=== PATIENT | female | born 1955 | race Caucasian/White ===

== ENCOUNTER 2016-12-16 22:13 | Inpatient (IN) | payer MEDICARE ==
--- NOTE | 2016-12-16 23:58 | ER Document Report ---
ED Neuro Symptoms/Deficit - General Chief Complaint: Altered Mental Status Stated Complaint: ALTERED MENTAL STATUS Time Seen by Provider: 12/16/16 23:40 Notes: Patient is a 61-year-old female who comes emergency department for chief complaint of altered mental status, daughter is with patient, she states that patient started having difficulty answering questions and started making bizarre statements at about 11 AM, she was seen at 1:30 PM by her primary care provider who recommended admission to the hospital for further evaluation but she declined at that time. Daughter states she has worsened and now she cannot make any statements or answer any questions appropriately. She is still following directions appropriately. She is not on a blood thinner, she has not had any injury that the daughter is aware about, past medical history of hypertension, seizure, COPD, no cardiovascular disease reported. She is also on pain medication including oxycodone and Cymbalta for chronic low back pain. Daughter states she does not think she took anything strange. TRAVEL OUTSIDE OF THE [place] IN LAST 30 DAYS: No - Related Data Allergies/Adverse Reactions: Sulfa (Sulfonamide Antibiotics) Allergy (Mild, Verified 10/01/14 09:41) Hives Past Medical History - General Information source: Patient - Social History Smoking Status: Never Smoker Frequency of alcohol use: None Drug Abuse: None Lives with: Family Family History: Reviewed & Not Pertinent, Hypertension - Past Medical History Cardiac Medical History: Reports: Hx Hypertension Pulmonary Medical History: Reports: Hx COPD Renal/ Medical History: Denies: Hx Peritoneal Dialysis GI Medical History: Reports: Hx Gastroesophageal Reflux Disease, Hx Endoscopy Musculoskeltal Medical History: Reports Hx Arthritis Psychiatric Medical History: Reports: Hx Depression Past Surgical History: Reports: Hx Abdominal Surgery, Hx Section, Hx Cholecystectomy, Hx Gynecologic Surgery - bladder tact - Immunizations Immunizations up to date: Yes Hx Diphtheria, Pertussis, Tetanus Vaccination: - unknown Hx Pneumococcal Vaccination: 11/21/10 Review of Systems - Review of Systems Constitutional: No symptoms reported EENT: No symptoms reported Cardiovascular: No symptoms reported Respiratory: No symptoms reported Gastrointestinal: No symptoms reported Genitourinary: No symptoms reported Female Genitourinary: No symptoms reported Musculoskeletal: No symptoms reported Skin: No symptoms reported Hematologic/Lymphatic: No symptoms reported Neurological/Psychological: See HPI Physical Exam - Vital signs Vitals: Temp Pulse Resp BP Pulse Ox 98.3 F 79 18 138/72 H 97 10/20/17 22:32 12/16/16 22:32 12/16/16 22:32 12/16/16 22:32 12/16/16 22:32 Interpretation: Normal - General General appearance: Appears well, Alert - HEENT Head: Normocephalic, Atraumatic Eyes: Normal Pupils: PERRL - Respiratory Respiratory status: No respiratory distress Chest status: Nontender Breath sounds: Normal Chest palpation: Normal - Cardiovascular Rhythm: Regular Heart sounds: Normal auscultation Murmur: No - Abdominal Inspection: Normal Distension: No distension Bowel sounds: Normal Tenderness: Nontender Organomegaly: No organomegaly - Back Back: Normal, Nontender - Extremities General upper extremity: Normal inspection, Nontender, Normal color, Normal ROM , Normal temperature General lower extremity: Normal inspection, Nontender, Normal color, Normal ROM , Normal temperature, Normal weight bearing. No: Brenda's sign - Neurological Ivet Coma Scale Eye Opening: Spontaneous [place] Coma Scale Verbal: Incomprehensible [place]vet Coma Scale Motor: Obeys Commands Ivet Coma Scale Total: 12 Speech: Expressive aphasia Cranial nerves: No: Facial palsy, Forehead sparing, Gaze palsy, Sensory deficit Cerebellar coordination: Normal Motor strength normal: LUE, RUE, LLE, RLE Additional motor exam normals: Equal door liner Sensory: Normal - Psychological Associated symptoms: Normal affect, Normal mood - Skin Skin Temperature: Warm Skin Moisture: Dry Skin Color: Normal Course - Re-evaluation Re-evalutation: Patient does cooperate with my instructions, however she cannot answer any question without stating something bizarre. Questionable Broca's aphasia. CAT scan of the head is negative for acute hemorrhagic stroke, shows no acute abnormalities, chest x-ray unremarkable, CBC unremarkable. Chemistry shows some hyponatremia which is similar to prior, creatinine kinase is actually somewhat elevated at 900s, patient was given IV fluids. Troponin unremarkable. EKG with no acute abnormalities. Urinalysis unremarkable. No fever, vital signs unremarkable, no evidence of meningitis with no nuchal rigidity on examination. Urine drug screen still pending, per daughter patient did not take anything out of the ordinary. Patient remains unchanged on reexamination. Patient was discussed with Dr. Daniel. Discussed with Dr. Blanco, on-call for patient's provider, patient will be admitted to the hospital, requests MRI be ordered now to be performed in the morning. - Vital Signs Vital signs: Temp Pulse Resp BP Pulse Ox 97.6 F 77 16 126/73 H 96 12/17/16 04:48 12/17/16 04:48 12/17/16 03:45 12/17/16 04:48 12/17/16 04:48 - Laboratory Result Diagrams: 12/16/16 23:59 12/16/16 23:59 Laboratory results interpreted by me: 12/16/16 12/16/16 12/16/16 23:59 23:59 23:59 MCH 34.4 H MCHC 36.8 H Sodium 126.3 L Potassium 3.4 L Chloride 84 L Carbon Dioxide 34 H Glucose 117 H Direct Bilirubin 0.5 H AST 47 H Creatine Kinase 926 H CK-MB (CK-2) 10.00 H Urine Blood Salicylates < 1.0 L Acetaminophen < 10 L 12/17/16 01:50 MCH MCHC Sodium Potassium Chloride Carbon Dioxide Glucose Direct Bilirubin AST Creatine Kinase CK-MB (CK-2) Urine Blood SMALL H Salicylates Acetaminophen Discharge - Discharge Clinical Impression: Aphasia Altered mental status Qualifiers: Altered mental status type: unspecified Qualified Code(s): R41.82 - Altered mental status, unspecified Condition: Stable Disposition: ADMITTED INPATIENT Admitting Provider: Jeromy Blanco for Dr. Pinzon Unit Admitted: Telemetry
[2016-12-17 00:11] LABS: ABSOLUTE BASOPHILS # (AUTO) 0.1 10^3/uL (0.0-0.2); ABSOLUTE EOSINOPHILS # (AUTO) 0.2 10^3/uL (0.0-0.6); ABSOLUTE LYMPHOCYTES (AUTO) 2.3 10^3/uL (0.5-4.7); ABSOLUTE MONOCYTES (AUTO) 0.8 10^3/uL (0.1-1.4); BASOPHILS % (AUTO) 0.7 % (0-2); EOSINOPHILS % (AUTO) 2.8 % (0-6); HEMATOCRIT 36.5 % (36.0-47.0); HEMOGLOBIN 13.5 g/dL (12.0-15.5); LYMPHOCYTES % (AUTO) 31.1 % (13-45); MEAN CORPUSCULAR HEMOGLOBIN 34.4 pg (27.0-33.4); MEAN CORPUSCULAR HGB CONC 36.8 g/dL (32.0-36.0); MEAN CORPUSCULAR VOLUME 93 fl (80-97); MONOCYTES % (AUTO) 10.5 % (3-13); RED BLOOD COUNT 3.91 10^6/uL (3.72-5.28); RED CELL DISTRIBUTION WIDTH 12.9 % (11.5-14.0); SEGMENTED NEUTROPHILS % (AUTO) 54.9 % (42-78); WHITE BLOOD COUNT 7.4 10^3/uL (4.0-10.5)
[2016-12-17 00:15] LABS: PROTHROMBIN TIME 12.9 SEC (11.4-15.4)
[2016-12-17 00:16] LABS: PARTIAL THROMBOPLASTIN TIME 28.7 SEC (23.5-35.8)
[2016-12-17 00:26] LABS: ALANINE AMINOTRANSFERASE 50 U/L (9-52); ALBUMIN 4.5 g/dL (3.5-5.0); ALKALINE PHOSPHATASE 63 U/L (38-126); ANION GAP 8 (5-19); ASPARTATE AMINO TRANSFERASE 47 U/L (14-36); BILIRUBIN,DIRECT 0.5 mg/dL (0.0-0.4); BILIRUBIN,TOTAL 0.7 mg/dL (0.2-1.3); BLOOD UREA NITROGEN 12 mg/dL (7-20); CALCIUM 9.5 mg/dL (8.4-10.2); CARBON DIOXIDE 34 mmol/L (22-30); CHLORIDE 84 mmol/L (98-107); CREATINE KINASE 926 U/L (30-135); CREATININE RESULT 0.66 mg/dL (0.52-1.25); GLUCOSE 117 mg/dL (75-110); POTASSIUM 3.4 mmol/L (3.6-5.0); SODIUM 126.3 mmol/L (137-145); TOTAL PROTEIN 6.9 g/dL (6.3-8.2)
[2016-12-17 00:29] LABS: ALCOHOL < 10 mg/dL (NONE DETECTED)
[2016-12-17] MEDS ORDERED: NORMAL SALINE 1000 ML 1,000 ML IV ONE (00:31)
[2016-12-17 00:38] LABS: TROPONIN I < 0.012 ng/mL
--- NOTE | 2016-12-17 01:35 | RADIOLOGY REPORT (SQ) ---
EXAM DESCRIPTION: CT HEAD WITHOUT COMPLETED DATE/TIME: 12/17/2016 1:08 am REASON FOR STUDY: altered mental status , difficulty ambulating. COMPARISON: MRI head 10/01/2014, CT head 08/30/2013. TECHNIQUE: Axial images acquired through the brain without intravenous contrast. Images reviewed wi th bone, brain and subdural windows. Images stored on PACS. All CT scanners at this facility use dose modulation, iterative reconstruction, and/or weight based d osing when appropriate to reduce radiation dose to as low as reasonably achievable (ALARA). [facility]: Dose Right [facility]: CareDose [facility]: Dose Right [facility]: Teradose 4D [facility]: [employer] Technologies RADIATION DOSE: Up-to-date CT equipment and radiation dose reduction techniques were employed. CTDIv ol: 64.6 mGy. DLP: 1163 mGy-cm. mGy. LIMITATIONS: None. FINDINGS: VENTRICLES: Normal size and contour. CEREBRUM: No mass effect. No hemorrhage. No midline shift. Normal mcguire/white matter differentiatio n. No evidence for acute territorial infarction. CEREBELLUM: No mass effect. No hemorrhage. No alteration of density. No evidence for acute infarct ion. EXTRAAXIAL SPACES: No fluid collections. ORBITS AND GLOBE: Symmetrical contour of the globes. CALVARIUM: No depressed skull fracture. PARANASAL SINUSES: No air-fluid level. SOFT TISSUES: No hematoma. IMPRESSION: No acute intracranial hemorrhage or acute territorial infarct. EVIDENCE OF ACUTE STROKE: NO. COMMENT: Quality ID # [id number]: Final reports with documentation of one or more dose reduction techniques (e.g., Automated exposure control, adjustment of the mA and/or kV according to patient size, use of iterative reconstruction technique) TECHNICAL DOCUMENTATION: JOB ID: [id number] [employer]- All Rights Reserved
--- NOTE | 2016-12-17 01:55 | RADIOLOGY REPORT (SQ) ---
EXAM DESCRIPTION: CHEST SINGLE VIEW COMPLETED DATE/TIME: 12/17/2016 1:19 am REASON FOR STUDY: altered mental status COMPARISON: Chest x-ray 10/01/2014. EXAM PARAMETERS: NUMBER OF VIEWS: One view. TECHNIQUE: Single frontal radiographic view of the chest acquired. RADIATION DOSE: NA LIMITATIONS: None. FINDINGS: LUNGS AND PLEURA: No consolidation, pneumothorax or pleural effusion. MEDIASTINUM AND HILAR STRUCTURES: No masses. Contour normal. HEART AND VASCULAR STRUCTURES: Heart normal in size. Normal vasculature. BONES: No acute findings. HARDWARE: None in the chest. IMPRESSION: No acute radiographic finding in the chest. TECHNICAL DOCUMENTATION: JOB ID: [id number]
[2016-12-17 02:12] LABS: APPEARANCE,URINE CLEAR; BILIRUBIN,URINE NEGATIVE (NEGATIVE); GLUCOSE, URINE NEGATIVE (NEGATIVE); KETONES,URINE NEGATIVE (NEGATIVE); LEUKOCYTE ESTERASE,URINE NEGATIVE (NEGATIVE); NITRITE,URINE NEGATIVE (NEGATIVE); PROTEIN,URINE NEGATIVE (NEGATIVE); URINE SPECIFIC GRAVITY 1.003; UROBILINOGEN,URINE NEGATIVE mg/dL (<2.0)
[2016-12-17 02:13] LABS: RBC,URINE RARE /HPF; WBC,URINE RARE /HPF
[2016-12-17 02:37] LABS: URINE BARBITURATES SCREEN NEGATIVE; URINE METHADONE SCREEN NEGATIVE; URINE OPIATES LOW NEGATIVE; URINE PHENCYCLIDINE SCREEN NEGATIVE
[2016-12-17] MEDS ORDERED: ACETAMINOPHEN 325 MG TABLET PO PRN (03:43)
[2016-12-17] MEDS ORDERED: IPRATROPIUM/ALBUTEROL 0.5-2.5 MG/3 ML AMPUL NEB PRN (03:43)
[2016-12-17 04:52] LABS: TROPONIN I < 0.012 ng/mL
[2016-12-17] MEDS: LANSOPRAZOLE 15 MG TAB.RAP.DR PO SCH ×2 (06:32→17:11)
[2016-12-17] MEDS: HEPARIN SOD (PORCINE) 5,000 UNIT/ML 1 ML SYRINGE SUBCUT SCH ×2 (06:32→14:11)
[2016-12-17] MEDS: NORMAL SALINE 1000 ML 1,000 ML IV PRN ×2 (06:32→17:12)
[2016-12-17] MEDS ORDERED: LORAZEPAM INJ 2 MG/1 ML VIAL ONE (09:20)
[2016-12-17] MEDS ORDERED: DOCUSATE SODIUM 100 MG/10 ML UDC PO SCH (10:00)
[2016-12-17] MEDS ORDERED: LORAZEPAM INJ 2 MG/1 ML VIAL IV ONE (10:00)
--- NOTE | 2016-12-17 10:26 | RADIOLOGY REPORT (SQ) ---
EXAM DESCRIPTION: MRI HEAD COMBO COMPLETED DATE/TIME: 12/17/2016 10:06 am REASON FOR STUDY: AMS, ? Broca's Aphasia COMPARISON: Brain CT scan dated 12/17/2016 TECHNIQUE: Multiplanar imaging includes noncontrasted T1, T2, FLAIR, and Diffusion with ADC map seq uences. Contrast enhanced T1 images. Images stored on PACS. CONTRAST TYPE AND DOSE: 19 mL MultiHance RENAL FUNCTION: GFR > 60. LIMITATIONS: Study is limited due to the patient's condition. Motion artifact is identified on a co uple of the sequences. FINDINGS: ANATOMY: No anomalies. Normal vascular flow voids. Pituitary fossa normal. CSF SPACES: Normal size and contour. No hemorrhage. CEREBRUM: A few high-signal intensity lesions scattered throughout the white matter on FLAIR imaging with distribution suggesting chronic microvascular ischemic change. Sulci and gyri normal in size and contour. No evidence of hemorrhage, mass or extraaxial fluid collection. No enhancing lesions. POSTERIOR FOSSA: No signal alteration. No hemorrhage. No edema, masses or mass effect. Internal audit ory canals, cerebello-pontine angles, mastoids normal. DIFFUSION: Negative for acute or subacute infarction. ORBITS: No masses. Globes normal. PARANASAL SINUSES: No fluid levels. Mucosa normal. OTHER: No other significant finding. IMPRESSION: NO ENHANCING LESIONS. MINIMAL MICROVASCULAR ISCHEMIC CHANGE. OTHERWISE NORMAL STUDY. EVIDENCE OF ACUTE STROKE: NO. TECHNICAL DOCUMENTATION: JOB ID: [id number]- All Rights Reserved
--- NOTE | 2016-12-17 10:32 | EKG REPORT ---
SEVERITY:- ABNORMAL ECG - SINUS RHYTHM FIRST DEGREE AV BLOCK : Confirmed by: Daria Dotson MD 17-Dec-2016 10:32:04
[2016-12-17] MEDS ORDERED: GABAPENTIN 300 MG CAPSULE PO PRN ×2 (10:41→12:04)
[2016-12-17] MEDS: DOCUSATE SODIUM 100 MG CAPSULE PO SCH ×2 (11:28→17:13)
[2016-12-17 11:40] LABS: ANION GAP 10 (5-19); BLOOD UREA NITROGEN 10 mg/dL (7-20); CALCIUM 9.3 mg/dL (8.4-10.2); CARBON DIOXIDE 27 mmol/L (22-30); CHLORIDE 93 mmol/L (98-107); CREATININE RESULT 0.54 mg/dL (0.52-1.25); GLUCOSE 144 mg/dL (75-110); POTASSIUM 3.8 mmol/L (3.6-5.0); SODIUM 129.5 mmol/L (137-145)
--- NOTE | 2016-12-17 11:42 | PDOC H&P ---
History of Present Illness Admission Date/PCP: 12/17/16 03:43 KAITLYNN POSEY MD Patient complains of: Altered mental status History of Present Illness: JAX PARIS is a 61 year old female This is a 61-year-old female patient of Dr. Posey with a significant history of the hypertension and history of the chronic pain syndromes and a chronic back pain currently see a [id number] pain management went to the Dr. Posey's office couple of days back with not making sense when patients talk with her ex- and Dr. Posey was offered to admit in the hospital but patients refused to do that call her daughter and yesterday the patient's kind of more confused and brought to the emergency department According to the daughter since last 1 or 2 weeks patient is getting confused and the patient sometimes not making any sense when the talk and sometimes patients pretty much completely in her normal state and patient's never been like this before Patient is currently living with her friend since last 1 week in the daughter is not sure whether patients take the medication or not pt significant polypharmacy and taking the several pain medications and the psych medications Patient's recently a change the Percocet to the morphine but patient is unable to tolerate to change back to the oxycodone patient usually see it can still cause pain management for that According to the doctor the meloxicam is only new drugs was put recently When I saw the patient on the floor patient is alert awake but patients not making any sense when the talking patients talk like child but other than that patient's denied any complaint Patient's initial CT head and MRI of the head is all negative Patient's sodium is only low and the patient have a same problem with the hyponatremia in the past not sure was the cause but definitely patients taking the hydrochlorothiazide for the blood pressures may contribute Also taking the Cymbalta and the psych medication also may be contribute Currently patient started on IV fluid Patients have a no fever and white count is completely normal and no sign of any meningitis Very extensive discussions with the daughter on the bedside get all detailed histories in the discussed with the all the test reports and also concerned the Dr. Weir and the psychiatrist I do not think the patient needed at this point lumbar puncture until we get the clear this with polypharmacy and the correct the sodium and if is still persistent behavior issues need a lumbar punctures Have a significant degenerative disease on the back and also the C-spine Past Medical History Cardiac Medical History: Reports: Hypertension Pulmonary Medical History: Reports: Chronic Obstructive Pulmonary Disease (COPD) GI Medical History: Reports: Gastroesophageal Reflux Disease Musculoskeltal Medical History: Reports: Arthritis, Gout Musculoskeletal History Note: Chronic back pain and chronic pain syndrome Psychiatric Medical History: Reports: Depression Past Surgical History Past Surgical History: Reports: Section, Cholecystectomy, Other - C- spine surgery Social History Lives with: Family Smoking Status: Never Smoker Frequency of Alcohol Use: None Hx Recreational Drug Use: No Drugs: None Hx Prescription Drug Abuse: No - Advance Directive Resuscitation Status: Full Code Family History Family History: Reviewed & Not Pertinent, Hypertension Parental Family History Reviewed: Yes Children Family History Reviewed: Yes Sibling(s) Family History Reviewed.: Yes Medication/Allergy Home Medications: Alprazolam [Xanax] 1 mg PO Q8 12/17/16 Duloxetine HCl [Cymbalta] 60 mg PO Q12 12/17/16 Fluticasone Propionate [Flonase Nasal [place] 50 Mcg/[place] 16 gm] 1 spray NAREB DAILY 12/17/16 Gabapentin [Neurontin] 600 mg PO 5XDP PRN 12/17/16 Ibuprofen [Motrin 800 mg Tablet] 800 mg PO TIDP PRN 12/17/16 Levocetirizine Dihydrochloride [Xyzal] 5 mg PO QPM 12/17/16 Lisinopril/Hydrochlorothiazide [Lisinopril-Hctz 20-25 mg Tab] 1 tab PO DAILY Meloxicam [Mobic] 7.5 mg PO DAILY 12/17/16 Omeprazole 40 mg PO ACBRKFST 12/17/16 Oxycodone HCl 15 mg PO QIDP PRN 12/17/16 Phentermine HCl 30 mg PO DAILY 12/17/16 Tizanidine HCl [Zanaflex 4 Mg Tablet] 4 mg PO Q8HP PRN 12/17/16 Allergies/Adverse Reactions: Sulfa (Sulfonamide Antibiotics) Allergy (Mild, Verified 10/01/14 09:41) Hives Review of Systems Constitutional: ABSENT: chills, fever(s), headache(s), weight gain, weight loss Eyes: ABSENT: visual disturbances Ears: ABSENT: hearing changes Cardiovascular: ABSENT: chest pain, dyspnea on exertion, edema, orthropnea, palpitations Respiratory: ABSENT: cough, hemoptysis Gastrointestinal: ABSENT: abdominal pain, constipation, diarrhea, hematemesis, hematochezia, nausea, vomiting Genitourinary: ABSENT: dysuria, hematuria Musculoskeletal: ABSENT: joint swelling Integumentary: ABSENT: rash, wounds Neurological: PRESENT: confusion. ABSENT: abnormal gait, abnormal speech, dizziness, focal weakness, syncope Psychiatric: ABSENT: anxiety, depression, homidical ideation, suicidal ideation Endocrine: ABSENT: cold intolerance, heat intolerance, menstrual abnormalities, polydipsia, polyuria Hematologic/Lymphatic: ABSENT: easy bleeding, easy bruising, lymphadenopathy Physical Exam Vital Signs: Temp Pulse Resp BP Pulse Ox 97.8 F 80 18 142/67 H 100 12/17/16 07:18 12/17/16 07:18 12/17/16 07:18 12/17/16 07:18 12/17/16 07:18 Intake & Output 12/16/16 12/17/16 12/18/16 06:59 06:59 06:59 Intake Total 50 Balance 50 General appearance: PRESENT: no acute distress, well-developed, well-nourished Head exam: PRESENT: atraumatic, normocephalic Eye exam: PRESENT: conjunctiva pink, EOMI, PERRLA. ABSENT: scleral icterus Ear exam: PRESENT: normal external ear exam Mouth exam: PRESENT: moist, tongue midline Neck exam: PRESENT: full ROM. ABSENT: carotid bruit, JVD, lymphadenopathy, thyromegaly Respiratory exam: PRESENT: clear to auscultation bacilio Cardiovascular exam: PRESENT: RRR. ABSENT: diastolic murmur, rubs, systolic murmur Pulses: PRESENT: normal dorsalis pedis pul, +2 pedal pulses bilateral Vascular exam: PRESENT: normal capillary refill GI/Abdominal exam: PRESENT: normal bowel sounds, soft. ABSENT: distended, guarding, mass, organolmegaly, rebound, tenderness Rectal exam: PRESENT: deferred Extremities exam: ABSENT: full ROM, left AKA, right AKA, left BKA, right BKA, calf tenderness, joint swelling, pedal edema, tenderness, other Musculoskeletal exam: PRESENT: ambulatory Neurological exam: PRESENT: alert, altered, awake, reflexes normal, CN II-XII grossly intact, normal gait. ABSENT: motor sensory deficit Psychiatric exam: PRESENT: appropriate affect, normal mood. ABSENT: homicidal ideation, suicidal ideation Skin exam: PRESENT: dry, intact, warm. ABSENT: cyanosis, rash Results Laboratory Results: 12/17/16 12/17/16 04:15 04:15 Serum Osmolality 261 L Ammonia < 8.7 L 12/17/16 12/17/16 04:15 04:15 Creatine Kinase 912 H CK-MB (CK-2) 11.30 H Troponin I < 0.012 Impressions: Chest X-Ray 12/16/16 00:00 IMPRESSION: No acute radiographic finding in the chest. Head CT 12/17/16 00:00 IMPRESSION: No acute intracranial hemorrhage or acute territorial infarct. EVIDENCE OF ACUTE STROKE: NO. Head MRI 12/17/16 02:35 IMPRESSION: NO ENHANCING LESIONS. MINIMAL MICROVASCULAR ISCHEMIC CHANGE. OTHERWISE NORMAL STUDY. EVIDENCE OF ACUTE STROKE: NO. Assessment & Plan - Diagnosis (1) Altered mental status Qualifiers: Altered mental status type: unspecified Qualified Code(s): R41.82 - Altered mental status, unspecified Is this a current diagnosis for this admission?: Yes Plan: Possible most likely a electrolytes imbalance from the hyponatremia with possible polypharmacy Order the urine sodium and osmolality MRI of the head is negative We will consult pain management for further adjustment of the medications and consult the psych The patient is not improved next 24 hours with the correction of the sodium patients probably need a lumbar puncture for further evaluations Is currently on no fever and no sign of any meningitis and the patient's does not have any other neurological symptoms Discussed with the daughter (2) Hyponatremia Is this a current diagnosis for this admission?: Yes Plan: Possible from the hydrochlorothiazide and other medications will currently hold the medications (3) Seizure Is this a current diagnosis for this admission?: Yes Plan: According to the daughter patient is not taking the Keppra for a long time because patients thinks that too much medications and daughter is not aware about any seizures activity We will get the EEG ordered on Monday and may be watch for any seizures activity (4) Tobacco abuse Is this a current diagnosis for this admission?: Yes (5) COPD (chronic obstructive pulmonary disease) Qualifiers: COPD type: chronic bronchitis Is this a current diagnosis for this admission?: Yes Plan: Denies the need of nebulizer treatment (6) Depression Qualifiers: Depression Type: unspecified Qualified Code(s): F32.9 - Major depressive disorder, single episode, unspecified Is this a current diagnosis for this admission?: Yes Plan: Continues on Cymbalta 60 mg p.o. daily and consult the psych for further evaluations and to hold the Xanax (7) GERD (gastroesophageal reflux disease) Qualifiers: Esophagitis presence: without esophagitis Qualified Code(s): K21.9 - Gastro -esophageal reflux disease without esophagitis Is this a current diagnosis for this admission?: Yes Plan: Continues to PPI (8) Chronic pain syndrome Is this a current diagnosis for this admission?: Yes Plan: We consult the pain management - Time Time Spent: 50 to 70 Minutes Medications reviewed and adjusted accordingly: Yes Anticipated discharge: Home Within: Other - Inpatient Certification Medical Necessity: Need Close Monitoring Due to Risk of Patient Decompensation, Need For IV Fluids Post Hospital Care: D/C [facility] Documentation - Plan Summary Plan Summary: Very extensive discussions with the daughter about the patient's current condition and all the test results and the plan. See other MD orders
[2016-12-17 11:52] LABS: CREATINE KINASE MB 8.18 ng/mL (<4.55)
[2016-12-17 11:56] LABS: TROPONIN I < 0.012 ng/mL
--- NOTE | 2016-12-17 16:47 | PSYCHOLOGICAL NOTE ---
Psych Note - Psych Note Psych Note: Patient is a 61-year-old female who comes emergency department for chief complaint of altered mental status, daughter is with patient, she states that patient started having difficulty answering questions and started making bizarre statements at about 11 AM, she was seen at 1:30 PM by her primary care provider who recommended admission to the hospital for further evaluation but she declined at that time. Daughter states she has worsened and now she cannot make any statements or answer any questions appropriately. She is still following directions appropriately. She is not on a blood thinner, she has not had any injury that the daughter is aware about, past medical history of hypertension, seizure, COPD, no cardiovascular disease reported. She is also on pain medication including oxycodone and Cymbalta for chronic low back pain. Daughter states she does not think she took anything strange. Patient is currently in acute psychosis. Patient is observed laying in the bed flailing her arms about talking when no one is in her room and laughing. Patient will be evaluated at a later date.
[2016-12-17 17:51] LABS: CREATINE KINASE MB 6.75 ng/mL (<4.55)
[2016-12-17 17:52] LABS: TROPONIN I < 0.012 ng/mL
--- NOTE | 2016-12-17 18:32 | CONSULTATION REPORT E ---
Consultation Report NAME: JAX PARIS : 1955 AGE: 61Y DATE: 12/17/2016 328 A TO: ABDI LUNA M.D. FROM: Requesting Physician PRIMARY CARE PHYSICIAN: Dr. Praveen Pinzon CHIEF COMPLAINT: Altered mental status. HISTORY: This is a 61-year-old female with a history of chronic pain on multiple medications, who was noted by the daughter to have slow and progressive confusion for the past 1 to 2 weeks. She eventually presented to the emergency room because of persistent and worsening confusion. Upon admission, laboratory studies were performed as well as radiographic studies. CT and MRI of the brain were normal. Hyponatremia was noted with a very moderately elevated CK in the 700's. She is noted to be on a number of pain medications including oxycodone 15 mg 4 to 5 times per day and gabapentin 600 mg 5 times per day. It is unclear if there have been any immediate changes. Urine drug screening in the data administrator of 12/17 was negative for opioids, methadone, illicit drugs, as well as benzodiazepines, suggesting no recent ingestion of those agents. It should be noted that there were no overt stigmata of withdrawal such as agitation, diaphoresis, nausea, or vomiting associated with her altered mental status. Other medication for which concern was raised regarding her altered mental status included some antidepressants. PAST MEDICAL HISTORY: 1. Cardiac negative with the exception of hypertension. 2. Pulmonary history is remarkable for COPD. 3. GI: She is obese with gastric reflux. 4. Musculoskeletal is positive for arthritis and gout. She is also positive for chronic neck and back pain and is status post a cervical fusion. 5. Psychiatric history is remarkable for depression which is being managed medically. PAST SURGICAL HISTORY: 1. section. 2. Cholecystectomy. 3. Cervical spine fusion. SOCIAL HISTORY: She apparently lives alone until the last week where she was staying with a friend. She has not been known to be a user of alcohol or cigarettes or recreational drugs, and she is cared for on an outpatient basis by [facility] and apparently has a history of compliance. FAMILY HISTORY: Remarkable for hypertension. ALLERGIES: She does have allergies to SULFA drugs. MEDICATIONS: Other pain medications and medications used at home include: 1. Alprazolam 1 mg q.8 hours. 2. Duloxetine 60 mg q.12. 3. *------* nasal spray. 4. Gabapentin 600 mg 5 times per day. 5. Ibuprofen 800 mg p.r.n. t.i.d. 6. Levocetirizine (Xyzal) 5 mg q.a.m. 7. Lisinopril 20/25 one tablet daily. 8. Meloxicam 7.5 mg daily. 9. Omeprazole 40 mg daily. 10. Oxycodone 15 mg q.i.d. p.r.n. 11. Phentermine 30 mg daily. 12. Tizanidine 4 mg q.8 hours. REVIEW OF SYSTEMS: CONSTITUTIONAL: Negative fevers, chills, neck ache, or headache. EYES: No complaints of visual disturbances. EARS: Unremarkable. CARDIAC: Negative for palpitations or chest pain. RESPIRATORY: Some shortness of breath with exertion but no cough or acute changes. GASTROINTESTINAL: Obesity, no constipation. GENITOURINARY: Negative. MUSCULOSKELETAL: Negative with the exception of that described in the H and P. SKIN: Negative bruising or rash. NEUROLOGIC: No prior history of stroke or seizures. PSYCHIATRIC: Depression; no suicidal ideations were reported on intake. ENDOCRINE: Negative. HEMATOLOGICAL: Negative. PHYSICAL EXAMINATION: GENERAL: She is awake and alert, however, disoriented. Her speech is clear and fluent. VITAL SIGNS: Stable. HEAD: Does not reveal any trauma. EYES: Unremarkable. EOM's are full. Pupils are round and reactive. EARS: Normal hearing to finger rub. MOUTH: Moist mucosa. Tongue protrudes in the midline. Uvula is midline. NECK: Supple without meningeal signs or lymphadenopathy. RESPIRATORY: Has good excursion to deep inspiration. CARDIAC: Regular rhythm. Peripheral pulses were not palpated in the feet. ABDOMEN: Notably obese and nontender. EXTREMITIES: Symmetrical, well developed, no pain with straight leg raise on the right or the left. NEUROLOGIC: Reveals reflexes absent in the knees and the ankles. Toes are downgoing on the Babinski. SKIN: No rashes or bruising. LABORATORY DATA: As previously mentioned in the chart. Current sodium is 129. IMPRESSION: 1. Altered mental status. I believe this most likely is related to the mild hyponatremia in conjunction with the medications which the patient is on. Most likely this would represent the effects of the gabapentin and the alprazolam. She is negative in urine drug screening for opioids and benzodiazepines, so the time of last ingestion is unclear but supports that these are not part of the altered mental status scenario. 2. Other conditions include COPD, depression, gastroesophageal reflux disease which are currently being medically managed. RECOMMENDED TREATMENT: At this time is to continue to hold medications at their present levels, specifically the gabapentin and the antidepressants, and monitor for changes in mental status. Utilization of benzodiazepines, Ativan on an as needed basis for agitation can be continued, and may consider restarting opioids depending upon mental status and appropriate complaints from the patient to warrant such further intervention. No other recommendations are made. DICTATING PHYSICIAN: ABDI LUNA M.D. [id number] PHY#: [id number] ID: [id number] JOB#: [id number] ACCT: [id number] cc:ABDI LUNA M.D. >
[2016-12-18] MEDS: HEPARIN SOD (PORCINE) 5,000 UNIT/ML 1 ML SYRINGE SUBCUT SCH ×4 (00:30→21:19)
[2016-12-18] MEDS: LANSOPRAZOLE 15 MG TAB.RAP.DR PO SCH ×2 (06:29→17:39)
[2016-12-18 07:05] LABS: ABSOLUTE LYMPHOCYTES (AUTO) 1.5 10^3/uL (0.5-4.7); ABSOLUTE MONOCYTES (AUTO) 0.5 10^3/uL (0.1-1.4); ABSOLUTE NEUT (AUTO) 7.2 10^3/uL (1.7-8.2); BASOPHILS % (AUTO) 0.4 % (0-2); EOSINOPHILS % (AUTO) 0.2 % (0-6); HEMATOCRIT 40.9 % (36.0-47.0); HEMOGLOBIN 14.6 g/dL (12.0-15.5); HGB HCT DIFFERENCE 2.9; LYMPHOCYTES % (AUTO) 15.9 % (13-45); MEAN CORPUSCULAR HEMOGLOBIN 33.6 pg (27.0-33.4); MEAN CORPUSCULAR HGB CONC 35.8 g/dL (32.0-36.0); MEAN CORPUSCULAR VOLUME 94 fl (80-97); MONOCYTES % (AUTO) 5.3 % (3-13); RED BLOOD COUNT 4.36 10^6/uL (3.72-5.28); RED CELL DISTRIBUTION WIDTH 12.7 % (11.5-14.0); SEGMENTED NEUTROPHILS % (AUTO) 78.2 % (42-78); WHITE BLOOD COUNT 9.1 10^3/uL (4.0-10.5)
[2016-12-18 07:28] LABS: ANION GAP 14 (5-19); BLOOD UREA NITROGEN 8 mg/dL (7-20); CALCIUM 9.3 mg/dL (8.4-10.2); CARBON DIOXIDE 24 mmol/L (22-30); CHLORIDE 95 mmol/L (98-107); CREATININE RESULT 0.52 mg/dL (0.52-1.25); GLUCOSE 110 mg/dL (75-110); POTASSIUM 3.7 mmol/L (3.6-5.0); SODIUM 132.6 mmol/L (137-145)
[2016-12-18] MEDS ORDERED: LANSOPRAZOLE 30 MG TAB.RAP.DR PO SCH (08:00)
[2016-12-18] MEDS: FLUTICASONE NASAL SPRAY 50 MCG/SPRY 120 SPRAY/16 GM NAREB SCH (09:17)
[2016-12-18] MEDS: DOCUSATE SODIUM 100 MG CAPSULE PO SCH ×2 (09:18→17:40)
[2016-12-18] MEDS ORDERED: DULOXETINE HCL 30 MG CAPSULE.DR PO SCH (10:00)
--- NOTE | 2016-12-18 13:51 | PDOC PROGRESS REPORT ---
Subjective Progress Note for:: 12/18/16 Subjective:: Patient is currently doing same still very disoriented but no fever and no other symptoms. Patient seen by the pain management and suggested continues to monitor. Patient seen by the psych waiting to get better. Patient's sodium level is 132. Physical Exam Vital Signs: Temp Pulse Resp BP Pulse Ox 98.4 F 90 20 158/79 H 99 12/18/16 11:19 12/18/16 11:19 12/18/16 11:19 12/18/16 11:19 12/18/16 11:19 Intake & Output 12/17/16 12/18/16 12/19/16 06:59 06:59 06:59 Intake Total 50 3305 222 Output Total 300 Balance 50 3005 222 Weight 89.2 kg General appearance: PRESENT: no acute distress, well-developed, well-nourished Head exam: PRESENT: atraumatic, normocephalic Eye exam: PRESENT: conjunctiva pink, EOMI, PERRLA. ABSENT: scleral icterus Ear exam: PRESENT: normal external ear exam Mouth exam: PRESENT: moist, tongue midline Neck exam: PRESENT: full ROM. ABSENT: carotid bruit, JVD, lymphadenopathy, thyromegaly Respiratory exam: PRESENT: clear to auscultation bacilio Cardiovascular exam: PRESENT: RRR. ABSENT: diastolic murmur, rubs, systolic murmur Pulses: PRESENT: normal dorsalis pedis pul, +2 pedal pulses bilateral Vascular exam: PRESENT: normal capillary refill GI/Abdominal exam: PRESENT: normal bowel sounds, soft. ABSENT: distended, guarding, mass, organolmegaly, rebound, tenderness Rectal exam: PRESENT: deferred Extremities exam: ABSENT: pedal edema Neurological exam: PRESENT: alert, altered, awake. ABSENT: motor sensory deficit Psychiatric exam: PRESENT: appropriate affect, normal mood. ABSENT: homicidal ideation, suicidal ideation Skin exam: PRESENT: dry, intact, warm. ABSENT: cyanosis, rash Results Laboratory Results: 12/18/16 06:16 12/18/16 06:16 12/18/16 12/18/16 06:16 06:16 WBC 9.1 RBC 4.36 Hgb 14.6 Hct 40.9 MCV 94 MCH 33.6 H MCHC 35.8 RDW 12.7 Plt Count 280 Seg Neutrophils % 78.2 H Lymphocytes % 15.9 Monocytes % 5.3 Eosinophils % 0.2 Basophils % 0.4 Absolute Neutrophils 7.2 Absolute Lymphocytes 1.5 Absolute Monocytes 0.5 Absolute Eosinophils 0.0 Absolute Basophils 0.0 Sodium 132.6 L Potassium 3.7 Chloride 95 L Carbon Dioxide 24 Anion Gap 14 BUN 8 Creatinine 0.52 Est GFR ( Amer) > 60 Est GFR (Non-Af Amer) > 60 Glucose 110 Calcium 9.3 12/17/16 12/17/16 12/17/16 04:15 04:15 11:10 Creatine Kinase 912 H 720 H CK-MB (CK-2) 11.30 H Troponin I < 0.012 12/17/16 12/17/16 12/17/16 11:10 17:05 17:05 Creatine Kinase 553 H CK-MB (CK-2) 8.18 H 6.75 H Troponin I < 0.012 < 0.012 Impressions: Chest X-Ray 12/16/16 00:00 IMPRESSION: No acute radiographic finding in the chest. Head CT 12/17/16 00:00 IMPRESSION: No acute intracranial hemorrhage or acute territorial infarct. EVIDENCE OF ACUTE STROKE: NO. Head MRI 12/17/16 02:35 IMPRESSION: NO ENHANCING LESIONS. MINIMAL MICROVASCULAR ISCHEMIC CHANGE. OTHERWISE NORMAL STUDY. EVIDENCE OF ACUTE STROKE: NO. Assessment & Plan - Diagnosis (1) Altered mental status Qualifiers: Altered mental status type: unspecified Qualified Code(s): R41.82 - Altered mental status, unspecified Is this a current diagnosis for this admission?: Yes Plan: Not very clear etiology with acute psychotic behaviors will repeat the CT of the head and will do the EEG in the morning. No sign of any seizures activity. No fever no other meningeal sign. Discussed with the daughter's sodium level is at already get better will repeat in the morning again and if is still patient's behavior is not getting better need to further evaluate for the lumbar puncture and some psych evaluations (2) Hyponatremia Is this a current diagnosis for this admission?: Yes Plan: Possible from the hydrochlorothiazide and other medications will currently hold the medications (3) Seizure Is this a current diagnosis for this admission?: Yes Plan: According to the daughter patient is not taking the Keppra for a long time because patients thinks that too much medications and daughter is not aware about any seizures activity We will get the EEG ordered on Monday and may be watch for any seizures activity (4) Tobacco abuse Is this a current diagnosis for this admission?: Yes (5) COPD (chronic obstructive pulmonary disease) Qualifiers: COPD type: chronic bronchitis Is this a current diagnosis for this admission?: Yes Plan: Denies the need of nebulizer treatment (6) Depression Qualifiers: Depression Type: unspecified Qualified Code(s): F32.9 - Major depressive disorder, single episode, unspecified Is this a current diagnosis for this admission?: Yes Plan: The psych suggest to start the Depakote and BuSpar and cut down the Cymbalta will wait the sodium to be corrected and then restart the some of the medication suggested by the psych (7) GERD (gastroesophageal reflux disease) Qualifiers: Esophagitis presence: without esophagitis Qualified Code(s): K21.9 - Gastro -esophageal reflux disease without esophagitis Is this a current diagnosis for this admission?: Yes Plan: Continues to PPI (8) Chronic pain syndrome Is this a current diagnosis for this admission?: Yes Plan: This with this pain management discussions suggested continues to monitor - Time Time Spent with patient: 15-24 minutes Medications reviewed and adjusted accordingly: Yes Anticipated discharge: Other Within: Other - Inpatient Certification Medical Necessity: Need Close Monitoring Due to Risk of Patient Decompensation, Need For IV Fluids Post Hospital Care: D/C Substance Abuse Prevention Coordinator Documentation - Plan Summary Plan Summary: Discussed with the daughter extensively regarding the patient's current conditions with this behavior problems. Will repeat the CT scan of the head continues to monitor the electrolytes
--- NOTE | 2016-12-18 14:01 | RADIOLOGY REPORT (SQ) ---
EXAM DESCRIPTION: CT HEAD WITHOUT COMPLETED DATE/TIME: 12/18/2016 1:48 pm REASON FOR STUDY: altered mental status COMPARISON: MRI brain 12/17/2016, 10/01/2014 CT brain 12/17/2016, 08/30/2013, 11/18/2010 TECHNIQUE: Axial images acquired through the brain without intravenous contrast. Images reviewed wi th bone, brain and subdural windows. Images stored on PACS. All CT scanners at this facility use dose modulation, iterative reconstruction, and/or weight based d osing when appropriate to reduce radiation dose to as low as reasonably achievable (ALARA). [facility]: Dose Right [facility]: CareDose [facility]: Dose Right [facility]: Teradose 4D [facility]: Uppidy RADIATION DOSE: Up-to-date CT equipment and radiation dose reduction techniques were employed. CTDIv ol: 62.0 mGy. DLP: 1421 mGy-cm. mGy. LIMITATIONS: Motion artifact FINDINGS: VENTRICLES: Normal size and contour. CEREBRUM: No masses. No hemorrhage. No midline shift. No evidence for acute infarction. Spotty low attenuation in the bifrontal and biparietal white matter, similar compared to previous studies, acco unting for motion on today's exam CEREBELLUM: No masses. No hemorrhage. No alteration of density. No evidence for acute infarction. EXTRAAXIAL SPACES: No fluid collections. No masses. ORBITS AND GLOBE: No intra- or extraconal masses. Normal contour of globe without masses. CALVARIUM: No fracture. PARANASAL SINUSES: No fluid or mucosal thickening. SOFT TISSUES: No mass or hematoma. OTHER: No other significant finding. IMPRESSION: Motion artifact. No acute findings EVIDENCE OF ACUTE STROKE: NO. COMMENT: Quality ID # [id number]: Final reports with documentation of one or more dose reduction techniques (e.g., Automated exposure control, adjustment of the mA and/or kV according to patient size, use of iterative reconstruction technique) TECHNICAL DOCUMENTATION: JOB ID: [id number] [employer]- All Rights Reserved
--- NOTE | 2016-12-18 16:34 | PSYCHOLOGICAL NOTE ---
Psych Note - Psych Note Psych Note: Patient is a 61-year-old female who has been admitted to [facility] hospitalist services due to altered mental status and low sodium. Patient was referred for psychiatric consultation due to what was thought to be active psychosis. Patient reportedly has no known psychiatric history. Her patient's EMR patient does have prior documented episodes of altered mental status and delirium related to low sodium most recently 3 years ago. Daughter is bedside and serves as historian as patient is sleeping and unable to report. Daughter states patient additionally had another episode about 10 years ago at which time she was found to have cocaine in her system. Daughter states to her knowledge there is no drug abuse at this time and that was a one-time episode. Daughter states to her knowledge this episode began sometime last week however she discovered her mother to be somewhat altered around Monday the during a phone conversation. Daughter states the mother was staying with a friend acting as a very caregiver. Daughter states she talked with her mother on the phone that afternoon and her mother seemed somewhat disorganized and struggled to find the words she was searching for her to describe something, example unable to name a certain TV show, could not provide accurate description , etc. Daughter states she then spoke with the patient at which time the patient seemed panicked and stated she needed a "head scanned" because she was having problems with her memory and thought she had dementia. Daughter reports she had her father picked the patient up this past Monday and bring her with him to an appointment at Dr. Pinzon's office at which time the MD reportedly offered to direct admit and observe due to mental status. Daughter states the patient reportedly declined and returned home only to present with worsening mental status the following day. Daughter states she spoke with her aunt (patient's sister) who prompted her to bring her to the ER. Daughter states the patient engages in pain management and is prescribed a myriad of prescription pills which she manages on her own. Daughter reports she has had concern for random episodes of memory lapses and has discussed with her mother going to a doctor. Daughter states a couple of weeks ago her pain management prescriber changed her medications to morphine due to a bursitis flare up, which patient's daughter states "made mama wacky" and she was quickly switched back to her original regimen. Daughter states to her knowledge the patient takes her medications as prescribed but there have been episodes where she was concerned her neighbor was stealing her Percocets. Daughter reports today the patient has been hyper sabianism, making nonsensical comments regarding a daughter visiting when she is the only daughter, talking about having 4 children 2 of which are black, etc. note patient is prescribed numerous medications which should test positive on toxicology reports, such as Xanax, Percocet etc. however toxicology overall was negative for all substances. This suggests patient is noncompliant with her medication regimen, which could be contributing to the etiology of her overall mental status. Patient at this time is sleeping soundly. By all accounts, nursing reports and daughter reports patient is not oriented to circumstance, location, or time/ date. Nursing reports patient appeared to be hallucinating and talking when others were not in the room. Unspecified neurocognitive disorder Patient will be reevaluated tomorrow. Prescribing psychiatric provider for [facility] psychological [facility] has made the following medication recommendations: Decrease Cymbalta to 30 mg once daily Start Neurontin 600 mg twice daily Start clonidine 0.1 mg nightly Start Depakote 250 mg twice daily Start BuSpar 5 mg twice daily Discontinue phentermine Discontinue Xanax Discontinue Zanaflex Note, Dr. Blanco was paged and provided medication recommendations as well as made aware they were in the note. stated he would review and enter. Thank you kindly for this consultation.
[2016-12-18] MEDS: NORMAL SALINE 1000 ML 1,000 ML IV PRN (21:16)
[2016-12-18] MEDS: LISINOPRIL 10 MG TABLET PO SCH (21:18)
[2016-12-19] MEDS: LANSOPRAZOLE 15 MG TAB.RAP.DR PO SCH ×2 (05:00→16:05)
[2016-12-19] MEDS: HEPARIN SOD (PORCINE) 5,000 UNIT/ML 1 ML SYRINGE SUBCUT SCH ×3 (05:01→21:21)
[2016-12-19 06:55] LABS: ANION GAP 11 (5-19); BLOOD UREA NITROGEN 10 mg/dL (7-20); CALCIUM 9.1 mg/dL (8.4-10.2); CARBON DIOXIDE 25 mmol/L (22-30); CHLORIDE 96 mmol/L (98-107); CREATININE RESULT 0.55 mg/dL (0.52-1.25); GLUCOSE 111 mg/dL (75-110); POTASSIUM 3.4 mmol/L (3.6-5.0); SODIUM 131.8 mmol/L (137-145)
[2016-12-19] MEDS: DOCUSATE SODIUM 100 MG CAPSULE PO SCH ×2 (09:17→17:17)
[2016-12-19] MEDS: NORMAL SALINE 1000 ML 1,000 ML IV PRN ×2 (09:21→19:52)
[2016-12-19] MEDS: FLUTICASONE NASAL SPRAY 50 MCG/SPRY 120 SPRAY/16 GM NAREB SCH (09:23)
[2016-12-19] MEDS: DULOXETINE HCL 30 MG CAPSULE.DR PO SCH (09:23)
[2016-12-19] MEDS: LISINOPRIL 10 MG TABLET PO SCH ×2 (09:23→21:21)
[2016-12-19] MEDS: ONDANSETRON HCL INJ/PF 4 MG/2 ML SDV IV PRN (11:21)
[2016-12-19] MEDS ORDERED: PHENYTOIN SODIUM INJ/PF 250 MG/5 ML SDV IV ONE (11:30)
[2016-12-19] MEDS: LEVETIRACETAM 500 MG TABLET PO SCH ×2 (13:19→21:21)
[2016-12-19] MEDS ORDERED: LEVETIRACETAM 500 MG TABLET PO SCH (14:00)
--- NOTE | 2016-12-19 18:07 | PDOC PROGRESS REPORT ---
Subjective Progress Note for:: 12/19/16 Subjective:: She was seen by the bedside, she is very confused she was admitted over the weekend, she was extensively evaluated by Dr. Blanco over the weekend. She was saying things that make no sense, she had episode of seizure today, she has a history of seizure disorder. She was given a loading dose of Dilantin , she may need to do a lumbar puncture in the morning Physical Exam Vital Signs: Temp Pulse Resp BP Pulse Ox 98.4 F 92 20 130/74 H 100 12/19/16 16:03 12/19/16 16:03 12/19/16 16:03 12/19/16 16:03 12/19/16 16:03 Intake & Output 12/18/16 12/19/16 12/20/16 06:59 06:59 06:59 Intake Total 3305 3802 118 Output Total 300 700 Balance 3005 3102 118 Weight 89.2 kg 92.9 kg General appearance: PRESENT: no acute distress, well-developed, well-nourished Head exam: PRESENT: atraumatic, normocephalic Eye exam: PRESENT: conjunctiva pink, EOMI, PERRLA Ear exam: PRESENT: normal external ear exam Mouth exam: PRESENT: moist, tongue midline Neck exam: PRESENT: full ROM Respiratory exam: PRESENT: clear to auscultation bacilio Cardiovascular exam: PRESENT: RRR, +S1, +S2 Pulses: PRESENT: normal dorsalis pedis pul, +2 pedal pulses bilateral Vascular exam: PRESENT: normal capillary refill GI/Abdominal exam: PRESENT: normal bowel sounds, soft Rectal exam: PRESENT: deferred Neurological exam: PRESENT: alert, awake, oriented to person, oriented to place , oriented to time, oriented to situation, CN II-XII grossly intact Psychiatric exam: PRESENT: appropriate affect, normal mood Skin exam: PRESENT: dry, intact, warm Results Laboratory Results: 12/18/16 06:16 12/19/16 05:35 12/19/16 05:35 Sodium 131.8 L Potassium 3.4 L Chloride 96 L Carbon Dioxide 25 Anion Gap 11 BUN 10 Creatinine 0.55 Est GFR ( Amer) > 60 Est GFR (Non-Af Amer) > 60 Glucose 111 H Calcium 9.1 12/17/16 12/17/16 12/17/16 04:15 04:15 11:10 Creatine Kinase 912 H 720 H CK-MB (CK-2) 11.30 H Troponin I < 0.012 12/17/16 12/17/16 12/17/16 11:10 17:05 17:05 Creatine Kinase 553 H CK-MB (CK-2) 8.18 H 6.75 H Troponin I < 0.012 < 0.012 Impressions: Chest X-Ray 12/16/16 00:00 IMPRESSION: No acute radiographic finding in the chest. Head MRI 12/17/16 02:35 IMPRESSION: NO ENHANCING LESIONS. MINIMAL MICROVASCULAR ISCHEMIC CHANGE. OTHERWISE NORMAL STUDY. EVIDENCE OF ACUTE STROKE: NO. Head CT 12/18/16 00:00 IMPRESSION: Motion artifact. No acute findings EVIDENCE OF ACUTE STROKE: NO. Assessment & Plan - Diagnosis (1) Encephalopathy Is this a current diagnosis for this admission?: Yes Plan: The etiology of the encephalopathy is not clear, lumbar puncture will be ordered
--- NOTE | 2016-12-19 19:10 | EKG REPORT ---
SEVERITY:- BORDERLINE ECG - SINUS RHYTHM BORDERLINE PROLONGED QT INTERVAL : Confirmed by: Manju Mccollum 19-Dec-2016 19:09:37
[2016-12-19 19:29] LABS: PARTIAL THROMBOPLASTIN TIME 24.9 SEC (23.5-35.8); PROTHROMBIN TIME 12.5 SEC (11.4-15.4)
[2016-12-20] MEDS: NORMAL SALINE 1000 ML 1,000 ML IV PRN (05:13)
[2016-12-20] MEDS: LANSOPRAZOLE 15 MG TAB.RAP.DR PO SCH ×2 (05:15→16:35)
[2016-12-20] MEDS: HEPARIN SOD (PORCINE) 5,000 UNIT/ML 1 ML SYRINGE SUBCUT SCH ×3 (05:15→22:37)
[2016-12-20] MEDS: LEVETIRACETAM 500 MG TABLET PO SCH ×3 (05:15→22:37)
[2016-12-20 07:27] LABS: ANION GAP 8 (5-19); BLOOD UREA NITROGEN 9 mg/dL (7-20); CALCIUM 8.5 mg/dL (8.4-10.2); CARBON DIOXIDE 27 mmol/L (22-30); CHLORIDE 100 mmol/L (98-107); CREATININE RESULT 0.59 mg/dL (0.52-1.25); GLUCOSE 97 mg/dL (75-110); SODIUM 135.4 mmol/L (137-145)
[2016-12-20] MEDS: POTASSIUM CHLORIDE 10 MEQ TABLET.SA PO SCH ×2 (08:19→12:21)
--- NOTE | 2016-12-20 09:43 | RADIOLOGY REPORT (SQ) ---
EXAM DESCRIPTION: LUMBAR PUNCTURE; FLUORO/NEEDLE PLACEMENT/SPINE COMPLETED DATE/TIME: 12/20/2016 9:18 am REASON FOR STUDY: encephalopathy ; ENCEPHALOPATHY COMPARISON: CT brain 12/18/2016 MRI brain 12/17/2016 MRI lumbar spine 04/25/2013 FLUOROSCOPY TIME: 17 seconds 1 digital radiographic image saved to PACS. TECHNIQUE: Fluoroscopic guided lumbar puncture. LIMITATIONS: None. PROCEDURE: After written consent and assessment were obtained, the patient was brought into the fluo roscopy room and placed prone on the table. The patient's lower back was prepped in a sterile fashio n and an entry site was selected under live fluoroscopic guidance. The entry site was anesthetized wi th 7 mL of 1% lidocaine. A 22 gauge spinal needle was advanced through the skin and into the thecal s ac at the right paracentral L4-5 level. After approximately 6 ml was drained, the needle was removed and a sterile bandage was placed of the site. Specimens were sent to the lab for testing. A fluoros copic spot image was saved to PACS confirming level access. FINDINGS: Clear CSF Opening pressure 16 cm of water IMPRESSION: Lumbar puncture under fluoroscopy. No immediate complication. COMMENT: Patient medication list reviewed: Yes- Quality ID# [id number]:Eligible professional attests to doc umenting in the medical record they obtained, updated, or reviewed the patient's current medications. . Quality ID 145: Final reports for procedures using fluoroscopy that document radiation exposure osbaldo [email or web address], or exposure time and number of fluorographic images (if radiation exposure indices are not avail able) TECHNICAL DOCUMENTATION: JOB ID: [id number] [employer]- All Rights Reserved
[2016-12-20 09:45] LABS: APPEARANCE ALL TUBES CLEAR; RBC SIDE 1 0; RBC SIDE 2 0
[2016-12-20 09:46] LABS: RBC DILUENT USED NONE USED; RBC DILUTION FACTOR 1; TOTAL RBC SQUARES COUNTED 225
[2016-12-20 09:47] LABS: WHITE BLOOD CELL,CSF 0 /uL (0-5)
[2016-12-20 10:12] LABS: CSF CULTURED REQUIRED CSF CULTURE ORDERED (CSFY); H. INFLUENZAE TYPE B AG NEGATIVE (NEGATIVE); S. PNEUMONIAE AG NEGATIVE (NEGATIVE); STREP. GROUP B AG NEGATIVE (NEGATIVE)
[2016-12-20] MEDS: DOCUSATE SODIUM 100 MG CAPSULE PO SCH ×2 (11:48→16:35)
[2016-12-20] MEDS: FLUTICASONE NASAL SPRAY 50 MCG/SPRY 120 SPRAY/16 GM NAREB SCH (11:50)
[2016-12-20] MEDS: LISINOPRIL 10 MG TABLET PO SCH ×2 (11:50→22:37)
[2016-12-20] MEDS: DULOXETINE HCL 30 MG CAPSULE.DR PO SCH (11:50)
--- NOTE | 2016-12-20 17:02 | EEG PRO FEE REPORT ---
EEG INTERPRETATION PATIENT NAME: JAX PARIS ROOM#: [id number] ORDER#: [id number] DATE OF STUDY: 12/19/2016 : 1955 REFERRING MD: JACKIE HANSON M.D. DIAGNOSIS: Seizure REPORT The background activity varies from up to alpha down to 5 Hz theta. There is excessive motion artifact during the tracing the whole way through as the patient was more or less constantly moving on video. No definite epileptiform or other paroxysmal discharges are seen. A lot of low voltage beta is seen that extends posteriorly implying metabolic affect or toxicity. Clinical correlation recommended otherwise. IMPRESSION The record appears slightly slow indicative of toxic metabolic cause; clinical correlation recommended. INTERPRETING PHYSICIAN: TALIA GONZALEZ M.D. /: MTEFFT TT: 1620 ID: [id number] /: [id number] TD: 1529 JOB: [id number] cc:Stefanie SEO M.D. SWETANG PATEL, M.D. > MTDD
--- NOTE | 2016-12-20 21:20 | PDOC PROGRESS REPORT ---
Subjective Progress Note for:: 12/20/16 Subjective:: Patient was seen by the bedside, lumbar puncture was done today, there was no evidence of infection the white cell count was 0 the CSF, there is slight increase in CSF protein Physical Exam Vital Signs: Temp Pulse Resp BP Pulse Ox 98.5 F 84 19 138/86 H 97 12/20/16 15:47 12/20/16 15:47 12/20/16 15:47 12/20/16 15:47 12/20/16 15:47 Intake & Output 12/19/16 12/20/16 12/21/16 06:59 06:59 06:59 Intake Total 3802 2539 1674 Output Total 700 Balance 3102 2539 1674 Weight 92.9 kg 93.6 kg General appearance: PRESENT: no acute distress Eye exam: PRESENT: PERRLA Respiratory exam: PRESENT: clear to auscultation bacilio Cardiovascular exam: PRESENT: +S1, +S2 GI/Abdominal exam: PRESENT: soft Neurological exam: PRESENT: alert, altered Results Laboratory Results: 12/18/16 06:16 12/20/16 06:23 12/20/16 12/20/16 12/20/16 06:23 06:23 09:03 Sodium 135.4 L Potassium 3.0 L* Chloride 100 Carbon Dioxide 27 Anion Gap 8 BUN 9 Creatinine 0.59 Est GFR ( Amer) > 60 Est GFR (Non-Af Amer) > 60 Glucose 97 Calcium 8.5 Vitamin B12 421.0 Fluid Tube Number 3 CSF Volume 6.0 CSF Appearance CLEAR CSF Color COLORLESS CSF WBC 0 CSF RBC 0 CSF Comment CSF Glucose CSF Total Protein 12/20/16 12/20/16 12/20/16 09:03 09:03 09:03 Sodium Potassium Chloride Carbon Dioxide Anion Gap BUN Creatinine Est GFR ( Amer) Est GFR (Non-Af Amer) Glucose Calcium Vitamin B12 Fluid Tube Number CSF Volume CSF Appearance CSF Color CSF WBC CSF RBC CSF Comment CSF CULTURE ORDERED CSF Glucose 56 CSF Total Protein 69 H 12/17/16 12/17/16 12/17/16 04:15 04:15 11:10 Creatine Kinase 912 H 720 H CK-MB (CK-2) 11.30 H Troponin I < 0.012 12/17/16 12/17/16 12/17/16 11:10 17:05 17:05 Creatine Kinase 553 H CK-MB (CK-2) 8.18 H 6.75 H Troponin I < 0.012 < 0.012 Impressions: Chest X-Ray 12/16/16 00:00 IMPRESSION: No acute radiographic finding in the chest. Head MRI 12/17/16 02:35 IMPRESSION: NO ENHANCING LESIONS. MINIMAL MICROVASCULAR ISCHEMIC CHANGE. OTHERWISE NORMAL STUDY. EVIDENCE OF ACUTE STROKE: NO. Head CT 12/18/16 00:00 IMPRESSION: Motion artifact. No acute findings EVIDENCE OF ACUTE STROKE: NO. Guidance Fluoroscopy 12/20/16 00:00 IMPRESSION: Lumbar puncture under fluoroscopy. No immediate complication. Lumbar Puncture 12/20/16 00:00 IMPRESSION: Lumbar puncture under fluoroscopy. No immediate complication. Assessment & Plan - Diagnosis (1) Encephalopathy Is this a current diagnosis for this admission?: Yes Plan: The etiology of the encephalopathy is not clear, there is question of withdrawal syndrome, the urine drug screen was negative for opioid, though patient is on opioid therapy. 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
[2016-12-20] MEDS: ONDANSETRON HCL INJ/PF 4 MG/2 ML SDV IV PRN (22:56)
[2016-12-21] MEDS: LANSOPRAZOLE 15 MG TAB.RAP.DR PO SCH (05:37)
[2016-12-21] MEDS: LEVETIRACETAM 500 MG TABLET PO SCH (05:38)
[2016-12-21] MEDS: HEPARIN SOD (PORCINE) 5,000 UNIT/ML 1 ML SYRINGE SUBCUT SCH ×3 (05:39→22:28)
[2016-12-21] MEDS ORDERED: DILTIAZEM HCL INJ 25 MG/5 ML VIAL ONE (09:06)
[2016-12-21 09:18] LABS: ARTERIAL BLOOD BASE EXCESS -9.9 mmol/L
[2016-12-21] MEDS ORDERED: DIGOXIN INJ 0.5 MG/2 ML AMPULE ONE (09:34)
[2016-12-21] MEDS ORDERED: AMIODARONE HCL INJ 150 MG/3 ML VIAL IV ONE ×4 (09:34→09:56)
[2016-12-21] MEDS ORDERED: PROPOFOL 100 ML IV ONE (09:45)
[2016-12-21] MEDS ORDERED: PHARMACY COMMUNICATION ORDER MC NR (10:00)
[2016-12-21] MEDS ORDERED: METOPROLOL TARTRATE PF/INJ 5 MG/5 ML SDV IV ONE (10:02)
[2016-12-21] MEDS ORDERED: AMIODARONE HCL 150 MG in DEXTROSE 5%-WATER 100 ML IV ONE (10:04)
[2016-12-21] MEDS ORDERED: METOPROLOL TARTRATE PF/INJ 5 MG/5 ML SDV IV PRN (10:27)
[2016-12-21] MEDS ORDERED: FAMOTIDINE INJ/PF 20 MG/2 ML SDV IV ONE (10:30)
[2016-12-21] MEDS ORDERED: ACETAMINOPHEN 325 MG TABLET NG PRN (10:30)
[2016-12-21] MEDS ORDERED: OXYCODONE HCL IR 5 MG TABLET PO PRN (10:31)
--- NOTE | 2016-12-21 10:33 | RADIOLOGY REPORT (SQ) ---
EXAM DESCRIPTION: CHEST SINGLE VIEW COMPLETED DATE/TIME: 12/21/2016 10:23 am REASON FOR STUDY: ET TUBE PLACEMENT COMPARISON: CT chest 09/04/2013 Chest films 09/05/2013, 10/01/2014, 12/17/2016 EXAM PARAMETERS: NUMBER OF VIEWS: One view. TECHNIQUE: Single frontal radiographic view of the chest acquired. RADIATION DOSE: NA LIMITATIONS: None. FINDINGS: Endotracheal tube tip 4 cm above the catracho. Nasogastric tube tip and side port in the stomach. LUNGS AND PLEURA: Pulmonary vascular prominence with mild alveolar and interstitial edema. No pneumo thorax. No pleural effusions. MEDIASTINUM AND HILAR STRUCTURES: No masses. Contour normal. HEART AND VASCULAR STRUCTURES: Cardiac silhouette size normal BONES: No acute findings. HARDWARE: None in the chest. OTHER: No other significant finding. IMPRESSION: Endotracheal tube and nasogastric tube in good positioning. Alveolar and interstitial edema with pulmonary vascular congestion TECHNICAL DOCUMENTATION: JOB ID: [id number]
[2016-12-21 10:40] LABS: HEMATOCRIT 39.7 % (36.0-47.0); HEMOGLOBIN 13.7 g/dL (12.0-15.5); HGB HCT DIFFERENCE 1.4; MEAN CORPUSCULAR HEMOGLOBIN 32.7 pg (27.0-33.4); MEAN CORPUSCULAR HGB CONC 34.5 g/dL (32.0-36.0); MEAN CORPUSCULAR VOLUME 95 fl (80-97); RED BLOOD COUNT 4.19 10^6/uL (3.72-5.28); RED CELL DISTRIBUTION WIDTH 13.3 % (11.5-14.0)
[2016-12-21 10:52] LABS: ALANINE AMINOTRANSFERASE 76 U/L (9-52); ALBUMIN 4.2 g/dL (3.5-5.0); ALKALINE PHOSPHATASE 76 U/L (38-126); ANION GAP 14 (5-19); ASPARTATE AMINO TRANSFERASE 44 U/L (14-36); BILIRUBIN,DIRECT 0.5 mg/dL (0.0-0.4); BILIRUBIN,TOTAL 0.6 mg/dL (0.2-1.3); BLOOD UREA NITROGEN 10 mg/dL (7-20); CALCIUM 8.8 mg/dL (8.4-10.2); CARBON DIOXIDE 21 mmol/L (22-30); CHLORIDE 98 mmol/L (98-107); CREATINE KINASE 307 U/L (30-135); CREATININE RESULT 0.66 mg/dL (0.52-1.25); GLUCOSE 244 mg/dL (75-110); POTASSIUM 3.4 mmol/L (3.6-5.0); SODIUM 133.4 mmol/L (137-145); TOTAL PROTEIN 6.5 g/dL (6.3-8.2)
[2016-12-21] MEDS ORDERED: GABAPENTIN 300 MG CAPSULE NG PRN (11:00)
[2016-12-21 11:04] LABS: BAND NEUTROPHILS % (MANUAL) 1 % (3-5); BASOPHILS % (MANUAL) 0 % (0-2); CREATINE KINASE MB 5.42 ng/mL (<4.55); EOSINOPHILS % (MANUAL) 0 % (0-6); LYMPHOCYTES % (MANUAL) 9 % (13-45); TOTAL CELLS COUNTED 100
[2016-12-21 11:06] LABS: RBC MORPHOLOGY COMMENT NORMO-CYTIC/CHROMIC
[2016-12-21 11:12] LABS: TROPONIN I 0.148 ng/mL
[2016-12-21 11:13] LABS: MAGNESIUM 1.2 mg/dL (1.6-2.3)
[2016-12-21] MEDS: FLUTICASONE NASAL SPRAY 50 MCG/SPRY 120 SPRAY/16 GM NAREB SCH (11:15)
[2016-12-21] MEDS: DULOXETINE HCL 30 MG CAPSULE.DR PO SCH (11:15)
[2016-12-21] MEDS: DOCUSATE SODIUM 100 MG CAPSULE PO SCH ×2 (11:15→17:21)
[2016-12-21 11:35] LABS: HSV SOURCE CSF
[2016-12-21] MEDS ORDERED: MIDAZOLAM HCL 100 ML IV ONE (11:38)
[2016-12-21] MEDS: MIDAZOLAM HCL 100 ML IV PRN ×2 (11:57→19:22)
[2016-12-21] MEDS: POTASSI CL 20 MEQ/50 ML RIDER 20 MEQ/50 ML RTUPB IV SCH ×3 (11:57→16:06)
[2016-12-21 12:17] LABS: ARTERIAL BLOOD BASE EXCESS -3.6 mmol/L; ARTERIAL BLOOD O2 SATURATION 97.4 % (94-98)
--- NOTE | 2016-12-21 12:35 | XCELERA REPORT ---
[address] [address] Transthoracic Echocardiogram Report Name: JAX PARIS Age: 61 yrs Gender: Female : 1955 Patient Status: Inpatient Patient Location: ICU^605^A Study Date: 12/21/2016 10:27 AM Height: 64 in Weight: 206 lb BSA: 2.0 m2 Procedure: A complete two-dimensional transthoracic echocardiogram was performed (2D, M-mode, spectral and color flow Doppler). The study was technically difficult with many images being suboptimal in quality. Reason For Study: AFIB WITH RVR Ordering Physician: MANJU GUO Performed By: Roland Kong Interpretation Summary Left ventricular systolic function is severely reduced. Doppler measurements suggest pseudonormalized left ventricular relaxation, which is associated with grade II/IV or mild to moderate diastolic dysfunction There is borderline concentric left ventricular hypertrophy. The left ventricle is grossly normal size. There is severe global hypokinesis of the left ventricle. The right ventricular systolic function is normal. The right ventricle is mildly dilated. The left atrium is mildly dilated. The right atrium is normal in size There is a mild to moderate amount of mitral regurgitation There is no mitral valve stenosis. No aortic regurgitation is present. There is no aortic valve stenosis There is a mild amount of tricuspid regurgitation There is moderate pulmonary hypertension by echo Right ventricular systolic pressure is estimated to be elevated at 40- 50mmHg. The aortic root is not well visualized but is probably normal size. The inferior vena cava appeared normal and decreased < 50% with respiration (RAP 10-15 mmHg) There is no pericardial effusion. MMode/2D Measurements & Calculations RVDd: 2.0 cm LVIDd: 4.6 cm FS: 10.0 % Ao root diam: IVSd: 0.91 cm LVIDs: 4.2 cm EDV(Teich): 2.5 cm LVPWd: 1.0 cm 98.2 ml Ao root area: ESV(Teich): 76.7 ml 4.8 cm2 EF(Teich): 21.9 % LA dimension: 3.9 cm LVLd ap4: 7.8 cm SV(MOD-sp4): EDV(MOD-sp4): 40.0 ml 123.0 ml LVLs ap4: 7.2 cm ESV(MOD-sp4): 83.0 ml EF(MOD-sp4): 32.5 % Doppler Measurements & Calculations MV E max diego: MV P1/2t max diego: Ao V2 max: LV V1 max P.5 cm/sec 94.0 cm/sec 132.6 cm/sec 2.0 mmHg MV P1/2t: 46.6 msec Ao max PG: LV V1 max: MVA(P1/2t): 4.7 cm2 7.0 mmHg 70.1 cm/sec MV dec slope: 590.3 cm/sec2 PA V2 max: TR max diego: RAP systole: 78.0 cm/sec 312.5 cm/sec 10.0 mmHg PA max PG: TR max P.2 mmHg 2.4 mmHg RVSP(TR): 49.2 mmHg Left Ventricle The left ventricle is grossly normal size. There is borderline concentric left ventricular hypertrophy. Left ventricular systolic function is severely reduced. Doppler measurements suggest pseudonormalized left ventricular relaxation, which is associated with grade II/IV or mild to moderate diastolic dysfunction. There is severe global hypokinesis of the left ventricle. Right Ventricle The right ventricle is mildly dilated. There is normal right ventricular wall thickness. The right ventricular systolic function is normal. Atria The right atrium is normal in size. The left atrium is mildly dilated. Interarterial septum not well visualized and not well dopplered. Cannot comment on ASD/PFO presence. Mitral Valve The mitral valve is grossly normal. There is no mitral valve stenosis. There is a mild to moderate amount of mitral regurgitation. Aortic Valve The aortic valve is grossly normal. There is no aortic valve stenosis. No aortic regurgitation is present. Tricuspid Valve The tricuspid valve is not well visualized, but is grossly normal. There is no tricuspid stenosis. There is a mild amount of tricuspid regurgitation. There is moderate pulmonary hypertension by echo. Right ventricular systolic pressure is estimated to be elevated at 40-50mmHg. Pulmonic Valve The pulmonic valve is not well visualized. Great Vessels The aortic root is not well visualized but is probably normal size. The inferior vena cava appeared normal and decreased < 50% with respiration (RAP 10-15 mmHg). Effusions There is no pericardial effusion. : MANJU GUO > Manju Guo
[2016-12-21] MEDS ORDERED: VASOPRESSIN INJ 20 UNIT/1 ML VIAL ONE (13:07)
[2016-12-21] MEDS: PROPOFOL 100 ML IV PRN ×2 (13:22→21:57)
[2016-12-21] MEDS ORDERED: DEXTROSE 5%-WATER 250 ML with VASOPRESSIN 100 UNIT IV PRN ×2 (13:23)
[2016-12-21] MEDS ORDERED: MAGNESIUM SULFATE 4 GM/100 ML RTUPB IV ONE (14:00)
--- NOTE | 2016-12-21 14:07 | PDOC CONSULTATION ---
Consultation Consult Date: 12/21/16 Attending physician:: KAITLYNN POSEY Consult reason:: Acute respiratory failure: Atrial fibrillation with RVR History of Present Illness Admission Date/PCP: 12/17/16 03:43 KAITLYNN POSEY MD History of Present Illness: JAX PARIS is a 61 year old female This is a 61-year-old female patient of Dr. Posey admitted to ICU after acute respiratory failure a [employer]ER was called patient found to be dyspneic and was in atrial fibrillation with rapid ventricular response in the 140 area CPAP was applied and the patient was brought to the ICU she was continuous continually restless and fighting CPAP and saturations were beginning to dip into the mid 80s was at that time that it was elected to intubate the patient patient was intubated per anesthesia propofol was started a bolus of digoxin 0.5 IV was given as well as a amiodarone bolus and amiodarone drip this slightly decreased her rapid ventricular response as she was then given 5 mg of Lopressor IV which brought her ventricular response under control. She had initially been admitted to the hospital for alterations in mental status Past Medical History Cardiac Medical History: Reports: Hypertension Pulmonary Medical History: Reports: Chronic Obstructive Pulmonary Disease (COPD) GI Medical History: Reports: Gastroesophageal Reflux Disease Musculoskeltal Medical History: Reports: Arthritis, Gout Psychiatric Medical History: Reports: Depression Past Surgical History Past Surgical History: Reports: Section, Cholecystectomy, Other - C- spine surgery Social History Information Source: [facility] Records Lives with: Family Smoking Status: Unknown if Ever Smoked Frequency of Alcohol Use: None Hx Recreational Drug Use: No Drugs: None Hx Prescription Drug Abuse: No - Advance Directive Resuscitation Status: Full Code Family History Family History: Hypertension Parental Family History Reviewed: No Children Family History Reviewed: No Sibling(s) Family History Reviewed.: No Medication/Allergy Home Medications: Alprazolam [Xanax] 1 mg PO Q8 12/17/16 Duloxetine HCl [Cymbalta] 60 mg PO Q12 12/17/16 Fluticasone Propionate [Flonase Nasal [place] 50 Mcg/[place] 16 gm] 1 spray NAREB DAILY 12/17/16 Gabapentin [Neurontin] 600 mg PO 5XDP PRN 12/17/16 Ibuprofen [Motrin 800 mg Tablet] 800 mg PO TIDP PRN 12/17/16 Levocetirizine Dihydrochloride [Xyzal] 5 mg PO QPM 12/17/16 Lisinopril/Hydrochlorothiazide [Lisinopril-Hctz 20-25 mg Tab] 1 tab PO DAILY Meloxicam [Mobic] 7.5 mg PO DAILY 12/17/16 Omeprazole 40 mg PO ACBRKFST 12/17/16 Oxycodone HCl 15 mg PO QIDP PRN 12/17/16 Phentermine HCl 30 mg PO DAILY 12/17/16 Tizanidine HCl [Zanaflex 4 Mg Tablet] 4 mg PO Q8HP PRN 12/17/16 Allergies/Adverse Reactions: Sulfa (Sulfonamide Antibiotics) Allergy (Mild, Verified 10/01/14 09:41) Hives Review of Systems ROS unobtainable: Due to endotracheal tube, Due to mental status Physical Exam Vital Signs: Temp Pulse Resp BP Pulse Ox 98.1 F 105 H 18 138/81 H 99 12/21/16 07:16 12/21/16 07:16 12/21/16 07:16 12/21/16 07:16 12/21/16 07:16 Intake & Output 12/20/16 12/21/16 12/22/16 06:59 06:59 06:59 Intake Total 2539 2634 Output Total 1000 Balance 2539 1634 Weight 93.6 kg 93.6 kg General appearance: PRESENT: no acute distress, disheveled, obese, well- developed Head exam: PRESENT: atraumatic, normocephalic Eye exam: PRESENT: conjunctiva pale, EOMI Mouth exam: PRESENT: dry mucosa, neck supple, tongue midline, other - ET tube placed Neck exam: ABSENT: carotid bruit, JVD, lymphadenopathy, thyromegaly Respiratory exam: PRESENT: decreased breath sounds, prolonged expiratory phas, rales, rhonchi, symmetrical, tachypnea. ABSENT: retraction, stridor, unlabored Cardiovascular exam: PRESENT: irregular rhythm Pulses: PRESENT: normal radial pulses GI/Abdominal exam: PRESENT: normal bowel sounds, soft. ABSENT: distended, guarding, mass, organolmegaly, rebound, tenderness Musculoskeletal exam: PRESENT: normal inspection Neurological exam: PRESENT: alert, awake Results Laboratory Results: 12/18/16 06:16 12/20/16 06:23 12/20/16 12/20/16 12/21/16 06:23 09:03 09:07 Carbonic Acid 2.23 H HCO3/H2CO3 Ratio 9:1 ABG pH 7.08 L* ABG pCO2 74.0 H* ABG pO2 86.2 ABG HCO3 21.5 ABG O2 Saturation 92.0 L ABG Base Excess -9.9 FiO2 10 LITERS Vitamin B12 421.0 CSF Comment CSF CULTURE ORDERED 12/19/16 08:00 Stool - Stool - Final 12/19/16 08:00 Stool - Stool Stool Culture - Final 12/17/16 12/17/16 12/17/16 04:15 04:15 11:10 Creatine Kinase 912 H 720 H CK-MB (CK-2) 11.30 H Troponin I < 0.012 12/17/16 12/17/16 12/17/16 11:10 17:05 17:05 Creatine Kinase 553 H CK-MB (CK-2) 8.18 H 6.75 H Troponin I < 0.012 < 0.012 Impressions: Chest X-Ray 12/16/16 00:00 IMPRESSION: No acute radiographic finding in the chest. Head MRI 12/17/16 02:35 IMPRESSION: NO ENHANCING LESIONS. MINIMAL MICROVASCULAR ISCHEMIC CHANGE. OTHERWISE NORMAL STUDY. EVIDENCE OF ACUTE STROKE: NO. Head CT 12/18/16 00:00 IMPRESSION: Motion artifact. No acute findings EVIDENCE OF ACUTE STROKE: NO. Guidance Fluoroscopy 12/20/16 00:00 IMPRESSION: Lumbar puncture under fluoroscopy. No immediate complication. Lumbar Puncture 12/20/16 00:00 IMPRESSION: Lumbar puncture under fluoroscopy. No immediate complication. Assessment & Plan - Diagnosis (1) Altered mental status Qualifiers: Altered mental status type: unspecified Qualified Code(s): R41.82 - Altered mental status, unspecified Is this a current diagnosis for this admission?: Yes Plan: Initial cause for admission LP and other workups were nondiagnostic his of this may be related in whole or in part to her chronic pain medication (2) Chronic pain syndrome Is this a current diagnosis for this admission?: Yes (3) Seizure disorder, secondary Is this a current diagnosis for this admission?: Yes Plan: Maximo (4) COPD (chronic obstructive pulmonary disease) Qualifiers: COPD type: chronic bronchitis Is this a current diagnosis for this admission?: Yes Plan: Laba, long acting muscarinic agent, will withhold inhaled corticosteroid (5) Atrial fibrillation with RVR Is this a current diagnosis for this admission?: Yes Plan: Intubated postintubation ABG acceptable bolus of digoxin, bolus plus drip of amiodarone, IV Lopressor currently normal sinus rhythm (6) Acute respiratory failure Qualifiers: Respiratory failure complication: hypoxia Qualified Code(s): J96.01 - Acute respiratory failure with hypoxia (7) Acute respiratory failure Is this a current diagnosis for this admission?: Yes - Time Critical Time spent with patient: 35 or more minutes
--- NOTE | 2016-12-21 14:39 | PSYCHOLOGICAL NOTE ---
Psych Note - Psych Note Psych Note: Patient is a 61-year-old female who has been [facility] due to altered mental status and low sodium. Patient was referred for psychiatric consultation due to what was thought to be active psychosis. Patient reportedly has no known psychiatric history. Her patient's EMR patient does have prior documented episodes of altered mental status and delirium related to low sodium most recently 3 years ago. Patient is currently intubated; evaluation will occur at a later time.
[2016-12-21] MEDS ORDERED: SUCCINYLCHOLINE CHLORIDE INJ 200 MG/10 ML VIAL ONE (15:12)
[2016-12-21] MEDS ORDERED: FUROSEMIDE INJ/PF 40 MG/4 ML SDV IV ONE (15:15)
[2016-12-21 15:56] LABS: CREATINE KINASE MB 4.33 ng/mL (<4.55); TROPONIN I 0.247 ng/mL
[2016-12-21] MEDS ORDERED: LEVETIRACETAM 500 MG/NACL-ISO 500 MG/100 ML RTUPB IV ONE (16:00)
[2016-12-21] MEDS ORDERED: LEVETIRACETAM INJ/PF 500 MG/5 ML SDV IV ONE (16:00)
--- NOTE | 2016-12-21 16:02 | PDOC PROGRESS REPORT ---
Subjective Progress Note for:: 12/21/16 Subjective:: Patient developed acute respiratory distress with acute febrile acidosis associated with acute pulmonary edema requiring mechanical ventilation she transferred to ICU intubated Physical Exam Vital Signs: Temp Pulse Resp BP Pulse Ox 98.1 F 105 H 18 138/81 H 96 12/21/16 07:16 12/21/16 07:16 12/21/16 07:16 12/21/16 07:16 12/21/16 11:04 Intake & Output 12/20/16 12/21/16 12/22/16 06:59 06:59 06:59 Intake Total 2539 2634 Output Total 1000 325 Balance 2539 1634 -325 Weight 93.6 kg 93.6 kg General appearance: PRESENT: severe distress Eye exam: PRESENT: PERRLA Respiratory exam: PRESENT: rales Cardiovascular exam: PRESENT: +S1, +S2 GI/Abdominal exam: PRESENT: soft Neurological exam: PRESENT: altered Results Laboratory Results: 12/21/16 10:23 12/21/16 10:23 12/20/16 12/21/16 12/21/16 06:23 09:07 10:23 WBC 20.0 H RBC 4.19 Hgb 13.7 Hct 39.7 MCV 95 MCH 32.7 MCHC 34.5 RDW 13.3 Plt Count 318 Seg Neutrophils % Not Reportable Lymphocytes % Not Reportable Monocytes % Not Reportable Eosinophils % Not Reportable Basophils % Not Reportable Absolute Neutrophils Not Reportable Absolute Lymphocytes Not Reportable Absolute Monocytes Not Reportable Absolute Eosinophils Not Reportable Absolute Basophils Not Reportable Carbonic Acid 2.23 H HCO3/H2CO3 Ratio 9:1 ABG pH 7.08 L* ABG pCO2 74.0 H* ABG pO2 86.2 ABG HCO3 21.5 ABG O2 Saturation 92.0 L ABG Base Excess -9.9 FiO2 10 LITERS Sodium Potassium Chloride Carbon Dioxide Anion Gap BUN Creatinine Est GFR ( Amer) Est GFR (Non-Af Amer) Glucose Calcium Magnesium Total Bilirubin AST ALT Alkaline Phosphatase Total Protein Albumin Vitamin B12 421.0 12/21/16 12/21/16 10:23 11:50 WBC RBC Hgb Hct MCV MCH MCHC RDW Plt Count Seg Neutrophils % Lymphocytes % Monocytes % Eosinophils % Basophils % Absolute Neutrophils Absolute Lymphocytes Absolute Monocytes Absolute Eosinophils Absolute Basophils Carbonic Acid 1.27 HCO3/H2CO3 Ratio 17:1 ABG pH 7.34 L ABG pCO2 42.2 ABG pO2 103.3 H ABG HCO3 22.1 ABG O2 Saturation 97.4 ABG Base Excess -3.6 FiO2 60% Sodium 133.4 L Potassium 3.4 L Chloride 98 Carbon Dioxide 21 L Anion Gap 14 BUN 10 Creatinine 0.66 Est GFR ( Amer) > 60 Est GFR (Non-Af Amer) > 60 Glucose 244 H Calcium 8.8 Magnesium 1.2 L* Total Bilirubin 0.6 AST 44 H ALT 76 H Alkaline Phosphatase 76 Total Protein 6.5 Albumin 4.2 Vitamin B12 12/19/16 08:00 Stool - Stool - Final 12/19/16 08:00 Stool - Stool Stool Culture - Final 12/17/16 12/17/16 12/17/16 04:15 04:15 11:10 Creatine Kinase 912 H 720 H CK-MB (CK-2) 11.30 H Troponin I < 0.012 12/17/16 12/17/16 12/17/16 11:10 17:05 17:05 Creatine Kinase 553 H CK-MB (CK-2) 8.18 H 6.75 H Troponin I < 0.012 < 0.012 12/21/16 12/21/16 10:23 10:23 Creatine Kinase 307 H CK-MB (CK-2) 5.42 H Troponin I 0.148 Impressions: Head MRI 12/17/16 02:35 IMPRESSION: NO ENHANCING LESIONS. MINIMAL MICROVASCULAR ISCHEMIC CHANGE. OTHERWISE NORMAL STUDY. EVIDENCE OF ACUTE STROKE: NO. Head CT 12/18/16 00:00 IMPRESSION: Motion artifact. No acute findings EVIDENCE OF ACUTE STROKE: NO. Guidance Fluoroscopy 12/20/16 00:00 IMPRESSION: Lumbar puncture under fluoroscopy. No immediate complication. Lumbar Puncture 12/20/16 00:00 IMPRESSION: Lumbar puncture under fluoroscopy. No immediate complication. Chest X-Ray 12/21/16 00:00 IMPRESSION: Endotracheal tube and nasogastric tube in good positioning. 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 Is this a current diagnosis for this admission?: Yes (4) Withdrawal from opioids Is this a current diagnosis for this admission?: Yes (5) Acute respiratory acidosis Is this a current diagnosis for this admission?: Yes (6) Acute pulmonary edema Is this a current diagnosis for this admission?: Yes (8) Paroxysmal atrial fibrillation Is this a current diagnosis for this admission?: Yes (9) Hypotension Qualifiers: Hypotension type: unspecified hypotension type Qualified Code(s): I95.9 - Hypotension, unspecified Is this a current diagnosis for this admission?: Yes Plan: IV pressors initiated (10) NSTEMI (non-ST elevated myocardial infarction) Is this a current diagnosis for this admission?: Yes Plan: She probably have underlining coronary artery disease with the troponin is elevated suggesting non-ST elevated myocardial infarction. Consultation obtained from cardiology
--- NOTE | 2016-12-21 16:56 | Operative Report ---
Operative Report DATE OF SURGERY: 12/21/16 Operative Report: Mrs Martinez was sterilely prepped and draped in usual manner. Positioning was in Trendelenburg supine. [place] was right subclavian vein. Prior to insertion of access needle site was locally anesthetized with 1% lidocaine plain which 5 mils were used. Access to the vein was accomplished with the introducer needle with advancement of guidewire 40 cm. Retraction was done until no PVCs were noted. Site was dilated up after incision with scalpel. Insertion of triple lumen catheter was done to 20 cm and fixed in place using the accompanying stitch. Biopatch was placed site was cleaned and the dressing was applied to the area superficially. All 3 catheters were aspirated showing good blood return as well as flushed easily. Pending postprocedural x-ray for confirmation placement site. She tolerated the procedure well. PREOPERATIVE DIAGNOSIS: Encephalopathy, acidosis POSTOPERATIVE DIAGNOSIS: Encephalopathy, acidosis OPERATION: Right subclavian vein triple-lumen catheter SURGEON: VIRGILIO ALFARO ANESTHESIA: Local COMPLICATIONS: None ESTIMATED BLOOD LOSS: 5 mL's
--- NOTE | 2016-12-21 17:02 | PDOC CONSULTATION ---
Consultation Consult Date: 12/21/16 Attending physician:: KAITLYNN POSEY Consult reason:: CVC placement History of Present Illness Admission Date/PCP: 12/17/16 03:43 KAITLYNN POSEY MD Patient complains of: Intubated, pulmonary deterioration History of Present Illness: JAX PARIS is a 61 year old female was admitted to the hospital December 17, 2016 for altered mentation. During hospitalization she was found to have respiratory compromise likely secondary to opioid withdrawal. Rapid response was called for the patient and with deterioration she was intubated. For continued resuscitation and support she required central venous access. Consent was obtained from her daughter expend comp occasions risks and benefits for the procedure including but limited to bleeding infection need for operation and pneumothorax which she accepted. Currently unable to obtain ROS given patient's intubated state. Past Medical History Cardiac Medical History: Reports: Hypertension Pulmonary Medical History: Reports: Chronic Obstructive Pulmonary Disease (COPD) GI Medical History: Reports: Gastroesophageal Reflux Disease Musculoskeltal Medical History: Reports: Arthritis, Gout Psychiatric Medical History: Reports: Depression Past Surgical History Past Surgical History: Reports: Section, Cholecystectomy, Other - C- spine surgery, right subclavian triple-lumen catheter Social History Information Source: Relative Lives with: Family Smoking Status: Unknown if Ever Smoked Frequency of Alcohol Use: None Hx Recreational Drug Use: No Drugs: None Hx Prescription Drug Abuse: No - Advance Directive Resuscitation Status: Full Code Family History Family History: Hypertension Parental Family History Reviewed: No - Patient intubated and sedated, family history obtained from family at [facility] Children Family History Reviewed: No Sibling(s) Family History Reviewed.: No Medication/Allergy Home Medications: Alprazolam [Xanax] 1 mg PO Q8 12/17/16 Duloxetine HCl [Cymbalta] 60 mg PO Q12 12/17/16 Fluticasone Propionate [Flonase Nasal [place] 50 Mcg/[place] 16 gm] 1 spray NAREB DAILY 12/17/16 Gabapentin [Neurontin] 600 mg PO 5XDP PRN 12/17/16 Ibuprofen [Motrin 800 mg Tablet] 800 mg PO TIDP PRN 12/17/16 Levocetirizine Dihydrochloride [Xyzal] 5 mg PO QPM 12/17/16 Lisinopril/Hydrochlorothiazide [Lisinopril-Hctz 20-25 mg Tab] 1 tab PO DAILY Meloxicam [Mobic] 7.5 mg PO DAILY 12/17/16 Omeprazole 40 mg PO ACBRKFST 12/17/16 Oxycodone HCl 15 mg PO QIDP PRN 12/17/16 Phentermine HCl 30 mg PO DAILY 12/17/16 Tizanidine HCl [Zanaflex 4 Mg Tablet] 4 mg PO Q8HP PRN 12/17/16 Allergies/Adverse Reactions: Sulfa (Sulfonamide Antibiotics) Allergy (Mild, Verified 10/01/14 09:41) Hives Review of Systems ROS unobtainable: Due to endotracheal tube Physical Exam Vital Signs: Temp Pulse Resp BP Pulse Ox 98.1 F 105 H 18 138/81 H 96 12/21/16 07:16 12/21/16 07:16 12/21/16 07:16 12/21/16 07:16 12/21/16 11:04 Intake & Output 12/20/16 12/21/16 12/22/16 06:59 06:59 06:59 Intake Total 2539 2634 Output Total 1000 325 Balance 2539 1634 -325 Weight 93.6 kg 93.6 kg General appearance: PRESENT: no acute distress, well-developed, well-nourished Head exam: PRESENT: atraumatic Eye exam: PRESENT: conjunctiva pink Mouth exam: PRESENT: moist Neck exam: ABSENT: lymphadenopathy, thyromegaly, tracheal deviation Respiratory exam: PRESENT: rhonchi - Bilateral basal. ABSENT: crackles, rales Cardiovascular exam: PRESENT: RRR. ABSENT: rubs Vascular exam: PRESENT: normal capillary refill GI/Abdominal exam: PRESENT: soft. ABSENT: distended, firm, rebound, rigid Extremities exam: ABSENT: calf tenderness, clubbing Neurological exam: PRESENT: other - Sedated and intubated Results Laboratory Results: 12/21/16 10:23 12/21/16 10:23 12/20/16 12/21/16 12/21/16 06:23 09:07 10:23 WBC 20.0 H RBC 4.19 Hgb 13.7 Hct 39.7 MCV 95 MCH 32.7 MCHC 34.5 RDW 13.3 Plt Count 318 Seg Neutrophils % Not Reportable Lymphocytes % Not Reportable Monocytes % Not Reportable Eosinophils % Not Reportable Basophils % Not Reportable Absolute Neutrophils Not Reportable Absolute Lymphocytes Not Reportable Absolute Monocytes Not Reportable Absolute Eosinophils Not Reportable Absolute Basophils Not Reportable Carbonic Acid 2.23 H HCO3/H2CO3 Ratio 9:1 ABG pH 7.08 L* ABG pCO2 74.0 H* ABG pO2 86.2 ABG HCO3 21.5 ABG O2 Saturation 92.0 L ABG Base Excess -9.9 FiO2 10 LITERS Sodium Potassium Chloride Carbon Dioxide Anion Gap BUN Creatinine Est GFR ( Amer) Est GFR (Non-Af Amer) Glucose Calcium Magnesium Total Bilirubin AST ALT Alkaline Phosphatase Total Protein Albumin Vitamin B12 421.0 12/21/16 12/21/16 10:23 11:50 WBC RBC Hgb Hct MCV MCH MCHC RDW Plt Count Seg Neutrophils % Lymphocytes % Monocytes % Eosinophils % Basophils % Absolute Neutrophils Absolute Lymphocytes Absolute Monocytes Absolute Eosinophils Absolute Basophils Carbonic Acid 1.27 HCO3/H2CO3 Ratio 17:1 ABG pH 7.34 L ABG pCO2 42.2 ABG pO2 103.3 H ABG HCO3 22.1 ABG O2 Saturation 97.4 ABG Base Excess -3.6 FiO2 60% Sodium 133.4 L Potassium 3.4 L Chloride 98 Carbon Dioxide 21 L Anion Gap 14 BUN 10 Creatinine 0.66 Est GFR ( Amer) > 60 Est GFR (Non-Af Amer) > 60 Glucose 244 H Calcium 8.8 Magnesium 1.2 L* Total Bilirubin 0.6 AST 44 H ALT 76 H Alkaline Phosphatase 76 Total Protein 6.5 Albumin 4.2 Vitamin B12 12/19/16 08:00 Stool - Stool - Final 12/19/16 08:00 Stool - Stool Stool Culture - Final 12/17/16 12/17/16 12/17/16 04:15 04:15 11:10 Creatine Kinase 912 H 720 H CK-MB (CK-2) 11.30 H Troponin I < 0.012 NT-Pro-B Natriuret Pep 12/17/16 12/17/16 12/17/16 11:10 17:05 17:05 Creatine Kinase 553 H CK-MB (CK-2) 8.18 H 6.75 H Troponin I < 0.012 < 0.012 NT-Pro-B Natriuret Pep 12/21/16 12/21/16 12/21/16 10:23 10:23 15:13 Creatine Kinase 307 H CK-MB (CK-2) 5.42 H 4.33 Troponin I 0.148 0.247 NT-Pro-B Natriuret Pep 8020 H 12/21/16 15:13 Creatine Kinase 212 H CK-MB (CK-2) Troponin I NT-Pro-B Natriuret Pep Impressions: Head MRI 12/17/16 02:35 IMPRESSION: NO ENHANCING LESIONS. MINIMAL MICROVASCULAR ISCHEMIC CHANGE. OTHERWISE NORMAL STUDY. EVIDENCE OF ACUTE STROKE: NO. Head CT 12/18/16 00:00 IMPRESSION: Motion artifact. No acute findings EVIDENCE OF ACUTE STROKE: NO. Guidance Fluoroscopy 12/20/16 00:00 IMPRESSION: Lumbar puncture under fluoroscopy. No immediate complication. Lumbar Puncture 12/20/16 00:00 IMPRESSION: Lumbar puncture under fluoroscopy. No immediate complication. Chest X-Ray 12/21/16 00:00 IMPRESSION: Endotracheal tube and nasogastric tube in good positioning. Alveolar and interstitial edema with pulmonary vascular congestion Assessment & Plan - Diagnosis (1) Acute respiratory failure Qualifiers: Respiratory failure complication: hypoxia Qualified Code(s): J96.01 - Acute respiratory failure with hypoxia Is this a current diagnosis for this admission?: Yes Plan: Right subclavian triple-lumen catheter placed. Pending portable chest x-ray for placement confirmation. Patient tolerated well. Results reviewed with family. Will follow.
[2016-12-21] MEDS ORDERED: NORMAL SALINE INJ/PF 0.9% 10 ML SDV IV PRN (17:14)
[2016-12-21] MEDS: LANSOPRAZOLE 15 MG TAB.RAP.DR NG SCH (17:23)
--- NOTE | 2016-12-21 17:42 | RADIOLOGY REPORT (SQ) ---
EXAM DESCRIPTION: CHEST SINGLE VIEW COMPLETED DATE/TIME: 12/21/2016 5:21 pm REASON FOR STUDY: CENTRAL LINE PLACEMENT COMPARISON: CT angio chest 09/04/2013 Chest film 10/01/2014, 12/17/2016, 12/21/2016 EXAM PARAMETERS: NUMBER OF VIEWS: One view. TECHNIQUE: Single frontal radiographic view of the chest acquired. RADIATION DOSE: NA LIMITATIONS: None. FINDINGS: Endotracheal tube tip 5 cm above the catracho. Nasogastric tube tip and side port in the st omach. Interval placement of a right-sided triple-lumen central line with the tip in the superior vena cava. No pneumothorax. LUNGS AND PLEURA: Pulmonary vascular congestion and alveolar/ interstitial edema seen on chest film 1 1013 hours has significantly improved. No pleural effusions. No dense consolidation worri some for pneumonia MEDIASTINUM AND HILAR STRUCTURES: No masses. Contour normal. HEART AND VASCULAR STRUCTURES: No cardiomegaly BONES: No acute findings. HARDWARE: None in the chest. OTHER: No other significant finding. IMPRESSION: Right subclavian central line tip superior vena cava. No pneumothorax. Decrease in pulmonary edema compared to films from this morning. TECHNICAL DOCUMENTATION: JOB ID: [id number]
--- NOTE | 2016-12-21 19:11 | EKG REPORT ---
SEVERITY:- ABNORMAL ECG - SINUS RHYTHM ABNORMAL T, CONSIDER ISCHEMIA, LATERAL LEADS BORDERLINE PROLONGED QT INTERVAL : Confirmed by: Manju Mccollum 21-Dec-2016 19:10:44
--- NOTE | 2016-12-21 19:11 | EKG REPORT ---
SEVERITY:- ABNORMAL ECG - SINUS RHYTHM NONSPECIFIC T ABNORMALITIES, LATERAL LEADS BORDERLINE PROLONGED QT INTERVAL : Confirmed by: Manju Mccollum 21-Dec-2016 19:10:53
--- NOTE | 2016-12-21 19:12 | EKG REPORT ---
SEVERITY:- ABNORMAL ECG - ATRIAL FLUTTER, VS SINUS TACHYCARDIA REPOL ABNRM SUGGESTS ISCHEMIA, DIFFUSE LEADS : Confirmed by: Manju Mccollum 21-Dec-2016 19:12:01
--- NOTE | 2016-12-21 19:53 | PSYCHOLOGICAL NOTE ---
Psych Note - Psych Note Psych Note: Conducted chart review of patient who is a 61 year old female admitted to [facility] Hospitalist's services due to AMS. Patient was evaluated yesterday with her daughter who was bedside serving as historian. Patient noted to have had a seizure this morning with episodes of n/v. Patient is noted to be resting at this time. Will attempt to evaluate patient at a later time.
[2016-12-21 21:37] LABS: HSV I DNA Negative (Negative)
[2016-12-21] MEDS ORDERED: ATORVASTATIN CALCIUM 40 MG TABLET PO SCH (22:00)
[2016-12-21] MEDS ORDERED: LEVETIRACETAM INJ/PF 500 MG/5 ML SDV IV SCH (22:00)
[2016-12-21] MEDS: FAMOTIDINE INJ/PF 20 MG/2 ML SDV IV SCH (22:27)
[2016-12-21] MEDS: LISINOPRIL 10 MG TABLET NG SCH (22:28)
--- NOTE | 2016-12-21 22:53 | PDOC CONSULTATION ---
Consultation Consult Date: 12/21/16 Attending physician:: KAITLYNN POSEY Consult reason:: Atrial fibrillation with rapid ventricular response History of Present Illness Admission Date/PCP: 12/17/16 03:43 KAITLYNN POSEY MD Patient complains of: Patient currently intubated and sedated History of Present Illness: JAX PARIS is a 61 year old female was admitted to the hospital December 17, 2016 for altered mentation. During hospitalization she was found to have respiratory compromise likely secondary to opioid withdrawal. Rapid response was called for the patient and with deterioration she was intubated. For continued resuscitation and support she required central venous access. Consent was obtained from her daughter expend comp occasions risks and benefits for the procedure including but limited to bleeding infection need for operation and pneumothorax which she accepted. Currently unable to obtain ROS given patient's intubated state. Patient was referred to me because patient was noted to have atrial fibrillation with rapid ventricular response and also noted to be transiently hypotensive. Patient was already started on amiodarone bolus and drip protocol. Patient initially was noted to be in atrial fibrillation with very rapid ventricular response which caused sudden and rapid deterioration in general status and also resulted in acute respiratory failure. Recent was emergently intubated. When I saw the patient, patient was on amiodarone drip. Blood pressure was noted to be on the low side. Twelve-lead EKGs were obtained and reviewed. It showed no acute ST-T wave changes. Initial troponin I was noted to be elevated. Orders were given for patient to be started on vasopressin drip. Repeat blood pressures were obtained which were noted to be on the low side but satisfactory. Patient was seen again in the evening when patient was noted to be maintaining stable vitals. I did have the opportunity to talk with patient' s daughter who is the surrogate decision maker. Patient was noted to have severely depressed LVEF. Echo quality was however technically difficult. It seems patient has had intermittent edema, shortness of breath but no known cardiac problems. Patient did not have any previous cardiac evaluation. Rest of the history as per HPI, course in the hospital as per chart records. Past Medical History Cardiac Medical History: Reports: Hypertension Pulmonary Medical History: Reports: Chronic Obstructive Pulmonary Disease (COPD) GI Medical History: Reports: Gastroesophageal Reflux Disease Musculoskeltal Medical History: Reports: Arthritis, Gout Psychiatric Medical History: Reports: Depression Past Surgical History Past Surgical History: Reports: Section, Cholecystectomy, Other - C- spine surgery, right subclavian triple-lumen catheter Social History Information Source: Relative, [facility] Records Lives with: Family Smoking Status: Unknown if Ever Smoked Frequency of Alcohol Use: None Hx Recreational Drug Use: No Drugs: None Hx Prescription Drug Abuse: No - Advance Directive Resuscitation Status: Full Code Surrogate healthcare decision maker:: Patient's daughter is the surrogate decision-maker Family History Family History: Hypertension Parental Family History Reviewed: Yes Children Family History Reviewed: Yes Sibling(s) Family History Reviewed.: Yes - Negative for premature coronary artery disease or sudden cardiac in the family amongst first degree relatives. Medication/Allergy Home Medications: Alprazolam [Xanax] 1 mg PO Q8 12/17/16 Duloxetine HCl [Cymbalta] 60 mg PO Q12 12/17/16 Fluticasone Propionate [Flonase Nasal [place] 50 Mcg/[place] 16 gm] 1 spray NAREB DAILY 12/17/16 Gabapentin [Neurontin] 600 mg PO 5XDP PRN 12/17/16 Ibuprofen [Motrin 800 mg Tablet] 800 mg PO TIDP PRN 12/17/16 Levocetirizine Dihydrochloride [Xyzal] 5 mg PO QPM 12/17/16 Lisinopril/Hydrochlorothiazide [Lisinopril-Hctz 20-25 mg Tab] 1 tab PO DAILY Meloxicam [Mobic] 7.5 mg PO DAILY 12/17/16 Omeprazole 40 mg PO ACBRKFST 12/17/16 Oxycodone HCl 15 mg PO QIDP PRN 12/17/16 Phentermine HCl 30 mg PO DAILY 12/17/16 Tizanidine HCl [Zanaflex 4 Mg Tablet] 4 mg PO Q8HP PRN 12/17/16 Allergies/Adverse Reactions: Sulfa (Sulfonamide Antibiotics) Allergy (Mild, Verified 10/01/14 09:41) Hives Review of Systems ROS unobtainable: Due to endotracheal tube Physical Exam Vital Signs: Temp Pulse Resp BP Pulse Ox 96.8 F L 61 18 114/73 99 12/21/16 21:45 12/21/16 21:05 12/21/16 21:05 12/21/16 16:45 12/21/16 21:05 Intake & Output 12/20/16 12/21/16 12/22/16 06:59 06:59 06:59 Intake Total 2539 2634 4109 Output Total 1000 2905 Balance 2539 1634 1204 Weight 93.6 kg 93.6 kg Exam: GENERAL: well-nourished and in no acute distress. Patient is intubated and sedated. Orientation cannot be checked HEAD: Atraumatic, normocephalic. EYES: Pupils equal round and reactive to light, extraocular movements could not be checked, sclera anicteric, conjunctiva are normal. ENT: TMs normal, nares patent, oropharynx clear without exudates. Moist mucous membranes. No oral ulcerations or bleeding gums noted NECK: supple without lymphadenopathy or JVD. Trachea is central. No cervical or axillary lymphadenopathy noted. Carotids are 2+ LUNGS: Breath sounds mostly clear to auscultation patient is noted to have bibasal crackles at the extreme bases CHEST: Palpation of the chest wall shows no significant chest wall tenderness or abnormalities. HEART: [place] [employer]ACH[employer], No PSH, 2/6 [place] aortic area, 1/6 plasencia systolic murmur mitral area , no rubs or gallops. ABDOMEN: Soft, no significant tenderness appreciated, normoactive bowel sounds. No guarding, no rebound. No rigidity noted . No masses appreciated. EXTREMITIES: Pedal pulses are 1-2+, no calf tenderness noted, 1+ pedal edema noted. No clubbing or cyanosis. NEUROLOGICAL: The patient cannot participate in the neurological exam but no facial asymmetry noted. Extremities slightly hypotonic PSYCH: This cannot be evaluated. Patient cannot participate. SKIN: No significant ecchymosis, rash, or signs of pruritus noted. MUSCULOSKELETAL EXAM: No significant joint swelling noted. Patient cannot participate in musculoskeletal exam Results Laboratory Results: 12/21/16 10:23 12/21/16 10:23 12/21/16 12/21/16 12/21/16 09:07 10:23 10:23 WBC 20.0 H RBC 4.19 Hgb 13.7 Hct 39.7 MCV 95 MCH 32.7 MCHC 34.5 RDW 13.3 Plt Count 318 Seg Neutrophils % Not Reportable Lymphocytes % Not Reportable Monocytes % Not Reportable Eosinophils % Not Reportable Basophils % Not Reportable Absolute Neutrophils Not Reportable Absolute Lymphocytes Not Reportable Absolute Monocytes Not Reportable Absolute Eosinophils Not Reportable Absolute Basophils Not Reportable Carbonic Acid 2.23 H HCO3/H2CO3 Ratio 9:1 ABG pH 7.08 L* ABG pCO2 74.0 H* ABG pO2 86.2 ABG HCO3 21.5 ABG O2 Saturation 92.0 L ABG Base Excess -9.9 FiO2 10 LITERS Sodium 133.4 L Potassium 3.4 L Chloride 98 Carbon Dioxide 21 L Anion Gap 14 BUN 10 Creatinine 0.66 Est GFR ( Amer) > 60 Est GFR (Non-Af Amer) > 60 Glucose 244 H Calcium 8.8 Magnesium 1.2 L* Total Bilirubin 0.6 AST 44 H ALT 76 H Alkaline Phosphatase 76 Total Protein 6.5 Albumin 4.2 12/21/16 11:50 WBC RBC Hgb Hct MCV MCH MCHC RDW Plt Count Seg Neutrophils % Lymphocytes % Monocytes % Eosinophils % Basophils % Absolute Neutrophils Absolute Lymphocytes Absolute Monocytes Absolute Eosinophils Absolute Basophils Carbonic Acid 1.27 HCO3/H2CO3 Ratio 17:1 ABG pH 7.34 L ABG pCO2 42.2 ABG pO2 103.3 H ABG HCO3 22.1 ABG O2 Saturation 97.4 ABG Base Excess -3.6 FiO2 60% Sodium Potassium Chloride Carbon Dioxide Anion Gap BUN Creatinine Est GFR ( Amer) Est GFR (Non-Af Amer) Glucose Calcium Magnesium Total Bilirubin AST ALT Alkaline Phosphatase Total Protein Albumin 12/19/16 08:00 Stool - Stool - Final 12/19/16 08:00 Stool - Stool Stool Culture - Final 12/17/16 12/17/16 12/17/16 04:15 04:15 11:10 Creatine Kinase 912 H 720 H CK-MB (CK-2) 11.30 H Troponin I < 0.012 NT-Pro-B Natriuret Pep 12/17/16 12/17/16 12/17/16 11:10 17:05 17:05 Creatine Kinase 553 H CK-MB (CK-2) 8.18 H 6.75 H Troponin I < 0.012 < 0.012 NT-Pro-B Natriuret Pep 12/21/16 12/21/16 12/21/16 10:23 10:23 15:13 Creatine Kinase 307 H CK-MB (CK-2) 5.42 H 4.33 Troponin I 0.148 0.247 NT-Pro-B Natriuret Pep 8020 H 12/21/16 15:13 Creatine Kinase 212 H CK-MB (CK-2) Troponin I NT-Pro-B Natriuret Pep EKG Comments: Multiple 12-lead EKGs were reviewed. ST segment changes were noted, felt to be acute. Impressions: Head MRI 12/17/16 02:35 IMPRESSION: NO ENHANCING LESIONS. MINIMAL MICROVASCULAR ISCHEMIC CHANGE. OTHERWISE NORMAL STUDY. EVIDENCE OF ACUTE STROKE: NO. Head CT 12/18/16 00:00 IMPRESSION: Motion artifact. No acute findings EVIDENCE OF ACUTE STROKE: NO. Guidance Fluoroscopy 12/20/16 00:00 IMPRESSION: Lumbar puncture under fluoroscopy. No immediate complication. Lumbar Puncture 12/20/16 00:00 IMPRESSION: Lumbar puncture under fluoroscopy. No immediate complication. Chest X-Ray 12/21/16 00:00 IMPRESSION: Right subclavian central line tip superior vena cava. No pneumothorax. Decrease in pulmonary edema compared to films from this morning. Assessment & Plan - Diagnosis (1) NSTEMI (non-ST elevated myocardial infarction) Is this a current diagnosis for this admission?: Yes (2) Acute systolic heart failure Is this a current diagnosis for this admission?: Yes (3) Acute respiratory failure Qualifiers: Respiratory failure complication: hypoxia Qualified Code(s): J96.01 - Acute respiratory failure with hypoxia Is this a current diagnosis for this admission?: Yes (4) Atrial fibrillation with RVR Is this a current diagnosis for this admission?: Yes (5) COPD (chronic obstructive pulmonary disease) Qualifiers: COPD type: chronic bronchitis Is this a current diagnosis for this admission?: Yes - Notes Notes: Non-STEMI: Most likely related to supply demand mismatch and severe hypoxemia. EKG did not show any acute ST-T wave changes but patient does have depressed LVEF. At this time will treat patient with aspirin, statins, maintain vitals. Once patient is noted to be stable, will consider anticoagulation. Acute systolic heart failure: Patient noted to have severe systolic dysfunction on echocardiogram. Her heart is however not enlarged either on chest x-ray or on echocardiogram. This raises possibility of acute cardiomyopathy/acute ischemia. Continue to monitor patient very closely. Acute respiratory failure: Patient currently intubated. Patient maintaining good oxygenation. Chest x-ray shows no significant pulmonary congestion. Atrial fibrillation with rapid ventricular response: Patient currently on amiodarone. Will maintain amiodarone drip and subsequently placed patient on p.o. amiodarone. COPD: Patient being monitored by hansard reporter. Patient will benefit from repeat echocardiogram within the next several days of weeks. Patient may need to be considered for a heart catheterization at a later date. - Time Time Spent: 50 to 70 Minutes - CODE STATUS was discussed, patient remains full code. Surrogate decision-maker patient's daughter. Multiple medical problems were addressed. More than 50% of the time spent coordinating care, discussing management plans with involved caregivers. Management plans discussed with involved personnels. Medical decision making was of moderate to high complexity , patient's has multiple comorbidities. Medications reviewed and adjusted accordingly: Yes
[2016-12-21] MEDS: NORMAL SALINE 1000 ML 1,000 ML IV PRN (22:55)
[2016-12-21 23:13] LABS: CREATINE KINASE MB 3.83 ng/mL (<4.55)
[2016-12-21 23:15] LABS: TROPONIN I 0.122 ng/mL
[2016-12-22] MEDS ORDERED: ASPIRIN 81 MG TABLET, CHEWABLE NG ONE (00:15)
[2016-12-22] MEDS: PROPOFOL 100 ML IV PRN ×2 (04:11→11:35)
[2016-12-22] MEDS: MIDAZOLAM HCL 100 ML IV PRN (04:14)
[2016-12-22 05:11] LABS: ABSOLUTE LYMPHOCYTES (AUTO) 1.8 10^3/uL (0.5-4.7); ABSOLUTE MONOCYTES (AUTO) 0.7 10^3/uL (0.1-1.4); ABSOLUTE NEUT (AUTO) 6.8 10^3/uL (1.7-8.2); BASOPHILS % (AUTO) 0.4 % (0-2); EOSINOPHILS % (AUTO) 0.3 % (0-6); HEMATOCRIT 33.5 % (36.0-47.0); HEMOGLOBIN 11.9 g/dL (12.0-15.5); HGB HCT DIFFERENCE 2.2; LYMPHOCYTES % (AUTO) 19.1 % (13-45); MEAN CORPUSCULAR HEMOGLOBIN 33.1 pg (27.0-33.4); MEAN CORPUSCULAR HGB CONC 35.3 g/dL (32.0-36.0); MEAN CORPUSCULAR VOLUME 94 fl (80-97); MONOCYTES % (AUTO) 7.3 % (3-13); RED BLOOD COUNT 3.59 10^6/uL (3.72-5.28); RED CELL DISTRIBUTION WIDTH 13.1 % (11.5-14.0); SEGMENTED NEUTROPHILS % (AUTO) 72.9 % (42-78); WHITE BLOOD COUNT 9.4 10^3/uL (4.0-10.5)
[2016-12-22 05:30] LABS: ALANINE AMINOTRANSFERASE 66 U/L (9-52); ALBUMIN 3.3 g/dL (3.5-5.0); ALKALINE PHOSPHATASE 63 U/L (38-126); ANION GAP 10 (5-19); ASPARTATE AMINO TRANSFERASE 30 U/L (14-36); BILIRUBIN,DIRECT 0.4 mg/dL (0.0-0.4); BILIRUBIN,TOTAL 0.6 mg/dL (0.2-1.3); BLOOD UREA NITROGEN 14 mg/dL (7-20); CALCIUM 8.4 mg/dL (8.4-10.2); CARBON DIOXIDE 24 mmol/L (22-30); CHLORIDE 100 mmol/L (98-107); CREATININE RESULT 0.58 mg/dL (0.52-1.25); GLUCOSE 106 mg/dL (75-110); MAGNESIUM 1.8 mg/dL (1.6-2.3); PHOSPHORUS 2.7 mg/dL (2.5-4.5); POTASSIUM 3.4 mmol/L (3.6-5.0); SODIUM 134.2 mmol/L (137-145); TOTAL PROTEIN 5.4 g/dL (6.3-8.2); TRIGLYCERIDES 163 mg/dL (<150)
[2016-12-22] MEDS: ENOXAPARIN SODIUM INJ 100 MG/1 ML DISP.SYRIN SUBCUT SCH ×2 (05:44→17:35)
[2016-12-22] MEDS: LANSOPRAZOLE 15 MG TAB.RAP.DR NG SCH ×2 (05:44→17:35)
[2016-12-22] MEDS: LEVETIRACETAM 500 MG/NACL-ISO 500 MG/100 ML RTUPB IV SCH ×2 (05:44→17:36)
[2016-12-22 06:34] LABS: ARTERIAL BLOOD BASE EXCESS 1.4 mmol/L; ARTERIAL BLOOD O2 SATURATION 97.5 % (94-98)
[2016-12-22] MEDS: POTASSIUM CHLORIDE 20 MEQ/50 ML RTU IV SCH ×2 (06:36→09:22)
--- NOTE | 2016-12-22 07:23 | PDOC PROGRESS REPORT ---
Subjective Progress Note for:: 12/22/16 Subjective:: No events overnight Central line functional Minimal vent settings Physical Exam Vital Signs: Temp Pulse Resp BP Pulse Ox 97.7 F 70 7 L 127/72 H 99 12/22/16 06:15 12/22/16 02:00 12/22/16 06:15 12/22/16 06:15 12/22/16 06:15 Intake & Output 12/21/16 12/22/16 12/23/16 06:59 06:59 06:59 Intake Total 2634 6046 Output Total 1000 3565 Balance 1634 2481 Weight 93.6 kg 92.1 kg General appearance: PRESENT: no acute distress, other - sedated/intubated Head exam: PRESENT: atraumatic Mouth exam: PRESENT: moist Neck exam: ABSENT: lymphadenopathy, thyromegaly, tracheal deviation Respiratory exam: PRESENT: symmetrical, unlabored. ABSENT: rales, rhonchi, stridor, tachypnea Cardiovascular exam: PRESENT: RRR Vascular exam: PRESENT: normal capillary refill Extremities exam: PRESENT: other - minimal bilateral edema, lower extremities Results Laboratory Results: 12/22/16 04:50 12/22/16 04:50 12/21/16 12/21/16 12/21/16 09:07 10:23 10:23 WBC 20.0 H RBC 4.19 Hgb 13.7 Hct 39.7 MCV 95 MCH 32.7 MCHC 34.5 RDW 13.3 Plt Count 318 Seg Neutrophils % Not Reportable Lymphocytes % Not Reportable Monocytes % Not Reportable Eosinophils % Not Reportable Basophils % Not Reportable Absolute Neutrophils Not Reportable Absolute Lymphocytes Not Reportable Absolute Monocytes Not Reportable Absolute Eosinophils Not Reportable Absolute Basophils Not Reportable Carbonic Acid 2.23 H HCO3/H2CO3 Ratio 9:1 ABG pH 7.08 L* ABG pCO2 74.0 H* ABG pO2 86.2 ABG HCO3 21.5 ABG O2 Saturation 92.0 L ABG Base Excess -9.9 FiO2 10 LITERS Sodium 133.4 L Potassium 3.4 L Chloride 98 Carbon Dioxide 21 L Anion Gap 14 BUN 10 Creatinine 0.66 Est GFR ( Amer) > 60 Est GFR (Non-Af Amer) > 60 Glucose 244 H Calcium 8.8 Phosphorus Magnesium 1.2 L* Total Bilirubin 0.6 AST 44 H ALT 76 H Alkaline Phosphatase 76 Total Protein 6.5 Albumin 4.2 Triglycerides 12/21/16 12/22/16 12/22/16 11:50 04:50 04:50 WBC 9.4 RBC 3.59 L Hgb 11.9 L Hct 33.5 L MCV 94 MCH 33.1 MCHC 35.3 RDW 13.1 Plt Count 233 Seg Neutrophils % 72.9 Lymphocytes % 19.1 Monocytes % 7.3 Eosinophils % 0.3 Basophils % 0.4 Absolute Neutrophils 6.8 Absolute Lymphocytes 1.8 Absolute Monocytes 0.7 Absolute Eosinophils 0.0 Absolute Basophils 0.0 Carbonic Acid 1.27 HCO3/H2CO3 Ratio 17:1 ABG pH 7.34 L ABG pCO2 42.2 ABG pO2 103.3 H ABG HCO3 22.1 ABG O2 Saturation 97.4 ABG Base Excess -3.6 FiO2 60% Sodium 134.2 L Potassium 3.4 L Chloride 100 Carbon Dioxide 24 Anion Gap 10 BUN 14 Creatinine 0.58 Est GFR ( Amer) > 60 Est GFR (Non-Af Amer) > 60 Glucose 106 Calcium 8.4 Phosphorus 2.7 Magnesium 1.8 Total Bilirubin 0.6 AST 30 ALT 66 H Alkaline Phosphatase 63 Total Protein 5.4 L Albumin 3.3 L Triglycerides 163 H 12/22/16 06:20 WBC RBC Hgb Hct MCV MCH MCHC RDW Plt Count Seg Neutrophils % Lymphocytes % Monocytes % Eosinophils % Basophils % Absolute Neutrophils Absolute Lymphocytes Absolute Monocytes Absolute Eosinophils Absolute Basophils Carbonic Acid 0.97 L HCO3/H2CO3 Ratio 24:1 ABG pH 7.49 H ABG pCO2 32.1 L ABG pO2 90.0 ABG HCO3 24.1 ABG O2 Saturation 97.5 ABG Base Excess 1.4 FiO2 35% Sodium Potassium Chloride Carbon Dioxide Anion Gap BUN Creatinine Est GFR ( Amer) Est GFR (Non-Af Amer) Glucose Calcium Phosphorus Magnesium Total Bilirubin AST ALT Alkaline Phosphatase Total Protein Albumin Triglycerides 12/17/16 04:15 Blood Blood Culture - Final NO GROWTH IN 5 DAYS 12/17/16 04:05 Blood Blood Culture - Final NO GROWTH IN 5 DAYS 12/19/16 08:00 Stool - Stool - Final 12/19/16 08:00 Stool - Stool Stool Culture - Final 12/17/16 12/17/16 12/17/16 04:15 04:15 11:10 Creatine Kinase 912 H 720 H CK-MB (CK-2) 11.30 H Troponin I < 0.012 NT-Pro-B Natriuret Pep 12/17/16 12/17/16 12/17/16 11:10 17:05 17:05 Creatine Kinase 553 H CK-MB (CK-2) 8.18 H 6.75 H Troponin I < 0.012 < 0.012 NT-Pro-B Natriuret Pep 12/21/16 12/21/16 12/21/16 10:23 10:23 15:13 Creatine Kinase 307 H CK-MB (CK-2) 5.42 H 4.33 Troponin I 0.148 0.247 NT-Pro-B Natriuret Pep 8020 H 12/21/16 12/21/16 12/21/16 15:13 22:05 22:05 Creatine Kinase 212 H 155 H CK-MB (CK-2) 3.83 Troponin I 0.122 NT-Pro-B Natriuret Pep Impressions: Head MRI 12/17/16 02:35 IMPRESSION: NO ENHANCING LESIONS. MINIMAL MICROVASCULAR ISCHEMIC CHANGE. OTHERWISE NORMAL STUDY. EVIDENCE OF ACUTE STROKE: NO. Head CT 12/18/16 00:00 IMPRESSION: Motion artifact. No acute findings EVIDENCE OF ACUTE STROKE: NO. Guidance Fluoroscopy 12/20/16 00:00 IMPRESSION: Lumbar puncture under fluoroscopy. No immediate complication. Lumbar Puncture 12/20/16 00:00 IMPRESSION: Lumbar puncture under fluoroscopy. No immediate complication. Assessment & Plan - Diagnosis (1) Acute respiratory failure Qualifiers: Respiratory failure complication: hypoxia Qualified Code(s): J96.01 - Acute respiratory failure with hypoxia Is this a current diagnosis for this admission?: Yes Plan: ICU management by primary team Continue line management per hospital protocol Call with any questions
--- NOTE | 2016-12-22 07:53 | RADIOLOGY REPORT (SQ) ---
EXAM DESCRIPTION: CHEST SINGLE VIEW COMPLETED DATE/TIME: 12/22/2016 6:40 am REASON FOR STUDY: resp failure COMPARISON: 12/21/2016. EXAM PARAMETERS: NUMBER OF VIEWS: One view. TECHNIQUE: Single frontal radiographic view of the chest acquired. RADIATION DOSE: NA LIMITATIONS: None. FINDINGS: LUNGS AND PLEURA: No opacities, masses or pneumothorax. No pleural effusion. MEDIASTINUM AND HILAR STRUCTURES: No masses. Contour normal. HEART AND VASCULAR STRUCTURES: Heart normal in size. Normal vasculature. BONES: No acute findings. HARDWARE: Adequate appearing endotracheal tube, adequate appearing right subclavian central line, and likely adequate NG tube obscured distally. Lower cervical hardware fusion. OTHER: No other significant finding. IMPRESSION: No significant interval change. Lines and tubes. TECHNICAL DOCUMENTATION: JOB ID: [id number]
--- NOTE | 2016-12-22 09:06 | EKG REPORT ---
SEVERITY:- ABNORMAL ECG - SINUS RHYTHM FIRST DEGREE AV BLOCK ABNORMAL T, CONSIDER ISCHEMIA, LATERAL LEADS : Confirmed by: Manju Mccollum 22-Dec-2016 09:05:58
[2016-12-22] MEDS: DULOXETINE HCL 30 MG CAPSULE.DR PO SCH (09:20)
[2016-12-22] MEDS: NORMAL SALINE 1000 ML 1,000 ML IV PRN ×2 (09:20→20:03)
[2016-12-22] MEDS: FAMOTIDINE INJ/PF 20 MG/2 ML SDV IV SCH ×2 (09:21→22:23)
[2016-12-22] MEDS: FLUTICASONE NASAL SPRAY 50 MCG/SPRY 120 SPRAY/16 GM NAREB SCH (09:29)
[2016-12-22] MEDS: DOCUSATE SODIUM 100 MG CAPSULE PO SCH ×2 (09:29→17:35)
[2016-12-22] MEDS: LISINOPRIL 10 MG TABLET NG SCH (09:29)
[2016-12-22] MEDS ORDERED: ASPIRIN 81 MG TABLET, CHEWABLE NG SCH (10:00)
[2016-12-22] MEDS ORDERED: SPIRONOLACTONE 25 MG TABLET PO SCH (10:00)
--- NOTE | 2016-12-22 11:10 | PDOC PROGRESS REPORT ---
Subjective Progress Note for:: 12/22/16 Subjective:: Patient has made significant progress. Patient's no longer needing vasopressors. Patient has maintained sinus rhythm. Patient remains intubated, sedated, patient however looks comfortable and in acute distress. Medications reviewed. Physical Exam Vital Signs: Temp Pulse Resp BP Pulse Ox 97.3 F 81 15 141/76 H 100 12/22/16 10:00 12/22/16 10:00 12/22/16 10:00 12/22/16 10:00 12/22/16 10:00 Intake & Output 12/21/16 12/22/16 12/23/16 06:59 06:59 06:59 Intake Total 2634 6046 Output Total 1000 3565 760 Balance 1634 2481 -760 Weight 93.6 kg 92.1 kg Exam: GENERAL: well-nourished and in no acute distress. Patient is intubated and sedated. Orientation cannot be checked HEAD: Atraumatic, normocephalic. EYES: Pupils equal round and reactive to light, extraocular movements could not be checked, sclera anicteric, conjunctiva are normal. ENT: TMs normal, nares patent, oropharynx clear without exudates. Moist mucous membranes. No oral ulcerations or bleeding gums noted NECK: supple without lymphadenopathy or JVD. Trachea is central. No cervical or axillary lymphadenopathy noted. Carotids are 2+ LUNGS: Breath sounds mostly clear to auscultation patient is noted to have bibasal crackles at the extreme bases CHEST: Palpation of the chest wall shows no significant chest wall tenderness or abnormalities. HEART: Dawson CREELER, No PSH, 2/6 STEPHANIA aortic area, 1/6 plasencia systolic murmur mitral area , no rubs or gallops. ABDOMEN: Soft, no significant tenderness appreciated, normoactive bowel sounds. No guarding, no rebound. No rigidity noted . No masses appreciated. EXTREMITIES: Pedal pulses are 1-2+, no calf tenderness noted, 1+ pedal edema noted. No clubbing or cyanosis. NEUROLOGICAL: The patient cannot participate in the neurological exam but no facial asymmetry noted. Extremities slightly hypotonic PSYCH: This cannot be evaluated. Patient cannot participate. SKIN: No significant ecchymosis, rash, or signs of pruritus noted. MUSCULOSKELETAL EXAM: No significant joint swelling noted. Patient cannot participate in musculoskeletal exam Results Laboratory Results: 12/22/16 04:50 12/22/16 04:50 12/21/16 12/21/16 12/21/16 10:23 10:23 11:50 WBC 20.0 H RBC 4.19 Hgb 13.7 Hct 39.7 MCV 95 MCH 32.7 MCHC 34.5 RDW 13.3 Plt Count 318 Seg Neutrophils % Lymphocytes % Monocytes % Eosinophils % Basophils % Absolute Neutrophils Absolute Lymphocytes Absolute Monocytes Absolute Eosinophils Absolute Basophils Carbonic Acid 1.27 HCO3/H2CO3 Ratio 17:1 ABG pH 7.34 L ABG pCO2 42.2 ABG pO2 103.3 H ABG HCO3 22.1 ABG O2 Saturation 97.4 ABG Base Excess -3.6 FiO2 60% Sodium 133.4 L Potassium 3.4 L Chloride 98 Carbon Dioxide 21 L Anion Gap 14 BUN 10 Creatinine 0.66 Est GFR ( Amer) > 60 Est GFR (Non-Af Amer) > 60 Glucose 244 H Calcium 8.8 Phosphorus Magnesium 1.2 L* Total Bilirubin 0.6 AST 44 H ALT 76 H Alkaline Phosphatase 76 Total Protein 6.5 Albumin 4.2 Triglycerides 12/22/16 12/22/16 12/22/16 04:50 04:50 06:20 WBC 9.4 RBC 3.59 L Hgb 11.9 L Hct 33.5 L MCV 94 MCH 33.1 MCHC 35.3 RDW 13.1 Plt Count 233 Seg Neutrophils % 72.9 Lymphocytes % 19.1 Monocytes % 7.3 Eosinophils % 0.3 Basophils % 0.4 Absolute Neutrophils 6.8 Absolute Lymphocytes 1.8 Absolute Monocytes 0.7 Absolute Eosinophils 0.0 Absolute Basophils 0.0 Carbonic Acid 0.97 L HCO3/H2CO3 Ratio 24:1 ABG pH 7.49 H ABG pCO2 32.1 L ABG pO2 90.0 ABG HCO3 24.1 ABG O2 Saturation 97.5 ABG Base Excess 1.4 FiO2 35% Sodium 134.2 L Potassium 3.4 L Chloride 100 Carbon Dioxide 24 Anion Gap 10 BUN 14 Creatinine 0.58 Est GFR ( Amer) > 60 Est GFR (Non-Af Amer) > 60 Glucose 106 Calcium 8.4 Phosphorus 2.7 Magnesium 1.8 Total Bilirubin 0.6 AST 30 ALT 66 H Alkaline Phosphatase 63 Total Protein 5.4 L Albumin 3.3 L Triglycerides 163 H 12/20/16 09:03 Cerebral Spinal Fluid - Csf Gram Stain - Final 12/17/16 04:15 Blood Blood Culture - Final NO GROWTH IN 5 DAYS 12/17/16 04:05 Blood Blood Culture - Final NO GROWTH IN 5 DAYS 12/19/16 08:00 Stool - Stool - Final 12/19/16 08:00 Stool - Stool Stool Culture - Final 12/17/16 12/17/16 12/17/16 04:15 04:15 11:10 Creatine Kinase 912 H 720 H CK-MB (CK-2) 11.30 H Troponin I < 0.012 NT-Pro-B Natriuret Pep 12/17/16 12/17/16 12/17/16 11:10 17:05 17:05 Creatine Kinase 553 H CK-MB (CK-2) 8.18 H 6.75 H Troponin I < 0.012 < 0.012 NT-Pro-B Natriuret Pep 12/21/16 12/21/16 12/21/16 10:23 10:23 15:13 Creatine Kinase 307 H CK-MB (CK-2) 5.42 H 4.33 Troponin I 0.148 0.247 NT-Pro-B Natriuret Pep 8020 H 12/21/16 12/21/16 12/21/16 15:13 22:05 22:05 Creatine Kinase 212 H 155 H CK-MB (CK-2) 3.83 Troponin I 0.122 NT-Pro-B Natriuret Pep EKG Comments: Twelve-lead EKG shows sinus rhythm and minor nonspecific T-wave changes Impressions: Head MRI 12/17/16 02:35 IMPRESSION: NO ENHANCING LESIONS. MINIMAL MICROVASCULAR ISCHEMIC CHANGE. OTHERWISE NORMAL STUDY. EVIDENCE OF ACUTE STROKE: NO. Head CT 12/18/16 00:00 IMPRESSION: Motion artifact. No acute findings EVIDENCE OF ACUTE STROKE: NO. Guidance Fluoroscopy 12/20/16 00:00 IMPRESSION: Lumbar puncture under fluoroscopy. No immediate complication. Lumbar Puncture 12/20/16 00:00 IMPRESSION: Lumbar puncture under fluoroscopy. No immediate complication. Chest X-Ray 12/22/16 06:00 IMPRESSION: No significant interval change. Lines and tubes. Assessment & Plan - Diagnosis (1) NSTEMI (non-ST elevated myocardial infarction) Is this a current diagnosis for this admission?: Yes (2) Acute systolic heart failure Is this a current diagnosis for this admission?: Yes (3) Acute respiratory failure Qualifiers: Respiratory failure complication: hypoxia Qualified Code(s): J96.01 - Acute respiratory failure with hypoxia Is this a current diagnosis for this admission?: Yes (4) Atrial fibrillation with RVR Is this a current diagnosis for this admission?: Yes (5) COPD (chronic obstructive pulmonary disease) Qualifiers: COPD type: chronic bronchitis Is this a current diagnosis for this admission?: Yes - Notes Notes: Non-STEMI: Most likely related to supply demand mismatch and severe hypoxemia. EKG did not show any acute ST-T wave changes but patient does have depressed LVEF. At this time will treat patient with aspirin, statins, maintain vitals. Continue Lovenox. Consider starting patient on low-dose beta blockers such as carvedilol or Bystolic preferred. Acute systolic heart failure: Patient noted to have severe systolic dysfunction on echocardiogram. Her heart is however not enlarged either on chest x-ray or on echocardiogram. This raises possibility of acute cardiomyopathy/acute ischemia. Continue to monitor patient very closely. Acute respiratory failure: Patient currently intubated. Patient maintaining good oxygenation. Chest x-ray shows no significant pulmonary congestion. Atrial fibrillation with rapid ventricular response: Patient maintaining sinus rhythm. Patient currently on amiodarone. Patient started on amiodarone 200 p.o. 3 times a day. COPD: Patient being monitored by fiction writer. Patient will benefit from repeat echocardiogram within the next several days of weeks. Patient may need to be considered for a heart catheterization at a later date. Subsequently patient should be considered for a stress test prior to discharge. - Time Time with patient: Greater than 35 minutes - CODE STATUS was discussed, patient remains full code. Surrogate decision-maker patient's daughter. Multiple medical problems were addressed. More than 50% of the time spent coordinating care, discussing management plans with involved caregivers. Management plans discussed with involved personnels. Medical decision making was of moderate to high complexity, patient's has multiple comorbidities. Medications reviewed and adjusted accordingly: Yes
[2016-12-22] MEDS ORDERED: ONDANSETRON HCL INJ/PF 4 MG/2 ML SDV IV PRN (13:00)
[2016-12-22] MEDS ORDERED: ACETAMINOPHEN SOLN 325 MG/10.15 ML UDCUP NG PRN (13:00)
[2016-12-22 13:06] LABS: ARTERIAL BLOOD BASE EXCESS 2.7 mmol/L; ARTERIAL BLOOD O2 SATURATION 97.2 % (94-98)
[2016-12-22] MEDS: AMIODARONE HCL 200 MG TABLET NG SCH ×2 (13:22→22:20)
--- NOTE | 2016-12-22 13:53 | PSYCHOLOGICAL NOTE ---
Psych Note - Psych Note Psych Note: Patient is a 61-year-old female who has been admitted to [facility] due to altered mental status and low sodium. Patient was referred for psychiatric consultation due to what was thought to be active psychosis. Patient reportedly has no known psychiatric history. Her patient's EMR patient does have prior documented episodes of altered mental status and delirium related to low sodium most recently 3 years ago. Patient is currently intubated; evaluation will occur at a later time.
[2016-12-22 16:40] LABS: ALPHA-2-GLOBULIN 5.4 % (3.0-12.6); CSF PE BETA GLOBULIN 13.6 % (7.3-17.9)
--- NOTE | 2016-12-22 18:20 | PDOC PROGRESS REPORT ---
Subjective Progress Note for:: 12/22/16 - Acute respiratory failure: Atrial fibrillation with RVR Subjective:: intubated Physical Exam Vital Signs: Temp Pulse Resp BP Pulse Ox 97.3 F 81 15 141/76 H 100 12/22/16 10:00 12/22/16 10:00 12/22/16 10:00 12/22/16 10:00 12/22/16 10:00 Intake & Output 12/21/16 12/22/16 12/23/16 06:59 06:59 06:59 Intake Total 2634 6046 Output Total 1000 3565 760 Balance 1634 2481 -760 Weight 93.6 kg 92.1 kg General appearance: PRESENT: no acute distress, disheveled, obese, well- developed Head exam: PRESENT: atraumatic, normocephalic Eye exam: PRESENT: conjunctiva pale Mouth exam: PRESENT: dry mucosa, neck supple, tongue midline, other - ET tube Neck exam: ABSENT: carotid bruit, JVD, lymphadenopathy, thyromegaly Respiratory exam: PRESENT: decreased breath sounds, prolonged expiratory phas, rhonchi, symmetrical, unlabored, wheezes. ABSENT: rales, retraction, stridor, tachypnea Cardiovascular exam: PRESENT: RRR, +S1, +S2 Pulses: PRESENT: normal radial pulses GI/Abdominal exam: PRESENT: normal bowel sounds, soft. ABSENT: distended, guarding, mass, organolmegaly, rebound, tenderness Rectal exam: PRESENT: deferred Gentrourinary exam: PRESENT: indwelling catheter Musculoskeletal exam: PRESENT: normal inspection Neurological exam: PRESENT: awake Skin exam: PRESENT: dry, warm Results Laboratory Results: 12/22/16 04:50 12/22/16 04:50 12/21/16 12/21/16 12/21/16 10:23 10:23 11:50 WBC 20.0 H RBC 4.19 Hgb 13.7 Hct 39.7 MCV 95 MCH 32.7 MCHC 34.5 RDW 13.3 Plt Count 318 Seg Neutrophils % Not Reportable Lymphocytes % Not Reportable Monocytes % Not Reportable Eosinophils % Not Reportable Basophils % Not Reportable Absolute Neutrophils Not Reportable Absolute Lymphocytes Not Reportable Absolute Monocytes Not Reportable Absolute Eosinophils Not Reportable Absolute Basophils Not Reportable Carbonic Acid 1.27 HCO3/H2CO3 Ratio 17:1 ABG pH 7.34 L ABG pCO2 42.2 ABG pO2 103.3 H ABG HCO3 22.1 ABG O2 Saturation 97.4 ABG Base Excess -3.6 FiO2 60% Sodium 133.4 L Potassium 3.4 L Chloride 98 Carbon Dioxide 21 L Anion Gap 14 BUN 10 Creatinine 0.66 Est GFR ( Amer) > 60 Est GFR (Non-Af Amer) > 60 Glucose 244 H Calcium 8.8 Phosphorus Magnesium 1.2 L* Total Bilirubin 0.6 AST 44 H ALT 76 H Alkaline Phosphatase 76 Total Protein 6.5 Albumin 4.2 Triglycerides 12/22/16 12/22/16 12/22/16 04:50 04:50 06:20 WBC 9.4 RBC 3.59 L Hgb 11.9 L Hct 33.5 L MCV 94 MCH 33.1 MCHC 35.3 RDW 13.1 Plt Count 233 Seg Neutrophils % 72.9 Lymphocytes % 19.1 Monocytes % 7.3 Eosinophils % 0.3 Basophils % 0.4 Absolute Neutrophils 6.8 Absolute Lymphocytes 1.8 Absolute Monocytes 0.7 Absolute Eosinophils 0.0 Absolute Basophils 0.0 Carbonic Acid 0.97 L HCO3/H2CO3 Ratio 24:1 ABG pH 7.49 H ABG pCO2 32.1 L ABG pO2 90.0 ABG HCO3 24.1 ABG O2 Saturation 97.5 ABG Base Excess 1.4 FiO2 35% Sodium 134.2 L Potassium 3.4 L Chloride 100 Carbon Dioxide 24 Anion Gap 10 BUN 14 Creatinine 0.58 Est GFR ( Amer) > 60 Est GFR (Non-Af Amer) > 60 Glucose 106 Calcium 8.4 Phosphorus 2.7 Magnesium 1.8 Total Bilirubin 0.6 AST 30 ALT 66 H Alkaline Phosphatase 63 Total Protein 5.4 L Albumin 3.3 L Triglycerides 163 H 12/17/16 04:15 Blood Blood Culture - Final NO GROWTH IN 5 DAYS 12/17/16 04:05 Blood Blood Culture - Final NO GROWTH IN 5 DAYS 12/19/16 08:00 Stool - Stool - Final 12/19/16 08:00 Stool - Stool Stool Culture - Final 12/17/16 12/17/16 12/17/16 04:15 04:15 11:10 Creatine Kinase 912 H 720 H CK-MB (CK-2) 11.30 H Troponin I < 0.012 NT-Pro-B Natriuret Pep 12/17/16 12/17/16 12/17/16 11:10 17:05 17:05 Creatine Kinase 553 H CK-MB (CK-2) 8.18 H 6.75 H Troponin I < 0.012 < 0.012 NT-Pro-B Natriuret Pep 12/21/16 12/21/16 12/21/16 10:23 10:23 15:13 Creatine Kinase 307 H CK-MB (CK-2) 5.42 H 4.33 Troponin I 0.148 0.247 NT-Pro-B Natriuret Pep 8020 H 12/21/16 12/21/16 12/21/16 15:13 22:05 22:05 Creatine Kinase 212 H 155 H CK-MB (CK-2) 3.83 Troponin I 0.122 NT-Pro-B Natriuret Pep Impressions: Head MRI 12/17/16 02:35 IMPRESSION: NO ENHANCING LESIONS. MINIMAL MICROVASCULAR ISCHEMIC CHANGE. OTHERWISE NORMAL STUDY. EVIDENCE OF ACUTE STROKE: NO. Head CT 12/18/16 00:00 IMPRESSION: Motion artifact. No acute findings EVIDENCE OF ACUTE STROKE: NO. Guidance Fluoroscopy 12/20/16 00:00 IMPRESSION: Lumbar puncture under fluoroscopy. No immediate complication. Lumbar Puncture 12/20/16 00:00 IMPRESSION: Lumbar puncture under fluoroscopy. No immediate complication. Chest X-Ray 12/22/16 06:00 IMPRESSION: No significant interval change. Lines and tubes. Assessment & Plan - Diagnosis (1) Altered mental status Qualifiers: Altered mental status type: unspecified Qualified Code(s): R41.82 - Altered mental status, unspecified Is this a current diagnosis for this admission?: Yes (2) Chronic pain syndrome Is this a current diagnosis for this admission?: Yes (3) Seizure disorder, secondary Is this a current diagnosis for this admission?: Yes (4) COPD (chronic obstructive pulmonary disease) Qualifiers: COPD type: chronic bronchitis Is this a current diagnosis for this admission?: Yes (5) Atrial fibrillation with RVR Is this a current diagnosis for this admission?: Yes Plan: ok at this time (6) Acute respiratory failure Qualifiers: Respiratory failure complication: hypoxia Qualified Code(s): J96.01 - Acute respiratory failure with hypoxia Is this a current diagnosis for this admission?: Yes Plan: extubate - Time Critical Time spent with patient: 35 or more minutes - 55 min extubate
--- NOTE | 2016-12-22 21:00 | PDOC PROGRESS REPORT ---
Subjective Progress Note for:: 12/22/16 Subjective:: She was seen at the bedside, she pulled out the ET tube today, she is sustained an acute NM non-ST elevated type in the setting of paroxysmal atrial fibrillation 2D echo showed depressed ejection fraction of left ventricle. She probably have underlining CAD Physical Exam Vital Signs: Temp Pulse Resp BP Pulse Ox 99.5 F 102 H 18 151/87 H 95 12/22/16 19:27 12/22/16 18:00 12/22/16 18:15 12/22/16 18:15 12/22/16 18:15 Intake & Output 12/21/16 12/22/16 12/23/16 06:59 06:59 06:59 Intake Total 2634 6046 1512 Output Total 1000 3565 3840 Balance 1634 2481 -2328 Weight 93.6 kg 92.1 kg General appearance: PRESENT: no acute distress, well-developed, well-nourished Head exam: PRESENT: atraumatic, normocephalic Eye exam: PRESENT: conjunctiva pink, EOMI, PERRLA. ABSENT: scleral icterus Ear exam: PRESENT: normal external ear exam Mouth exam: PRESENT: moist, tongue midline Neck exam: PRESENT: full ROM Respiratory exam: PRESENT: clear to auscultation bacilio Cardiovascular exam: PRESENT: RRR, +S1, +S2 Pulses: PRESENT: normal dorsalis pedis pul, +2 pedal pulses bilateral Vascular exam: PRESENT: normal capillary refill GI/Abdominal exam: PRESENT: normal bowel sounds, soft Rectal exam: PRESENT: deferred Neurological exam: PRESENT: alert, awake, oriented to person, oriented to place , oriented to time, oriented to situation, CN II-XII grossly intact Psychiatric exam: PRESENT: appropriate affect, normal mood Skin exam: PRESENT: dry, intact, warm Results Laboratory Results: 12/22/16 04:50 12/22/16 04:50 12/22/16 12/22/16 12/22/16 04:50 04:50 06:20 WBC 9.4 RBC 3.59 L Hgb 11.9 L Hct 33.5 L MCV 94 MCH 33.1 MCHC 35.3 RDW 13.1 Plt Count 233 Seg Neutrophils % 72.9 Lymphocytes % 19.1 Monocytes % 7.3 Eosinophils % 0.3 Basophils % 0.4 Absolute Neutrophils 6.8 Absolute Lymphocytes 1.8 Absolute Monocytes 0.7 Absolute Eosinophils 0.0 Absolute Basophils 0.0 Carbonic Acid 0.97 L HCO3/H2CO3 Ratio 24:1 ABG pH 7.49 H ABG pCO2 32.1 L ABG pO2 90.0 ABG HCO3 24.1 ABG O2 Saturation 97.5 ABG Base Excess 1.4 FiO2 35% Sodium 134.2 L Potassium 3.4 L Chloride 100 Carbon Dioxide 24 Anion Gap 10 BUN 14 Creatinine 0.58 Est GFR ( Amer) > 60 Est GFR (Non-Af Amer) > 60 Glucose 106 Calcium 8.4 Phosphorus 2.7 Magnesium 1.8 Total Bilirubin 0.6 AST 30 ALT 66 H Alkaline Phosphatase 63 Total Protein 5.4 L Albumin 3.3 L Triglycerides 163 H 12/22/16 12:48 WBC RBC Hgb Hct MCV MCH MCHC RDW Plt Count Seg Neutrophils % Lymphocytes % Monocytes % Eosinophils % Basophils % Absolute Neutrophils Absolute Lymphocytes Absolute Monocytes Absolute Eosinophils Absolute Basophils Carbonic Acid 1.13 HCO3/H2CO3 Ratio 23:1 ABG pH 7.47 H ABG pCO2 37.4 ABG pO2 88.4 ABG HCO3 26.4 H ABG O2 Saturation 97.2 ABG Base Excess 2.7 FiO2 3L Sodium Potassium Chloride Carbon Dioxide Anion Gap BUN Creatinine Est GFR ( Amer) Est GFR (Non-Af Amer) Glucose Calcium Phosphorus Magnesium Total Bilirubin AST ALT Alkaline Phosphatase Total Protein Albumin Triglycerides 12/20/16 09:03 Cerebral Spinal Fluid - Csf Gram Stain - Final 12/17/16 04:15 Blood Blood Culture - Final NO GROWTH IN 5 DAYS 12/17/16 04:05 Blood Blood Culture - Final NO GROWTH IN 5 DAYS 12/17/16 12/17/16 12/17/16 04:15 04:15 11:10 Creatine Kinase 912 H 720 H CK-MB (CK-2) 11.30 H Troponin I < 0.012 NT-Pro-B Natriuret Pep 12/17/16 12/17/16 12/17/16 11:10 17:05 17:05 Creatine Kinase 553 H CK-MB (CK-2) 8.18 H 6.75 H Troponin I < 0.012 < 0.012 NT-Pro-B Natriuret Pep 12/21/16 12/21/16 12/21/16 10:23 10:23 15:13 Creatine Kinase 307 H CK-MB (CK-2) 5.42 H 4.33 Troponin I 0.148 0.247 NT-Pro-B Natriuret Pep 8020 H 12/21/16 12/21/16 12/21/16 15:13 22:05 22:05 Creatine Kinase 212 H 155 H CK-MB (CK-2) 3.83 Troponin I 0.122 NT-Pro-B Natriuret Pep Impressions: Head MRI 12/17/16 02:35 IMPRESSION: NO ENHANCING LESIONS. MINIMAL MICROVASCULAR ISCHEMIC CHANGE. OTHERWISE NORMAL STUDY. EVIDENCE OF ACUTE STROKE: NO. Head CT 12/18/16 00:00 IMPRESSION: Motion artifact. No acute findings EVIDENCE OF ACUTE STROKE: NO. Guidance Fluoroscopy 12/20/16 00:00 IMPRESSION: Lumbar puncture under fluoroscopy. No immediate complication. Lumbar Puncture 12/20/16 00:00 IMPRESSION: Lumbar puncture under fluoroscopy. No immediate complication. Chest X-Ray 12/22/16 06:00 IMPRESSION: No significant interval change. Lines and tubes. 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 Is this a current diagnosis for this admission?: Yes (4) Withdrawal from opioids Is this a current diagnosis for this admission?: Yes (5) Acute respiratory acidosis Is this a current diagnosis for this admission?: Yes (6) Acute pulmonary edema Is this a current diagnosis for this admission?: Yes (7) Acute systolic heart failure Is this a current diagnosis for this admission?: Yes Plan: Start entresto, evidence based beta-montrell, metoprolol succinate, DC metoprolol tartrate (8) Paroxysmal atrial fibrillation Is this a current diagnosis for this admission?: Yes (9) Hypotension Qualifiers: Hypotension type: unspecified hypotension type Qualified Code(s): I95.9 - Hypotension, unspecified Is this a current diagnosis for this admission?: Yes (10) NSTEMI (non-ST elevated myocardial infarction) Is this a current diagnosis for this admission?: Yes
[2016-12-22] MEDS ORDERED: METOPROLOL SUCCINATE 50 MG TAB.SR.24H PO ONE (21:30)
[2016-12-22] MEDS ORDERED: ATORVASTATIN CALCIUM 40 MG TABLET NG SCH (22:00)
[2016-12-22] MEDS: SACUBITRIL/VALSARTAN 49 MG/51 MG TABLET PO SCH (22:23)
[2016-12-23] MEDS: NORMAL SALINE 1000 ML 1,000 ML IV PRN (05:32)
[2016-12-23] MEDS: LEVETIRACETAM 500 MG/NACL-ISO 500 MG/100 ML RTUPB IV SCH ×2 (05:33→16:45)
[2016-12-23] MEDS: ENOXAPARIN SODIUM INJ 100 MG/1 ML DISP.SYRIN SUBCUT SCH ×2 (05:34→16:46)
[2016-12-23] MEDS: LANSOPRAZOLE 15 MG TAB.RAP.DR NG SCH (05:36)
[2016-12-23 06:15] LABS: ARTERIAL BLOOD BASE EXCESS 3.6 mmol/L; ARTERIAL BLOOD O2 SATURATION 94.9 % (94-98)
[2016-12-23 06:20] LABS: ABSOLUTE LYMPHOCYTES (AUTO) 1.9 10^3/uL (0.5-4.7); ABSOLUTE MONOCYTES (AUTO) 0.8 10^3/uL (0.1-1.4); ABSOLUTE NEUT (AUTO) 5.6 10^3/uL (1.7-8.2); BASOPHILS % (AUTO) 0.4 % (0-2); EOSINOPHILS % (AUTO) 0.2 % (0-6); HEMATOCRIT 35.9 % (36.0-47.0); HEMOGLOBIN 12.4 g/dL (12.0-15.5); HGB HCT DIFFERENCE 1.3; LYMPHOCYTES % (AUTO) 23.1 % (13-45); MEAN CORPUSCULAR HEMOGLOBIN 32.8 pg (27.0-33.4); MEAN CORPUSCULAR HGB CONC 34.5 g/dL (32.0-36.0); MEAN CORPUSCULAR VOLUME 95 fl (80-97); MONOCYTES % (AUTO) 9.7 % (3-13); RED BLOOD COUNT 3.77 10^6/uL (3.72-5.28); RED CELL DISTRIBUTION WIDTH 13.3 % (11.5-14.0); SEGMENTED NEUTROPHILS % (AUTO) 66.6 % (42-78); WHITE BLOOD COUNT 8.4 10^3/uL (4.0-10.5)
[2016-12-23 06:34] LABS: ALKALINE PHOSPHATASE 75 U/L (38-126); BILIRUBIN,DIRECT 0.5 mg/dL (0.0-0.4); BLOOD UREA NITROGEN 8 mg/dL (7-20); CHLORIDE 104 mmol/L (98-107); TOTAL PROTEIN 5.8 g/dL (6.3-8.2)
[2016-12-23 06:47] LABS: ALANINE AMINOTRANSFERASE 80 U/L (9-52); ALBUMIN 3.6 g/dL (3.5-5.0); ANION GAP 11 (5-19); ASPARTATE AMINO TRANSFERASE 34 U/L (14-36); BILIRUBIN,TOTAL 0.7 mg/dL (0.2-1.3); CALCIUM 8.7 mg/dL (8.4-10.2); CARBON DIOXIDE 28 mmol/L (22-30); CREATININE RESULT 0.58 mg/dL (0.52-1.25); GLUCOSE 88 mg/dL (75-110); MAGNESIUM 1.4 mg/dL (1.6-2.3); SODIUM 142.5 mmol/L (137-145)
[2016-12-23 06:50] LABS: POTASSIUM 3.1 mmol/L (3.6-5.0)
[2016-12-23 07:20] LABS: CSF PE GAMMA GLOBULIN 6.4 % (3.0-13.0); PROT ELEC MSPIKE Not Observed % (Not Observed)
--- NOTE | 2016-12-23 07:56 | RADIOLOGY REPORT (SQ) ---
EXAM DESCRIPTION: CHEST SINGLE VIEW COMPLETED DATE/TIME: 12/23/2016 6:53 am REASON FOR STUDY: resp failure COMPARISON: 12/22/2016. EXAM PARAMETERS: NUMBER OF VIEWS: One view. TECHNIQUE: Single frontal radiographic view of the chest acquired. RADIATION DOSE: NA LIMITATIONS: None. FINDINGS: LUNGS AND PLEURA: No opacities, masses or pneumothorax. No pleural effusion. Prominent in terstitium. MEDIASTINUM AND HILAR STRUCTURES: No masses. Contour normal. HEART AND VASCULAR STRUCTURES: Heart normal in size. Normal vasculature. BONES: No acute findings. HARDWARE: Right subclavian PICC tip at the cavoatrial junction. Lower cervical hardware fusion parti ally imaged. OTHER: No other significant finding. IMPRESSION: No significant interval change. TECHNICAL DOCUMENTATION: JOB ID: [id number]
[2016-12-23] MEDS: DULOXETINE HCL 30 MG CAPSULE.DR PO SCH (09:56)
[2016-12-23] MEDS: AMIODARONE HCL 200 MG TABLET PO SCH ×2 (09:56→21:36)
[2016-12-23] MEDS: SPIRONOLACTONE 25 MG TABLET PO SCH (09:57)
[2016-12-23] MEDS: ASPIRIN 81 MG TABLET, CHEWABLE PO SCH (09:57)
[2016-12-23] MEDS: METOPROLOL SUCCINATE 50 MG TAB.SR.24H PO SCH (09:57)
[2016-12-23] MEDS: SACUBITRIL/VALSARTAN 49 MG/51 MG TABLET PO SCH ×2 (09:58→21:36)
[2016-12-23] MEDS: THIAMINE HCL 100 MG in NORMAL SALINE 50 ML IV SCH (09:59)
[2016-12-23] MEDS: MAGNESIUM SULFATE/D5W 1 GM/100 ML RTUPB IV SCH ×3 (10:00→12:34)
[2016-12-23] MEDS ORDERED: SPIRONOLACTONE 25 MG TABLET NG SCH (10:00)
[2016-12-23] MEDS: POTASSI CL 20 MEQ/50 ML RIDER 20 MEQ/50 ML RTUPB IV SCH ×2 (10:01→12:35)
[2016-12-23] MEDS: DOCUSATE SODIUM 100 MG CAPSULE PO SCH ×2 (10:05→16:46)
[2016-12-23] MEDS: ACETAMINOPHEN SOLN 325 MG/10.15 ML UDCUP PO PRN (10:26)
--- NOTE | 2016-12-23 10:32 | EKG REPORT ---
SEVERITY:- ABNORMAL ECG - SINUS RHYTHM FIRST DEGREE AV BLOCK NONSPECIFIC REPOL ABNORMALITY, LATERAL LEADS BORDERLINE PROLONGED QT INTERVAL : Confirmed by: Manju Mccollum 23-Dec-2016 10:31:36
[2016-12-23] MEDS: FLUTICASONE NASAL SPRAY 50 MCG/SPRY 120 SPRAY/16 GM NAREB SCH (11:22)
[2016-12-23] MEDS: OLANZAPINE 2.5 MG TABLET PO SCH (12:34)
[2016-12-23] MEDS: AMOXICILLIN TRIHYDRATE 500 MG CAPSULE PO SCH ×2 (16:45→21:36)
[2016-12-23] MEDS: LANSOPRAZOLE 15 MG TAB.RAP.DR PO SCH (16:45)
[2016-12-23] MEDS: ALPRAZOLAM 0.25 MG TABLET PO SCH (19:38)
--- NOTE | 2016-12-23 20:44 | PDOC PROGRESS REPORT ---
Subjective Progress Note for:: 12/23/16 Subjective:: Patient was seen by the bedside, she has episode of confusion, this symptoms is highly suggestive of withdrawal syndrome, she normally uses alprazolam on a somewhat regular basis but she has not been taking it in the last few days before admission. She also does not drink alcohol in the last 4-5 years this was confirmed by the children and the . The blood pressure is well controlled she is not presently in congestive heart failure. Physical Exam Vital Signs: Temp Pulse Resp BP Pulse Ox 99.3 F 86 21 H 119/86 H 100 12/23/16 19:27 12/23/16 18:00 12/23/16 19:00 12/23/16 18:16 12/23/16 19:00 Intake & Output 12/22/16 12/23/16 12/24/16 06:59 06:59 06:59 Intake Total 6046 3452 851 Output Total 3565 6175 1905 Balance 8054 -0590 -5484 Weight 92.1 kg 88.8 kg General appearance: PRESENT: no acute distress, well-developed, well-nourished Head exam: PRESENT: atraumatic, normocephalic Eye exam: PRESENT: conjunctiva pink, EOMI, PERRLA Ear exam: PRESENT: normal external ear exam Mouth exam: PRESENT: moist, tongue midline Neck exam: PRESENT: full ROM Respiratory exam: PRESENT: clear to auscultation bacilio Cardiovascular exam: PRESENT: RRR, +S1, +S2 Pulses: PRESENT: normal dorsalis pedis pul, +2 pedal pulses bilateral Vascular exam: PRESENT: normal capillary refill GI/Abdominal exam: PRESENT: normal bowel sounds, soft Rectal exam: PRESENT: deferred Neurological exam: PRESENT: alert, altered, CN II-XII grossly intact. ABSENT: motor sensory deficit Psychiatric exam: PRESENT: appropriate affect, normal mood Skin exam: PRESENT: dry, intact, warm. ABSENT: cyanosis, rash Results Laboratory Results: 12/23/16 05:40 12/23/16 05:40 12/20/16 12/23/16 12/23/16 09:03 05:40 05:40 WBC 8.4 RBC 3.77 Hgb 12.4 Hct 35.9 L MCV 95 MCH 32.8 MCHC 34.5 RDW 13.3 Plt Count 238 Seg Neutrophils % 66.6 Lymphocytes % 23.1 Monocytes % 9.7 Eosinophils % 0.2 Basophils % 0.4 Absolute Neutrophils 5.6 Absolute Lymphocytes 1.9 Absolute Monocytes 0.8 Absolute Eosinophils 0.0 Absolute Basophils 0.0 Carbonic Acid 1.04 L HCO3/H2CO3 Ratio 25:1 ABG pH 7.50 H ABG pCO2 34.7 L ABG pO2 66.8 L ABG HCO3 26.5 H ABG O2 Saturation 94.9 ABG Base Excess 3.6 FiO2 ROOM AIR Sodium Potassium Chloride Carbon Dioxide Anion Gap BUN Creatinine Est GFR ( Amer) Est GFR (Non-Af Amer) Glucose Calcium Magnesium Total Bilirubin AST ALT Alkaline Phosphatase Total Protein Albumin CSF Total Protein PEP 60.0 H CSF Prealbumin 3.4 CSF Albumin 66.4 CSF Oiots-7-Zmsahknh 4.8 CSF Pnwkc-7-Uhbrvane 5.4 CSF Beta Globulin 13.6 CSF Gamma Globulin 6.4 CSF PEP M-Juanito Not Observed 12/23/16 05:40 WBC RBC Hgb Hct MCV MCH MCHC RDW Plt Count Seg Neutrophils % Lymphocytes % Monocytes % Eosinophils % Basophils % Absolute Neutrophils Absolute Lymphocytes Absolute Monocytes Absolute Eosinophils Absolute Basophils Carbonic Acid HCO3/H2CO3 Ratio ABG pH ABG pCO2 ABG pO2 ABG HCO3 ABG O2 Saturation ABG Base Excess FiO2 Sodium 142.5 Potassium 3.1 L Chloride 104 Carbon Dioxide 28 Anion Gap 11 BUN 8 Creatinine 0.58 Est GFR ( Amer) > 60 Est GFR (Non-Af Amer) > 60 Glucose 88 Calcium 8.7 Magnesium 1.4 L Total Bilirubin 0.7 AST 34 ALT 80 H Alkaline Phosphatase 75 Total Protein 5.8 L Albumin 3.6 CSF Total Protein PEP CSF Prealbumin CSF Albumin CSF Zvgbb-0-Tipeyeeu CSF Bjrns-6-Zviwdcnu CSF Beta Globulin CSF Gamma Globulin CSF PEP M-Juanito 12/20/16 09:03 Cerebral Spinal Fluid - Csf Gram Stain - Final 12/20/16 09:03 Cerebral Spinal Fluid - Csf CSF Culture - Final NO GROWTH 3 DAYS 12/17/16 12/17/16 12/17/16 04:15 04:15 11:10 Creatine Kinase 912 H 720 H CK-MB (CK-2) 11.30 H Troponin I < 0.012 NT-Pro-B Natriuret Pep 12/17/16 12/17/16 12/17/16 11:10 17:05 17:05 Creatine Kinase 553 H CK-MB (CK-2) 8.18 H 6.75 H Troponin I < 0.012 < 0.012 NT-Pro-B Natriuret Pep 12/21/16 12/21/16 12/21/16 10:23 10:23 15:13 Creatine Kinase 307 H CK-MB (CK-2) 5.42 H 4.33 Troponin I 0.148 0.247 NT-Pro-B Natriuret Pep 8020 H 12/21/16 12/21/16 12/21/16 15:13 22:05 22:05 Creatine Kinase 212 H 155 H CK-MB (CK-2) 3.83 Troponin I 0.122 NT-Pro-B Natriuret Pep Impressions: Head MRI 12/17/16 02:35 IMPRESSION: NO ENHANCING LESIONS. MINIMAL MICROVASCULAR ISCHEMIC CHANGE. OTHERWISE NORMAL STUDY. EVIDENCE OF ACUTE STROKE: NO. Head CT 12/18/16 00:00 IMPRESSION: Motion artifact. No acute findings EVIDENCE OF ACUTE STROKE: NO. Guidance Fluoroscopy 12/20/16 00:00 IMPRESSION: Lumbar puncture under fluoroscopy. No immediate complication. Lumbar Puncture 12/20/16 00:00 IMPRESSION: Lumbar puncture under fluoroscopy. No immediate complication. Chest X-Ray 12/23/16 06:00 IMPRESSION: No significant interval change. 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 Is this a current diagnosis for this admission?: Yes (4) Withdrawal from opioids Is this a current diagnosis for this admission?: Yes (5) Acute respiratory acidosis Is this a current diagnosis for this admission?: Yes (6) Acute pulmonary edema Is this a current diagnosis for this admission?: Yes (7) Acute systolic heart failure Is this a current diagnosis for this admission?: Yes (8) Paroxysmal atrial fibrillation Is this a current diagnosis for this admission?: Yes (9) Hypotension Qualifiers: Hypotension type: unspecified hypotension type Qualified Code(s): I95.9 - Hypotension, unspecified Is this a current diagnosis for this admission?: Yes (10) NSTEMI (non-ST elevated myocardial infarction) Is this a current diagnosis for this admission?: Yes - Plan Summary Plan Summary: She will be started on intravenous thiamine, p.o. alprazolam
[2016-12-23] MEDS: ATORVASTATIN CALCIUM 40 MG TABLET PO SCH (21:37)
[2016-12-24 06:11] LABS: ABSOLUTE BASOPHILS # (AUTO) 0.1 10^3/uL (0.0-0.2); ABSOLUTE MONOCYTES (AUTO) 1.1 10^3/uL (0.1-1.4); ABSOLUTE NEUT (AUTO) 7.9 10^3/uL (1.7-8.2); BASOPHILS % (AUTO) 0.6 % (0-2); EOSINOPHILS % (AUTO) 0.4 % (0-6); HEMATOCRIT 40.2 % (36.0-47.0); HEMOGLOBIN 13.8 g/dL (12.0-15.5); HGB HCT DIFFERENCE 1.2; LYMPHOCYTES % (AUTO) 18.4 % (13-45); MEAN CORPUSCULAR HEMOGLOBIN 32.7 pg (27.0-33.4); MEAN CORPUSCULAR HGB CONC 34.5 g/dL (32.0-36.0); MEAN CORPUSCULAR VOLUME 95 fl (80-97); MONOCYTES % (AUTO) 9.8 % (3-13); RED BLOOD COUNT 4.23 10^6/uL (3.72-5.28); RED CELL DISTRIBUTION WIDTH 13.5 % (11.5-14.0); SEGMENTED NEUTROPHILS % (AUTO) 70.8 % (42-78); WHITE BLOOD COUNT 11.1 10^3/uL (4.0-10.5)
[2016-12-24] MEDS: LEVETIRACETAM 500 MG/NACL-ISO 500 MG/100 ML RTUPB IV SCH ×2 (06:20→18:10)
[2016-12-24] MEDS: LANSOPRAZOLE 15 MG TAB.RAP.DR PO SCH ×2 (06:22→16:46)
[2016-12-24] MEDS: ALPRAZOLAM 0.25 MG TABLET PO SCH ×2 (06:22→16:45)
[2016-12-24] MEDS: ENOXAPARIN SODIUM INJ 100 MG/1 ML DISP.SYRIN SUBCUT SCH ×2 (06:22→17:54)
[2016-12-24 06:32] LABS: ANION GAP 12 (5-19); BLOOD UREA NITROGEN 10 mg/dL (7-20); CARBON DIOXIDE 29 mmol/L (22-30); CHLORIDE 102 mmol/L (98-107); CREATININE RESULT 0.59 mg/dL (0.52-1.25); GLUCOSE 127 mg/dL (75-110); MAGNESIUM 1.6 mg/dL (1.6-2.3); PHOSPHORUS 2.5 mg/dL (2.5-4.5); POTASSIUM 3.4 mmol/L (3.6-5.0)
[2016-12-24] MEDS: AMOXICILLIN TRIHYDRATE 500 MG CAPSULE PO SCH ×3 (06:32→21:39)
[2016-12-24 06:39] LABS: ARTERIAL BLOOD BASE EXCESS 4.3 mmol/L; ARTERIAL BLOOD O2 SATURATION 91.9 % (94-98)
[2016-12-24] MEDS ORDERED: LORAZEPAM INJ 2 MG/1 ML VIAL ONE (07:45)
[2016-12-24] MEDS: SPIRONOLACTONE 25 MG TABLET PO SCH (10:35)
[2016-12-24] MEDS: OLANZAPINE 2.5 MG TABLET PO SCH (10:35)
[2016-12-24] MEDS: ASPIRIN 81 MG TABLET, CHEWABLE PO SCH (10:35)
[2016-12-24] MEDS: SACUBITRIL/VALSARTAN 49 MG/51 MG TABLET PO SCH ×2 (10:35→21:39)
[2016-12-24] MEDS: FLUTICASONE NASAL SPRAY 50 MCG/SPRY 120 SPRAY/16 GM NAREB SCH (10:36)
[2016-12-24] MEDS: METOPROLOL SUCCINATE 50 MG TAB.SR.24H PO SCH (10:36)
[2016-12-24] MEDS: AMIODARONE HCL 200 MG TABLET PO SCH ×2 (10:36→21:38)
[2016-12-24] MEDS: DOCUSATE SODIUM 100 MG CAPSULE PO SCH ×2 (10:37→17:54)
[2016-12-24] MEDS ORDERED: OLANZAPINE 5 MG TABLET PO ONE (11:00)
[2016-12-24] MEDS ORDERED: DULOXETINE HCL 30 MG CAPSULE.DR PO ONE (11:00)
[2016-12-24] MEDS: THIAMINE HCL 100 MG in NORMAL SALINE 50 ML IV SCH (13:07)
--- NOTE | 2016-12-24 13:12 | PDOC PROGRESS REPORT ---
Subjective Progress Note for:: 12/23/16 - Acute respiratory failure: Atrial fibrillation with RVR Subjective:: 48 hours status post extubation confused Physical Exam Vital Signs: Temp Pulse Resp BP Pulse Ox 99.3 F 76 18 149/80 H 100 12/23/16 12:00 12/23/16 12:00 12/23/16 12:00 12/23/16 12:00 12/23/16 12:00 Intake & Output 12/22/16 12/23/16 12/24/16 06:59 06:59 06:59 Intake Total 6046 3452 Output Total 3565 6175 720 Balance 6691 -3695 -720 Weight 92.1 kg 88.8 kg General appearance: PRESENT: no acute distress, disheveled, obese, well- developed Head exam: PRESENT: atraumatic, normocephalic Eye exam: PRESENT: conjunctiva pale Mouth exam: PRESENT: dry mucosa, neck supple, tongue midline Neck exam: ABSENT: carotid bruit, JVD, lymphadenopathy, thyromegaly Respiratory exam: PRESENT: decreased breath sounds, prolonged expiratory phas, rhonchi, symmetrical, unlabored, wheezes. ABSENT: rales, retraction, stridor, tachypnea Cardiovascular exam: PRESENT: RRR, +S1, +S2 Pulses: PRESENT: normal radial pulses GI/Abdominal exam: PRESENT: normal bowel sounds, soft. ABSENT: distended, guarding, mass, organolmegaly, rebound, tenderness Rectal exam: PRESENT: deferred Gentrourinary exam: PRESENT: indwelling catheter Musculoskeletal exam: PRESENT: normal inspection Neurological exam: PRESENT: altered, awake. ABSENT: oriented to person, oriented to place, oriented to time, oriented to situation Psychiatric exam: PRESENT: agitated Focused psych exam: PRESENT: delusional Skin exam: PRESENT: dry, warm Results Laboratory Results: 12/23/16 05:40 12/23/16 05:40 12/20/16 12/23/16 12/23/16 09:03 05:40 05:40 WBC 8.4 RBC 3.77 Hgb 12.4 Hct 35.9 L MCV 95 MCH 32.8 MCHC 34.5 RDW 13.3 Plt Count 238 Seg Neutrophils % 66.6 Lymphocytes % 23.1 Monocytes % 9.7 Eosinophils % 0.2 Basophils % 0.4 Absolute Neutrophils 5.6 Absolute Lymphocytes 1.9 Absolute Monocytes 0.8 Absolute Eosinophils 0.0 Absolute Basophils 0.0 Carbonic Acid 1.04 L HCO3/H2CO3 Ratio 25:1 ABG pH 7.50 H ABG pCO2 34.7 L ABG pO2 66.8 L ABG HCO3 26.5 H ABG O2 Saturation 94.9 ABG Base Excess 3.6 FiO2 ROOM AIR Sodium Potassium Chloride Carbon Dioxide Anion Gap BUN Creatinine Est GFR ( Amer) Est GFR (Non-Af Amer) Glucose Calcium Magnesium Total Bilirubin AST ALT Alkaline Phosphatase Total Protein Albumin CSF Total Protein PEP 60.0 H CSF Prealbumin 3.4 CSF Albumin 66.4 CSF Hznjc-1-Uujajmhs 4.8 CSF Jsxwr-7-Cxiczwyx 5.4 CSF Beta Globulin 13.6 CSF Gamma Globulin 6.4 CSF PEP M-Juanito Not Observed 12/23/16 05:40 WBC RBC Hgb Hct MCV MCH MCHC RDW Plt Count Seg Neutrophils % Lymphocytes % Monocytes % Eosinophils % Basophils % Absolute Neutrophils Absolute Lymphocytes Absolute Monocytes Absolute Eosinophils Absolute Basophils Carbonic Acid HCO3/H2CO3 Ratio ABG pH ABG pCO2 ABG pO2 ABG HCO3 ABG O2 Saturation ABG Base Excess FiO2 Sodium 142.5 Potassium 3.1 L Chloride 104 Carbon Dioxide 28 Anion Gap 11 BUN 8 Creatinine 0.58 Est GFR ( Amer) > 60 Est GFR (Non-Af Amer) > 60 Glucose 88 Calcium 8.7 Magnesium 1.4 L Total Bilirubin 0.7 AST 34 ALT 80 H Alkaline Phosphatase 75 Total Protein 5.8 L Albumin 3.6 CSF Total Protein PEP CSF Prealbumin CSF Albumin CSF Bjucb-2-Rvxhzlnd CSF Qfybc-3-Feuhyifw CSF Beta Globulin CSF Gamma Globulin CSF PEP M-Juanito 12/20/16 09:03 Cerebral Spinal Fluid - Csf Gram Stain - Final 12/20/16 09:03 Cerebral Spinal Fluid - Csf CSF Culture - Final NO GROWTH 3 DAYS 12/17/16 12/17/16 12/17/16 04:15 04:15 11:10 Creatine Kinase 912 H 720 H CK-MB (CK-2) 11.30 H Troponin I < 0.012 NT-Pro-B Natriuret Pep 12/17/16 12/17/16 12/17/16 11:10 17:05 17:05 Creatine Kinase 553 H CK-MB (CK-2) 8.18 H 6.75 H Troponin I < 0.012 < 0.012 NT-Pro-B Natriuret Pep 12/21/16 12/21/16 12/21/16 10:23 10:23 15:13 Creatine Kinase 307 H CK-MB (CK-2) 5.42 H 4.33 Troponin I 0.148 0.247 NT-Pro-B Natriuret Pep 8020 H 12/21/16 12/21/16 12/21/16 15:13 22:05 22:05 Creatine Kinase 212 H 155 H CK-MB (CK-2) 3.83 Troponin I 0.122 NT-Pro-B Natriuret Pep Impressions: Head MRI 12/17/16 02:35 IMPRESSION: NO ENHANCING LESIONS. MINIMAL MICROVASCULAR ISCHEMIC CHANGE. OTHERWISE NORMAL STUDY. EVIDENCE OF ACUTE STROKE: NO. Head CT 12/18/16 00:00 IMPRESSION: Motion artifact. No acute findings EVIDENCE OF ACUTE STROKE: NO. Guidance Fluoroscopy 12/20/16 00:00 IMPRESSION: Lumbar puncture under fluoroscopy. No immediate complication. Lumbar Puncture 12/20/16 00:00 IMPRESSION: Lumbar puncture under fluoroscopy. No immediate complication. Chest X-Ray 12/23/16 06:00 IMPRESSION: No significant interval change. Assessment & Plan - Diagnosis (1) Altered mental status Qualifiers: Altered mental status type: unspecified Qualified Code(s): R41.82 - Altered mental status, unspecified Is this a current diagnosis for this admission?: Yes Plan: Mental status persist awaiting for psychological evaluation (2) Chronic pain syndrome Is this a current diagnosis for this admission?: Yes (3) Seizure disorder, secondary Is this a current diagnosis for this admission?: Yes (4) COPD (chronic obstructive pulmonary disease) Qualifiers: COPD type: chronic bronchitis Is this a current diagnosis for this admission?: Yes Plan: Continue current therapy (5) Atrial fibrillation with RVR Is this a current diagnosis for this admission?: Yes Plan: Controlled at this time (6) Acute respiratory failure Qualifiers: Respiratory failure complication: hypoxia Qualified Code(s): J96.01 - Acute respiratory failure with hypoxia Is this a current diagnosis for this admission?: Yes Plan: 84 hours status post extubation stable on nasal cannula - Time Time Spent with patient: 35 minutes Critical Time spent with patient: 35 or more minutes
--- NOTE | 2016-12-24 13:36 | EKG REPORT ---
SEVERITY:- ABNORMAL ECG - SINUS RHYTHM ABNORMAL T, CONSIDER ISCHEMIA, ANTERIOR AND LATERAL LEADS BORDERLINE PROLONGED QT INTERVAL : Confirmed by: Manju Mccollum 24-Dec-2016 13:35:52
--- NOTE | 2016-12-24 14:16 | PDOC PROGRESS REPORT ---
Subjective Progress Note for:: 12/24/16 Subjective:: Patient is still very confused, the nurses said she was combative and somewhat violent, she required 4 point restraints. She was seen by the bedside she is alert but drowsy because she was given IV lorazepam to calm her down Physical Exam Vital Signs: Temp Pulse Resp BP Pulse Ox 98.4 F 87 22 H 125/73 100 12/24/16 11:00 12/23/16 20:00 12/24/16 11:25 12/24/16 10:15 12/24/16 11:25 Intake & Output 12/23/16 12/24/16 12/25/16 06:59 06:59 06:59 Intake Total 3452 951 Output Total 6197 6910 400 Balance -3183 -2179 -400 Weight 88.8 kg 88.3 kg General appearance: PRESENT: no acute distress Eye exam: PRESENT: conjunctiva pink, EOMI, PERRLA Ear exam: PRESENT: normal external ear exam Mouth exam: PRESENT: moist, tongue midline Neck exam: PRESENT: full ROM Respiratory exam: PRESENT: clear to auscultation bacilio Cardiovascular exam: PRESENT: RRR, +S1, +S2 Pulses: PRESENT: normal dorsalis pedis pul, +2 pedal pulses bilateral Vascular exam: PRESENT: normal capillary refill GI/Abdominal exam: PRESENT: normal bowel sounds, soft Rectal exam: PRESENT: deferred Neurological exam: PRESENT: alert Psychiatric exam: PRESENT: appropriate affect, normal mood Skin exam: PRESENT: dry, intact, warm Results Laboratory Results: 12/24/16 05:20 12/24/16 05:20 12/24/16 12/24/16 12/24/16 05:20 05:20 05:20 WBC 11.1 H RBC 4.23 Hgb 13.8 Hct 40.2 MCV 95 MCH 32.7 MCHC 34.5 RDW 13.5 Plt Count 257 Seg Neutrophils % 70.8 Lymphocytes % 18.4 Monocytes % 9.8 Eosinophils % 0.4 Basophils % 0.6 Absolute Neutrophils 7.9 Absolute Lymphocytes 2.0 Absolute Monocytes 1.1 Absolute Eosinophils 0.0 Absolute Basophils 0.1 Carbonic Acid 1.17 HCO3/H2CO3 Ratio 23:1 ABG pH 7.48 H ABG pCO2 38.8 ABG pO2 57.9 L ABG HCO3 28.0 H ABG O2 Saturation 91.9 L ABG Base Excess 4.3 FiO2 ROOM AIR Sodium 143.0 Potassium 3.4 L Chloride 102 Carbon Dioxide 29 Anion Gap 12 BUN 10 Creatinine 0.59 Est GFR ( Amer) > 60 Est GFR (Non-Af Amer) > 60 Glucose 127 H Calcium 9.0 Phosphorus 2.5 Magnesium 1.6 12/22/16 10:35 Tracheal Aspirate Gram Stain - Final 12/22/16 10:35 Tracheal Aspirate Sputum Culture - Final Group B Beta Streptococcus Normal Adelia 12/17/16 12/17/16 12/17/16 04:15 04:15 11:10 Creatine Kinase 912 H 720 H CK-MB (CK-2) 11.30 H Troponin I < 0.012 NT-Pro-B Natriuret Pep 12/17/16 12/17/16 12/17/16 11:10 17:05 17:05 Creatine Kinase 553 H CK-MB (CK-2) 8.18 H 6.75 H Troponin I < 0.012 < 0.012 NT-Pro-B Natriuret Pep 12/21/16 12/21/16 12/21/16 10:23 10:23 15:13 Creatine Kinase 307 H CK-MB (CK-2) 5.42 H 4.33 Troponin I 0.148 0.247 NT-Pro-B Natriuret Pep 8020 H 12/21/16 12/21/16 12/21/16 15:13 22:05 22:05 Creatine Kinase 212 H 155 H CK-MB (CK-2) 3.83 Troponin I 0.122 NT-Pro-B Natriuret Pep Impressions: Head MRI 12/17/16 02:35 IMPRESSION: NO ENHANCING LESIONS. MINIMAL MICROVASCULAR ISCHEMIC CHANGE. OTHERWISE NORMAL STUDY. EVIDENCE OF ACUTE STROKE: NO. Head CT 12/18/16 00:00 IMPRESSION: Motion artifact. No acute findings EVIDENCE OF ACUTE STROKE: NO. Guidance Fluoroscopy 12/20/16 00:00 IMPRESSION: Lumbar puncture under fluoroscopy. No immediate complication. Lumbar Puncture 12/20/16 00:00 IMPRESSION: Lumbar puncture under fluoroscopy. No immediate complication. Chest X-Ray 12/23/16 06:00 IMPRESSION: No significant interval change. 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 Is this a current diagnosis for this admission?: Yes (4) Withdrawal from opioids Is this a current diagnosis for this admission?: Yes (5) Acute respiratory acidosis Is this a current diagnosis for this admission?: Yes (6) Acute pulmonary edema Is this a current diagnosis for this admission?: Yes (7) Acute systolic heart failure Is this a current diagnosis for this admission?: Yes (8) Paroxysmal atrial fibrillation Is this a current diagnosis for this admission?: Yes (9) Hypotension Qualifiers: Hypotension type: unspecified hypotension type Qualified Code(s): I95.9 - Hypotension, unspecified Is this a current diagnosis for this admission?: Yes (10) NSTEMI (non-ST elevated myocardial infarction) Is this a current diagnosis for this admission?: Yes
--- NOTE | 2016-12-24 15:37 | PDOC PROGRESS REPORT ---
Subjective Progress Note for:: 12/23/16 Subjective:: Patient has made significant progress from cardiac standpoint but now noted to have mental status changes. Patient's no longer needing vasopressors. Patient has maintained sinus rhythm. Patient was noted to be very agitated and confused. It seems patient is having hallucinations. Medications reviewed. Physical Exam Vital Signs: Temp Pulse Resp BP Pulse Ox 98.6 F 99 16 139/85 H 98 12/24/16 14:15 12/24/16 08:00 12/24/16 14:15 12/24/16 14:15 12/24/16 14:15 Intake & Output 12/23/16 12/24/16 12/25/16 06:59 06:59 06:59 Intake Total 3452 951 Output Total 6172 3130 400 Balance -1546 -217 -400 Weight 88.8 kg 88.3 kg Exam: GENERAL: well-nourished and in no acute distress. Alert but not oriented. Orientation in fact could not be checked. HEAD: Atraumatic, normocephalic. EYES: Pupils equal round and reactive to light, extraocular movements intact, sclera anicteric, conjunctiva are normal. ENT: TMs normal, nares patent, oropharynx clear without exudates. Moist mucous membranes. No oral ulcerations or bleeding gums noted NECK: supple without lymphadenopathy. Trachea is central. No cervical or axillary lymphadenopathy noted. Carotids are 2+, JVD WNL LUNGS: Respiration seems nonlabored, no significant accessory muscle action noted. Breath sounds clear to auscultation bilaterally and equal noted. No wheezes rales or rhonchi noted. No significant dullness noted on percussion. CHEST: Palpation of the chest wall shows no significant chest wall tenderness. No other significant abnormalities noted. HEART: [place] MEDICAL ORDERLY, No PSH, 1/6 STEPHANIA aortic area, 1/6 plasencia systolic murmur mitral area, no rubs, no gallops. ABDOMEN: Soft, no significant tenderness appreciated, normoactive bowel sounds. No guarding, no rebound. No rigidity noted . No masses appreciated. EXTREMITIES: Pedal pulses are 1-2+, no calf tenderness noted. No clubbing or cyanosis.trace to 1+ pedal edema noted NEUROLOGICAL: Focused neurological exam showed no significant neurologic deficit. Normal speech, patient noted to move all 4 extremities.. PSYCH: Patient noted to be agitated and hallucinating. Patient could be withdrawing. SKIN: No significant ecchymosis, rash, ulcerations or signs of pruritus noted. MUSCULOSKELETAL EXAM: No significant joint swelling noted. Results Laboratory Results: 12/24/16 05:20 12/24/16 05:20 12/24/16 12/24/16 12/24/16 05:20 05:20 05:20 WBC 11.1 H RBC 4.23 Hgb 13.8 Hct 40.2 MCV 95 MCH 32.7 MCHC 34.5 RDW 13.5 Plt Count 257 Seg Neutrophils % 70.8 Lymphocytes % 18.4 Monocytes % 9.8 Eosinophils % 0.4 Basophils % 0.6 Absolute Neutrophils 7.9 Absolute Lymphocytes 2.0 Absolute Monocytes 1.1 Absolute Eosinophils 0.0 Absolute Basophils 0.1 Carbonic Acid 1.17 HCO3/H2CO3 Ratio 23:1 ABG pH 7.48 H ABG pCO2 38.8 ABG pO2 57.9 L ABG HCO3 28.0 H ABG O2 Saturation 91.9 L ABG Base Excess 4.3 FiO2 ROOM AIR Sodium 143.0 Potassium 3.4 L Chloride 102 Carbon Dioxide 29 Anion Gap 12 BUN 10 Creatinine 0.59 Est GFR ( Amer) > 60 Est GFR (Non-Af Amer) > 60 Glucose 127 H Calcium 9.0 Phosphorus 2.5 Magnesium 1.6 12/22/16 10:35 Tracheal Aspirate Gram Stain - Final 12/22/16 10:35 Tracheal Aspirate Sputum Culture - Final Group B Beta Streptococcus Normal Adelia 12/17/16 12/17/16 12/17/16 04:15 04:15 11:10 Creatine Kinase 912 H 720 H CK-MB (CK-2) 11.30 H Troponin I < 0.012 NT-Pro-B Natriuret Pep 12/17/16 12/17/16 12/17/16 11:10 17:05 17:05 Creatine Kinase 553 H CK-MB (CK-2) 8.18 H 6.75 H Troponin I < 0.012 < 0.012 NT-Pro-B Natriuret Pep 12/21/16 12/21/16 12/21/16 10:23 10:23 15:13 Creatine Kinase 307 H CK-MB (CK-2) 5.42 H 4.33 Troponin I 0.148 0.247 NT-Pro-B Natriuret Pep 8020 H 12/21/16 12/21/16 12/21/16 15:13 22:05 22:05 Creatine Kinase 212 H 155 H CK-MB (CK-2) 3.83 Troponin I 0.122 NT-Pro-B Natriuret Pep EKG Comments: Telemetry strip shows sinus rhythm. No sustained tachycardia or bradycardia arrhythmias noted. Impressions: Head MRI 12/17/16 02:35 IMPRESSION: NO ENHANCING LESIONS. MINIMAL MICROVASCULAR ISCHEMIC CHANGE. OTHERWISE NORMAL STUDY. EVIDENCE OF ACUTE STROKE: NO. Head CT 12/18/16 00:00 IMPRESSION: Motion artifact. No acute findings EVIDENCE OF ACUTE STROKE: NO. Guidance Fluoroscopy 12/20/16 00:00 IMPRESSION: Lumbar puncture under fluoroscopy. No immediate complication. Lumbar Puncture 12/20/16 00:00 IMPRESSION: Lumbar puncture under fluoroscopy. No immediate complication. Chest X-Ray 12/23/16 06:00 IMPRESSION: No significant interval change. Assessment & Plan - Diagnosis (1) NSTEMI (non-ST elevated myocardial infarction) Is this a current diagnosis for this admission?: Yes (2) Acute systolic heart failure Is this a current diagnosis for this admission?: Yes (3) Acute respiratory failure Qualifiers: Respiratory failure complication: hypoxia Qualified Code(s): J96.01 - Acute respiratory failure with hypoxia Is this a current diagnosis for this admission?: Yes (4) Atrial fibrillation with RVR Is this a current diagnosis for this admission?: Yes (5) COPD (chronic obstructive pulmonary disease) Qualifiers: COPD type: chronic bronchitis Is this a current diagnosis for this admission?: Yes (6) Cardiomyopathy Qualifiers: Cardiomyopathy type: unspecified Qualified Code(s): I42.9 - Cardiomyopathy , unspecified Is this a current diagnosis for this admission?: Yes - Notes Notes: Non-STEMI: Most likely related to supply demand mismatch and severe hypoxemia. EKG did not show any acute ST-T wave changes but patient does have depressed LVEF. At this time will treat patient with aspirin, statins, maintain vitals. Continue Lovenox. Consider starting patient on low-dose beta blockers such as carvedilol or Bystolic preferred. Consider switch to entresto from lisinopril. Acute systolic heart failure: Patient noted to have severe systolic dysfunction on echocardiogram. Her heart is however not enlarged either on chest x-ray or on echocardiogram. This raises possibility of acute cardiomyopathy/acute ischemia. Continue to monitor patient very closely. Acute respiratory failure: Patient is extubated and has tolerated it well. Patient maintaining good oxygenation. Chest x-ray shows no significant pulmonary congestion. Atrial fibrillation with rapid ventricular response: Patient maintaining sinus rhythm. Patient currently on amiodarone. Patient started on amiodarone 200 p.o. 3 times a day. COPD: Patient being monitored by water main pipe layer. Cardiomyopathy: Etiology not clear. An ischemia evaluation is indicated but patient unable to pursue it at this time. Mental status changes: Patient is noted to have psychosis. Possibly withdrawing from medications versus psychiatric problem. - Time Time with patient: 15-25 minutes - CODE STATUS was discussed, patient remains full code. Surrogate decision-maker unchanged. Multiple medical problems were addressed. More than 50% of the time spent coordinating care, discussing management plans with involved caregivers. Management plans discussed with involved personnels. Medical decision making was of moderate to high complexity , patient's has multiple comorbidities. Medications reviewed and adjusted accordingly: Yes
--- NOTE | 2016-12-24 15:43 | PDOC PROGRESS REPORT ---
Subjective Progress Note for:: 12/24/16 Subjective:: Patient has made significant progress from cardiac standpoint but now noted to have mental status changes. Patient now on all 4 limbs on's restraints. Patient's no longer needing vasopressors. Patient has maintained sinus rhythm. Patient was noted to be very agitated and confused. Patient is verbalizing but not making good sense. Medications reviewed. Physical Exam Vital Signs: Temp Pulse Resp BP Pulse Ox 98.6 F 99 16 139/85 H 98 12/24/16 14:15 12/24/16 08:00 12/24/16 14:15 12/24/16 14:15 12/24/16 14:15 Intake & Output 12/23/16 12/24/16 12/25/16 06:59 06:59 06:59 Intake Total 3452 951 Output Total 6110 3130 400 Balance -2723 -2179 -400 Weight 88.8 kg 88.3 kg Exam: GENERAL: well-nourished and in no acute distress. Patient is alert but not oriented to place time or person. Patient is very confused and agitated. HEAD: Atraumatic, normocephalic. EYES: Pupils equal round and reactive to light, extraocular movements intact, sclera anicteric, conjunctiva are normal. ENT: TMs normal, nares patent, oropharynx clear without exudates. Moist mucous membranes. No oral ulcerations or bleeding gums noted NECK: supple without lymphadenopathy or JVD. Trachea is central. No cervical or axillary lymphadenopathy noted. Carotids are 2+ LUNGS: Breath sounds bibasilar fine crackles at bases. No significant dullness noted. CHEST: Palpation of chest wall shows no significant chest wall tenderness. 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 ABDOMEN: Soft, no significant tenderness appreciated, normoactive bowel sounds. No guarding, no rebound. No rigidity noted . No masses appreciated. EXTREMITIES: Pedal pulses are 1-2+, no calf tenderness noted, Trace + pedal edema noted. No clubbing or cyanosis. NEUROLOGICAL: Patient is alert, no facial asymmetry noted. Patient is noted to move all 4 limbs equally well. PSYCH: Patient cannot participate in psych exam because of the patient's current mental status SKIN: No significant ecchymosis, rash, ulcerations or signs of pruritus noted. MUSCULOSKELETAL EXAM: No significant joint swelling noted. Results Laboratory Results: 12/24/16 05:20 12/24/16 05:20 12/24/16 12/24/16 12/24/16 05:20 05:20 05:20 WBC 11.1 H RBC 4.23 Hgb 13.8 Hct 40.2 MCV 95 MCH 32.7 MCHC 34.5 RDW 13.5 Plt Count 257 Seg Neutrophils % 70.8 Lymphocytes % 18.4 Monocytes % 9.8 Eosinophils % 0.4 Basophils % 0.6 Absolute Neutrophils 7.9 Absolute Lymphocytes 2.0 Absolute Monocytes 1.1 Absolute Eosinophils 0.0 Absolute Basophils 0.1 Carbonic Acid 1.17 HCO3/H2CO3 Ratio 23:1 ABG pH 7.48 H ABG pCO2 38.8 ABG pO2 57.9 L ABG HCO3 28.0 H ABG O2 Saturation 91.9 L ABG Base Excess 4.3 FiO2 ROOM AIR Sodium 143.0 Potassium 3.4 L Chloride 102 Carbon Dioxide 29 Anion Gap 12 BUN 10 Creatinine 0.59 Est GFR ( Amer) > 60 Est GFR (Non-Af Amer) > 60 Glucose 127 H Calcium 9.0 Phosphorus 2.5 Magnesium 1.6 12/22/16 10:35 Tracheal Aspirate Gram Stain - Final 12/22/16 10:35 Tracheal Aspirate Sputum Culture - Final Group B Beta Streptococcus Normal Adelia 12/17/16 12/17/16 12/17/16 04:15 04:15 11:10 Creatine Kinase 912 H 720 H CK-MB (CK-2) 11.30 H Troponin I < 0.012 NT-Pro-B Natriuret Pep 12/17/16 12/17/16 12/17/16 11:10 17:05 17:05 Creatine Kinase 553 H CK-MB (CK-2) 8.18 H 6.75 H Troponin I < 0.012 < 0.012 NT-Pro-B Natriuret Pep 12/21/16 12/21/16 12/21/16 10:23 10:23 15:13 Creatine Kinase 307 H CK-MB (CK-2) 5.42 H 4.33 Troponin I 0.148 0.247 NT-Pro-B Natriuret Pep 8020 H 12/21/16 12/21/16 12/21/16 15:13 22:05 22:05 Creatine Kinase 212 H 155 H CK-MB (CK-2) 3.83 Troponin I 0.122 NT-Pro-B Natriuret Pep EKG Comments: Sinus rhythm no sustained tachycardia or bradycardia arrhythmias noted. Twelve- lead EKG obtained this morning showed sinus rhythm, nonspecific T-wave changes noted. Impressions: Head MRI 12/17/16 02:35 IMPRESSION: NO ENHANCING LESIONS. MINIMAL MICROVASCULAR ISCHEMIC CHANGE. OTHERWISE NORMAL STUDY. EVIDENCE OF ACUTE STROKE: NO. Head CT 12/18/16 00:00 IMPRESSION: Motion artifact. No acute findings EVIDENCE OF ACUTE STROKE: NO. Guidance Fluoroscopy 12/20/16 00:00 IMPRESSION: Lumbar puncture under fluoroscopy. No immediate complication. Lumbar Puncture 12/20/16 00:00 IMPRESSION: Lumbar puncture under fluoroscopy. No immediate complication. Chest X-Ray 12/23/16 06:00 IMPRESSION: No significant interval change. Assessment & Plan - Diagnosis (1) NSTEMI (non-ST elevated myocardial infarction) Is this a current diagnosis for this admission?: Yes (2) Acute systolic heart failure Is this a current diagnosis for this admission?: Yes (3) Acute respiratory failure Qualifiers: Respiratory failure complication: hypoxia Qualified Code(s): J96.01 - Acute respiratory failure with hypoxia Is this a current diagnosis for this admission?: Yes (4) Atrial fibrillation with RVR Is this a current diagnosis for this admission?: Yes (5) COPD (chronic obstructive pulmonary disease) Qualifiers: COPD type: chronic bronchitis Is this a current diagnosis for this admission?: Yes (6) Cardiomyopathy Qualifiers: Cardiomyopathy type: unspecified Qualified Code(s): I42.9 - Cardiomyopathy , unspecified Is this a current diagnosis for this admission?: Yes - Notes Notes: Non-STEMI: Most likely related to supply demand mismatch and severe hypoxemia. EKG did not show any acute ST-T wave changes. Nonspecific T-wave inversions noted. But patient does have depressed LVEF. At this time will treat patient with aspirin, statins, maintain vitals. Echo regimen is felt to be satisfactory. Acute systolic heart failure: Patient noted to have severe systolic dysfunction on echocardiogram. Her heart is however not enlarged either on chest x-ray or on echocardiogram. This raises possibility of acute cardiomyopathy/acute ischemia. Continue to monitor patient very closely. Acute respiratory failure: Patient maintaining extubated status very well. Patient maintaining good oxygenation. Chest x-ray today shows no significant pulmonary congestion. Atrial fibrillation with rapid ventricular response: Patient maintaining sinus rhythm. Patient currently on amiodarone. Patient started on amiodarone 200 p.o. 3 times a day. Continue amiodarone therapy. COPD: Patient being monitored by research program manager. Cardiomyopathy: Exact etiology not clear. Medical management is being optimized. Currently on entresto and metoprolol succinate. These doses will be escalated slowly. Patient should be considered for a stress test prior to discharge. - Time Time with patient: 15-25 minutes - CODE STATUS was discussed, patient remains full code. Surrogate decision-maker patient's daughter. Multiple medical problems were addressed. More than 50% of the time spent coordinating care, discussing management plans with involved caregivers. Management plans discussed with involved personnels. Medical decision making was of moderate to high complexity, patient's has multiple comorbidities. Medications reviewed and adjusted accordingly: Yes
[2016-12-24] MEDS: ACETAMINOPHEN SOLN 325 MG/10.15 ML UDCUP PO PRN (16:46)
--- NOTE | 2016-12-24 16:49 | PSYCHOLOGICAL NOTE ---
Psych Note - Psych Note Psych Note: Patient is a 61-year-old female who has been admitted to [facility] hospitalist services due to altered mental status and low sodium. Patient was referred for psychiatric consultation due to what was thought to be active psychosis. Patient reportedly has no known psychiatric history. Her patient's EMR patient does have prior documented episodes of altered mental status and delirium related to low sodium most recently 3 years ago. Chart review conducted: Patient self extubated while in restraints yesterday late morning. Patient reportedly lucid and oriented, answering appropriately to staff during the rest of the day. Evaluation attempted: Patient is observed to have pressured speech,flight of thought and responding to internal stimuli; evidenced by patient behavior being observed while patient is alone in her room (ie. alone in her room, talking to no one). Patient spoke with patient's attending nurse who disclosed yesterday patient presented completely different and was lucid. She states sometime last night that changed. Nurse stated that while the patient was intubated she was provided Versed and sometime last night would have been the time that it would have worn off. 292.0 (F13.231) benzodiazepine withdrawal; with delirium this is supported by patient's presentation of being lucid upon arrival to [facility] then suffering from psychosis with brief lucidity after receiving Versed. Impression\plan: Medication recommendations have been provided. Patient appears to be suffering from benzodiazepine withdrawal with delirium. This is supported by patient's brief lucidity after receiving Versed while intubated. Please re-consult if any new concerns develop. Thank you for consulting with the Behavioral Health Team.
[2016-12-24] MEDS: OLANZAPINE 5 MG TABLET PO SCH (21:38)
[2016-12-24] MEDS: ATORVASTATIN CALCIUM 40 MG TABLET PO SCH (21:39)
[2016-12-24] MEDS: LORAZEPAM INJ 2 MG/1 ML VIAL IV PRN (21:39)
[2016-12-24] MEDS ORDERED: OLANZAPINE 2.5 MG TABLET PO SCH (22:00)
[2016-12-25] MEDS: ALPRAZOLAM 0.25 MG TABLET PO SCH ×3 (04:39→21:18)
[2016-12-25] MEDS: LEVETIRACETAM 500 MG/NACL-ISO 500 MG/100 ML RTUPB IV SCH (05:27)
[2016-12-25] MEDS: ENOXAPARIN SODIUM INJ 100 MG/1 ML DISP.SYRIN SUBCUT SCH (05:27)
[2016-12-25] MEDS: LANSOPRAZOLE 15 MG TAB.RAP.DR PO SCH ×2 (05:29→17:12)
[2016-12-25] MEDS: AMOXICILLIN TRIHYDRATE 500 MG CAPSULE PO SCH (05:29)
[2016-12-25 09:12] LABS: ABSOLUTE BASOPHILS # (AUTO) 0.1 10^3/uL (0.0-0.2); ABSOLUTE EOSINOPHILS # (AUTO) 0.1 10^3/uL (0.0-0.6); ABSOLUTE LYMPHOCYTES (AUTO) 2.2 10^3/uL (0.5-4.7); ABSOLUTE MONOCYTES (AUTO) 0.6 10^3/uL (0.1-1.4); ABSOLUTE NEUT (AUTO) 6.6 10^3/uL (1.7-8.2); BASOPHILS % (AUTO) 1.2 % (0-2); EOSINOPHILS % (AUTO) 1.1 % (0-6); HEMATOCRIT 39.5 % (36.0-47.0); HEMOGLOBIN 13.7 g/dL (12.0-15.5); HGB HCT DIFFERENCE 1.6; LYMPHOCYTES % (AUTO) 22.7 % (13-45); MEAN CORPUSCULAR HEMOGLOBIN 33.3 pg (27.0-33.4); MEAN CORPUSCULAR HGB CONC 34.7 g/dL (32.0-36.0); MEAN CORPUSCULAR VOLUME 96 fl (80-97); MONOCYTES % (AUTO) 6.7 % (3-13); RED BLOOD COUNT 4.12 10^6/uL (3.72-5.28); RED CELL DISTRIBUTION WIDTH 13.5 % (11.5-14.0); SEGMENTED NEUTROPHILS % (AUTO) 68.3 % (42-78); WHITE BLOOD COUNT 9.6 10^3/uL (4.0-10.5)
[2016-12-25 09:23] LABS: ANION GAP 9 (5-19); BLOOD UREA NITROGEN 11 mg/dL (7-20); CALCIUM 9.2 mg/dL (8.4-10.2); CARBON DIOXIDE 30 mmol/L (22-30); CHLORIDE 103 mmol/L (98-107); CREATININE RESULT 0.51 mg/dL (0.52-1.25); GLUCOSE 131 mg/dL (75-110); POTASSIUM 3.6 mmol/L (3.6-5.0); SODIUM 142.2 mmol/L (137-145)
[2016-12-25] MEDS: SACUBITRIL/VALSARTAN 49 MG/51 MG TABLET PO SCH ×2 (10:32→21:19)
[2016-12-25] MEDS: ASPIRIN 81 MG TABLET, CHEWABLE PO SCH (10:32)
[2016-12-25] MEDS: OLANZAPINE 5 MG TABLET PO SCH ×2 (10:33→21:18)
[2016-12-25] MEDS: AMIODARONE HCL 200 MG TABLET PO SCH ×2 (10:33→21:18)
[2016-12-25] MEDS: SPIRONOLACTONE 25 MG TABLET PO SCH (10:33)
[2016-12-25] MEDS: DULOXETINE HCL 30 MG CAPSULE.DR PO SCH (10:34)
[2016-12-25] MEDS: METOPROLOL SUCCINATE 50 MG TAB.SR.24H PO SCH (10:34)
[2016-12-25] MEDS: DOCUSATE SODIUM 100 MG CAPSULE PO SCH ×2 (10:35→17:06)
[2016-12-25] MEDS: FLUTICASONE NASAL SPRAY 50 MCG/SPRY 120 SPRAY/16 GM NAREB SCH (10:35)
--- NOTE | 2016-12-25 12:51 | PDOC PROGRESS REPORT ---
Subjective Progress Note for:: 12/25/16 Subjective:: Patient was seen by the bedside, she is back to her baseline, she apparently had was seems to be benzodiazepine withdrawal, with subsequent paroxysmal atrial fibrillation, non-ST elevated myocardial infarction, acute seizure disorder, delirium. She has cellulitis of the right foot, she will be downgraded to IMCU floor from ICU. Physical Exam Vital Signs: Temp Pulse Resp BP Pulse Ox 99.1 F 78 19 148/94 H 96 12/25/16 11:00 12/25/16 07:40 12/25/16 11:00 12/25/16 10:36 12/25/16 11:00 Intake & Output 12/24/16 12/25/16 12/26/16 06:59 06:59 06:59 Intake Total 951 400 Output Total 3130 1475 Balance -2179 -1075 Weight 88.3 kg 89.1 kg General appearance: PRESENT: no acute distress, well-developed, well-nourished Head exam: PRESENT: atraumatic, normocephalic Eye exam: PRESENT: conjunctiva pink, EOMI, PERRLA. ABSENT: scleral icterus Ear exam: PRESENT: normal external ear exam Mouth exam: PRESENT: moist, tongue midline Neck exam: PRESENT: full ROM Respiratory exam: PRESENT: clear to auscultation bacilio Cardiovascular exam: PRESENT: RRR, +S1, +S2 Pulses: PRESENT: normal dorsalis pedis pul, +2 pedal pulses bilateral Vascular exam: PRESENT: normal capillary refill GI/Abdominal exam: PRESENT: normal bowel sounds, soft Rectal exam: PRESENT: deferred Extremities exam: PRESENT: other - Redness, swelling, tenderness of the right foot Neurological exam: PRESENT: alert, awake, oriented to person, oriented to place , oriented to time, oriented to situation, CN II-XII grossly intact. ABSENT: motor sensory deficit Psychiatric exam: PRESENT: appropriate affect, normal mood. ABSENT: homicidal ideation, suicidal ideation Skin exam: PRESENT: dry, intact, warm. ABSENT: cyanosis, rash Results Laboratory Results: 12/25/16 08:50 12/25/16 08:50 12/25/16 12/25/16 08:50 08:50 WBC 9.6 RBC 4.12 Hgb 13.7 Hct 39.5 MCV 96 MCH 33.3 MCHC 34.7 RDW 13.5 Plt Count 241 Seg Neutrophils % 68.3 Lymphocytes % 22.7 Monocytes % 6.7 Eosinophils % 1.1 Basophils % 1.2 Absolute Neutrophils 6.6 Absolute Lymphocytes 2.2 Absolute Monocytes 0.6 Absolute Eosinophils 0.1 Absolute Basophils 0.1 Sodium 142.2 Potassium 3.6 Chloride 103 Carbon Dioxide 30 Anion Gap 9 BUN 11 Creatinine 0.51 L Est GFR ( Amer) > 60 Est GFR (Non-Af Amer) > 60 Glucose 131 H Calcium 9.2 12/22/16 10:35 Tracheal Aspirate Gram Stain - Final 12/22/16 10:35 Tracheal Aspirate Sputum Culture - Final Group B Beta Streptococcus Normal Adelia 12/17/16 12/17/16 12/17/16 04:15 04:15 11:10 Creatine Kinase 912 H 720 H CK-MB (CK-2) 11.30 H Troponin I < 0.012 NT-Pro-B Natriuret Pep 12/17/16 12/17/16 12/17/16 11:10 17:05 17:05 Creatine Kinase 553 H CK-MB (CK-2) 8.18 H 6.75 H Troponin I < 0.012 < 0.012 NT-Pro-B Natriuret Pep 12/21/16 12/21/16 12/21/16 10:23 10:23 15:13 Creatine Kinase 307 H CK-MB (CK-2) 5.42 H 4.33 Troponin I 0.148 0.247 NT-Pro-B Natriuret Pep 8020 H 12/21/16 12/21/16 12/21/16 15:13 22:05 22:05 Creatine Kinase 212 H 155 H CK-MB (CK-2) 3.83 Troponin I 0.122 NT-Pro-B Natriuret Pep Impressions: Head MRI 12/17/16 02:35 IMPRESSION: NO ENHANCING LESIONS. MINIMAL MICROVASCULAR ISCHEMIC CHANGE. OTHERWISE NORMAL STUDY. EVIDENCE OF ACUTE STROKE: NO. Head CT 12/18/16 00:00 IMPRESSION: Motion artifact. No acute findings EVIDENCE OF ACUTE STROKE: NO. Guidance Fluoroscopy 12/20/16 00:00 IMPRESSION: Lumbar puncture under fluoroscopy. No immediate complication. Lumbar Puncture 12/20/16 00:00 IMPRESSION: Lumbar puncture under fluoroscopy. No immediate complication. Chest X-Ray 12/23/16 06:00 IMPRESSION: No significant interval change. 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
[2016-12-25] MEDS ORDERED: BENZTROPINE MESYLATE 1 MG TABLET PO ONE (13:00)
[2016-12-25] MEDS: CLINDAMYCIN 600 MG/D5W RTU 600 MG/50 ML RTUPB IV SCH ×2 (13:18→21:17)
--- NOTE | 2016-12-25 15:08 | PROGRESS NOTE E ---
Progress Note NAME: JAX PARIS : 1955 AGE: 61Y DATE: 12/25/2016 ROOM: 605 SUBJECTIVE: The patient is awake, alert, and oriented x3. She was diagnosed yesterday to have benzodiazepine withdrawal and she came back to normal mentation after she got some Versed. She denies any chest pain or discomfort. There is no PND or orthopnea. She states that her right ankle is obviously swollen and hurts. She thinks it is cellulitis, but it is not red and there is no evidence of cellulitis. The patient today is not agitated or confused. She remains in sinus rhythm. There is no major *------* present. OBJECTIVE: GENERAL: On examination the patient is mildly obese in no acute distress. She is well groomed. VITAL SIGNS: The patient's temperature is 98.6. Pulse is 82 beats per minute. Blood pressure is 145/92. Respirations are 17 per minute. O2 saturations are 97% on room air. HEENT: Head is atraumatic, normocephalic. Eyes: Pupils are equal, round, regular, reactive to light and accommodation. Extraocular movements are normal. There is no conjunctival pallor. There is no scleral icterus. ENT is negative. NECK: Supple. There is no JVD. Carotids are equal. There is no bruit. There is no goiter. There is no cervical, axillary, or lymphadenopathy noted. Trachea is central. LUNGS: Shows a few scattered rhonchi but otherwise lungs are basically clear. HEART: S1 and S2 is heard. There is no S3 gallop. There is no S4 gallop. There is a systolic murmur at the left sternal border at the apex. There are no rubs. ABDOMEN: Soft, nontender. There is no hepatosplenomegaly. Bowel sounds are well heard. There are no masses appreciated. EXTREMITIES: Pedal pulses are slightly diminished. Femoral's are slightly diminished. There are no femoral bruit. There is no calf tenderness noted. There is mild swelling of the right ankle but otherwise there is no pedal edema. There is no cyanosis or clubbing. CENTRAL NERVOUS SYSTEM: The patient is conscious, awake, alert, and oriented x3 with no focal deficits. PSYCHIATRIC: The patient's judgement and insight are intact. Her affect is normal. LABORATORY DATA: The patient's sodium is 142.2, potassium is 3.6, chloride is 102, CO2 is 30. The patient's BUN is 11, creatinine 0.51, GFR is greater than 60, glucose is 131, calcium is 9.2. The patient's white count is 9,600; hemoglobin is 38.7; hematocrit 39.5; platelet count is 241,000. IMPRESSION: 1. ACUTE SYSTOLIC HEART FAILURE, AT PRESENT COMPENSATED. 2. ACUTE RESPIRATORY FAILURE, AT PRESENT COMPENSATED. 3. HYPOTENSION SECONDARY TO ATRIAL FIBRILLATION WITH RAPID VENTRICULAR RESPONSE AND CARDIOMYOPATHY. NOW PATIENT OFF PRESSORS. 4. ATRIAL FIBRILLATION, HYPERTENSIVE SINUS RHYTHM. PATIENT ON AMIODARONE AND ELIQUIS. 5. CHRONIC OBSTRUCTIVE PULMONARY DISEASE. 6. CARDIOMYOPATHY. 7. HYPOTENSION. PLAN: 1. Will continue the patient on Xanax, amiodarone, and Eliquis. 2. Continue aspirin and atorvastatin. 3. Continue respiratory treatments. 4. Continue antibiotics in the form of clindamycin 600 mg IV q.8 hours. 5. Continue metoprolol 50 mg p.o. daily which is Toprol XL. 6. Continue spironolactone. 7. Note, the patient is a FULL CODE. Her daughter is the surrogate healthcare decision maker. Note, 25 minutes were spent with the patient with more than 50% of the time spent on direct patient care. Her medications have been reviewed and discussed the case with the attending physician on the case. Note that the patient's apparent *------* have been reviewed with him. Doppler measurements suggest *------* . The aortic valve is grossly normal. Right ventricular pressure is estimated to be elevated at 40 mmHg, which is mild to moderate pulmonary hypertension. Continue *------* treatment. Note, the decision making was moderate complexity. *------* management of your patient. More than 50% of the time was spent on direct patient care. Thanking you. DICTATING PHYSICIAN: JUSTEN COLLIER M.D. [id number] PHY#: [id number] ID: [id number] JOB#: [id number] ACCT: [id number] cc: >
[2016-12-25] MEDS: APIXABAN 5 MG TABLET PO SCH (17:09)
[2016-12-25] MEDS: LORAZEPAM INJ 2 MG/1 ML VIAL IV PRN (21:17)
[2016-12-25] MEDS: ATORVASTATIN CALCIUM 40 MG TABLET PO SCH (21:18)
[2016-12-25] MEDS ORDERED: BENZTROPINE MESYLATE 1 MG TABLET PO SCH (22:00)
[2016-12-26] MEDS: LORAZEPAM INJ 2 MG/1 ML VIAL IV PRN (00:52)
[2016-12-26] MEDS: LANSOPRAZOLE 15 MG TAB.RAP.DR PO SCH ×2 (05:55→17:59)
[2016-12-26] MEDS: ALPRAZOLAM 0.25 MG TABLET PO SCH ×3 (05:55→21:21)
[2016-12-26] MEDS: CLINDAMYCIN 600 MG/D5W RTU 600 MG/50 ML RTUPB IV SCH ×3 (05:56→21:21)
[2016-12-26] MEDS: DOCUSATE SODIUM 100 MG CAPSULE PO SCH ×2 (09:08→17:59)
[2016-12-26] MEDS: SACUBITRIL/VALSARTAN 49 MG/51 MG TABLET PO SCH ×2 (09:09→21:20)
[2016-12-26] MEDS: APIXABAN 5 MG TABLET PO SCH ×2 (09:11→17:59)
[2016-12-26] MEDS: SPIRONOLACTONE 25 MG TABLET PO SCH (09:12)
[2016-12-26] MEDS: DULOXETINE HCL 30 MG CAPSULE.DR PO SCH (09:12)
[2016-12-26] MEDS: METOPROLOL SUCCINATE 50 MG TAB.SR.24H PO SCH (09:13)
[2016-12-26] MEDS: FLUTICASONE NASAL SPRAY 50 MCG/SPRY 120 SPRAY/16 GM NAREB SCH (09:13)
[2016-12-26] MEDS: AMIODARONE HCL 200 MG TABLET PO SCH ×2 (09:13→21:20)
[2016-12-26] MEDS: ASPIRIN 81 MG TABLET, CHEWABLE PO SCH (09:13)
[2016-12-26] MEDS: OLANZAPINE 5 MG TABLET PO SCH ×2 (09:13→21:20)
--- NOTE | 2016-12-26 11:59 | PDOC PROGRESS REPORT ---
Subjective Progress Note for:: 12/26/16 - Acute respiratory failure: Atrial fibrillation with RVR Subjective:: Doing well without complaints conversing with family Physical Exam Vital Signs: Temp Pulse Resp BP Pulse Ox 97.5 F 79 14 149/89 H 99 12/26/16 06:00 12/26/16 07:26 12/26/16 06:00 12/26/16 04:26 12/26/16 06:00 Intake & Output 12/25/16 12/26/16 12/27/16 06:59 06:59 06:59 Intake Total 400 160 Output Total 1475 2225 Balance -1075 -6 Weight 89.1 kg 90.7 kg General appearance: PRESENT: no acute distress, cooperative, disheveled, morbidly obese, well-developed Head exam: PRESENT: atraumatic, normocephalic Eye exam: PRESENT: conjunctiva pale, EOMI Mouth exam: PRESENT: dry mucosa, neck supple, tongue midline Neck exam: ABSENT: carotid bruit, JVD, lymphadenopathy, thyromegaly Respiratory exam: PRESENT: decreased breath sounds, prolonged expiratory phas, rhonchi, symmetrical, unlabored. ABSENT: crackles, rales, retraction, stridor, tachypnea, wheezes Cardiovascular exam: PRESENT: RRR, +S1, +S2 Pulses: PRESENT: normal radial pulses GI/Abdominal exam: PRESENT: normal bowel sounds, soft. ABSENT: distended, guarding, mass, organolmegaly, rebound, tenderness Rectal exam: PRESENT: deferred Musculoskeletal exam: PRESENT: normal inspection Neurological exam: PRESENT: alert, awake Psychiatric exam: PRESENT: normal mood Skin exam: PRESENT: dry, warm Results Laboratory Results: 12/25/16 08:50 12/25/16 08:50 12/25/16 12/25/16 08:50 08:50 WBC 9.6 RBC 4.12 Hgb 13.7 Hct 39.5 MCV 96 MCH 33.3 MCHC 34.7 RDW 13.5 Plt Count 241 Seg Neutrophils % 68.3 Lymphocytes % 22.7 Monocytes % 6.7 Eosinophils % 1.1 Basophils % 1.2 Absolute Neutrophils 6.6 Absolute Lymphocytes 2.2 Absolute Monocytes 0.6 Absolute Eosinophils 0.1 Absolute Basophils 0.1 Sodium 142.2 Potassium 3.6 Chloride 103 Carbon Dioxide 30 Anion Gap 9 BUN 11 Creatinine 0.51 L Est GFR ( Amer) > 60 Est GFR (Non-Af Amer) > 60 Glucose 131 H Calcium 9.2 12/17/16 12/17/16 12/17/16 04:15 04:15 11:10 Creatine Kinase 912 H 720 H CK-MB (CK-2) 11.30 H Troponin I < 0.012 NT-Pro-B Natriuret Pep 12/17/16 12/17/16 12/17/16 11:10 17:05 17:05 Creatine Kinase 553 H CK-MB (CK-2) 8.18 H 6.75 H Troponin I < 0.012 < 0.012 NT-Pro-B Natriuret Pep 12/21/16 12/21/16 12/21/16 10:23 10:23 15:13 Creatine Kinase 307 H CK-MB (CK-2) 5.42 H 4.33 Troponin I 0.148 0.247 NT-Pro-B Natriuret Pep 8020 H 12/21/16 12/21/16 12/21/16 15:13 22:05 22:05 Creatine Kinase 212 H 155 H CK-MB (CK-2) 3.83 Troponin I 0.122 NT-Pro-B Natriuret Pep Impressions: Head MRI 12/17/16 02:35 IMPRESSION: NO ENHANCING LESIONS. MINIMAL MICROVASCULAR ISCHEMIC CHANGE. OTHERWISE NORMAL STUDY. EVIDENCE OF ACUTE STROKE: NO. Head CT 12/18/16 00:00 IMPRESSION: Motion artifact. No acute findings EVIDENCE OF ACUTE STROKE: NO. Guidance Fluoroscopy 12/20/16 00:00 IMPRESSION: Lumbar puncture under fluoroscopy. No immediate complication. Lumbar Puncture 12/20/16 00:00 IMPRESSION: Lumbar puncture under fluoroscopy. No immediate complication. Chest X-Ray 12/23/16 06:00 IMPRESSION: No significant interval change. Assessment & Plan - Diagnosis (1) Altered mental status Qualifiers: Altered mental status type: unspecified Qualified Code(s): R41.82 - Altered mental status, unspecified Is this a current diagnosis for this admission?: Yes Plan: Benzodiazepine withdrawal from benzos were reinitiated mental status returned to normal (2) Chronic pain syndrome Is this a current diagnosis for this admission?: Yes (3) Seizure disorder, secondary Is this a current diagnosis for this admission?: Yes (4) COPD (chronic obstructive pulmonary disease) Qualifiers: COPD type: chronic bronchitis Is this a current diagnosis for this admission?: Yes (5) Atrial fibrillation with RVR Is this a current diagnosis for this admission?: Yes (6) Acute respiratory failure Qualifiers: Respiratory failure complication: hypoxia Qualified Code(s): J96.01 - Acute respiratory failure with hypoxia Is this a current diagnosis for this admission?: No - Time Critical Time spent with patient: 15-24 minutes - Plan Summary Plan Summary: We will sign off for now as patient doing real well from respiratory point of view; thank you very much for allowing me to see Ms. Martinez and help participate in her care. Please do not hesitate if I can be of additional service
--- NOTE | 2016-12-26 12:01 | PDOC PROGRESS REPORT ---
Subjective Progress Note for:: 12/25/16 - Acute respiratory failure: Atrial fibrillation with RVR Subjective:: Doing well without complaints conversing with and enjoying family Physical Exam Vital Signs: Temp Pulse Resp BP Pulse Ox 97.5 F 79 14 149/89 H 99 12/26/16 06:00 12/26/16 07:26 12/26/16 06:00 12/26/16 04:26 12/26/16 06:00 Intake & Output 12/25/16 12/26/16 12/27/16 06:59 06:59 06:59 Intake Total 400 160 Output Total 1475 2225 Balance -107 -0 Weight 89.1 kg 90.7 kg General appearance: PRESENT: no acute distress, cooperative, disheveled, morbidly obese, well-developed Head exam: PRESENT: atraumatic, normocephalic Eye exam: PRESENT: conjunctiva pale, EOMI Mouth exam: PRESENT: dry mucosa, neck supple, tongue midline Neck exam: ABSENT: carotid bruit, JVD, lymphadenopathy, thyromegaly Respiratory exam: PRESENT: crackles, decreased breath sounds, prolonged expiratory phas, rhonchi, symmetrical, unlabored. ABSENT: accessory muscle use , chest wall tenderness, rales, retraction, stridor, tachypnea, wheezes Cardiovascular exam: PRESENT: irregular rhythm Pulses: PRESENT: normal radial pulses GI/Abdominal exam: PRESENT: ascites Rectal exam: PRESENT: deferred Musculoskeletal exam: PRESENT: normal inspection Neurological exam: PRESENT: alert, awake Psychiatric exam: PRESENT: normal mood Skin exam: PRESENT: dry, warm Results Laboratory Results: 12/25/16 08:50 12/25/16 08:50 12/25/16 12/25/16 08:50 08:50 WBC 9.6 RBC 4.12 Hgb 13.7 Hct 39.5 MCV 96 MCH 33.3 MCHC 34.7 RDW 13.5 Plt Count 241 Seg Neutrophils % 68.3 Lymphocytes % 22.7 Monocytes % 6.7 Eosinophils % 1.1 Basophils % 1.2 Absolute Neutrophils 6.6 Absolute Lymphocytes 2.2 Absolute Monocytes 0.6 Absolute Eosinophils 0.1 Absolute Basophils 0.1 Sodium 142.2 Potassium 3.6 Chloride 103 Carbon Dioxide 30 Anion Gap 9 BUN 11 Creatinine 0.51 L Est GFR ( Amer) > 60 Est GFR (Non-Af Amer) > 60 Glucose 131 H Calcium 9.2 12/17/16 12/17/16 12/17/16 04:15 04:15 11:10 Creatine Kinase 912 H 720 H CK-MB (CK-2) 11.30 H Troponin I < 0.012 NT-Pro-B Natriuret Pep 12/17/16 12/17/16 12/17/16 11:10 17:05 17:05 Creatine Kinase 553 H CK-MB (CK-2) 8.18 H 6.75 H Troponin I < 0.012 < 0.012 NT-Pro-B Natriuret Pep 12/21/16 12/21/16 12/21/16 10:23 10:23 15:13 Creatine Kinase 307 H CK-MB (CK-2) 5.42 H 4.33 Troponin I 0.148 0.247 NT-Pro-B Natriuret Pep 8020 H 12/21/16 12/21/16 12/21/16 15:13 22:05 22:05 Creatine Kinase 212 H 155 H CK-MB (CK-2) 3.83 Troponin I 0.122 NT-Pro-B Natriuret Pep Impressions: Head MRI 12/17/16 02:35 IMPRESSION: NO ENHANCING LESIONS. MINIMAL MICROVASCULAR ISCHEMIC CHANGE. OTHERWISE NORMAL STUDY. EVIDENCE OF ACUTE STROKE: NO. Head CT 12/18/16 00:00 IMPRESSION: Motion artifact. No acute findings EVIDENCE OF ACUTE STROKE: NO. Guidance Fluoroscopy 12/20/16 00:00 IMPRESSION: Lumbar puncture under fluoroscopy. No immediate complication. Lumbar Puncture 12/20/16 00:00 IMPRESSION: Lumbar puncture under fluoroscopy. No immediate complication. Chest X-Ray 12/23/16 06:00 IMPRESSION: No significant interval change. Assessment & Plan - Diagnosis (1) Altered mental status Qualifiers: Altered mental status type: unspecified Qualified Code(s): R41.82 - Altered mental status, unspecified Is this a current diagnosis for this admission?: Yes Plan: Benzodiazepine withdrawal from benzos were reinitiated mental status returned to normal (2) Chronic pain syndrome Is this a current diagnosis for this admission?: Yes (3) Seizure disorder, secondary Is this a current diagnosis for this admission?: Yes (4) COPD (chronic obstructive pulmonary disease) Qualifiers: COPD type: chronic bronchitis Is this a current diagnosis for this admission?: Yes Plan: Continue current therapy (5) Atrial fibrillation with RVR Is this a current diagnosis for this admission?: Yes Plan: Controlled at this time (6) Acute respiratory failure Qualifiers: Respiratory failure complication: hypoxia Qualified Code(s): J96.01 - Acute respiratory failure with hypoxia Is this a current diagnosis for this admission?: No - Time Time Spent with patient: 15-24 minutes
--- NOTE | 2016-12-26 12:04 | PDOC PROGRESS REPORT ---
Subjective Progress Note for:: 12/24/16 - Acute respiratory failure: Atrial fibrillation with RVR Subjective:: Confused agitated requiring restraints Physical Exam Vital Signs: Temp Pulse Resp BP Pulse Ox 99.1 F 87 11 L 149/97 H 97 12/24/16 06:16 12/23/16 20:00 12/24/16 06:16 12/24/16 06:16 12/24/16 06:16 Intake & Output 12/23/16 12/24/16 12/25/16 06:59 06:59 06:59 Intake Total 3452 951 Output Total 6175 3130 325 Balance -2723 -2179 -325 Weight 88.8 kg 88.3 kg General appearance: PRESENT: disheveled, mild distress, obese, well-developed Head exam: PRESENT: atraumatic, normocephalic Eye exam: PRESENT: conjunctiva pale, EOMI Mouth exam: PRESENT: dry mucosa, neck supple, tongue midline Neck exam: ABSENT: carotid bruit, JVD, lymphadenopathy, thyromegaly Respiratory exam: PRESENT: decreased breath sounds, prolonged expiratory phas, rhonchi, symmetrical, unlabored. ABSENT: accessory muscle use, chest wall tenderness, crackles, rales, retraction, stridor, tachypnea, wheezes Cardiovascular exam: PRESENT: irregular rhythm Pulses: PRESENT: normal radial pulses GI/Abdominal exam: PRESENT: normal bowel sounds, soft. ABSENT: distended, guarding, mass, organolmegaly, rebound, tenderness Rectal exam: PRESENT: deferred Gentrourinary exam: PRESENT: indwelling catheter Musculoskeletal exam: PRESENT: normal inspection Neurological exam: PRESENT: altered, awake. ABSENT: alert Psychiatric exam: PRESENT: agitated Focused psych exam: PRESENT: delusional, paranoid Skin exam: PRESENT: dry, warm Results Laboratory Results: 12/24/16 05:20 12/24/16 05:20 12/24/16 12/24/16 12/24/16 05:20 05:20 05:20 WBC 11.1 H RBC 4.23 Hgb 13.8 Hct 40.2 MCV 95 MCH 32.7 MCHC 34.5 RDW 13.5 Plt Count 257 Seg Neutrophils % 70.8 Lymphocytes % 18.4 Monocytes % 9.8 Eosinophils % 0.4 Basophils % 0.6 Absolute Neutrophils 7.9 Absolute Lymphocytes 2.0 Absolute Monocytes 1.1 Absolute Eosinophils 0.0 Absolute Basophils 0.1 Carbonic Acid 1.17 HCO3/H2CO3 Ratio 23:1 ABG pH 7.48 H ABG pCO2 38.8 ABG pO2 57.9 L ABG HCO3 28.0 H ABG O2 Saturation 91.9 L ABG Base Excess 4.3 FiO2 ROOM AIR Sodium 143.0 Potassium 3.4 L Chloride 102 Carbon Dioxide 29 Anion Gap 12 BUN 10 Creatinine 0.59 Est GFR ( Amer) > 60 Est GFR (Non-Af Amer) > 60 Glucose 127 H Calcium 9.0 Phosphorus 2.5 Magnesium 1.6 12/20/16 09:03 Cerebral Spinal Fluid - Csf Gram Stain - Final 12/20/16 09:03 Cerebral Spinal Fluid - Csf CSF Culture - Final NO GROWTH 3 DAYS 12/17/16 12/17/16 12/17/16 04:15 04:15 11:10 Creatine Kinase 912 H 720 H CK-MB (CK-2) 11.30 H Troponin I < 0.012 NT-Pro-B Natriuret Pep 12/17/16 12/17/16 12/17/16 11:10 17:05 17:05 Creatine Kinase 553 H CK-MB (CK-2) 8.18 H 6.75 H Troponin I < 0.012 < 0.012 NT-Pro-B Natriuret Pep 12/21/16 12/21/16 12/21/16 10:23 10:23 15:13 Creatine Kinase 307 H CK-MB (CK-2) 5.42 H 4.33 Troponin I 0.148 0.247 NT-Pro-B Natriuret Pep 8020 H 12/21/16 12/21/16 12/21/16 15:13 22:05 22:05 Creatine Kinase 212 H 155 H CK-MB (CK-2) 3.83 Troponin I 0.122 NT-Pro-B Natriuret Pep Impressions: Head MRI 12/17/16 02:35 IMPRESSION: NO ENHANCING LESIONS. MINIMAL MICROVASCULAR ISCHEMIC CHANGE. OTHERWISE NORMAL STUDY. EVIDENCE OF ACUTE STROKE: NO. Head CT 12/18/16 00:00 IMPRESSION: Motion artifact. No acute findings EVIDENCE OF ACUTE STROKE: NO. Guidance Fluoroscopy 12/20/16 00:00 IMPRESSION: Lumbar puncture under fluoroscopy. No immediate complication. Lumbar Puncture 12/20/16 00:00 IMPRESSION: Lumbar puncture under fluoroscopy. No immediate complication. Chest X-Ray 12/23/16 06:00 IMPRESSION: No significant interval change. Assessment & Plan - Diagnosis (1) Altered mental status Qualifiers: Altered mental status type: unspecified Qualified Code(s): R41.82 - Altered mental status, unspecified Is this a current diagnosis for this admission?: Yes Plan: Reinstitute all home medication (2) Chronic pain syndrome Is this a current diagnosis for this admission?: Yes (3) Seizure disorder, secondary Is this a current diagnosis for this admission?: Yes Plan: None reported in the last 48 hours (4) COPD (chronic obstructive pulmonary disease) Qualifiers: COPD type: chronic bronchitis Is this a current diagnosis for this admission?: Yes Plan: Continue current therapy (5) Atrial fibrillation with RVR Is this a current diagnosis for this admission?: Yes Plan: Controlled at this time (6) Acute respiratory failure Qualifiers: Respiratory failure complication: hypoxia Qualified Code(s): J96.01 - Acute respiratory failure with hypoxia Is this a current diagnosis for this admission?: Yes Plan: remains stable on nasal cannula - Time Critical Time spent with patient: 15-24 minutes
[2016-12-26] MEDS ORDERED: IPRATROPIUM/ALBUTEROL 0.5-2.5 MG/3 ML AMPUL NEB PRN (16:00)
[2016-12-26 17:38] LABS: ABSOLUTE BASOPHILS # (AUTO) 0.1 10^3/uL (0.0-0.2); ABSOLUTE EOSINOPHILS # (AUTO) 0.2 10^3/uL (0.0-0.6); ABSOLUTE LYMPHOCYTES (AUTO) 2.2 10^3/uL (0.5-4.7); ABSOLUTE MONOCYTES (AUTO) 0.7 10^3/uL (0.1-1.4); ABSOLUTE NEUT (AUTO) 4.9 10^3/uL (1.7-8.2); BASOPHILS % (AUTO) 0.8 % (0-2); EOSINOPHILS % (AUTO) 2.6 % (0-6); HEMATOCRIT 36.3 % (36.0-47.0); HEMOGLOBIN 12.6 g/dL (12.0-15.5); HGB HCT DIFFERENCE 1.5; LYMPHOCYTES % (AUTO) 27.6 % (13-45); MEAN CORPUSCULAR HEMOGLOBIN 33.1 pg (27.0-33.4); MEAN CORPUSCULAR HGB CONC 34.5 g/dL (32.0-36.0); MEAN CORPUSCULAR VOLUME 96 fl (80-97); MONOCYTES % (AUTO) 8.5 % (3-13); RED BLOOD COUNT 3.79 10^6/uL (3.72-5.28); RED CELL DISTRIBUTION WIDTH 13.6 % (11.5-14.0); SEGMENTED NEUTROPHILS % (AUTO) 60.5 % (42-78); WHITE BLOOD COUNT 8.1 10^3/uL (4.0-10.5)
[2016-12-26 17:57] LABS: ALANINE AMINOTRANSFERASE 59 U/L (9-52); ALBUMIN 3.6 g/dL (3.5-5.0); ALKALINE PHOSPHATASE 85 U/L (38-126); ANION GAP 12 (5-19); ASPARTATE AMINO TRANSFERASE 23 U/L (14-36); BILIRUBIN,DIRECT 0.3 mg/dL (0.0-0.4); BILIRUBIN,TOTAL 0.4 mg/dL (0.2-1.3); BLOOD UREA NITROGEN 14 mg/dL (7-20); CALCIUM 8.9 mg/dL (8.4-10.2); CARBON DIOXIDE 30 mmol/L (22-30); CHLORIDE 101 mmol/L (98-107); CREATININE RESULT 0.69 mg/dL (0.52-1.25); GLUCOSE 112 mg/dL (75-110); POTASSIUM 3.3 mmol/L (3.6-5.0); SODIUM 143.3 mmol/L (137-145); TOTAL PROTEIN 5.9 g/dL (6.3-8.2)
--- NOTE | 2016-12-26 21:04 | PDOC PROGRESS REPORT ---
Subjective Progress Note for:: 12/26/16 Subjective:: She was seen by the bedside, she is awake alert, able to engage in conversation. Physical Exam Vital Signs: Temp Pulse Resp BP Pulse Ox 98.5 F 76 14 140/90 H 94 12/26/16 20:00 12/26/16 20:00 12/26/16 20:00 12/26/16 20:00 12/26/16 20:00 Intake & Output 12/25/16 12/26/16 12/27/16 06:59 06:59 06:59 Intake Total 400 160 850 Output Total 1475 2225 1200 Balance -5223 -2616 -616 Weight 89.1 kg 90.7 kg General appearance: PRESENT: no acute distress, well-developed, well-nourished Head exam: PRESENT: atraumatic, normocephalic Eye exam: PRESENT: conjunctiva pink, EOMI, PERRLA. ABSENT: scleral icterus Ear exam: PRESENT: normal external ear exam Mouth exam: PRESENT: moist, tongue midline Neck exam: PRESENT: full ROM. ABSENT: carotid bruit, JVD, lymphadenopathy, thyromegaly Respiratory exam: PRESENT: clear to auscultation bacilio Cardiovascular exam: PRESENT: RRR. ABSENT: diastolic murmur, rubs, systolic murmur Pulses: PRESENT: normal dorsalis pedis pul, +2 pedal pulses bilateral Vascular exam: PRESENT: normal capillary refill GI/Abdominal exam: PRESENT: normal bowel sounds, soft. ABSENT: distended, guarding, mass, organolmegaly, rebound, tenderness Rectal exam: PRESENT: deferred Neurological exam: PRESENT: alert, awake, oriented to person, oriented to place , oriented to time, oriented to situation, CN II-XII grossly intact. ABSENT: motor sensory deficit Psychiatric exam: PRESENT: appropriate affect, normal mood. ABSENT: homicidal ideation, suicidal ideation Skin exam: PRESENT: dry, intact, warm. ABSENT: cyanosis, rash Results Laboratory Results: 12/26/16 17:27 12/26/16 17:27 12/26/16 12/26/16 17:27 17:27 WBC 8.1 RBC 3.79 Hgb 12.6 Hct 36.3 MCV 96 MCH 33.1 MCHC 34.5 RDW 13.6 Plt Count 233 Seg Neutrophils % 60.5 Lymphocytes % 27.6 Monocytes % 8.5 Eosinophils % 2.6 Basophils % 0.8 Absolute Neutrophils 4.9 Absolute Lymphocytes 2.2 Absolute Monocytes 0.7 Absolute Eosinophils 0.2 Absolute Basophils 0.1 Sodium 143.3 Potassium 3.3 L Chloride 101 Carbon Dioxide 30 Anion Gap 12 BUN 14 Creatinine 0.69 Est GFR ( Amer) > 60 Est GFR (Non-Af Amer) > 60 Glucose 112 H Calcium 8.9 Total Bilirubin 0.4 AST 23 ALT 59 H Alkaline Phosphatase 85 Total Protein 5.9 L Albumin 3.6 12/17/16 12/17/16 12/17/16 04:15 04:15 11:10 Creatine Kinase 912 H 720 H CK-MB (CK-2) 11.30 H Troponin I < 0.012 NT-Pro-B Natriuret Pep 12/17/16 12/17/16 12/17/16 11:10 17:05 17:05 Creatine Kinase 553 H CK-MB (CK-2) 8.18 H 6.75 H Troponin I < 0.012 < 0.012 NT-Pro-B Natriuret Pep 12/21/16 12/21/16 12/21/16 10:23 10:23 15:13 Creatine Kinase 307 H CK-MB (CK-2) 5.42 H 4.33 Troponin I 0.148 0.247 NT-Pro-B Natriuret Pep 8020 H 12/21/16 12/21/16 12/21/16 15:13 22:05 22:05 Creatine Kinase 212 H 155 H CK-MB (CK-2) 3.83 Troponin I 0.122 NT-Pro-B Natriuret Pep Impressions: Head MRI 12/17/16 02:35 IMPRESSION: NO ENHANCING LESIONS. MINIMAL MICROVASCULAR ISCHEMIC CHANGE. OTHERWISE NORMAL STUDY. EVIDENCE OF ACUTE STROKE: NO. Head CT 12/18/16 00:00 IMPRESSION: Motion artifact. No acute findings EVIDENCE OF ACUTE STROKE: NO. Guidance Fluoroscopy 12/20/16 00:00 IMPRESSION: Lumbar puncture under fluoroscopy. No immediate complication. Lumbar Puncture 12/20/16 00:00 IMPRESSION: Lumbar puncture under fluoroscopy. No immediate complication. Chest X-Ray 12/23/16 06:00 IMPRESSION: No significant interval change. 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 Is this a current diagnosis for this admission?: Yes (2) Cellulitis of right foot Is this a current diagnosis for this admission?: Yes (3) Encephalopathy Is this a current diagnosis for this admission?: Yes (4) Seizure disorder, secondary Is this a current diagnosis for this admission?: Yes (5) Withdrawal seizures Qualifiers: Complication of substance-induced condition: with delirium Qualified Code(s ): 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 Is this a current diagnosis for this admission?: Yes (6) Acute respiratory acidosis Is this a current diagnosis for this admission?: Yes (7) Acute pulmonary edema Is this a current diagnosis for this admission?: Yes (8) Acute systolic heart failure Is this a current diagnosis for this admission?: Yes (9) Paroxysmal atrial fibrillation Is this a current diagnosis for this admission?: Yes (10) Hypotension Qualifiers: Hypotension type: unspecified hypotension type Qualified Code(s): I95.9 - Hypotension, unspecified Is this a current diagnosis for this admission?: Yes (11) NSTEMI (non-ST elevated myocardial infarction) Is this a current diagnosis for this admission?: Yes
[2016-12-26] MEDS: ATORVASTATIN CALCIUM 40 MG TABLET PO SCH (21:20)
[2016-12-26] MEDS: GABAPENTIN 300 MG CAPSULE PO PRN (22:01)
--- NOTE | 2016-12-26 23:27 | PROGRESS NOTE E ---
Progress Note NAME: JAX PARIS : 1955 AGE: 61Y DATE: 12/26/2016 ROOM: 605 SUBJECTIVE: Note that the patient is awake, alert and oriented x3. She denies any chest pain or discomfort. She has converted to sinus rhythm. She is off the pressors. Blood pressure is slightly elevated. She denies any shortness of breath, wheezing, or cough. There is no major ventricular arrhythmias present. OBJECTIVE: GENERAL: The patient is mildly obese in no acute distress. She is well groomed. VITAL SIGNS: The patient is afebrile with temperature of 97.3 degrees Fahrenheit. Pulse is 78 beats/minute, blood pressure 152/86, respirations 16 per minute, O2 sats are 97% on room air. HEENT: Head is normocephalic, atraumatic. Eyes: Pupils are equal, round, regular, reactive to light and accommodation. Extraocular movements are normal. There is no conjunctival pallor. There is no scleral icterus. ENT is negative. NECK: Supple. There is no JVD. Carotids are equal. There is no bruit. There is no goiter. There is no cervical or axillary lymphadenopathy noted. Trachea is central. LUNGS: Fairly clear bilaterally. There is diminished air entry and prolonged expiration on auscultation. On percussion, there is mild hyperresonance. There is no rales. HEART: No CHF. S1 and S2 is heard. There is no S3 gallop. There is no S4 gallops. S1 is of normal intensity. Systolic murmur in the left sternal border at the apex. There are no rubs. ABDOMEN: Soft and nontender. There is no hepatosplenomegaly. Bowel sounds are well heard. There are no masses appreciated. EXTREMITIES: Pedal pulses are slightly diminished. Femorals are slightly diminished. There are no femoral bruits. There is no calf tenderness. There are no femoral bruits. Femorals are slightly diminished. There is mild swelling of the right ankle, but otherwise there is no pedal edema. There is no cyanosis or clubbing. There is no cellulitis. CENTRAL NERVOUS SYSTEM: The patient is conscious, awake, alert, oriented with no focal deficits. PSYCHIATRIC: The patient's judgment and insight are intact. Her affect is normal. The patient's 24 hour intake is 160 mL and output is 2225 mL. I doubt that this is accurate. LABORATORY DATA: The patient's sodium 143.3, potassium is low at 3.3, chloride is 101, CO2 is 30. The patient's BUN is 14, creatinine 0.69. GFR is greater than 60. Glucose is 112. Her calcium is 8.9. Her liver function tests show a slightly elevated ALT of 59, which has come down from 80. The patient's white count is 8100, hemoglobin is 12.6, hematocrit is 36.3 and platelet count is 233,000. IMPRESSION: 1. ACUTE SYSTOLIC HEART FAILURE AT PRESENT COMPENSATED. THIS IS MOST LIKELY [id number] SYSTOLIC HEART FAILURE. 2. ACUTE RESPIRATORY FAILURE AT PRESENT COMPENSATED. 3. HYPOTENSION SECONDARY TO ATRIAL FIBRILLATION WITH RAPID VENTRICULAR RESPONSE AND CARDIOMYOPATHY. THE PATIENT IS NOW OFF PRESSORS WITH A NORMAL BLOOD PRESSURE. 4. PAROXYSMAL ATRIAL FIBRILLATION AT PRESENT SINUS ON AMIODARONE. The patient is also on Eliquis. 5. COPD AT PRESENT SEEMS TO BE STABLE. 6. CARDIOMYOPATHY, AT PRESENT COMPENSATED WITHOUT ANY EVIDENCE OF HEART FAILURE. 7. HISTORY OF HYPERTENSION. BLOOD PRESSURE IS SLIGHTLY ELEVATED. 8. HYPOKALEMIA. Would recommend to replace the patient's potassium. Continue the patient on Xanax, amiodarone and Eliquis. Continue the patient on aspirin and atorvastatin. Continue respiratory treatments. Continue antibiotics. Continue Toprol XL. Continue Entresto and increase as tolerated. Replace the patient's potassium. Note that the patient's cardiac status is stable. She is converted to sinus rhythm. Note 24 minutes spent on this patient with more than 50% of the time spent on direct patient care and all the medications have been reviewed and the case has been discussed with the attending physician on the case. We will sign off the case. Note medical decision-making is of moderate to high complex decision-making involved. Note that the patient desires to followup with me as an outpatient. I will see what all workout she has had for her cardiomyopathy. DICTATING PHYSICIAN: JUSTEN COLLIER M.D. [id number] PHY#: [id number] ID: [id number] JOB#: [id number] ACCT: [id number] cc: >
[2016-12-27 04:09] LABS: ABSOLUTE BASOPHILS # (AUTO) 0.1 10^3/uL (0.0-0.2); ABSOLUTE EOSINOPHILS # (AUTO) 0.3 10^3/uL (0.0-0.6); ABSOLUTE LYMPHOCYTES (AUTO) 2.5 10^3/uL (0.5-4.7); ABSOLUTE MONOCYTES (AUTO) 0.8 10^3/uL (0.1-1.4); ABSOLUTE NEUT (AUTO) 5.3 10^3/uL (1.7-8.2); BASOPHILS % (AUTO) 1.2 % (0-2); EOSINOPHILS % (AUTO) 3.3 % (0-6); HEMATOCRIT 37.3 % (36.0-47.0); HEMOGLOBIN 12.9 g/dL (12.0-15.5); HGB HCT DIFFERENCE 1.4; LYMPHOCYTES % (AUTO) 28.2 % (13-45); MEAN CORPUSCULAR HGB CONC 34.6 g/dL (32.0-36.0); MEAN CORPUSCULAR VOLUME 95 fl (80-97); MONOCYTES % (AUTO) 8.4 % (3-13); RED BLOOD COUNT 3.91 10^6/uL (3.72-5.28); RED CELL DISTRIBUTION WIDTH 13.6 % (11.5-14.0); SEGMENTED NEUTROPHILS % (AUTO) 58.9 % (42-78)
[2016-12-27 04:31] LABS: ALANINE AMINOTRANSFERASE 57 U/L (9-52); ALBUMIN 3.5 g/dL (3.5-5.0); ALKALINE PHOSPHATASE 94 U/L (38-126); ANION GAP 11 (5-19); ASPARTATE AMINO TRANSFERASE 22 U/L (14-36); BILIRUBIN,DIRECT 0.5 mg/dL (0.0-0.4); BILIRUBIN,TOTAL 0.5 mg/dL (0.2-1.3); BLOOD UREA NITROGEN 13 mg/dL (7-20); CALCIUM 8.9 mg/dL (8.4-10.2); CARBON DIOXIDE 30 mmol/L (22-30); CHLORIDE 103 mmol/L (98-107); CREATININE RESULT 0.61 mg/dL (0.52-1.25); GLUCOSE 105 mg/dL (75-110); POTASSIUM 3.8 mmol/L (3.6-5.0); SODIUM 143.7 mmol/L (137-145); TOTAL PROTEIN 5.7 g/dL (6.3-8.2)
[2016-12-27] MEDS: CLINDAMYCIN 600 MG/D5W RTU 600 MG/50 ML RTUPB IV SCH ×3 (06:25→22:21)
[2016-12-27] MEDS: ALPRAZOLAM 0.25 MG TABLET PO SCH ×3 (06:53→22:21)
[2016-12-27] MEDS: LANSOPRAZOLE 15 MG TAB.RAP.DR PO SCH ×2 (06:53→18:09)
[2016-12-27] MEDS: GABAPENTIN 300 MG CAPSULE PO PRN ×2 (09:11→18:11)
[2016-12-27] MEDS: AMIODARONE HCL 200 MG TABLET PO SCH ×2 (09:11→22:19)
[2016-12-27] MEDS: ASPIRIN 81 MG TABLET, CHEWABLE PO SCH (09:12)
[2016-12-27] MEDS: METOPROLOL SUCCINATE 50 MG TAB.SR.24H PO SCH (09:12)
[2016-12-27] MEDS: DOCUSATE SODIUM 100 MG CAPSULE PO SCH ×2 (09:12→18:09)
[2016-12-27] MEDS: DULOXETINE HCL 30 MG CAPSULE.DR PO SCH (09:12)
[2016-12-27] MEDS: OLANZAPINE 5 MG TABLET PO SCH ×2 (09:12→22:21)
[2016-12-27] MEDS: APIXABAN 5 MG TABLET PO SCH ×2 (09:13→18:09)
[2016-12-27] MEDS: SACUBITRIL/VALSARTAN 49 MG/51 MG TABLET PO SCH ×2 (09:13→22:20)
[2016-12-27] MEDS: SPIRONOLACTONE 25 MG TABLET PO SCH (09:24)
[2016-12-27] MEDS: FLUTICASONE NASAL SPRAY 50 MCG/SPRY 120 SPRAY/16 GM NAREB SCH (09:32)
--- NOTE | 2016-12-27 16:52 | PDOC PROGRESS REPORT ---
Subjective Progress Note for:: 12/27/16 - Acute respiratory failure: Atrial fibrillation with RVR Physical Exam Vital Signs: Temp Pulse Resp BP Pulse Ox 97.9 F 81 18 123/68 93 12/27/16 04:00 12/27/16 07:21 12/27/16 04:00 12/27/16 05:11 12/27/16 06:00 Intake & Output 12/26/16 12/27/16 12/28/16 06:59 06:59 06:59 Intake Total 160 1010 Output Total 2225 2200 Balance -2065 -1190 Weight 90.7 kg 88.4 kg Results Laboratory Results: 12/27/16 03:50 12/27/16 03:50 12/26/16 12/26/16 12/27/16 17:27 17:27 03:50 WBC 8.1 9.0 RBC 3.79 3.91 Hgb 12.6 12.9 Hct 36.3 37.3 MCV 96 95 MCH 33.1 33.0 MCHC 34.5 34.6 RDW 13.6 13.6 Plt Count 233 250 Seg Neutrophils % 60.5 58.9 Lymphocytes % 27.6 28.2 Monocytes % 8.5 8.4 Eosinophils % 2.6 3.3 Basophils % 0.8 1.2 Absolute Neutrophils 4.9 5.3 Absolute Lymphocytes 2.2 2.5 Absolute Monocytes 0.7 0.8 Absolute Eosinophils 0.2 0.3 Absolute Basophils 0.1 0.1 Sodium 143.3 Potassium 3.3 L Chloride 101 Carbon Dioxide 30 Anion Gap 12 BUN 14 Creatinine 0.69 Est GFR ( Amer) > 60 Est GFR (Non-Af Amer) > 60 Glucose 112 H Calcium 8.9 Total Bilirubin 0.4 AST 23 ALT 59 H Alkaline Phosphatase 85 Total Protein 5.9 L Albumin 3.6 12/27/16 03:50 WBC RBC Hgb Hct MCV MCH MCHC RDW Plt Count Seg Neutrophils % Lymphocytes % Monocytes % Eosinophils % Basophils % Absolute Neutrophils Absolute Lymphocytes Absolute Monocytes Absolute Eosinophils Absolute Basophils Sodium 143.7 Potassium 3.8 Chloride 103 Carbon Dioxide 30 Anion Gap 11 BUN 13 Creatinine 0.61 Est GFR ( Amer) > 60 Est GFR (Non-Af Amer) > 60 Glucose 105 Calcium 8.9 Total Bilirubin 0.5 AST 22 ALT 57 H Alkaline Phosphatase 94 Total Protein 5.7 L Albumin 3.5 12/17/16 12/17/16 12/17/16 04:15 04:15 11:10 Creatine Kinase 912 H 720 H CK-MB (CK-2) 11.30 H Troponin I < 0.012 NT-Pro-B Natriuret Pep 12/17/16 12/17/16 12/17/16 11:10 17:05 17:05 Creatine Kinase 553 H CK-MB (CK-2) 8.18 H 6.75 H Troponin I < 0.012 < 0.012 NT-Pro-B Natriuret Pep 12/21/16 12/21/16 12/21/16 10:23 10:23 15:13 Creatine Kinase 307 H CK-MB (CK-2) 5.42 H 4.33 Troponin I 0.148 0.247 NT-Pro-B Natriuret Pep 8020 H 12/21/16 12/21/16 12/21/16 15:13 22:05 22:05 Creatine Kinase 212 H 155 H CK-MB (CK-2) 3.83 Troponin I 0.122 NT-Pro-B Natriuret Pep Impressions: Head MRI 12/17/16 02:35 IMPRESSION: NO ENHANCING LESIONS. MINIMAL MICROVASCULAR ISCHEMIC CHANGE. OTHERWISE NORMAL STUDY. EVIDENCE OF ACUTE STROKE: NO. Head CT 12/18/16 00:00 IMPRESSION: Motion artifact. No acute findings EVIDENCE OF ACUTE STROKE: NO. Guidance Fluoroscopy 12/20/16 00:00 IMPRESSION: Lumbar puncture under fluoroscopy. No immediate complication. Lumbar Puncture 12/20/16 00:00 IMPRESSION: Lumbar puncture under fluoroscopy. No immediate complication. Chest X-Ray 12/23/16 06:00 IMPRESSION: No significant interval change. Assessment & Plan - Diagnosis (1) Altered mental status Qualifiers: Altered mental status type: unspecified Qualified Code(s): R41.82 - Altered mental status, unspecified Is this a current diagnosis for this admission?: Yes (2) Chronic pain syndrome Is this a current diagnosis for this admission?: Yes (3) Seizure disorder, secondary Is this a current diagnosis for this admission?: Yes (4) COPD (chronic obstructive pulmonary disease) Qualifiers: COPD type: chronic bronchitis Is this a current diagnosis for this admission?: Yes (5) Atrial fibrillation with RVR Is this a current diagnosis for this admission?: Yes (6) Acute respiratory failure Qualifiers: Respiratory failure complication: hypoxia Qualified Code(s): J96.01 - Acute respiratory failure with hypoxia Is this a current diagnosis for this admission?: Yes
--- NOTE | 2016-12-27 21:25 | PDOC PROGRESS REPORT ---
Subjective Progress Note for:: 12/27/16 Subjective:: Patient is seen by the bedside, she will hopefully be discharged home tomorrow if she continues to be stable Physical Exam Vital Signs: Temp Pulse Resp BP Pulse Ox 98.7 F 78 16 168/87 H 95 12/27/16 19:39 12/27/16 19:39 12/27/16 19:39 12/27/16 19:39 12/27/16 19:39 Intake & Output 12/26/16 12/27/16 12/28/16 06:59 06:59 06:59 Intake Total 160 1010 1030 Output Total 2225 2200 Balance -5 -1190 1030 Weight 90.7 kg 88.4 kg General appearance: PRESENT: no acute distress, well-developed, well-nourished Head exam: PRESENT: atraumatic, normocephalic Eye exam: PRESENT: conjunctiva pink, EOMI, PERRLA Ear exam: PRESENT: normal external ear exam Mouth exam: PRESENT: moist, tongue midline Neck exam: PRESENT: full ROM Respiratory exam: PRESENT: clear to auscultation bacilio Cardiovascular exam: PRESENT: RRR, +S1, +S2 Pulses: PRESENT: normal dorsalis pedis pul, +2 pedal pulses bilateral Vascular exam: PRESENT: normal capillary refill GI/Abdominal exam: PRESENT: normal bowel sounds, soft Rectal exam: PRESENT: deferred Neurological exam: PRESENT: alert, awake, oriented to person, oriented to place , oriented to time, oriented to situation, CN II-XII grossly intact. ABSENT: motor sensory deficit Psychiatric exam: PRESENT: appropriate affect, normal mood. ABSENT: homicidal ideation, suicidal ideation Skin exam: PRESENT: dry, intact, warm. ABSENT: cyanosis, rash Results Laboratory Results: 12/27/16 03:50 12/27/16 03:50 12/27/16 12/27/16 03:50 03:50 WBC 9.0 RBC 3.91 Hgb 12.9 Hct 37.3 MCV 95 MCH 33.0 MCHC 34.6 RDW 13.6 Plt Count 250 Seg Neutrophils % 58.9 Lymphocytes % 28.2 Monocytes % 8.4 Eosinophils % 3.3 Basophils % 1.2 Absolute Neutrophils 5.3 Absolute Lymphocytes 2.5 Absolute Monocytes 0.8 Absolute Eosinophils 0.3 Absolute Basophils 0.1 Sodium 143.7 Potassium 3.8 Chloride 103 Carbon Dioxide 30 Anion Gap 11 BUN 13 Creatinine 0.61 Est GFR ( Amer) > 60 Est GFR (Non-Af Amer) > 60 Glucose 105 Calcium 8.9 Total Bilirubin 0.5 AST 22 ALT 57 H Alkaline Phosphatase 94 Total Protein 5.7 L Albumin 3.5 12/17/16 12/17/16 12/17/16 04:15 04:15 11:10 Creatine Kinase 912 H 720 H CK-MB (CK-2) 11.30 H Troponin I < 0.012 NT-Pro-B Natriuret Pep 12/17/16 12/17/16 12/17/16 11:10 17:05 17:05 Creatine Kinase 553 H CK-MB (CK-2) 8.18 H 6.75 H Troponin I < 0.012 < 0.012 NT-Pro-B Natriuret Pep 12/21/16 12/21/16 12/21/16 10:23 10:23 15:13 Creatine Kinase 307 H CK-MB (CK-2) 5.42 H 4.33 Troponin I 0.148 0.247 NT-Pro-B Natriuret Pep 8020 H 12/21/16 12/21/16 12/21/16 15:13 22:05 22:05 Creatine Kinase 212 H 155 H CK-MB (CK-2) 3.83 Troponin I 0.122 NT-Pro-B Natriuret Pep Impressions: Head MRI 12/17/16 02:35 IMPRESSION: NO ENHANCING LESIONS. MINIMAL MICROVASCULAR ISCHEMIC CHANGE. OTHERWISE NORMAL STUDY. EVIDENCE OF ACUTE STROKE: NO. Head CT 12/18/16 00:00 IMPRESSION: Motion artifact. No acute findings EVIDENCE OF ACUTE STROKE: NO. Guidance Fluoroscopy 12/20/16 00:00 IMPRESSION: Lumbar puncture under fluoroscopy. No immediate complication. Lumbar Puncture 12/20/16 00:00 IMPRESSION: Lumbar puncture under fluoroscopy. No immediate complication. Chest X-Ray 12/23/16 06:00 IMPRESSION: No significant interval change. 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 Is this a current diagnosis for this admission?: Yes (2) Cellulitis of right foot Is this a current diagnosis for this admission?: Yes (3) Encephalopathy Is this a current diagnosis for this admission?: Yes (4) Seizure disorder, secondary Is this a current diagnosis for this admission?: Yes (5) Withdrawal seizures Qualifiers: Complication of substance-induced condition: with delirium Qualified Code(s ): 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 Is this a current diagnosis for this admission?: Yes (6) Acute respiratory acidosis Is this a current diagnosis for this admission?: Yes (7) Acute pulmonary edema Is this a current diagnosis for this admission?: Yes (8) Acute systolic heart failure Is this a current diagnosis for this admission?: Yes (9) Paroxysmal atrial fibrillation Is this a current diagnosis for this admission?: Yes (10) Hypotension Qualifiers: Hypotension type: unspecified hypotension type Qualified Code(s): I95.9 - Hypotension, unspecified Is this a current diagnosis for this admission?: Yes (11) NSTEMI (non-ST elevated myocardial infarction) Is this a current diagnosis for this admission?: Yes
[2016-12-27] MEDS: ATORVASTATIN CALCIUM 40 MG TABLET PO SCH (22:21)
[2016-12-28] MEDS: GABAPENTIN 300 MG CAPSULE PO PRN ×2 (02:06→10:17)
[2016-12-28] MEDS: ACETAMINOPHEN SOLN 325 MG/10.15 ML UDCUP PO PRN (04:36)
[2016-12-28] MEDS: LANSOPRAZOLE 15 MG TAB.RAP.DR PO SCH ×2 (05:18→17:08)
[2016-12-28] MEDS: CLINDAMYCIN 600 MG/D5W RTU 600 MG/50 ML RTUPB IV SCH ×2 (05:19→14:21)
[2016-12-28] MEDS: ALPRAZOLAM 0.25 MG TABLET PO SCH ×2 (05:19→14:21)
[2016-12-28] MEDS: AMIODARONE HCL 200 MG TABLET PO SCH (09:06)
[2016-12-28] MEDS: ASPIRIN 81 MG TABLET, CHEWABLE PO SCH (09:07)
[2016-12-28] MEDS: SACUBITRIL/VALSARTAN 49 MG/51 MG TABLET PO SCH (09:07)
[2016-12-28] MEDS: METOPROLOL SUCCINATE 50 MG TAB.SR.24H PO SCH (09:07)
[2016-12-28] MEDS: DOCUSATE SODIUM 100 MG CAPSULE PO SCH ×2 (09:07→17:08)
[2016-12-28] MEDS: OLANZAPINE 5 MG TABLET PO SCH (09:08)
[2016-12-28] MEDS: SPIRONOLACTONE 25 MG TABLET PO SCH (09:08)
[2016-12-28] MEDS: DULOXETINE HCL 30 MG CAPSULE.DR PO SCH (09:08)
[2016-12-28] MEDS: APIXABAN 5 MG TABLET PO SCH ×2 (09:09→17:11)
[2016-12-28] MEDS: FLUTICASONE NASAL SPRAY 50 MCG/SPRY 120 SPRAY/16 GM NAREB SCH (09:11)
[2016-12-28] MEDS ORDERED: FLUCONAZOLE 100 MG TABLET PO ONE (15:15)
[2016-12-28] MEDS ORDERED: INFLUENZA ADLT QUAD (36MOS+) 2017-18 VAC 0.5 ML SYR IM PRN (15:29)
[2016-12-28 15:32] VITALS: BP 153/80
--- NOTE | 2016-12-28 15:57 | PDOC DISCHARGE SUMMARY ---
General - Admit/Disc Date/PCP Admission Date/Primary Care Provider: 12/17/16 03:43 KAITLYNN POSEY MD Discharge Date: 12/28/16 - Discharge Diagnosis (1) NSTEMI (non-ST elevated myocardial infarction) Is this a current diagnosis for this admission?: Yes (2) Benzodiazepine withdrawal Is this a current diagnosis for this admission?: Yes (3) Cellulitis of right foot Is this a current diagnosis for this admission?: Yes (4) Encephalopathy Is this a current diagnosis for this admission?: Yes (5) Seizure disorder, secondary Is this a current diagnosis for this admission?: Yes (6) Withdrawal seizures Is this a current diagnosis for this admission?: Yes (7) Acute respiratory acidosis Is this a current diagnosis for this admission?: Yes (8) Acute pulmonary edema Is this a current diagnosis for this admission?: Yes (9) Acute systolic heart failure Is this a current diagnosis for this admission?: Yes (10) Paroxysmal atrial fibrillation Is this a current diagnosis for this admission?: Yes (11) Hypotension Is this a current diagnosis for this admission?: Yes - Additional Information Resuscitation Status: Full Code Discharge Diet: Cardiac Discharge Activity: Activity As Tolerated, Balance Activity w/Rest, Weigh Daily Home Medications: RX: Duloxetine HCl [Cymbalta] 60 mg PO Q12 12/17/16 RX: Fluticasone Propionate [Flonase Nasal Bly 50 Mcg/Bly 16 gm] 1 spray NAREB DAILY 12/17/16 RX: Levocetirizine Dihydrochloride [Xyzal] 5 mg PO QPM 12/17/16 RX: Omeprazole 40 mg PO ACBRKFST 12/17/16 RX: Oxycodone HCl 15 mg PO QIDP PRN 12/17/16 RX: Alprazolam [Xanax 0.25 mg Tablet] 0.25 mg PO Q8 #90 tablet 12/28/16 RX: Amiodarone HCl [Cordarone 200 mg Tablet] 200 mg PO Q12 #60 tablet 12/28/16 RX: Apixaban [Eliquis 5 mg Tablet] 5 mg PO BID #60 tablet 12/28/16 RX: Aspirin [Aspirin 81 mg Chewable Tablet] 81 mg PO DAILY #30 tab.chew RX: Atorvastatin Calcium [Lipitor 40 mg Tablet] 40 mg PO QHS #90 tablet RX: Gabapentin [Neurontin] 600 mg PO Q8H PRN #0 12/28/16 RX: Metoprolol Succinate [Toprol Xl 50 mg Tab.sr] 50 mg PO DAILY #90 tab.sr.24h 12/28/16 RX: Sacubitril/Valsartan [Entresto 49 mg/51 mg Tablet] 1 tab PO Q12 #60 tablet 12/28/16 RX: Spironolactone [Aldactone 25 mg Tablet] 25 mg PO DAILY #30 tablet 12/28/16 History of Present Illness History of Present Illness: JAX PARIS is a 61 year old female, she was admitted on 12/17/2016 when she presented with altered mental status. On admission she was evaluated extensively for the altered mental status MRI of the brain was done, blood work was done, there was no definitive explanation for the acute confusion. On December 20, 2016 a lumbar puncture was done because there was no explanation for the delirium that patient was experiencing. The lumbar puncture was negative for any infectious etiology for meningitis or encephalitis. On December 21 she developed acute seizure disorder and subsequently she developed atrial fibrillation with rapid ventricular response. Seizure was treated with a loading dose of Dilantin and subsequently Keppra. A 2D echo was done because of the new onset atrial fibrillation, she also had elevated cardiac enzymes does suggest acute non-ST elevated LA. 2D echo showed a grossly normal size left ventricle with severe global hypokinesis of the left ventricle, the calculated ejection fraction of the left ventricle was dilated 2% there was associated grade 2 diastolic dysfunction the left atrium was mildly dilated, the right atrium is normal size there was moderate amount of mitral regurgitation there was mild pulmonary hypertension. She subsequently developed acute respiratory failure with hypercapnia requiring mechanical ventilation. She was intubated, transferred to ICU she was in ICU on T she self - extubate. She was seen by different specialties including cardiology, pulmonary psychiatry. Medications were adjusted, she was started on anticoagulant Eliquis because of the A. fib, she also was started on medication for CHF. Because of the acute non-ST elevated LA there is a concern she may have underlining CAD the plan is to have outpatient cardiac cauterization. She also developed severe agitation with violent behavior requiring restraint in the unit after she was extubated ultimately it was felt that her confusion is from benzodiazepine withdrawal. She normally uses alprazolam on a regular basis for very long time until recently when she has not been taking it it was felt that the combination of the seizure, paroxysmal atrial fibrillation with rapid irregular response agitation and confusion was more consistent with benzodiazepine withdrawal syndrome, she was restarted on alprazolam and she became more oriented less agitated and more behaved. Hospital Course Hospital Course: Patient was admitted in the hospital, hospital course was complicated with acute non-ST elevated LA, atrial fibrillation with rapid irregular response, seizure disorder requiring Keppra and Dilantin, severe agitation with confusion , see the above for details Physical Exam Vital Signs: Temp Pulse Resp BP Pulse Ox 98.5 F 74 16 153/80 H 98 12/28/16 15:30 12/28/16 15:30 12/28/16 15:30 12/28/16 15:30 12/28/16 15:30 Intake & Output 12/27/16 12/28/16 12/29/16 06:59 06:59 06:59 Intake Total 1010 1130 240 Output Total 2200 1600 Balance -1190 -470 240 Weight 88.4 kg 89.7 kg General appearance: PRESENT: no acute distress, well-developed, well-nourished Head exam: PRESENT: atraumatic, normocephalic Eye exam: PRESENT: conjunctiva pink, EOMI, PERRLA Ear exam: PRESENT: normal external ear exam Mouth exam: PRESENT: moist, tongue midline Neck exam: PRESENT: full ROM Respiratory exam: PRESENT: clear to auscultation bacilio Cardiovascular exam: PRESENT: RRR, +S1 Pulses: PRESENT: normal dorsalis pedis pul, +2 pedal pulses bilateral Vascular exam: PRESENT: normal capillary refill GI/Abdominal exam: PRESENT: normal bowel sounds, soft Rectal exam: PRESENT: deferred Neurological exam: PRESENT: alert, awake, oriented to person, oriented to place , oriented to time, oriented to situation, CN II-XII grossly intact Psychiatric exam: PRESENT: appropriate affect, normal mood Skin exam: PRESENT: dry, intact, warm Results Laboratory Results: 12/27/16 03:50 12/27/16 03:50 12/20/16 09:03 Cerebral Spinal Fluid - Csf Viral Culture - Final 12/17/16 12/17/16 12/17/16 04:15 04:15 11:10 Creatine Kinase 912 H 720 H CK-MB (CK-2) 11.30 H Troponin I < 0.012 NT-Pro-B Natriuret Pep 12/17/16 12/17/16 12/17/16 11:10 17:05 17:05 Creatine Kinase 553 H CK-MB (CK-2) 8.18 H 6.75 H Troponin I < 0.012 < 0.012 NT-Pro-B Natriuret Pep 12/21/16 12/21/16 12/21/16 10:23 10:23 15:13 Creatine Kinase 307 H CK-MB (CK-2) 5.42 H 4.33 Troponin I 0.148 0.247 NT-Pro-B Natriuret Pep 8020 H 12/21/16 12/21/16 12/21/16 15:13 22:05 22:05 Creatine Kinase 212 H 155 H CK-MB (CK-2) 3.83 Troponin I 0.122 NT-Pro-B Natriuret Pep Impressions: Head MRI 12/17/16 02:35 IMPRESSION: NO ENHANCING LESIONS. MINIMAL MICROVASCULAR ISCHEMIC CHANGE. OTHERWISE NORMAL STUDY. EVIDENCE OF ACUTE STROKE: NO. Head CT 12/18/16 00:00 IMPRESSION: Motion artifact. No acute findings EVIDENCE OF ACUTE STROKE: NO. Guidance Fluoroscopy 12/20/16 00:00 IMPRESSION: Lumbar puncture under fluoroscopy. No immediate complication. Lumbar Puncture 12/20/16 00:00 IMPRESSION: Lumbar puncture under fluoroscopy. No immediate complication. Chest X-Ray 12/23/16 06:00 IMPRESSION: No significant interval change.
== END 2016-12-28 17:18 | disposition home or self-care (01) | DRG 896 ==
LOC: ER 22:13 → UNDOADMIN 12-17 03:08 → EH 12-17 03:08 → 3S 12-17 04:38 → 5 12-20 20:36 → ICU 12-21 09:30
PROVIDERS: ADMIT Internal Medicine; ATTEND Internal Medicine
PROC: 009U3ZX Drainage of Spinal Canal, Percutaneous Approach, Diagnostic (ICD-10-PCS; 2016-12-20)
PROC: B01B1ZZ Fluoroscopy of Spinal Cord using Low Osmolar Contrast (ICD-10-PCS; 2016-12-20)
PROC: 02HV33Z Insertion of Infusion Device into Superior Vena Cava, Percutaneous Approach (ICD-10-PCS; principal; 2016-12-21)
PROC: 0BH17EZ Insertion of Endotracheal Airway into Trachea, Via Natural or Artificial Opening (ICD-10-PCS; 2016-12-21)
PROC: 5A1935Z Respiratory Ventilation, Less than 24 Consecutive Hours (ICD-10-PCS; 2016-12-21)
PROC: 3E0234Z Introduction of Serum, Toxoid and Vaccine into Muscle, Percutaneous Approach (ICD-10-PCS; 2016-12-24)
DX: F13.231 Sedative, hypnotic or anxiolytic dependence with withdrawal delirium (principal); I21.4 Non-ST elevation (NSTEMI) myocardial infarction; G93.40 Encephalopathy, unspecified; J96.01 Acute respiratory failure with hypoxia; I50.21 Acute systolic (congestive) heart failure; E87.1 Hypo-osmolality and hyponatremia; I42.9 Cardiomyopathy, unspecified; L03.115 Cellulitis of right lower limb; G40.509 Epileptic seizures related to external causes, not intractable, without status epilepticus; E87.2 Acidosis; F19.231 Other psychoactive substance dependence with withdrawal delirium; I10 Essential (primary) hypertension; G89.4 Chronic pain syndrome; J44.9 Chronic obstructive pulmonary disease, unspecified; I48.0 Paroxysmal atrial fibrillation; M54.5 Low back pain; M19.90 Unspecified osteoarthritis, unspecified site; K21.9 Gastro-esophageal reflux disease without esophagitis; T42.4X6A Underdosing of benzodiazepines, initial encounter; F32.9 Major depressive disorder, single episode, unspecified; M10.9 Gout, unspecified; F17.200 Nicotine dependence, unspecified, uncomplicated; I95.9 Hypotension, unspecified; E87.6 Hypokalemia; I27.20 Pulmonary hypertension, unspecified; I34.0 Nonrheumatic mitral (valve) insufficiency; E66.9 Obesity, unspecified; Z91.19 Patient's noncompliance with other medical treatment and regimen; Z90.49 Acquired absence of other specified parts of digestive tract; Z88.2 Allergy status to sulfonamides; Z78.1 Physical restraint status; Z79.02 Long term (current) use of antithrombotics/antiplatelets; Z23 Encounter for immunization; Z91.130 Patient's unintentional underdosing of medication regimen due to age-related debility; Z68.33 Body mass index [BMI] 33.0-33.9, adult
CPT/HCPCS: 31500; 36415; 62270; 70450; 70553; 71010; 77003; 80048; 80053; 80307; 81001; 82140; 82550; 82553; 82607; 82803; 82945; 82962; 83735; 83880; 83916; 83930; 83935; 84100; 84157; 84166; 84300; 84478; 84484; 85025; 85610; 85730; 86403; 87040; 87045; 87070; 87077; 87086; 87205; 87210; 87252; 87493; 87529; 89050; 90686; 93005; 93010; 93306; 94002; 94003; 94640; 94660; 94799; 95819; 99285; A9577; C1751; G8978-GP; G8979-GP; J0282; J0330; J1160; J1165; J1642; J1644; J1650; J1940; J1953; J2060; J2250; J2405; J2704; J3411; J3475; J3480; J3490; J7030; J7620; S0028

== ENCOUNTER 2017-04-19 18:32 | Inpatient (IN) | payer MEDICARE ==
[~2017-04-19 18:32] MED LIST: ROCURONIUM BROMIDE INJ 50 MG/5 ML VIAL IV ONE
[2017-04-19 20:04] LABS: HEMATOCRIT 41.7 % (36.0-47.0); MEAN CORPUSCULAR HEMOGLOBIN 33.4 pg (27.0-33.4); MEAN CORPUSCULAR HGB CONC 33.5 g/dL (32.0-36.0); MEAN CORPUSCULAR VOLUME 100 fl (80-97); PLATELET COUNT 187 10^3/uL (150-450); RED BLOOD COUNT 4.18 10^6/uL (3.72-5.28); RED CELL DISTRIBUTION WIDTH 14.3 % (11.5-14.0); VENOUS BLOOD BASE EXCESS -2.2 mmol/L; VENOUS BLOOD HCO3 28.1 mmol/L (20-32); VENOUS BLOOD PH 7.19 (7.30-7.42); WHITE BLOOD COUNT 13.6 10^3/uL (4.0-10.5)
[2017-04-19 20:06] LABS: VENOUS BLOOD PCO2 75.2 mmHg (35-63)
[2017-04-19] MEDS ORDERED: ACETAMINOPHEN SUSP 160 MG/5 ML ORAL SYRING PO ONE (20:20)
[2017-04-19] MEDS ORDERED: NORMAL SALINE 1000 ML 1,000 ML IV ONE ×2 (20:20→20:53)
[2017-04-19 20:21] LABS: ABSOLUTE MONOCYTES # (MANUAL) 0.7 10^3/uL (0.1-1.4); BAND NEUTROPHILS % (MANUAL) 8 % (3-5); BASOPHILS % (MANUAL) 0 % (0-2); EOSINOPHILS % (MANUAL) 0 % (0-6); LYMPHOCYTES % (MANUAL) 7 % (13-45); METAMYELOCYTES % (MANUAL) 1 % (0); MONOCYTES % (MANUAL) 5 % (3-13); SEGMENTED NEUTROPHILS % (MAN) 79 % (42-78); TOTAL CELLS COUNTED 100
[2017-04-19 20:22] LABS: ANISOCYTOSIS SLIGHT
[2017-04-19 20:24] LABS: PLATELET COMMENT ADEQUATE; PLATELET LARGE PRESENT; TOXIC GRANULATION SLIGHT; TOXIC VACUOLATION PRESENT
[2017-04-19 20:25] LABS: ALANINE AMINOTRANSFERASE 62 U/L (9-52); ALBUMIN 4.2 g/dL (3.5-5.0); ALKALINE PHOSPHATASE 66 U/L (38-126); ANION GAP 12 (5-19); ASPARTATE AMINO TRANSFERASE 55 U/L (14-36); BILIRUBIN,DIRECT 0.5 mg/dL (0.0-0.4); BILIRUBIN,TOTAL 0.7 mg/dL (0.2-1.3); BLOOD UREA NITROGEN 30 mg/dL (7-20); CALCIUM 8.9 mg/dL (8.4-10.2); CARBON DIOXIDE 26 mmol/L (22-30); CHLORIDE 95 mmol/L (98-107); CREATINE KINASE 942 U/L (30-135); GLUCOSE 111 mg/dL (75-110); POTASSIUM 5.4 mmol/L (3.6-5.0); SALICYLATE 2.3 mg/dL (2.0-20.0); SODIUM 133.3 mmol/L (137-145); TOTAL PROTEIN 6.8 g/dL (6.3-8.2)
[2017-04-19 20:37] LABS: NT PRO BNP 313 pg/mL (5-900)
--- NOTE | 2017-04-19 20:44 | RADIOLOGY REPORT (SQ) ---
EXAM DESCRIPTION: CHEST SINGLE VIEW COMPLETED DATE/TIME: 04/19/2017 8:23 pm REASON FOR STUDY: hypoxia COMPARISON: 12/23/2016 EXAM PARAMETERS: NUMBER OF VIEWS: One view. TECHNIQUE: Single frontal radiographic view of the chest acquired. RADIATION DOSE: NA LIMITATIONS: None. FINDINGS: LUNGS AND PLEURA: Increased hazy opacity over both lung bases. No pneumothorax. No pleura l effusion. MEDIASTINUM AND HILAR STRUCTURES: Stable. HEART AND VASCULAR STRUCTURES: Heart normal in size. Normal vasculature. BONES: No acute findings. HARDWARE: None in the chest. OTHER: No other significant finding. IMPRESSION: Increased hazy opacity over both lung bases, possible early airspace disease. TECHNICAL DOCUMENTATION: JOB ID: [id number] [email or web address]- All Rights Reserved
[2017-04-19 20:47] LABS: TROPONIN I < 0.012 ng/mL
[2017-04-19] MEDS ORDERED: CEFTRIAXONE 1 GM/D5W RTU 1 GM/50 ML RTUPB IV ONE (20:53)
[2017-04-19] MEDS ORDERED: CLINDAMYCIN 600 MG/D5W RTU 600 MG/50 ML RTUPB IV ONE (20:53)
[2017-04-19] MEDS ORDERED: AZITHROMYCIN INJ 500 MG VIAL IV ONE (20:53)
--- NOTE | 2017-04-19 20:59 | ER Document Report ---
ED Respiratory Problem - General Chief Complaint: Possible Overdose Stated Complaint: POSSIBLE OVERDOSE Time Seen by Provider: 04/19/17 18:46 Notes: The patient is a 61-year-old female, past medical history chronic back pain, chronic benzo abuse, COPD, presents by EMS after she was found to be somnolent and satting 70% on room air By her family members. She was given 1 mg Narcan IM by EMS prior to arrival with increase in her mental status. Patient was still found to be hypoxic on arrival and she was placed on a nonrebreather mask. Patient is having a productive cough, but denies chest pain, leg swelling , nausea, vomiting or rash. TRAVEL OUTSIDE OF THE [place] IN LAST 30 DAYS: No - Related Data Allergies/Adverse Reactions: Sulfa (Sulfonamide Antibiotics) Allergy (Mild, Verified 04/19/17 19:22) Hives Past Medical History - General Information source: Patient - Social History Smoking Status: Unknown if Ever Smoked Chew tobacco use (# tins/day): No Frequency of alcohol use: None Drug Abuse: None Family History: Hypertension Patient has suicidal ideation: No Patient has homicidal ideation: No - Past Medical History Cardiac Medical History: Reports: Hx Hypertension Pulmonary Medical History: Reports: Hx COPD Renal/ Medical History: Denies: Hx Peritoneal Dialysis GI Medical History: Reports: Hx Gastroesophageal Reflux Disease, Hx Endoscopy Musculoskeltal Medical History: Reports Hx Arthritis, Reports Hx Gout Psychiatric Medical History: Reports: Hx Depression Past Surgical History: Reports: Hx Abdominal Surgery, Hx Section, Hx Cholecystectomy, Hx Gynecologic Surgery - bladder tact, Other - C-spine surgery - Immunizations Immunizations up to date: Yes Hx Diphtheria, Pertussis, Tetanus Vaccination: - unknown Hx Pneumococcal Vaccination: 11/21/10 Physical Exam - Vital signs Vitals: Resp Pulse Ox 19 94 04/19/17 18:49 04/19/17 18:49 Course - Re-evaluation Re-evalutation: 61-year-old female showed up somnolent and hypoxic. She appears to be hypercarbic and hypoxic respiratory acidosis. Bipap was started. There is a large right lower lobe pneumonia. Concern for aspiration, so clindamycin, Rocephin and azithromycin started for coverage. Spoke to Dr. Pinzon and admitted patient to [facility]. However, patient began to have worsening mental status and a repeat ABG was sent, which did not show any improvement of her acidosis on BiPAP. Patient was intubated to protect her airway and to improve her hypoxia and respiratory acidosis. Family was kept updated throughout. 04/19/17 22:[address] Pinzon about upgrading status to ICU after intubation and he is aware. Pt began to drop her blood pressure, so central line was placed and pressors were started. - Vital Signs Vital signs: Temp Pulse Resp BP Pulse Ox 101.4 F H 0 L 82/46 L 94 04/19/17 19:55 04/19/17 22:58 04/19/17 22:58 04/19/17 22:58 - Laboratory Result Diagrams: 04/19/17 19:40 04/19/17 19:40 Laboratory results interpreted by me: 04/19/17 04/19/17 04/19/17 19:40 19:40 19:40 WBC 13.6 H MCV 100 H RDW 14.3 H Seg Neuts % (Manual) 79 H Band Neutrophils % 8 H Lymphocytes % (Manual) 7 L Metamyelocytes % 1 H Abs Neuts (Manual) 12.0 H Carbonic Acid ABG pH ABG pCO2 ABG pO2 ABG HCO3 ABG Total CO2 ABG O2 Saturation VBG pH 7.19 L* VBG pCO2 75.2 H* Sodium 133.3 L Potassium 5.4 H Chloride 95 L BUN 30 H Creatinine 1.41 H Est GFR ( Amer) 46 L Est GFR (Non-Af Amer) 38 L Glucose 111 H Phosphorus Direct Bilirubin 0.5 H AST 55 H ALT 62 H Creatine Kinase 942 H TSH 04/19/17 04/19/17 04/19/17 19:40 19:40 21:20 WBC MCV RDW Seg Neuts % (Manual) Band Neutrophils % Lymphocytes % (Manual) Metamyelocytes % Abs Neuts (Manual) Carbonic Acid 2.23 H ABG pH 7.17 L* ABG pCO2 74.0 H* ABG pO2 79.2 L ABG HCO3 26.1 H ABG Total CO2 28.4 H ABG O2 Saturation 91.8 L VBG pH VBG pCO2 Sodium Potassium Chloride BUN Creatinine Est GFR ( Amer) Est GFR (Non-Af Amer) Glucose Phosphorus 6.9 H Direct Bilirubin AST ALT Creatine Kinase TSH 8.84 H - Diagnostic Test Radiology reviewed: Image reviewed, Reports reviewed Radiology results interpreted by me: CXR: Right lower lobe pneumonia Procedures - Central Line Right Internal jugular Time completed: 23:45 Consent obtained: Yes Central line pre-insertion: Sterile PPE donned, Chloraprep applied, Sterile drapes applied Central line lumen type: Triple Anesthetic type: 1% Lidocaine mL's of anesthesia: 5 Ultrasound guided: Yes CM at insertion site: 16 Line secured with sutures: Yes Central line post-insertion: Blood return from lumens, Biopatch applied, Sutured , Sterile dressing applied, Position confirmed w/ CXR Number of attempts: 1 Complications: No - Intubation Orotracheal Time of Intubation: 22:54 Airway evaluation: Normal anatomy Mallampati Classification: Class 3 Medications: Ketamine, Other - Rocuronium Intubation method: Orotracheal Blade type: Geovany Blade size: 4 Equipment used: Glidescope ETT size: 7.5 ETT secured at: Lips ETT secured at (cm): 23 Breath Sounds after Intubation: Equal End tidal CO2 confirmed: Yes Ventilator settings: AC Tidal volume: 450 FiO2: 70 Respirations: 16 PEEP: 5 Post Intubation Xray: Yes Intubation Complications: No complications Critical Care Note - Critical Care Note Total time excluding time spent on procedures (mins): 55 Discharge - Discharge Clinical Impression: Septic shock Respiratory failure with hypoxia and hypercapnia Qualifiers: Chronicity: acute Qualified Code(s): J96.01 - Acute respiratory failure with hypoxia; J96.02 - Acute respiratory failure with hypercapnia; J96.02 - Acute respiratory failure with hypercapnia; J96.02 - Acute respiratory failure with hypercapnia Pneumonia Qualifiers: Pneumonia type: due to unspecified organism Laterality: right Lung location: lower lobe of lung Qualified Code(s): J18.1 - Lobar pneumonia, unspecified organism Rhabdomyolysis Qualifiers: Rhabdomyolysis type: non-traumatic Qualified Code(s): M62.82 - Rhabdomyolysis Condition: Critical Disposition: ADMITTED INPATIENT Admitting Provider: [facility] Unit Admitted: ICU
[2017-04-19] MEDS ORDERED: NORMAL SALINE 1000 ML 1,000 ML IV PRN (21:19)
[2017-04-19] MEDS ORDERED: IPRATROPIUM/ALBUTEROL 0.5-2.5 MG/3 ML AMPUL NEB PRN (21:19)
[2017-04-19] MEDS ORDERED: CEFTRIAXONE INJ 1000 MG VIAL ONE (21:19)
[2017-04-19 21:45] LABS: INTERNATIONAL RATION (INR) 1.01; PARTIAL THROMBOPLASTIN TIME 29.7 SEC (23.5-35.8)
[2017-04-19 21:53] LABS: LIPASE 45.5 U/L (23-300); PHOSPHORUS 6.9 mg/dL (2.5-4.5)
[2017-04-19 22:10] LABS: FREE T4 (FREE THYROXINE) 1.17 ng/dL (0.78-2.19)
[2017-04-19 22:15] LABS: ARTERIAL BLOOD H2CO3 2.23 mmol/L (1.05-1.35); ARTERIAL BLOOD HCO3 26.1 mmol/L (20-26); ARTERIAL BLOOD O2 SATURATION 91.8 % (94-98); ARTERIAL BLOOD PO2 79.2 mmHg (80-100); ARTERIAL BLOOD TOTAL CO2 28.4 mmol/L (21-25)
[2017-04-19 22:16] LABS: ARTERIAL BLOOD FIO2 80%
[2017-04-19] MEDS ORDERED: ERTAPENEM SODIUM INJ 1 GM VIAL IV PRN (22:16)
[2017-04-19 22:19] LABS: ARTERIAL BLOOD PH 7.17 (7.35-7.45)
[2017-04-19] MEDS ORDERED: PROPOFOL 100 ML IV ONE (22:22)
[2017-04-19] MEDS ORDERED: ETOMIDATE INJ/PF 20 MG/10 ML SDV IV ONE (22:22)
[2017-04-19 22:24] LABS: THYROID STIMULATING HORMONE 8.84 uIU/mL (0.47-4.68)
[2017-04-19] MEDS ORDERED: EPINEPHRINE INJ 1 MG/10 ML DISP.SYRIN ONE (22:28)
[2017-04-19] MEDS ORDERED: EPINEPHRINE INJ/PF 1 MG/1 ML AMPULE ONE (22:28)
[2017-04-19] MEDS ORDERED: KETAMINE HCL INJ 500 MG/10 ML VIAL ONE ×2 (22:28→22:47)
[2017-04-19] MEDS ORDERED: FENTANYL CITRATE INJ/PF 100 MCG/2 ML AMPUL IV ONE (22:45)
[2017-04-19] MEDS ORDERED: FENTANYL CITRATE INJ/PF 100 MCG/2 ML AMPUL ONE (22:48)
[2017-04-19] MEDS ORDERED: KETAMINE HCL INJ 500 MG/10 ML VIAL IV PRN (22:50)
[2017-04-19] MEDS ORDERED: ROCURONIUM BROMIDE INJ 50 MG/5 ML VIAL IV ONE (22:51)
[2017-04-19] MEDS ORDERED: KETAMINE HCL INJ 500 MG/10 ML VIAL IV ONE (22:51)
[2017-04-19 23:04] LABS: TROPONIN I < 0.012 ng/mL
--- NOTE | 2017-04-19 23:21 | RADIOLOGY REPORT (SQ) ---
EXAM DESCRIPTION: CHEST SINGLE VIEW COMPLETED DATE/TIME: 04/19/2017 11:00 pm REASON FOR STUDY: ETT PLACEMENT COMPARISON: 04/19/2017 EXAM PARAMETERS: NUMBER OF VIEWS: One view. TECHNIQUE: Single frontal radiographic view of the chest acquired. RADIATION DOSE: NA LIMITATIONS: None. FINDINGS: LUNGS AND PLEURA: Increasing hazy opacities over both lung bases. MEDIASTINUM AND HILAR STRUCTURES: Stable. HEART AND VASCULAR STRUCTURES: Stable. BONES: No acute findings. HARDWARE: Endotracheal tube tip overlies the lower trachea approximately 1.7 cm above the level of th e catracho. Nasogastric catheters present with tip overlying the body of the stomach. OTHER: No other significant finding. IMPRESSION: Increasing hazy opacities over both lung bases.Endotracheal tube tip overlies the lower trachea approximately 1.7 cm above the level of the catracho. Nasogastric catheters present with tip o verlying the body of the stomach. TECHNICAL DOCUMENTATION: JOB ID: [id number] [id number] [employer]- All Rights Reserved
[2017-04-19] MEDS ORDERED: NOREPINEPHRINE BITARTRATE INJ/PF 4 MG/4 ML SDV IV ONE (23:23)
[2017-04-19 23:28] LABS: APPEARANCE,URINE CLEAR; BILIRUBIN,URINE NEGATIVE (NEGATIVE); COLOR,URINE YELLOW; GLUCOSE, URINE NEGATIVE (NEGATIVE); KETONES,URINE NEGATIVE (NEGATIVE); LEUKOCYTE ESTERASE,URINE TRACE (NEGATIVE); NITRITE,URINE NEGATIVE (NEGATIVE); PROTEIN,URINE NEGATIVE (NEGATIVE); URINE SPECIFIC GRAVITY 1.018; UROBILINOGEN,URINE NEGATIVE mg/dL (<2.0)
[2017-04-19 23:49] LABS: URINE AMPHETAMINES SCREEN NEGATIVE; URINE BARBITURATES SCREEN NEGATIVE; URINE BENZODIAZEPINES SCREEN UNCONFIRMED POSITIVE; URINE COCAINE SCREEN NEGATIVE; URINE MARIJUANA (THC) SCREEN NEGATIVE; URINE METHADONE SCREEN UNCONFIRMED POSITIVE; URINE PHENCYCLIDINE SCREEN NEGATIVE
[2017-04-19] MEDS: DEXTROSE 5%-WATER 250 ML with NOREPINEPHRINE BITARTRATE 4 MG IV PRN ×2 (23:51)
[2017-04-20] MEDS ORDERED: ACETAMINOPHEN 325 MG SUPP.RECT PR ONE (00:35)
--- NOTE | 2017-04-20 01:03 | RADIOLOGY REPORT (SQ) ---
EXAM DESCRIPTION: CHEST SINGLE VIEW CLINICAL HISTORY: central line placement COMPARISON: 04/19/2017 FINDINGS: Single frontal view of the chest. Endotracheal tube with tip in the proximal right mainstem bronchus. Interval placement of right IJ central venous catheter with tip in the SVC. Postoperative change of the cervical spine. NG tube with tip below the diaphragm. No pneumothorax. Likely small bilateral pleural effusions with bibasilar opacities which may be related to consolidation or atelectasis. Heart is not enlarged. No displaced rib fractures identified. Upper abdominal soft tissues are unremarkable. IMPRESSION: 1. Endotracheal tube with tip now in the right mainstem bronchus. 2. Right IJ central venous catheter in appropriate radiographic position. No pneumothorax. Report called to Charge Nurse Karla at 1202 hours ([employer]) 04/20/2017
[2017-04-20] MEDS: PROPOFOL 100 ML IV PRN ×5 (01:27→21:20)
[2017-04-20] MEDS ORDERED: NOREPINEPHRINE BITARTRATE INJ/PF 4 MG/4 ML SDV IV ONE (03:51)
[2017-04-20 04:23] LABS: ARTERIAL BLOOD BASE EXCESS -5.7 mmol/L; ARTERIAL BLOOD FIO2 100%; ARTERIAL BLOOD H2CO3 1.73 mmol/L (1.05-1.35); ARTERIAL BLOOD HCO3 22.8 mmol/L (20-26); ARTERIAL BLOOD O2 SATURATION 93.5 % (94-98); ARTERIAL BLOOD PCO2 57.4 mmHg (35-45); ARTERIAL BLOOD PH 7.22 (7.35-7.45); ARTERIAL BLOOD PO2 81.4 mmHg (80-100); ARTERIAL BLOOD TOTAL CO2 24.6 mmol/L (21-25)
[2017-04-20 04:24] LABS: ABSOLUTE LYMPHOCYTES (AUTO) 1.3 10^3/uL (0.5-4.7); ABSOLUTE MONOCYTES (AUTO) 1.4 10^3/uL (0.1-1.4); ABSOLUTE NEUT (AUTO) 14.8 10^3/uL (1.7-8.2); BASOPHILS % (AUTO) 0.2 % (0-2); HEMATOCRIT 40.4 % (36.0-47.0); HEMOGLOBIN 13.6 g/dL (12.0-15.5); LYMPHOCYTES % (AUTO) 7.2 % (13-45); MEAN CORPUSCULAR HEMOGLOBIN 33.5 pg (27.0-33.4); MEAN CORPUSCULAR HGB CONC 33.6 g/dL (32.0-36.0); MEAN CORPUSCULAR VOLUME 100 fl (80-97); MONOCYTES % (AUTO) 8.1 % (3-13); PLATELET COUNT 232 10^3/uL (150-450); RED BLOOD COUNT 4.05 10^6/uL (3.72-5.28); RED CELL DISTRIBUTION WIDTH 14.5 % (11.5-14.0); SEGMENTED NEUTROPHILS % (AUTO) 84.5 % (42-78); TOTAL CELLS COUNTED % (AUTO) 100 %; WHITE BLOOD COUNT 17.5 10^3/uL (4.0-10.5)
[2017-04-20 04:38] LABS: ALANINE AMINOTRANSFERASE 67 U/L (9-52); ALBUMIN 3.6 g/dL (3.5-5.0); ALKALINE PHOSPHATASE 64 U/L (38-126); ANION GAP 10 (5-19); ASPARTATE AMINO TRANSFERASE 115 U/L (14-36); BILIRUBIN,DIRECT 0.5 mg/dL (0.0-0.4); BILIRUBIN,TOTAL 0.6 mg/dL (0.2-1.3); BLOOD UREA NITROGEN 31 mg/dL (7-20); CARBON DIOXIDE 23 mmol/L (22-30); CHLORIDE 100 mmol/L (98-107); CHOLESTEROL 107.98 mg/dL (0-200); GLUCOSE 117 mg/dL (75-110); POTASSIUM 5.5 mmol/L (3.6-5.0); SODIUM 132.7 mmol/L (137-145); TOTAL PROTEIN 5.9 g/dL (6.3-8.2); TRIGLYCERIDES 104 mg/dL (<150)
[2017-04-20 04:52] LABS: DIRECT LDL < 30 mg/dL (<100); TROPONIN I < 0.012 ng/mL
[2017-04-20 04:58] LABS: CREATINE KINASE 9776 U/L (30-135)
[2017-04-20] MEDS ORDERED: INFLUENZA ADLT QUAD (36MOS+) 2017-18 VAC 0.5 ML SYR IM PRN (04:59)
[2017-04-20] MEDS: DEXTROSE 5%-WATER 250 ML with NOREPINEPHRINE BITARTRATE 4 MG IV PRN ×6 (05:39→22:58)
[2017-04-20] MEDS ORDERED: DEXTROSE 5%-WATER 250 ML with NOREPINEPHRINE BITARTRATE 4 MG IV PRN ×2 (05:40)
--- NOTE | 2017-04-20 06:16 | RADIOLOGY REPORT (SQ) ---
EXAM DESCRIPTION: CHEST SINGLE VIEW CLINICAL HISTORY: Intubation COMPARISON: 04/19/2017 FINDINGS: Single frontal view of the chest. Endotracheal tube with tip at the level of the clavicles. Interval placement of right IJ central venous catheter with tip in the SVC. Postoperative change of the cervical spine. NG tube with tip below the diaphragm. No pneumothorax. Likely small bilateral pleural effusions with bibasilar opacities which may be related to consolidation or atelectasis. Heart is not enlarged. No displaced rib fractures identified. Upper abdominal soft tissues are unremarkable. IMPRESSION: 1. Endotracheal tube now in appropriate position. Otherwise stable appearance of the chest. Electronically signed by: Wally Starks 04/20/2017 5:14 AM
--- NOTE | 2017-04-20 07:59 | EKG REPORT ---
SEVERITY:- ABNORMAL ECG - SINUS RHYTHM FIRST DEGREE AV BLOCK BORDERLINE INFERIOR Q WAVES NONSPECIFIC REPOL ABNORMALITY, DIFFUSE LEADS : Confirmed by: Lev Flowers MD 20-Apr-2017 07:59:01
[2017-04-20] MEDS ORDERED: VANCOMYCIN HCL 0 MG in DEXTROSE 5%-WATER 250 ML IV NR (08:00)
[2017-04-20] MEDS ORDERED: ENOXAPARIN SODIUM INJ 40 MG/0.4 ML DISP.SYRIN SUBCUT SCH (10:00)
[2017-04-20] MEDS ORDERED: ERTAPENEM SODIUM 1 GM in NORMAL SALINE 50 ML IV SCH ×2 (10:00→22:00)
[2017-04-20 10:14] LABS: HEMATOCRIT 39.7 % (36.0-47.0); HEMOGLOBIN 13.6 g/dL (12.0-15.5); MEAN CORPUSCULAR HEMOGLOBIN 33.8 pg (27.0-33.4); MEAN CORPUSCULAR HGB CONC 34.2 g/dL (32.0-36.0); MEAN CORPUSCULAR VOLUME 99 fl (80-97); PLATELET COUNT 213 10^3/uL (150-450); RED BLOOD COUNT 4.02 10^6/uL (3.72-5.28); RED CELL DISTRIBUTION WIDTH 14.3 % (11.5-14.0)
[2017-04-20 10:22] LABS: ABSOLUTE NEUTROPHILS# (MANUAL) 13.8 10^3/uL (1.7-8.2); ALANINE AMINOTRANSFERASE 65 U/L (9-52); ALBUMIN 3.3 g/dL (3.5-5.0); ALKALINE PHOSPHATASE 70 U/L (38-126); ANION GAP 9 (5-19); ASPARTATE AMINO TRANSFERASE 118 U/L (14-36); BAND NEUTROPHILS % (MANUAL) 9 % (3-5); BASOPHILS % (MANUAL) 1 % (0-2); BILIRUBIN,DIRECT 0.5 mg/dL (0.0-0.4); BILIRUBIN,TOTAL 0.6 mg/dL (0.2-1.3); BLOOD UREA NITROGEN 27 mg/dL (7-20); CALCIUM 8.5 mg/dL (8.4-10.2); CARBON DIOXIDE 25 mmol/L (22-30); CHLORIDE 104 mmol/L (98-107); EOSINOPHILS % (MANUAL) 0 % (0-6); GLUCOSE 97 mg/dL (75-110); LYMPHOCYTES % (MANUAL) 12 % (13-45); MONOCYTES % (MANUAL) 6 % (3-13); POTASSIUM 4.7 mmol/L (3.6-5.0); SEGMENTED NEUTROPHILS % (MAN) 72 % (42-78); SODIUM 137.7 mmol/L (137-145); TOTAL CELLS COUNTED 100; TOTAL PROTEIN 5.6 g/dL (6.3-8.2)
[2017-04-20 10:23] LABS: ANISOCYTOSIS SLIGHT; OVALOCYTES SLIGHT; PLATELET COMMENT ADEQUATE; POIKILOCYTOSIS SLIGHT
[2017-04-20 10:37] LABS: TROPONIN I < 0.012 ng/mL
[2017-04-20] MEDS: ERTAPENEM SODIUM 1 GM in NORMAL SALINE 100 ML IV SCH (11:04)
[2017-04-20] MEDS: ENOXAPARIN SODIUM INJ 40 MG/0.4 ML DISP.SYRIN SUBCUT SCH (11:10)
[2017-04-20 11:39] LABS: CREATINE KINASE 9062 U/L (30-135)
[2017-04-20] MEDS ORDERED: MIDAZOLAM HCL 50 MG/100 ML RTUINJ IV ONE (12:10)
[2017-04-20 12:16] LABS: ARTERIAL BLOOD BASE EXCESS -2.6 mmol/L; ARTERIAL BLOOD H2CO3 1.38 mmol/L (1.05-1.35); ARTERIAL BLOOD HCO3 23.5 mmol/L (20-26); ARTERIAL BLOOD O2 SATURATION 91.3 % (94-98); ARTERIAL BLOOD PH 7.33 (7.35-7.45); ARTERIAL BLOOD PO2 65.2 mmHg (80-100)
[2017-04-20 12:26] LABS: ARTERIAL BLOOD FIO2 50%
[2017-04-20] MEDS: VANCOMYCIN HCL 1,500 MG in DEXTROSE 5%-WATER 250 ML IV SCH (13:03)
[2017-04-20] MEDS: MIDAZOLAM HCL 50 MG/100 ML RTUINJ IV PRN ×3 (13:04→22:57)
[2017-04-20] MEDS: NORMAL SALINE 1000 ML 1,000 ML IV PRN ×2 (13:54→21:21)
--- NOTE | 2017-04-20 21:30 | PDOC H&P ---
History of Present Illness Admission Date/PCP: 04/19/17 21:26 KAITLYNN POSEY MD History of Present Illness: Patient 61-year-old female, She was brought to the emergency room for evaluation of altered mental status, when she arrived in the emergency room she was found to be hypoxemic on the basis of the oxygen saturation, in the low 70s , there was a concern that she may have drug overdose. She was given Narcan there was initial response to Narcan, attempt was made emergency room to support her breathing with noninvasive positive pressure ventilation BiPAP but patient became more somnolent requiring invasive tracheal intubation now presently on mechanical ventilation. The blood work revealed leukocytosis with bandemia she has a combination of acute respiratory acidosis with hypoxemia to x -ray suggests pneumonic process. She was also hypotensive requiring vasopressors. No history could be obtained from this patient she was already endotracheally intubated in the emergency room.The last time she was admitted in this hospital was December 17, 2016 when she had acute systolic heart failure associated with paroxysmal atrial fibrillation, at the time she was supposed to follow outpatient with cardiology for cardiac catheterization to rule out underlying coronary artery disease. On that admission she also had episode of benzodiazepine withdrawal syndrome. She is a chronic pain patient, she follows with pain management, on chronic narcotic usage Past Medical History Cardiac Medical History: Reports: Atrial Fibrillation, Hypertension Pulmonary Medical History: Reports: Chronic Obstructive Pulmonary Disease (COPD) Endocrine Medical History: Reports: Diabetes Mellitus Type 2 GI Medical History: Reports: Gastroesophageal Reflux Disease Musculoskeltal Medical History: Reports: Arthritis, Gout Psychiatric Medical History: Reports: Depression Past Surgical History Past Surgical History: Reports: Section, Cholecystectomy, Other - C- spine surgery Social History Smoking Status: Current Every Day Smoker Frequency of Alcohol Use: None Hx Recreational Drug Use: No Drugs: None Hx Prescription Drug Abuse: No Family History Family History: Hypertension Parental Family History Reviewed: Yes Children Family History Reviewed: Yes Sibling(s) Family History Reviewed.: Yes Medication/Allergy Home Medications: Alprazolam [Xanax 0.25 mg Tablet] 0.25 mg PO Q8 04/19/17 Amiodarone HCl [Cordarone 200 mg Tablet] 200 mg PO Q12 04/19/17 Apixaban [Eliquis] 5 mg PO Q12 04/19/17 Atorvastatin Calcium [Lipitor 40 mg Tablet] 40 mg PO QHS 04/19/17 Duloxetine HCl [Cymbalta] 60 mg PO Q12 04/19/17 Gabapentin [Neurontin] 600 mg PO Q8 04/19/17 Levocetirizine Dihydrochloride [Xyzal] 5 mg PO DAILY 04/19/17 Metoprolol Succinate [Toprol Xl 50 mg Tab.sr] 50 mg PO DAILY 04/19/17 Omeprazole 40 mg PO ACBRKFST 04/19/17 Oxycodone HCl [Oxycodone HCl 10 MG Tablet] 10 mg PO DAILYP PRN 04/19/17 Sacubitril/Valsartan [Entresto 49 mg-51 mg Tablet] 1 tab PO Q12 04/19/17 Spironolactone [Aldactone 25 mg Tablet] 25 mg PO DAILY 04/19/17 Allergies/Adverse Reactions: Sulfa (Sulfonamide Antibiotics) Allergy (Mild, Verified 04/19/17 19:22) Hives Review of Systems ROS unobtainable: Due to endotracheal tube Physical Exam Vital Signs: Temp Pulse Resp BP Pulse Ox 98.8 F 66 20 111/68 97 04/20/17 19:43 04/20/17 13:37 04/20/17 18:40 04/20/17 18:33 04/20/17 19:44 Intake & Output 04/19/17 04/20/17 04/21/17 06:59 06:59 06:59 Intake Total 1099 1779 Output Total 1800 2820 Balance -701 -1041 Weight 103.1 kg Eye exam: PRESENT: PERRLA Respiratory exam: PRESENT: clear to auscultation bacilio Cardiovascular exam: PRESENT: +S1, +S2 GI/Abdominal exam: PRESENT: soft Neurological exam: PRESENT: other - Sedated and intubated Results Laboratory Results: 04/20/17 09:00 04/20/17 09:00 04/19/17 04/19/17 04/20/17 22:17 22:50 04:10 WBC 17.5 H RBC 4.05 Hgb 13.6 Hct 40.4 MCV 100 H MCH 33.5 H MCHC 33.6 RDW 14.5 H Plt Count 232 Seg Neutrophils % 84.5 H Lymphocytes % 7.2 L Monocytes % 8.1 Eosinophils % 0.0 Basophils % 0.2 Absolute Neutrophils 14.8 H Absolute Lymphocytes 1.3 Absolute Monocytes 1.4 Absolute Eosinophils 0.0 Absolute Basophils 0.0 Carbonic Acid HCO3/H2CO3 Ratio ABG pH ABG pCO2 ABG pO2 ABG HCO3 ABG O2 Saturation ABG Base Excess FiO2 Sodium Potassium Chloride Carbon Dioxide Anion Gap BUN Creatinine Est GFR ( Amer) Est GFR (Non-Af Amer) Glucose Calcium Total Bilirubin AST ALT Alkaline Phosphatase Ammonia 32.2 Total Protein Albumin Triglycerides Cholesterol LDL Cholesterol Direct VLDL Cholesterol HDL Cholesterol Urine Color YELLOW Urine Appearance CLEAR Urine pH 5.0 Ur Specific [place] 1.018 Urine Protein NEGATIVE Urine Glucose (UA) NEGATIVE Urine Ketones NEGATIVE Urine Blood SMALL H Urine Nitrite NEGATIVE Ur Leukocyte Esterase TRACE H Urine WBC (Auto) 2 Urine RBC (Auto) 1 04/20/17 04/20/17 04/20/17 04:10 04:10 09:00 WBC 17.0 H RBC 4.02 Hgb 13.6 Hct 39.7 MCV 99 H MCH 33.8 H MCHC 34.2 RDW 14.3 H Plt Count 213 Seg Neutrophils % Not Reportable Lymphocytes % Not Reportable Monocytes % Not Reportable Eosinophils % Not Reportable Basophils % Not Reportable Absolute Neutrophils Not Reportable Absolute Lymphocytes Not Reportable Absolute Monocytes Not Reportable Absolute Eosinophils Not Reportable Absolute Basophils Not Reportable Carbonic Acid 1.73 H HCO3/H2CO3 Ratio 13:1 ABG pH 7.22 L ABG pCO2 57.4 H ABG pO2 81.4 ABG HCO3 22.8 ABG O2 Saturation 93.5 L ABG Base Excess -5.7 FiO2 100% Sodium 132.7 L Potassium 5.5 H Chloride 100 Carbon Dioxide 23 Anion Gap 10 BUN 31 H Creatinine 1.34 H Est GFR ( Amer) 49 L Est GFR (Non-Af Amer) 40 L Glucose 117 H Calcium 8.0 L Total Bilirubin 0.6 AST 115 H ALT 67 H Alkaline Phosphatase 64 Ammonia Total Protein 5.9 L Albumin 3.6 Triglycerides 104 Cholesterol 107.98 LDL Cholesterol Direct < 30 VLDL Cholesterol 21.0 HDL Cholesterol 63 Urine Color Urine Appearance Urine pH Ur Specific [place] Urine Protein Urine Glucose (UA) Urine Ketones Urine Blood Urine Nitrite Ur Leukocyte Esterase Urine WBC (Auto) Urine RBC (Auto) 04/20/17 04/20/17 09:00 12:00 WBC RBC Hgb Hct MCV MCH MCHC RDW Plt Count Seg Neutrophils % Lymphocytes % Monocytes % Eosinophils % Basophils % Absolute Neutrophils Absolute Lymphocytes Absolute Monocytes Absolute Eosinophils Absolute Basophils Carbonic Acid 1.38 H HCO3/H2CO3 Ratio 17:1 ABG pH 7.33 L ABG pCO2 46.0 H ABG pO2 65.2 L ABG HCO3 23.5 ABG O2 Saturation 91.3 L ABG Base Excess -2.6 FiO2 50% Sodium 137.7 Potassium 4.7 Chloride 104 Carbon Dioxide 25 Anion Gap 9 BUN 27 H Creatinine 0.95 Est GFR ( Amer) > 60 Est GFR (Non-Af Amer) > 60 Glucose 97 Calcium 8.5 Total Bilirubin 0.6 AST 118 H ALT 65 H Alkaline Phosphatase 70 Ammonia Total Protein 5.6 L Albumin 3.3 L Triglycerides Cholesterol LDL Cholesterol Direct VLDL Cholesterol HDL Cholesterol Urine Color Urine Appearance Urine pH Ur Specific [place] Urine Protein Urine Glucose (UA) Urine Ketones Urine Blood Urine Nitrite Ur Leukocyte Esterase Urine WBC (Auto) Urine RBC (Auto) 04/19/17 04/19/17 04/19/17 22:17 22:17 22:17 Creatine Kinase 2825 H CK-MB (CK-2) 10.40 H Troponin I < 0.012 NT-Pro-B Natriuret Pep 583 04/20/17 04/20/17 04/20/17 04:10 04:10 09:00 Creatine Kinase 9776 H 9062 H CK-MB (CK-2) 27.20 H Troponin I < 0.012 NT-Pro-B Natriuret Pep 04/20/17 09:00 Creatine Kinase CK-MB (CK-2) 23.20 H Troponin I < 0.012 NT-Pro-B Natriuret Pep Impressions: Chest X-Ray 04/20/17 06:00 IMPRESSION: 1. Endotracheal tube now in appropriate position. Otherwise stable appearance of the chest. Assessment & Plan - Diagnosis (1) Acute respiratory failure with hypoxia and hypercapnia Is this a current diagnosis for this admission?: Yes Plan: Patient is on mechanical ventilation (2) Pneumonia Qualifiers: Pneumonia type: due to unspecified organism Laterality: bilateral Lung location: unspecified part of lung Qualified Code(s): J18.9 - Pneumonia, unspecified organism Is this a current diagnosis for this admission?: Yes (3) Sepsis Qualifiers: Sepsis type: sepsis due to unspecified organism Qualified Code(s): A41.9 - Sepsis, unspecified organism Is this a current diagnosis for this admission?: Yes Plan: She is on broad-spectrum antibiotic (4) Hypotension Qualifiers: Hypotension type: unspecified hypotension type Qualified Code(s): I95.9 - Hypotension, unspecified Is this a current diagnosis for this admission?: Yes Plan: Patient is on normal saline and norepinephrine infusion
[2017-04-20] MEDS: LEVOFLOXACIN 750 MG/D5W RTU 750 MG/150 ML RTUPB IV SCH (22:56)
[2017-04-21] MEDS: PROPOFOL 100 ML IV PRN ×5 (00:39→16:50)
[2017-04-21] MEDS: NORMAL SALINE 1000 ML 1,000 ML IV PRN (05:41)
[2017-04-21 06:35] LABS: ABSOLUTE EOSINOPHILS # (AUTO) 0.1 10^3/uL (0.0-0.6); ABSOLUTE LYMPHOCYTES (AUTO) 1.1 10^3/uL (0.5-4.7); ABSOLUTE MONOCYTES (AUTO) 0.9 10^3/uL (0.1-1.4); ABSOLUTE NEUT (AUTO) 9.5 10^3/uL (1.7-8.2); BASOPHILS % (AUTO) 0.4 % (0-2); EOSINOPHILS % (AUTO) 0.7 % (0-6); HEMATOCRIT 34.1 % (36.0-47.0); HEMOGLOBIN 11.6 g/dL (12.0-15.5); LYMPHOCYTES % (AUTO) 9.2 % (13-45); MEAN CORPUSCULAR HEMOGLOBIN 33.4 pg (27.0-33.4); MEAN CORPUSCULAR HGB CONC 34.2 g/dL (32.0-36.0); MEAN CORPUSCULAR VOLUME 98 fl (80-97); MONOCYTES % (AUTO) 7.7 % (3-13); PLATELET COUNT 166 10^3/uL (150-450); RED BLOOD COUNT 3.48 10^6/uL (3.72-5.28); RED CELL DISTRIBUTION WIDTH 14.2 % (11.5-14.0); TOTAL CELLS COUNTED % (AUTO) 100 %; WHITE BLOOD COUNT 11.5 10^3/uL (4.0-10.5)
[2017-04-21 06:36] LABS: ARTERIAL BLOOD BASE EXCESS 0.9 mmol/L; ARTERIAL BLOOD H2CO3 1.22 mmol/L (1.05-1.35); ARTERIAL BLOOD HCO3 25.4 mmol/L (20-26); ARTERIAL BLOOD PCO2 40.6 mmHg (35-45); ARTERIAL BLOOD PH 7.42 (7.35-7.45); ARTERIAL BLOOD PO2 73.5 mmHg (80-100); ARTERIAL BLOOD TOTAL CO2 26.7 mmol/L (21-25)
[2017-04-21 06:37] LABS: ARTERIAL BLOOD FIO2 50%
[2017-04-21 06:53] LABS: ALANINE AMINOTRANSFERASE 49 U/L (9-52); ALBUMIN 2.9 g/dL (3.5-5.0); ALKALINE PHOSPHATASE 64 U/L (38-126); ANION GAP 7 (5-19); ASPARTATE AMINO TRANSFERASE 59 U/L (14-36); BILIRUBIN,DIRECT 0.1 mg/dL (0.0-0.4); BILIRUBIN,TOTAL 0.3 mg/dL (0.2-1.3); BLOOD UREA NITROGEN 17 mg/dL (7-20); CALCIUM 8.4 mg/dL (8.4-10.2); CARBON DIOXIDE 25 mmol/L (22-30); CHLORIDE 107 mmol/L (98-107); GLUCOSE 90 mg/dL (75-110); PHOSPHORUS 2.1 mg/dL (2.5-4.5); POTASSIUM 4.1 mmol/L (3.6-5.0); SODIUM 138.8 mmol/L (137-145); TOTAL PROTEIN 4.8 g/dL (6.3-8.2)
[2017-04-21] MEDS: MIDAZOLAM HCL 50 MG/100 ML RTUINJ IV PRN ×3 (08:21→16:50)
--- NOTE | 2017-04-21 08:58 | RADIOLOGY REPORT (SQ) ---
EXAM DESCRIPTION: CHEST SINGLE VIEW COMPLETED DATE/TIME: 04/21/2017 7:16 am REASON FOR STUDY: resp failure COMPARISON: None. EXAM PARAMETERS: NUMBER OF VIEWS: One view. TECHNIQUE: Single frontal radiographic view of the chest acquired. RADIATION DOSE: NA LIMITATIONS: None. FINDINGS: LUNGS AND PLEURA: Abnormal density in the lung bases some of which may be related to effus ion on the right. Compared to the prior study there has been improvement left base. On the right th ere has been some improvement parahilar region with changes more superiorly appearing more prominent. Overall there appears to have been slight improvement. MEDIASTINUM AND HILAR STRUCTURES: No masses. Contour normal. HEART AND VASCULAR STRUCTURES: Heart normal in size. Normal vasculature. BONES: No acute findings. HARDWARE: Endotracheal tube with its tip 4 cm above the catracho. NG tube with its tip in the upper ab domen. Right jugular catheter with its tip in superior vena cava. OTHER: No other significant finding. IMPRESSION: Overall, there has been slight improvement appearance the chest. TECHNICAL DOCUMENTATION: JOB ID: [id number] [employer]- All Rights Reserved
[2017-04-21] MEDS: VANCOMYCIN HCL 1,500 MG in DEXTROSE 5%-WATER 250 ML IV SCH (11:25)
[2017-04-21] MEDS: ERTAPENEM SODIUM 1 GM in NORMAL SALINE 100 ML IV SCH (11:36)
[2017-04-21] MEDS: ENOXAPARIN SODIUM INJ 40 MG/0.4 ML DISP.SYRIN SUBCUT SCH (11:37)
[2017-04-21 13:51] LABS: HEMATOCRIT 32.6 % (36.0-47.0); HEMOGLOBIN 11.2 g/dL (12.0-15.5); MEAN CORPUSCULAR HEMOGLOBIN 33.8 pg (27.0-33.4); MEAN CORPUSCULAR HGB CONC 34.2 g/dL (32.0-36.0); MEAN CORPUSCULAR VOLUME 99 fl (80-97); PLATELET COUNT 167 10^3/uL (150-450); RED CELL DISTRIBUTION WIDTH 14.3 % (11.5-14.0); WHITE BLOOD COUNT 10.9 10^3/uL (4.0-10.5)
[2017-04-21] MEDS: LEVOFLOXACIN 750 MG/D5W RTU 750 MG/150 ML RTUPB IV SCH (21:32)
--- NOTE | 2017-04-21 22:17 | PDOC PROGRESS REPORT ---
Subjective Progress Note for:: 04/21/17 Subjective:: Patient is still on mechanical ventilation Reason For Visit: ACUTE HYPERCAPNIC RESPIRATORY FAILURE,PNEUMONIA Physical Exam Vital Signs: Temp Pulse Resp BP Pulse Ox 98.8 F 81 20 114/61 96 04/21/17 22:10 04/21/17 20:08 04/21/17 22:10 04/21/17 22:09 04/21/17 22:10 Intake & Output 04/20/17 04/21/17 04/22/17 06:59 06:59 06:59 Intake Total 1099 3636 1601 Output Total 1800 8406 1675 Balance -701 -59 -74 Weight 103.1 kg 101.8 kg Eye exam: PRESENT: PERRLA Respiratory exam: PRESENT: other - Auscultation of the chest, equal air entry on both lung gabriel Cardiovascular exam: PRESENT: +S1, +S2 GI/Abdominal exam: PRESENT: soft Neurological exam: PRESENT: other - Sedated on mechanical ventilation Results Laboratory Results: 04/21/17 11:30 04/21/17 06:25 04/21/17 04/21/17 04/21/17 06:25 06:25 06:25 WBC 11.5 H RBC 3.48 L Hgb 11.6 L Hct 34.1 L MCV 98 H MCH 33.4 MCHC 34.2 RDW 14.2 H Plt Count 166 Seg Neutrophils % 82.0 H Lymphocytes % 9.2 L Monocytes % 7.7 Eosinophils % 0.7 Basophils % 0.4 Absolute Neutrophils 9.5 H Absolute Lymphocytes 1.1 Absolute Monocytes 0.9 Absolute Eosinophils 0.1 Absolute Basophils 0.0 Carbonic Acid 1.22 HCO3/H2CO3 Ratio 20:1 ABG pH 7.42 ABG pCO2 40.6 ABG pO2 73.5 L ABG HCO3 25.4 ABG O2 Saturation 95.0 ABG Base Excess 0.9 FiO2 50% Sodium 138.8 Potassium 4.1 Chloride 107 Carbon Dioxide 25 Anion Gap 7 BUN 17 Creatinine 0.60 Est GFR ( Amer) > 60 Est GFR (Non-Af Amer) > 60 Glucose 90 Calcium 8.4 Phosphorus 2.1 L Magnesium 1.7 Total Bilirubin 0.3 AST 59 H ALT 49 Alkaline Phosphatase 64 Total Protein 4.8 L Albumin 2.9 L 04/21/17 11:30 WBC 10.9 H RBC 3.30 L Hgb 11.2 L Hct 32.6 L MCV 99 H MCH 33.8 H MCHC 34.2 RDW 14.3 H Plt Count 167 Seg Neutrophils % Lymphocytes % Monocytes % Eosinophils % Basophils % Absolute Neutrophils Absolute Lymphocytes Absolute Monocytes Absolute Eosinophils Absolute Basophils Carbonic Acid HCO3/H2CO3 Ratio ABG pH ABG pCO2 ABG pO2 ABG HCO3 ABG O2 Saturation ABG Base Excess FiO2 Sodium Potassium Chloride Carbon Dioxide Anion Gap BUN Creatinine Est GFR ( Amer) Est GFR (Non-Af Amer) Glucose Calcium Phosphorus Magnesium Total Bilirubin AST ALT Alkaline Phosphatase Total Protein Albumin 04/19/17 04/19/17 04/19/17 22:17 22:17 22:17 Creatine Kinase 2825 H CK-MB (CK-2) 10.40 H Troponin I < 0.012 NT-Pro-B Natriuret Pep 583 04/20/17 04/20/17 04/20/17 04:10 04:10 09:00 Creatine Kinase 9776 H 9062 H CK-MB (CK-2) 27.20 H Troponin I < 0.012 NT-Pro-B Natriuret Pep 04/20/17 04/21/17 04/21/17 09:00 06:25 11:30 Creatine Kinase 1569 H CK-MB (CK-2) 23.20 H Troponin I < 0.012 NT-Pro-B Natriuret Pep 167 04/21/17 11:30 Creatine Kinase CK-MB (CK-2) 2.36 Troponin I NT-Pro-B Natriuret Pep Impressions: Chest X-Ray 04/21/17 06:00 IMPRESSION: Overall, there has been slight improvement appearance the chest. Assessment & Plan - Diagnosis (1) Acute respiratory failure with hypoxia and hypercapnia Is this a current diagnosis for this admission?: Yes (2) Pneumonia Qualifiers: Pneumonia type: due to unspecified organism Laterality: bilateral Lung location: unspecified part of lung Qualified Code(s): J18.9 - Pneumonia, unspecified organism Is this a current diagnosis for this admission?: Yes Plan: Continue IV antibiotic (3) Sepsis Qualifiers: Sepsis type: sepsis due to unspecified organism Qualified Code(s): A41.9 - Sepsis, unspecified organism Is this a current diagnosis for this admission?: Yes (4) Hypotension Qualifiers: Hypotension type: unspecified hypotension type Qualified Code(s): I95.9 - Hypotension, unspecified Is this a current diagnosis for this admission?: Yes Plan: Patient still on Levophed
[2017-04-22] MEDS: PROPOFOL 100 ML IV PRN ×4 (01:09→21:08)
[2017-04-22] MEDS: MIDAZOLAM HCL 50 MG/100 ML RTUINJ IV PRN ×2 (05:59→18:25)
[2017-04-22 06:48] LABS: ABSOLUTE EOSINOPHILS # (AUTO) 0.2 10^3/uL (0.0-0.6); ABSOLUTE LYMPHOCYTES (AUTO) 1.5 10^3/uL (0.5-4.7); ABSOLUTE MONOCYTES (AUTO) 0.6 10^3/uL (0.1-1.4); ABSOLUTE NEUT (AUTO) 7.5 10^3/uL (1.7-8.2); BASOPHILS % (AUTO) 0.2 % (0-2); EOSINOPHILS % (AUTO) 1.8 % (0-6); HEMOGLOBIN 10.8 g/dL (12.0-15.5); LYMPHOCYTES % (AUTO) 15.3 % (13-45); MEAN CORPUSCULAR HEMOGLOBIN 33.1 pg (27.0-33.4); MEAN CORPUSCULAR HGB CONC 33.7 g/dL (32.0-36.0); MEAN CORPUSCULAR VOLUME 98 fl (80-97); MONOCYTES % (AUTO) 6.3 % (3-13); PLATELET COUNT 172 10^3/uL (150-450); RED BLOOD COUNT 3.26 10^6/uL (3.72-5.28); SEGMENTED NEUTROPHILS % (AUTO) 76.4 % (42-78); TOTAL CELLS COUNTED % (AUTO) 100 %; WHITE BLOOD COUNT 9.7 10^3/uL (4.0-10.5)
[2017-04-22 07:11] LABS: ARTERIAL BLOOD BASE EXCESS 1.6 mmol/L; ARTERIAL BLOOD H2CO3 1.11 mmol/L (1.05-1.35); ARTERIAL BLOOD HCO3 25.3 mmol/L (20-26); ARTERIAL BLOOD O2 SATURATION 95.6 % (94-98); ARTERIAL BLOOD PCO2 36.9 mmHg (35-45); ARTERIAL BLOOD PH 7.45 (7.35-7.45); ARTERIAL BLOOD TOTAL CO2 26.4 mmol/L (21-25)
--- NOTE | 2017-04-22 07:11 | RADIOLOGY REPORT (SQ) ---
EXAM DESCRIPTION: CHEST SINGLE VIEW CLINICAL HISTORY: resp failure COMPARISON: 04/21/2017 FINDINGS: Single frontal view of the chest. Endotracheal tube with tip at the level of the clavicles. Interval placement of right IJ central venous catheter with tip in the SVC. Postoperative change of the cervical spine. NG tube with tip below the diaphragm. No pneumothorax. Likely small bilateral pleural effusions with bibasilar opacities which may be related to consolidation or atelectasis. Heart is not enlarged. No acute osseous abnormality. Upper abdominal soft tissues are unremarkable. IMPRESSION: Stable appearance of the chest.
[2017-04-22 07:12] LABS: ARTERIAL BLOOD FIO2 40%
[2017-04-22 07:25] LABS: ALANINE AMINOTRANSFERASE 39 U/L (9-52); ALBUMIN 2.6 g/dL (3.5-5.0); ALKALINE PHOSPHATASE 64 U/L (38-126); ANION GAP 6 (5-19); ASPARTATE AMINO TRANSFERASE 30 U/L (14-36); BILIRUBIN,DIRECT 0.1 mg/dL (0.0-0.4); BILIRUBIN,TOTAL 0.4 mg/dL (0.2-1.3); BLOOD UREA NITROGEN 11 mg/dL (7-20); CALCIUM 8.6 mg/dL (8.4-10.2); CARBON DIOXIDE 27 mmol/L (22-30); CHLORIDE 106 mmol/L (98-107); GLUCOSE 86 mg/dL (75-110); POTASSIUM 3.7 mmol/L (3.6-5.0); SODIUM 139.1 mmol/L (137-145); TOTAL PROTEIN 4.6 g/dL (6.3-8.2)
[2017-04-22] MEDS: NORMAL SALINE 1000 ML 1,000 ML IV PRN (10:05)
[2017-04-22] MEDS: ENOXAPARIN SODIUM INJ 40 MG/0.4 ML DISP.SYRIN SUBCUT SCH (10:06)
[2017-04-22] MEDS: ERTAPENEM SODIUM 1 GM in NORMAL SALINE 100 ML IV SCH (10:54)
[2017-04-22] MEDS: VANCOMYCIN HCL 1,500 MG in DEXTROSE 5%-WATER 250 ML IV SCH (11:19)
--- NOTE | 2017-04-22 11:46 | PDOC CONSULTATION ---
Consultation Consult Date: 04/20/17 Attending physician:: KAITLYNN POSEY Consult reason:: Acute on chronic respiratory failure History of Present Illness Admission Date/PCP: 04/19/17 21:26 KAITLYNN POSEY MD History of Present Illness: JAX PARIS is a 61 year old female;hypercapnic, hypoxic respiratory failure has noninvasive positive pressure ventilation at home but is not always compliant with use presented hypercapnic lethargic and unresponsive patient was placed on BiPAP with some improvement subsequently transferred to the ICU.She continues to do poorly and was subsequently intubated. Past Medical History Cardiac Medical History: Reports: Hypertension Pulmonary Medical History: Reports: Chronic Obstructive Pulmonary Disease (COPD) GI Medical History: Reports: Gastroesophageal Reflux Disease Musculoskeltal Medical History: Reports: Arthritis, Gout Psychiatric Medical History: Reports: Depression Past Surgical History Past Surgical History: Reports: Section, Cholecystectomy, Other - C- spine surgery Social History Information Source: [facility] Records Smoking Status: Former Smoker Passive smoke exposure as: Both Frequency of Alcohol Use: None Hx Recreational Drug Use: No Drugs: None Hx Prescription Drug Abuse: No Family History Family History: Hypertension Parental Family History Reviewed: No Children Family History Reviewed: No Sibling(s) Family History Reviewed.: No Medication/Allergy Home Medications: Alprazolam [Xanax 0.25 mg Tablet] 0.25 mg PO Q8 04/19/17 Amiodarone HCl [Cordarone 200 mg Tablet] 200 mg PO Q12 04/19/17 Apixaban [Eliquis] 5 mg PO Q12 04/19/17 Atorvastatin Calcium [Lipitor 40 mg Tablet] 40 mg PO QHS 04/19/17 Duloxetine HCl [Cymbalta] 60 mg PO Q12 04/19/17 Gabapentin [Neurontin] 600 mg PO Q8 04/19/17 Levocetirizine Dihydrochloride [Xyzal] 5 mg PO DAILY 04/19/17 Metoprolol Succinate [Toprol Xl 50 mg Tab.sr] 50 mg PO DAILY 04/19/17 Omeprazole 40 mg PO [id number] 04/19/17 Oxycodone HCl [Oxycodone HCl 10 MG Tablet] 10 mg PO DAILYP PRN 04/19/17 Sacubitril/Valsartan [Entresto 49 mg-51 mg Tablet] 1 tab PO Q12 04/19/17 Spironolactone [Aldactone 25 mg Tablet] 25 mg PO DAILY 04/19/17 Allergies/Adverse Reactions: Sulfa (Sulfonamide Antibiotics) Allergy (Mild, Verified 04/19/17 19:22) Hives Review of Systems ROS unobtainable: Due to endotracheal tube, Due to mental status Physical Exam Vital Signs: Temp Pulse Resp BP Pulse Ox 99.1 F 61 16 105/50 L 95 04/20/17 08:00 04/20/17 08:00 04/20/17 08:00 04/20/17 08:00 04/20/17 08:54 Intake & Output 04/19/17 04/20/17 04/21/17 06:59 06:59 06:59 Intake Total 1099 Output Total 1800 420 Balance -701 -420 Weight 103.1 kg General appearance: PRESENT: no acute distress, disheveled, obese, well- developed. ABSENT: mild distress, morbidly obese, severe distress Head exam: PRESENT: atraumatic, normocephalic Eye exam: PRESENT: conjunctiva pale. ABSENT: nystagmus, periorbital swelling, scleral icterus Mouth exam: PRESENT: dry mucosa, neck supple, tongue midline Neck exam: ABSENT: carotid bruit, JVD, lymphadenopathy, thyromegaly, tracheal deviation, tracheostomy Respiratory exam: PRESENT: decreased breath sounds, prolonged expiratory phas, rales, rhonchi, symmetrical, unlabored, wheezes. ABSENT: retraction, stridor, tachypnea Cardiovascular exam: PRESENT: RRR, +S1, +S2, tachycardia Pulses: PRESENT: normal radial pulses GI/Abdominal exam: PRESENT: diminished bowel sounds, soft Extremities exam: ABSENT: calf tenderness, clubbing Musculoskeletal exam: ABSENT: deformity, dislocation Neurological exam: ABSENT: alert, awake, oriented to person Skin exam: PRESENT: dry, warm Results Laboratory Results: 04/19/17 04/19/17 04/20/17 22:17 22:50 04:10 WBC 17.5 H RBC 4.05 Hgb 13.6 Hct 40.4 MCV 100 H MCH 33.5 H MCHC 33.6 RDW 14.5 H Plt Count 232 Seg Neutrophils % 84.5 H Lymphocytes % 7.2 L Monocytes % 8.1 Eosinophils % 0.0 Basophils % 0.2 Absolute Neutrophils 14.8 H Absolute Lymphocytes 1.3 Absolute Monocytes 1.4 Absolute Eosinophils 0.0 Absolute Basophils 0.0 Carbonic Acid HCO3/H2CO3 Ratio ABG pH ABG pCO2 ABG pO2 ABG HCO3 ABG O2 Saturation ABG Base Excess FiO2 Sodium Potassium Chloride Carbon Dioxide Anion Gap BUN Creatinine Est GFR ( Amer) Est GFR (Non-Af Amer) Glucose Calcium Total Bilirubin AST ALT Alkaline Phosphatase Ammonia 32.2 Total Protein Albumin Triglycerides Cholesterol LDL Cholesterol Direct VLDL Cholesterol HDL Cholesterol Urine Color YELLOW Urine Appearance CLEAR Urine pH 5.0 Ur Specific [place] 1.018 Urine Protein NEGATIVE Urine Glucose (UA) NEGATIVE Urine Ketones NEGATIVE Urine Blood SMALL H Urine Nitrite NEGATIVE Ur Leukocyte Esterase TRACE H Urine WBC (Auto) 2 Urine RBC (Auto) 1 04/20/17 04/20/17 04:10 04:10 WBC RBC Hgb Hct MCV MCH MCHC RDW Plt Count Seg Neutrophils % Lymphocytes % Monocytes % Eosinophils % Basophils % Absolute Neutrophils Absolute Lymphocytes Absolute Monocytes Absolute Eosinophils Absolute Basophils Carbonic Acid 1.73 H HCO3/H2CO3 Ratio 13:1 ABG pH 7.22 L ABG pCO2 57.4 H ABG pO2 81.4 ABG HCO3 22.8 ABG O2 Saturation 93.5 L ABG Base Excess -5.7 FiO2 100% Sodium 132.7 L Potassium 5.5 H Chloride 100 Carbon Dioxide 23 Anion Gap 10 BUN 31 H Creatinine 1.34 H Est GFR ( Amer) 49 L Est GFR (Non-Af Amer) 40 L Glucose 117 H Calcium 8.0 L Total Bilirubin 0.6 AST 115 H ALT 67 H Alkaline Phosphatase 64 Ammonia Total Protein 5.9 L Albumin 3.6 Triglycerides 104 Cholesterol 107.98 LDL Cholesterol Direct < 30 VLDL Cholesterol 21.0 HDL Cholesterol 63 Urine Color Urine Appearance Urine pH Ur Specific [place] Urine Protein Urine Glucose (UA) Urine Ketones Urine Blood Urine Nitrite Ur Leukocyte Esterase Urine WBC (Auto) Urine RBC (Auto) 04/19/17 04/19/17 04/19/17 22:17 22:17 22:17 Creatine Kinase 2825 H CK-MB (CK-2) 10.40 H Troponin I < 0.012 NT-Pro-B Natriuret Pep 583 04/20/17 04/20/17 04:10 04:10 Creatine Kinase 9776 H CK-MB (CK-2) 27.20 H Troponin I < 0.012 NT-Pro-B Natriuret Pep Impressions: Chest X-Ray 04/20/17 06:00 IMPRESSION: 1. Endotracheal tube now in appropriate position. Otherwise stable appearance of the chest. Assessment & Plan - Diagnosis (1) Acute respiratory failure with hypoxia and hypercapnia Is this a current diagnosis for this admission?: Yes Plan: Supplemental oxygen and ventilatory support try to approximate patient's been baseline (2) Pneumonia Qualifiers: Pneumonia type: due to unspecified organism Laterality: right Lung location: lower lobe of lung Qualified Code(s): J18.1 - Lobar pneumonia, unspecified organism Is this a current diagnosis for this admission?: Yes Plan: No positive cultures thus far distinct radiographic abnormality (3) Rhabdomyolysis Qualifiers: Rhabdomyolysis type: non-traumatic Qualified Code(s): M62.82 - Rhabdomyolysis Is this a current diagnosis for this admission?: Yes Plan: Volume repletion (4) Septic shock Is this a current diagnosis for this admission?: Yes Plan: Vasopressor agents and volume repletion (6) Cardiomyopathy Qualifiers: Cardiomyopathy type: unspecified Qualified Code(s): I42.9 - Cardiomyopathy , unspecified - Time Total Critical Time (Minutes): 55
--- NOTE | 2017-04-22 11:49 | PDOC PROGRESS REPORT ---
Subjective Progress Note for:: 04/21/17 Subjective:: Stable Reason For Visit: ACUTE HYPERCAPNIC RESPIRATORY FAILURE,PNEUMONIA Physical Exam Vital Signs: Temp Pulse Resp BP Pulse Ox 99.5 F 110 H 20 127/64 H 97 04/21/17 06:00 04/21/17 01:00 04/21/17 06:00 04/21/17 05:49 04/21/17 06:00 Intake & Output 04/20/17 04/21/17 04/22/17 06:59 06:59 06:59 Intake Total 1099 3636 Output Total 1800 3695 Balance -701 -59 Weight 103.1 kg 101.8 kg General appearance: PRESENT: no acute distress, disheveled, obese. ABSENT: cooperative, mild distress, severe distress, thin Head exam: PRESENT: atraumatic, normocephalic Eye exam: ABSENT: conjunctiva pale, nystagmus, periorbital swelling, scleral icterus Mouth exam: PRESENT: dry mucosa, neck supple, tongue midline, other - ET tube in place Neck exam: ABSENT: carotid bruit, JVD, lymphadenopathy, thyromegaly, tracheal deviation, tracheostomy Respiratory exam: PRESENT: decreased breath sounds, prolonged expiratory phas, rales, rhonchi, symmetrical, unlabored, wheezes. ABSENT: retraction, stridor, tachypnea Cardiovascular exam: PRESENT: RRR, +S2, tachycardia Pulses: PRESENT: normal radial pulses GI/Abdominal exam: PRESENT: diminished bowel sounds, soft Extremities exam: PRESENT: clubbing. ABSENT: full ROM Musculoskeletal exam: ABSENT: deformity, dislocation Neurological exam: ABSENT: alert, awake, oriented to person Skin exam: PRESENT: dry, warm Results Laboratory Results: 04/21/17 06:25 04/21/17 06:25 04/20/17 04/20/17 04/20/17 09:00 09:00 12:00 WBC 17.0 H RBC 4.02 Hgb 13.6 Hct 39.7 MCV 99 H MCH 33.8 H MCHC 34.2 RDW 14.3 H Plt Count 213 Seg Neutrophils % Not Reportable Lymphocytes % Not Reportable Monocytes % Not Reportable Eosinophils % Not Reportable Basophils % Not Reportable Absolute Neutrophils Not Reportable Absolute Lymphocytes Not Reportable Absolute Monocytes Not Reportable Absolute Eosinophils Not Reportable Absolute Basophils Not Reportable Carbonic Acid 1.38 H HCO3/H2CO3 Ratio 17:1 ABG pH 7.33 L ABG pCO2 46.0 H ABG pO2 65.2 L ABG HCO3 23.5 ABG O2 Saturation 91.3 L ABG Base Excess -2.6 FiO2 50% Sodium 137.7 Potassium 4.7 Chloride 104 Carbon Dioxide 25 Anion Gap 9 BUN 27 H Creatinine 0.95 Est GFR ( Amer) > 60 Est GFR (Non-Af Amer) > 60 Glucose 97 Calcium 8.5 Phosphorus Magnesium Total Bilirubin 0.6 AST 118 H ALT 65 H Alkaline Phosphatase 70 Total Protein 5.6 L Albumin 3.3 L 04/21/17 04/21/17 04/21/17 06:25 06:25 06:25 WBC 11.5 H RBC 3.48 L Hgb 11.6 L Hct 34.1 L MCV 98 H MCH 33.4 MCHC 34.2 RDW 14.2 H Plt Count 166 Seg Neutrophils % 82.0 H Lymphocytes % 9.2 L Monocytes % 7.7 Eosinophils % 0.7 Basophils % 0.4 Absolute Neutrophils 9.5 H Absolute Lymphocytes 1.1 Absolute Monocytes 0.9 Absolute Eosinophils 0.1 Absolute Basophils 0.0 Carbonic Acid 1.22 HCO3/H2CO3 Ratio 20:1 ABG pH 7.42 ABG pCO2 40.6 ABG pO2 73.5 L ABG HCO3 25.4 ABG O2 Saturation 95.0 ABG Base Excess 0.9 FiO2 50% Sodium 138.8 Potassium 4.1 Chloride 107 Carbon Dioxide 25 Anion Gap 7 BUN 17 Creatinine 0.60 Est GFR ( Amer) > 60 Est GFR (Non-Af Amer) > 60 Glucose 90 Calcium 8.4 Phosphorus 2.1 L Magnesium 1.7 Total Bilirubin 0.3 AST 59 H ALT 49 Alkaline Phosphatase 64 Total Protein 4.8 L Albumin 2.9 L 04/19/17 04/19/17 04/19/17 22:17 22:17 22:17 Creatine Kinase 2825 H CK-MB (CK-2) 10.40 H Troponin I < 0.012 NT-Pro-B Natriuret Pep 583 04/20/17 04/20/17 04/20/17 04:10 04:10 09:00 Creatine Kinase 9776 H 9062 H CK-MB (CK-2) 27.20 H Troponin I < 0.012 NT-Pro-B Natriuret Pep 04/20/17 04/21/17 09:00 06:25 Creatine Kinase CK-MB (CK-2) 23.20 H Troponin I < 0.012 NT-Pro-B Natriuret Pep 167 Assessment & Plan - Diagnosis (1) Acute respiratory failure with hypoxia and hypercapnia Is this a current diagnosis for this admission?: Yes Plan: Supplemental oxygen and ventilatory support try to approximate patient's been baseline (2) Pneumonia Qualifiers: Pneumonia type: due to unspecified organism Laterality: right Lung location: lower lobe of lung Qualified Code(s): J18.1 - Lobar pneumonia, unspecified organism Is this a current diagnosis for this admission?: Yes Plan: No positive cultures thus far distinct radiographic abnormality (3) Septic shock Is this a current diagnosis for this admission?: Yes Plan: Vasopressor agents and volume repletion (4) Tobacco abuse Is this a current diagnosis for this admission?: Yes Plan: Consider transdermal nicotine patch - Time Total Critical Time (Minutes): 50
--- NOTE | 2017-04-22 11:52 | PDOC PROGRESS REPORT ---
Subjective Progress Note for:: 04/22/17 Subjective:: Stable Reason For Visit: ACUTE HYPERCAPNIC RESPIRATORY FAILURE,PNEUMONIA Physical Exam Vital Signs: Temp Pulse Resp BP Pulse Ox 97.0 F 78 20 140/70 H 93 04/22/17 06:00 04/22/17 08:00 04/22/17 08:00 04/22/17 05:54 04/22/17 08:00 Intake & Output 04/21/17 04/22/17 04/23/17 06:59 06:59 06:59 Intake Total 3636 2692 Output Total 3695 2600 100 Balance -59 92 -100 Weight 101.8 kg 103.1 kg General appearance: PRESENT: no acute distress, disheveled, obese, well- developed. ABSENT: cooperative, mild distress, morbidly obese, severe distress Head exam: PRESENT: atraumatic, normocephalic Eye exam: PRESENT: conjunctiva pale. ABSENT: nystagmus, periorbital swelling, scleral icterus Mouth exam: PRESENT: dry mucosa, neck supple, tongue midline, other - ET tube in place Neck exam: ABSENT: carotid bruit, JVD, lymphadenopathy, thyromegaly, tracheal deviation, tracheostomy Respiratory exam: PRESENT: crackles, decreased breath sounds, prolonged expiratory phas, rhonchi, symmetrical, unlabored, wheezes. ABSENT: retraction, stridor, tachypnea Cardiovascular exam: PRESENT: RRR, +S1, +S2 Pulses: PRESENT: normal radial pulses GI/Abdominal exam: PRESENT: diminished bowel sounds, soft Extremities exam: ABSENT: clubbing Musculoskeletal exam: ABSENT: deformity, dislocation Neurological exam: ABSENT: oriented to person Skin exam: PRESENT: dry, warm Results Laboratory Results: 04/22/17 06:08 04/22/17 06:08 04/21/17 04/22/17 04/22/17 11:30 06:08 06:08 WBC 10.9 H 9.7 RBC 3.30 L 3.26 L Hgb 11.2 L 10.8 L Hct 32.6 L 32.0 L MCV 99 H 98 H MCH 33.8 H 33.1 MCHC 34.2 33.7 RDW 14.3 H 14.0 Plt Count 167 172 Seg Neutrophils % 76.4 Lymphocytes % 15.3 Monocytes % 6.3 Eosinophils % 1.8 Basophils % 0.2 Absolute Neutrophils 7.5 Absolute Lymphocytes 1.5 Absolute Monocytes 0.6 Absolute Eosinophils 0.2 Absolute Basophils 0.0 Carbonic Acid HCO3/H2CO3 Ratio ABG pH ABG pCO2 ABG pO2 ABG HCO3 ABG O2 Saturation ABG Base Excess FiO2 Sodium 139.1 Potassium 3.7 Chloride 106 Carbon Dioxide 27 Anion Gap 6 BUN 11 Creatinine 0.62 Est GFR ( Amer) > 60 Est GFR (Non-Af Amer) > 60 Glucose 86 Calcium 8.6 Total Bilirubin 0.4 AST 30 ALT 39 Alkaline Phosphatase 64 Total Protein 4.6 L Albumin 2.6 L 04/22/17 06:08 WBC RBC Hgb Hct MCV MCH MCHC RDW Plt Count Seg Neutrophils % Lymphocytes % Monocytes % Eosinophils % Basophils % Absolute Neutrophils Absolute Lymphocytes Absolute Monocytes Absolute Eosinophils Absolute Basophils Carbonic Acid 1.11 HCO3/H2CO3 Ratio 22:1 ABG pH 7.45 ABG pCO2 36.9 ABG pO2 74.0 L ABG HCO3 25.3 ABG O2 Saturation 95.6 ABG Base Excess 1.6 FiO2 40% Sodium Potassium Chloride Carbon Dioxide Anion Gap BUN Creatinine Est GFR ( Amer) Est GFR (Non-Af Amer) Glucose Calcium Total Bilirubin AST ALT Alkaline Phosphatase Total Protein Albumin 04/19/17 04/19/17 04/19/17 22:17 22:17 22:17 Creatine Kinase 2825 H CK-MB (CK-2) 10.40 H Troponin I < 0.012 NT-Pro-B Natriuret Pep 583 04/20/17 04/20/17 04/20/17 04:10 04:10 09:00 Creatine Kinase 9776 H 9062 H CK-MB (CK-2) 27.20 H Troponin I < 0.012 NT-Pro-B Natriuret Pep 04/20/17 04/21/17 04/21/17 09:00 06:25 11:30 Creatine Kinase 1569 H CK-MB (CK-2) 23.20 H Troponin I < 0.012 NT-Pro-B Natriuret Pep 167 04/21/17 11:30 Creatine Kinase CK-MB (CK-2) 2.36 Troponin I NT-Pro-B Natriuret Pep Impressions: Chest X-Ray 04/22/17 06:00 IMPRESSION: Stable appearance of the chest. Assessment & Plan - Diagnosis (1) Pneumonia Qualifiers: Pneumonia type: due to unspecified organism Laterality: bilateral Lung location: unspecified part of lung Qualified Code(s): J18.9 - Pneumonia, unspecified organism Is this a current diagnosis for this admission?: Yes Plan: No positive cultures thus far (2) Septic shock Is this a current diagnosis for this admission?: Yes Plan: Vasopressor agents and volume repletion (3) Acute respiratory failure with hypoxia and hypercapnia Is this a current diagnosis for this admission?: Yes Plan: Supplemental oxygen and ventilatory support try to approximate patient's been baseline - Time Total Critical Time (Minutes): 40
[2017-04-22] MEDS ORDERED: PANTOPRAZOLE SODIUM 40 MG VIAL IV ONE (14:30)
--- NOTE | 2017-04-22 17:10 | PDOC PROGRESS REPORT ---
Subjective Progress Note for:: 04/22/17 Subjective:: Patient still intubated Reason For Visit: ACUTE HYPERCAPNIC RESPIRATORY FAILURE,PNEUMONIA Physical Exam Vital Signs: Temp Pulse Resp BP Pulse Ox 97.9 F 70 19 109/67 97 04/22/17 16:00 04/22/17 08:00 04/22/17 15:11 04/22/17 15:10 04/22/17 16:00 Intake & Output 04/21/17 04/22/17 04/23/17 06:59 06:59 06:59 Intake Total 3636 2692 Output Total 3695 2600 1125 Balance -59 92 -1125 Weight 101.8 kg 103.1 kg Eye exam: PRESENT: PERRLA Respiratory exam: PRESENT: clear to auscultation bacilio Cardiovascular exam: PRESENT: +S1, +S2 GI/Abdominal exam: PRESENT: soft Results Laboratory Results: 04/22/17 06:08 04/22/17 06:08 04/22/17 04/22/17 04/22/17 06:08 06:08 06:08 WBC 9.7 RBC 3.26 L Hgb 10.8 L Hct 32.0 L MCV 98 H MCH 33.1 MCHC 33.7 RDW 14.0 Plt Count 172 Seg Neutrophils % 76.4 Lymphocytes % 15.3 Monocytes % 6.3 Eosinophils % 1.8 Basophils % 0.2 Absolute Neutrophils 7.5 Absolute Lymphocytes 1.5 Absolute Monocytes 0.6 Absolute Eosinophils 0.2 Absolute Basophils 0.0 Carbonic Acid 1.11 HCO3/H2CO3 Ratio 22:1 ABG pH 7.45 ABG pCO2 36.9 ABG pO2 74.0 L ABG HCO3 25.3 ABG O2 Saturation 95.6 ABG Base Excess 1.6 FiO2 40% Sodium 139.1 Potassium 3.7 Chloride 106 Carbon Dioxide 27 Anion Gap 6 BUN 11 Creatinine 0.62 Est GFR ( Amer) > 60 Est GFR (Non-Af Amer) > 60 Glucose 86 Calcium 8.6 Total Bilirubin 0.4 AST 30 ALT 39 Alkaline Phosphatase 64 Total Protein 4.6 L Albumin 2.6 L 04/20/17 09:00 Tracheal Aspirate Gram Stain - Final 04/20/17 09:00 Tracheal Aspirate Sputum Culture - Final C.albicans/C.dubliniensis Normal [place] 04/19/17 04/19/17 04/19/17 22:17 22:17 22:17 Creatine Kinase 2825 H CK-MB (CK-2) 10.40 H Troponin I < 0.012 NT-Pro-B Natriuret Pep 583 04/20/17 04/20/17 04/20/17 04:10 04:10 09:00 Creatine Kinase 9776 H 9062 H CK-MB (CK-2) 27.20 H Troponin I < 0.012 NT-Pro-B Natriuret Pep 04/20/17 04/21/17 04/21/17 09:00 06:25 11:30 Creatine Kinase 1569 H CK-MB (CK-2) 23.20 H Troponin I < 0.012 NT-Pro-B Natriuret Pep 167 04/21/17 11:30 Creatine Kinase CK-MB (CK-2) 2.36 Troponin I NT-Pro-B Natriuret Pep Impressions: Chest X-Ray 04/22/17 06:00 IMPRESSION: Stable appearance of the chest. Assessment & Plan - Diagnosis (1) Acute respiratory failure with hypoxia and hypercapnia Is this a current diagnosis for this admission?: Yes (2) Pneumonia Qualifiers: Pneumonia type: due to unspecified organism Laterality: bilateral Lung location: unspecified part of lung Qualified Code(s): J18.9 - Pneumonia, unspecified organism Is this a current diagnosis for this admission?: Yes (3) Sepsis Qualifiers: Sepsis type: sepsis due to unspecified organism Qualified Code(s): A41.9 - Sepsis, unspecified organism Is this a current diagnosis for this admission?: Yes (4) Hypotension Qualifiers: Hypotension type: unspecified hypotension type Qualified Code(s): I95.9 - Hypotension, unspecified Is this a current diagnosis for this admission?: Yes - Plan Summary Plan Summary: Continue IV antibiotic, still on mechanical ventilation, off Levophed, start tube feeds, start Protonix
[2017-04-22] MEDS: LEVOFLOXACIN 750 MG/D5W RTU 750 MG/150 ML RTUPB IV SCH (21:08)
--- NOTE | 2017-04-23 06:14 | RADIOLOGY REPORT (SQ) ---
EXAM DESCRIPTION: CHEST SINGLE VIEW CLINICAL HISTORY: pna COMPARISON: 04/22/2017 FINDINGS: Single frontal view of the chest. Endotracheal tube with tip at the level of the clavicles. Interval placement of right IJ central venous catheter with tip in the SVC. Postoperative change of the cervical spine. NG tube with tip below the diaphragm. No pneumothorax. Likely small bilateral pleural effusions with bibasilar opacities which may be related to consolidation or atelectasis. Heart is not enlarged. No acute osseous abnormality. Upper abdominal soft tissues are unremarkable. IMPRESSION: 1. Stable appearance of the chest. Electronically signed by: Wally Starks 04/23/2017 5:12 AM
[2017-04-23 06:22] LABS: ABSOLUTE EOSINOPHILS # (AUTO) 0.1 10^3/uL (0.0-0.6); ABSOLUTE LYMPHOCYTES (AUTO) 1.2 10^3/uL (0.5-4.7); ABSOLUTE MONOCYTES (AUTO) 0.6 10^3/uL (0.1-1.4); ABSOLUTE NEUT (AUTO) 6.3 10^3/uL (1.7-8.2); BASOPHILS % (AUTO) 0.2 % (0-2); HEMATOCRIT 30.9 % (36.0-47.0); HEMOGLOBIN 10.6 g/dL (12.0-15.5); LYMPHOCYTES % (AUTO) 14.5 % (13-45); MEAN CORPUSCULAR HEMOGLOBIN 33.5 pg (27.0-33.4); MEAN CORPUSCULAR HGB CONC 34.2 g/dL (32.0-36.0); MEAN CORPUSCULAR VOLUME 98 fl (80-97); MONOCYTES % (AUTO) 7.6 % (3-13); PLATELET COUNT 196 10^3/uL (150-450); RED BLOOD COUNT 3.16 10^6/uL (3.72-5.28); RED CELL DISTRIBUTION WIDTH 14.1 % (11.5-14.0); SEGMENTED NEUTROPHILS % (AUTO) 76.7 % (42-78); TOTAL CELLS COUNTED % (AUTO) 100 %; WHITE BLOOD COUNT 8.2 10^3/uL (4.0-10.5)
[2017-04-23 06:23] LABS: ARTERIAL BLOOD BASE EXCESS 0.3 mmol/L; ARTERIAL BLOOD FIO2 30%; ARTERIAL BLOOD H2CO3 1.03 mmol/L (1.05-1.35); ARTERIAL BLOOD HCO3 23.8 mmol/L (20-26); ARTERIAL BLOOD O2 SATURATION 94.3 % (94-98); ARTERIAL BLOOD PCO2 34.3 mmHg (35-45); ARTERIAL BLOOD PH 7.46 (7.35-7.45); ARTERIAL BLOOD PO2 66.5 mmHg (80-100); ARTERIAL BLOOD TOTAL CO2 24.9 mmol/L (21-25)
[2017-04-23 06:43] LABS: ANION GAP 10 (5-19); BLOOD UREA NITROGEN 15 mg/dL (7-20); CARBON DIOXIDE 25 mmol/L (22-30); CHLORIDE 101 mmol/L (98-107); GLUCOSE 94 mg/dL (75-110); POTASSIUM 3.8 mmol/L (3.6-5.0); SODIUM 136.1 mmol/L (137-145)
[2017-04-23] MEDS: MIDAZOLAM HCL 50 MG/100 ML RTUINJ IV PRN ×2 (07:46→20:15)
[2017-04-23] MEDS: PROPOFOL 100 ML IV PRN ×4 (07:48→23:56)
[2017-04-23] MEDS: ERTAPENEM SODIUM 1 GM in NORMAL SALINE 100 ML IV SCH (10:16)
[2017-04-23] MEDS: PANTOPRAZOLE SODIUM 40 MG VIAL IV SCH (10:16)
[2017-04-23] MEDS: ENOXAPARIN SODIUM INJ 40 MG/0.4 ML DISP.SYRIN SUBCUT SCH (10:18)
[2017-04-23 12:30] LABS: VANCOMYCIN,TROUGH < 5.0 ug/mL (5.0-20.0)
[2017-04-23] MEDS: VANCOMYCIN HCL 1,500 MG in DEXTROSE 5%-WATER 250 ML IV SCH ×2 (12:32→23:59)
--- NOTE | 2017-04-23 15:00 | PDOC PROGRESS REPORT ---
Subjective Progress Note for:: 04/23/17 Subjective:: Patient still intubated Reason For Visit: ACUTE HYPERCAPNIC RESPIRATORY FAILURE,PNEUMONIA Physical Exam Vital Signs: Temp Pulse Resp BP Pulse Ox 97.7 F 72 20 133/74 H 94 04/23/17 12:10 04/23/17 08:00 04/23/17 12:10 04/23/17 11:41 04/23/17 12:10 Intake & Output 04/22/17 04/23/17 04/24/17 06:59 06:59 06:59 Intake Total 2692 2253 Output Total 2600 45401 205 Balance 92 -96062 -205 Weight 103.1 kg 103.2 kg General appearance: PRESENT: no acute distress Eye exam: PRESENT: PERRLA Respiratory exam: PRESENT: clear to auscultation bacilio Cardiovascular exam: PRESENT: +S1, +S2 GI/Abdominal exam: PRESENT: soft Results Laboratory Results: 04/23/17 05:50 04/23/17 05:50 04/23/17 04/23/17 04/23/17 05:50 05:50 05:50 WBC 8.2 RBC 3.16 L Hgb 10.6 L Hct 30.9 L MCV 98 H MCH 33.5 H MCHC 34.2 RDW 14.1 H Plt Count 196 Seg Neutrophils % 76.7 Lymphocytes % 14.5 Monocytes % 7.6 Eosinophils % 1.0 Basophils % 0.2 Absolute Neutrophils 6.3 Absolute Lymphocytes 1.2 Absolute Monocytes 0.6 Absolute Eosinophils 0.1 Absolute Basophils 0.0 Carbonic Acid 1.03 L HCO3/H2CO3 Ratio 23:1 ABG pH 7.46 H ABG pCO2 34.3 L ABG pO2 66.5 L ABG HCO3 23.8 ABG O2 Saturation 94.3 ABG Base Excess 0.3 FiO2 30% Sodium 136.1 L Potassium 3.8 Chloride 101 Carbon Dioxide 25 Anion Gap 10 BUN 15 Creatinine 0.62 Est GFR ( Amer) > 60 Est GFR (Non-Af Amer) > 60 Glucose 94 Calcium 8.0 L Magnesium 1.6 04/20/17 09:00 Tracheal Aspirate Gram Stain - Final 04/20/17 09:00 Tracheal Aspirate Sputum Culture - Final C.albicans/C.dubliniensis Normal [place] 04/19/17 04/19/17 04/19/17 22:17 22:17 22:17 Creatine Kinase 2825 H CK-MB (CK-2) 10.40 H Troponin I < 0.012 NT-Pro-B Natriuret Pep 583 04/20/17 04/20/17 04/20/17 04:10 04:10 09:00 Creatine Kinase 9776 H 9062 H CK-MB (CK-2) 27.20 H Troponin I < 0.012 NT-Pro-B Natriuret Pep 04/20/17 04/21/17 04/21/17 09:00 06:25 11:30 Creatine Kinase 1569 H CK-MB (CK-2) 23.20 H Troponin I < 0.012 NT-Pro-B Natriuret Pep 167 04/21/17 11:30 Creatine Kinase CK-MB (CK-2) 2.36 Troponin I NT-Pro-B Natriuret Pep Impressions: Chest X-Ray 04/23/17 06:00 IMPRESSION: 1. Stable appearance of the chest. Assessment & Plan - Diagnosis (1) Acute respiratory failure with hypoxia and hypercapnia Is this a current diagnosis for this admission?: Yes (2) Pneumonia Qualifiers: Qualified Code(s): J18.9 - Pneumonia, unspecified organism Is this a current diagnosis for this admission?: Yes (3) Sepsis Qualifiers: Qualified Code(s): A41.9 - Sepsis, unspecified organism Is this a current diagnosis for this admission?: Yes (4) Hypotension Qualifiers: Qualified Code(s): I95.9 - Hypotension, unspecified Is this a current diagnosis for this admission?: Yes - Plan Summary Plan Summary: Continue present treatment
--- NOTE | 2017-04-23 15:01 | PDOC PROGRESS REPORT ---
Subjective Progress Note for:: 04/23/17 Subjective:: intubated/sedated Reason For Visit: ACUTE HYPERCAPNIC RESPIRATORY FAILURE,PNEUMONIA Physical Exam Vital Signs: Temp Pulse Resp BP Pulse Ox 98.2 F 71 24 H 116/65 95 04/23/17 06:10 04/22/17 19:37 04/23/17 06:10 04/23/17 05:40 04/23/17 06:10 Intake & Output 04/22/17 04/23/17 04/24/17 06:59 06:59 06:59 Intake Total 2692 2253 Output Total 2604 30124 Balance 92 -73831 Weight 103.1 kg 103.2 kg General appearance: PRESENT: no acute distress, disheveled, morbidly obese, well -nourished. ABSENT: cooperative Head exam: PRESENT: atraumatic, normocephalic Eye exam: PRESENT: conjunctiva pale. ABSENT: nystagmus, periorbital swelling, scleral icterus Mouth exam: PRESENT: dry mucosa, neck supple, tongue midline, other - ET tube Neck exam: ABSENT: carotid bruit, JVD, lymphadenopathy, thyromegaly, tracheal deviation, tracheostomy Respiratory exam: PRESENT: crackles, decreased breath sounds, prolonged expiratory phas, rhonchi, symmetrical, unlabored. ABSENT: rales, retraction, stridor, tachypnea Cardiovascular exam: PRESENT: RRR, +S1, +S2, tachycardia Pulses: PRESENT: normal radial pulses GI/Abdominal exam: PRESENT: diminished bowel sounds, soft Gentrourinary exam: PRESENT: indwelling catheter Extremities exam: PRESENT: +1 edema. ABSENT: clubbing, joint swelling Musculoskeletal exam: ABSENT: deformity, dislocation Neurological exam: ABSENT: alert, awake, oriented to person Skin exam: PRESENT: dry, warm Results Laboratory Results: 04/23/17 05:50 04/23/17 05:50 04/23/17 04/23/17 04/23/17 05:50 05:50 05:50 WBC 8.2 RBC 3.16 L Hgb 10.6 L Hct 30.9 L MCV 98 H MCH 33.5 H MCHC 34.2 RDW 14.1 H Plt Count 196 Seg Neutrophils % 76.7 Lymphocytes % 14.5 Monocytes % 7.6 Eosinophils % 1.0 Basophils % 0.2 Absolute Neutrophils 6.3 Absolute Lymphocytes 1.2 Absolute Monocytes 0.6 Absolute Eosinophils 0.1 Absolute Basophils 0.0 Carbonic Acid 1.03 L HCO3/H2CO3 Ratio 23:1 ABG pH 7.46 H ABG pCO2 34.3 L ABG pO2 66.5 L ABG HCO3 23.8 ABG O2 Saturation 94.3 ABG Base Excess 0.3 FiO2 30% Sodium 136.1 L Potassium 3.8 Chloride 101 Carbon Dioxide 25 Anion Gap 10 BUN 15 Creatinine 0.62 Est GFR ( Amer) > 60 Est GFR (Non-Af Amer) > 60 Glucose 94 Calcium 8.0 L Magnesium 1.6 04/20/17 09:00 Tracheal Aspirate Gram Stain - Final 04/20/17 09:00 Tracheal Aspirate Sputum Culture - Final C.albicans/C.dubliniensis Normal Adelia 04/19/17 04/19/17 04/19/17 22:17 22:17 22:17 Creatine Kinase 2825 H CK-MB (CK-2) 10.40 H Troponin I < 0.012 NT-Pro-B Natriuret Pep 583 04/20/17 04/20/17 04/20/17 04:10 04:10 09:00 Creatine Kinase 9776 H 9062 H CK-MB (CK-2) 27.20 H Troponin I < 0.012 NT-Pro-B Natriuret Pep 04/20/17 04/21/17 04/21/17 09:00 06:25 11:30 Creatine Kinase 1569 H CK-MB (CK-2) 23.20 H Troponin I < 0.012 NT-Pro-B Natriuret Pep 167 04/21/17 11:30 Creatine Kinase CK-MB (CK-2) 2.36 Troponin I NT-Pro-B Natriuret Pep Impressions: Chest X-Ray 04/23/17 06:00 IMPRESSION: 1. Stable appearance of the chest. Assessment & Plan - Diagnosis (1) Pneumonia Qualifiers: Pneumonia type: due to unspecified organism Laterality: bilateral Lung location: unspecified part of lung Qualified Code(s): J18.9 - Pneumonia, unspecified organism Is this a current diagnosis for this admission?: Yes Plan: positive cultures thus far 04/20/17 09:00 Gram Stain - Final Tracheal Aspirate Sputum Culture - Final C.albicans/C.dubliniensis Normal Adelia (2) Septic shock Is this a current diagnosis for this admission?: Yes Plan: Vasopressor agents and volume repletion (3) Acute respiratory failure with hypoxia and hypercapnia Is this a current diagnosis for this admission?: Yes Plan: Labs- All tests 24 hr 04/23/17 05:50 ABG pH 7.46 H ABG pCO2 34.3 L ABG pO2 66.5 L FiO2 30% - Time Total Critical Time (Minutes): 40
[2017-04-23] MEDS: NORMAL SALINE 1000 ML 1,000 ML IV PRN (18:10)
[2017-04-23] MEDS: LEVOFLOXACIN 750 MG/D5W RTU 750 MG/150 ML RTUPB IV SCH (23:58)
[2017-04-24] MEDS: PROPOFOL 100 ML IV PRN ×4 (05:31→19:58)
[2017-04-24 06:34] LABS: ARTERIAL BLOOD BASE EXCESS 0.3 mmol/L; ARTERIAL BLOOD HCO3 23.5 mmol/L (20-26); ARTERIAL BLOOD O2 SATURATION 92.8 % (94-98); ARTERIAL BLOOD PCO2 33.2 mmHg (35-45); ARTERIAL BLOOD PH 7.47 (7.35-7.45); ARTERIAL BLOOD PO2 60.5 mmHg (80-100); ARTERIAL BLOOD TOTAL CO2 24.5 mmol/L (21-25)
[2017-04-24 06:35] LABS: ABSOLUTE EOSINOPHILS # (AUTO) 0.1 10^3/uL (0.0-0.6); ABSOLUTE LYMPHOCYTES (AUTO) 1.3 10^3/uL (0.5-4.7); ABSOLUTE NEUT (AUTO) 5.9 10^3/uL (1.7-8.2); BASOPHILS % (AUTO) 0.4 % (0-2); EOSINOPHILS % (AUTO) 1.7 % (0-6); HEMATOCRIT 31.7 % (36.0-47.0); HEMOGLOBIN 10.9 g/dL (12.0-15.5); LYMPHOCYTES % (AUTO) 15.8 % (13-45); MEAN CORPUSCULAR HEMOGLOBIN 33.2 pg (27.0-33.4); MEAN CORPUSCULAR HGB CONC 34.3 g/dL (32.0-36.0); MEAN CORPUSCULAR VOLUME 97 fl (80-97); PLATELET COUNT 211 10^3/uL (150-450); RED BLOOD COUNT 3.28 10^6/uL (3.72-5.28); SEGMENTED NEUTROPHILS % (AUTO) 70.1 % (42-78); TOTAL CELLS COUNTED % (AUTO) 100 %; WHITE BLOOD COUNT 8.4 10^3/uL (4.0-10.5)
[2017-04-24 06:36] LABS: ARTERIAL BLOOD FIO2 30%
[2017-04-24 06:55] LABS: ALANINE AMINOTRANSFERASE 42 U/L (9-52); ALBUMIN 2.6 g/dL (3.5-5.0); ALKALINE PHOSPHATASE 66 U/L (38-126); ANION GAP 10 (5-19); ASPARTATE AMINO TRANSFERASE 28 U/L (14-36); BILIRUBIN,DIRECT 0.2 mg/dL (0.0-0.4); BILIRUBIN,TOTAL 0.2 mg/dL (0.2-1.3); BLOOD UREA NITROGEN 13 mg/dL (7-20); CARBON DIOXIDE 25 mmol/L (22-30); CHLORIDE 100 mmol/L (98-107); GLUCOSE 91 mg/dL (75-110); PHOSPHORUS 3.4 mg/dL (2.5-4.5); POTASSIUM 3.6 mmol/L (3.6-5.0); SODIUM 134.9 mmol/L (137-145); TOTAL PROTEIN 4.9 g/dL (6.3-8.2)
--- NOTE | 2017-04-24 07:17 | RADIOLOGY REPORT (SQ) ---
EXAM DESCRIPTION: CHEST SINGLE VIEW COMPLETED DATE/TIME: 04/24/2017 7:04 am REASON FOR STUDY: pna/resp failure COMPARISON: Chest films 04/20/2017, 04/21/2017, 04/22/2017, 04/23/2017 EXAM PARAMETERS: NUMBER OF VIEWS: One view. TECHNIQUE: Single frontal radiographic view of the chest acquired. RADIATION DOSE: NA LIMITATIONS: None. FINDINGS: LUNGS AND PLEURA: There is loss of the discrete right hemidiaphragm from right basilar con solidation with or without trace right pleural effusion. This is similar compared to the previous st udies. There is loss of the discrete left hemidiaphragm from retrocardiac consolidation atelectasis versus p neumonia unchanged from prior studies. No pneumothorax. MEDIASTINUM AND HILAR STRUCTURES: No masses. Contour normal. HEART AND VASCULAR STRUCTURES: Heart normal in size. Normal vasculature. BONES: No acute findings. HARDWARE: Endotracheal tube tip 5 cm above the catracho. Right jugular central line tip superior vena cava. Nasogastric tube tip and side port in the stomach. OTHER: No other significant finding. IMPRESSION: Tubes and lines in good positioning. Bibasilar consolidation unchanged. TECHNICAL DOCUMENTATION: JOB ID: [id number] [employer]- All Rights Reserved Reading location - IP/workstation name: [email or web address]
[2017-04-24] MEDS: PANTOPRAZOLE SODIUM 40 MG VIAL IV SCH (09:08)
[2017-04-24] MEDS: ERTAPENEM SODIUM 1 GM in NORMAL SALINE 100 ML IV SCH (09:08)
[2017-04-24] MEDS: VANCOMYCIN HCL 1,500 MG in DEXTROSE 5%-WATER 250 ML IV SCH ×2 (09:13→21:34)
[2017-04-24] MEDS: ENOXAPARIN SODIUM INJ 40 MG/0.4 ML DISP.SYRIN SUBCUT SCH (09:13)
[2017-04-24] MEDS: NORMAL SALINE 1000 ML 1,000 ML IV PRN ×2 (09:29→17:35)
[2017-04-24] MEDS: LEVOFLOXACIN 750 MG/D5W RTU 750 MG/150 ML RTUPB IV SCH (21:33)
--- NOTE | 2017-04-24 21:58 | PDOC PROGRESS REPORT ---
Subjective Progress Note for:: 04/24/17 Subjective:: Patient is mechanically ventilated, Reason For Visit: ACUTE HYPERCAPNIC RESPIRATORY FAILURE,PNEUMONIA Physical Exam Vital Signs: Temp Pulse Resp BP Pulse Ox 98.1 F 70 20 129/67 H 93 04/24/17 20:00 04/24/17 18:00 04/24/17 18:20 04/24/17 18:00 04/24/17 20:00 Intake & Output 04/23/17 04/24/17 04/25/17 06:59 06:59 06:59 Intake Total 2253 2599 1943 Output Total 11464 1655 7545 Balance -17300 944 -532 Weight 103.2 kg 105.2 kg Respiratory exam: PRESENT: clear to auscultation bacilio Cardiovascular exam: PRESENT: +S1, +S2 GI/Abdominal exam: PRESENT: soft Neurological exam: PRESENT: alert Results Laboratory Results: 04/24/17 06:30 04/24/17 06:30 04/24/17 04/24/17 04/24/17 06:30 06:30 06:30 WBC 8.4 RBC 3.28 L Hgb 10.9 L Hct 31.7 L MCV 97 MCH 33.2 MCHC 34.3 RDW 14.0 Plt Count 211 Seg Neutrophils % 70.1 Lymphocytes % 15.8 Monocytes % 12.0 Eosinophils % 1.7 Basophils % 0.4 Absolute Neutrophils 5.9 Absolute Lymphocytes 1.3 Absolute Monocytes 1.0 Absolute Eosinophils 0.1 Absolute Basophils 0.0 Carbonic Acid 1.00 L HCO3/H2CO3 Ratio 23:1 ABG pH 7.47 H ABG pCO2 33.2 L ABG pO2 60.5 L ABG HCO3 23.5 ABG O2 Saturation 92.8 L ABG Base Excess 0.3 FiO2 30% Sodium 134.9 L Potassium 3.6 Chloride 100 Carbon Dioxide 25 Anion Gap 10 BUN 13 Creatinine 0.60 Est GFR ( Amer) > 60 Est GFR (Non-Af Amer) > 60 Glucose 91 Calcium 8.0 L Phosphorus 3.4 Magnesium 1.7 Total Bilirubin 0.2 AST 28 ALT 42 Alkaline Phosphatase 66 Total Protein 4.9 L Albumin 2.6 L 04/19/17 04/19/17 04/19/17 22:17 22:17 22:17 Creatine Kinase 2825 H CK-MB (CK-2) 10.40 H Troponin I < 0.012 NT-Pro-B Natriuret Pep 583 04/20/17 04/20/17 04/20/17 04:10 04:10 09:00 Creatine Kinase 9776 H 9062 H CK-MB (CK-2) 27.20 H Troponin I < 0.012 NT-Pro-B Natriuret Pep 04/20/17 04/21/17 04/21/17 09:00 06:25 11:30 Creatine Kinase 1569 H CK-MB (CK-2) 23.20 H Troponin I < 0.012 NT-Pro-B Natriuret Pep 167 04/21/17 11:30 Creatine Kinase CK-MB (CK-2) 2.36 Troponin I NT-Pro-B Natriuret Pep Impressions: Chest X-Ray 04/24/17 06:00 IMPRESSION: Tubes and lines in good positioning. Bibasilar consolidation unchanged. Assessment & Plan - Diagnosis (1) Acute respiratory failure with hypoxia and hypercapnia Is this a current diagnosis for this admission?: Yes (2) Pneumonia Qualifiers: Pneumonia type: due to unspecified organism Laterality: bilateral Lung location: unspecified part of lung Qualified Code(s): J18.9 - Pneumonia, unspecified organism Is this a current diagnosis for this admission?: Yes (3) Sepsis Qualifiers: Sepsis type: sepsis due to unspecified organism Qualified Code(s): A41.9 - Sepsis, unspecified organism Is this a current diagnosis for this admission?: Yes (4) Hypotension Qualifiers: Hypotension type: unspecified hypotension type Qualified Code(s): I95.9 - Hypotension, unspecified Is this a current diagnosis for this admission?: Yes - Plan Summary Plan Summary: Continue treatment
[2017-04-25] MEDS: PROPOFOL 100 ML IV PRN ×3 (00:29→06:35)
[2017-04-25 06:37] LABS: ARTERIAL BLOOD H2CO3 1.07 mmol/L (1.05-1.35); ARTERIAL BLOOD HCO3 24.6 mmol/L (20-26); ARTERIAL BLOOD O2 SATURATION 93.2 % (94-98); ARTERIAL BLOOD PCO2 35.4 mmHg (35-45); ARTERIAL BLOOD PH 7.46 (7.35-7.45); ARTERIAL BLOOD PO2 62.3 mmHg (80-100); ARTERIAL BLOOD TOTAL CO2 25.7 mmol/L (21-25)
[2017-04-25 06:39] LABS: HEMATOCRIT 31.5 % (36.0-47.0); HEMOGLOBIN 10.7 g/dL (12.0-15.5); MEAN CORPUSCULAR HEMOGLOBIN 32.9 pg (27.0-33.4); MEAN CORPUSCULAR HGB CONC 33.9 g/dL (32.0-36.0); MEAN CORPUSCULAR VOLUME 97 fl (80-97); PLATELET COUNT 233 10^3/uL (150-450); RED BLOOD COUNT 3.25 10^6/uL (3.72-5.28); RED CELL DISTRIBUTION WIDTH 13.8 % (11.5-14.0); WHITE BLOOD COUNT 9.4 10^3/uL (4.0-10.5)
[2017-04-25 06:41] LABS: ARTERIAL BLOOD FIO2 30%
[2017-04-25 06:55] LABS: ANION GAP 12 (5-19); BLOOD UREA NITROGEN 13 mg/dL (7-20); CALCIUM 8.4 mg/dL (8.4-10.2); CARBON DIOXIDE 24 mmol/L (22-30); CHLORIDE 104 mmol/L (98-107); GLUCOSE 96 mg/dL (75-110); POTASSIUM 3.5 mmol/L (3.6-5.0); SODIUM 140.3 mmol/L (137-145)
[2017-04-25 07:21] LABS: ABSOLUTE LYMPHOCYTES# (MANUAL) 2.4 10^3/uL (0.5-4.7); ABSOLUTE MONOCYTES # (MANUAL) 0.8 10^3/uL (0.1-1.4); ABSOLUTE NEUTROPHILS# (MANUAL) 6.1 10^3/uL (1.7-8.2); BAND NEUTROPHILS % (MANUAL) 1 % (3-5); BASOPHILS % (MANUAL) 0 % (0-2); EOSINOPHILS % (MANUAL) 1 % (0-6); LYMPHOCYTES % (MANUAL) 25 % (13-45); METAMYELOCYTES % (MANUAL) 1 % (0); MONOCYTES % (MANUAL) 9 % (3-13); SEGMENTED NEUTROPHILS % (MAN) 62 % (42-78); TOTAL CELLS COUNTED 100
[2017-04-25 07:23] LABS: MYELOCYTES % (MANUAL) 1 % (0)
[2017-04-25 07:25] LABS: PLATELET COMMENT ADEQUATE
[2017-04-25 07:26] LABS: OVALOCYTES SLIGHT; POIKILOCYTOSIS SLIGHT; POLYCHROMASIA SLIGHT; TOXIC GRANULATION SLIGHT
--- NOTE | 2017-04-25 07:54 | RADIOLOGY REPORT (SQ) ---
EXAM DESCRIPTION: CHEST SINGLE VIEW CLINICAL HISTORY: 61 years Female, pna/resp failure COMPARISON: 04/24/17. NUMBER OF VIEWS/TECHNIQUE: 1/AP LIMITATIONS: None. FINDINGS: Moderate haziness-opacity of bilateral lung bases, normal cardiac silhouette, adequate appearing endotracheal tube, right jugular central line tip at the cavoatrial junction, likely adequate enteric tube obscured distally. No pneumothorax. No acute bone defect. IMPRESSION: No significant change.
[2017-04-25] MEDS: VANCOMYCIN HCL 1,500 MG in DEXTROSE 5%-WATER 250 ML IV SCH ×2 (09:29→22:47)
[2017-04-25] MEDS: PANTOPRAZOLE SODIUM 40 MG VIAL IV SCH (09:29)
[2017-04-25] MEDS: ENOXAPARIN SODIUM INJ 40 MG/0.4 ML DISP.SYRIN SUBCUT SCH (09:32)
[2017-04-25 09:58] LABS: PATH REVIEW PATHOLOGIST REVIEWED
[2017-04-25] MEDS ORDERED: BISACODYL 10 MG SUPP.RECT PR PRN (10:05)
[2017-04-25] MEDS: ERTAPENEM SODIUM 1 GM in NORMAL SALINE 100 ML IV SCH (10:46)
[2017-04-25] MEDS ORDERED: DEXAMETHASONE SOD PHOSPHATE INJ 4 MG/1 ML VIAL IV ONE (11:00)
[2017-04-25] MEDS: NORMAL SALINE 1000 ML 1,000 ML IV PRN (13:33)
--- NOTE | 2017-04-25 15:52 | PDOC PROGRESS REPORT ---
Subjective Progress Note for:: 04/25/17 Subjective:: intubated/lethargic Reason For Visit: ACUTE HYPERCAPNIC RESPIRATORY FAILURE,PNEUMONIA Physical Exam Vital Signs: Temp Pulse Resp BP Pulse Ox 97.5 F 78 24 H 141/74 H 92 04/24/17 10:10 04/24/17 10:00 04/24/17 10:10 04/24/17 09:58 04/24/17 10:22 Intake & Output 04/23/17 04/24/17 04/25/17 06:59 06:59 06:59 Intake Total 2253 2599 Output Total 35492 1655 500 Balance -76823 944 -500 Weight 103.2 kg 105.2 kg General appearance: PRESENT: no acute distress, disheveled, morbidly obese, well -developed Head exam: PRESENT: atraumatic, normocephalic Eye exam: PRESENT: conjunctiva pale, EOMI. ABSENT: nystagmus, periorbital swelling, scleral icterus Mouth exam: PRESENT: dry mucosa, neck supple, tongue midline, other - ET tube Neck exam: ABSENT: carotid bruit, JVD, lymphadenopathy, thyromegaly, tracheal deviation, tracheostomy Respiratory exam: PRESENT: decreased breath sounds, prolonged expiratory phas, rhonchi, symmetrical, unlabored. ABSENT: retraction, stridor, tachypnea Cardiovascular exam: PRESENT: RRR, +S1, +S2 Pulses: PRESENT: normal radial pulses GI/Abdominal exam: PRESENT: diminished bowel sounds, soft Extremities exam: PRESENT: +1 edema. ABSENT: calf tenderness, clubbing Musculoskeletal exam: ABSENT: deformity, dislocation Neurological exam: PRESENT: awake Skin exam: PRESENT: dry, warm Results Laboratory Results: 04/24/17 06:30 04/24/17 06:30 04/24/17 04/24/17 04/24/17 06:30 06:30 06:30 WBC 8.4 RBC 3.28 L Hgb 10.9 L Hct 31.7 L MCV 97 MCH 33.2 MCHC 34.3 RDW 14.0 Plt Count 211 Seg Neutrophils % 70.1 Lymphocytes % 15.8 Monocytes % 12.0 Eosinophils % 1.7 Basophils % 0.4 Absolute Neutrophils 5.9 Absolute Lymphocytes 1.3 Absolute Monocytes 1.0 Absolute Eosinophils 0.1 Absolute Basophils 0.0 Carbonic Acid 1.00 L HCO3/H2CO3 Ratio 23:1 ABG pH 7.47 H ABG pCO2 33.2 L ABG pO2 60.5 L ABG HCO3 23.5 ABG O2 Saturation 92.8 L ABG Base Excess 0.3 FiO2 30% Sodium 134.9 L Potassium 3.6 Chloride 100 Carbon Dioxide 25 Anion Gap 10 BUN 13 Creatinine 0.60 Est GFR ( Amer) > 60 Est GFR (Non-Af Amer) > 60 Glucose 91 Calcium 8.0 L Phosphorus 3.4 Magnesium 1.7 Total Bilirubin 0.2 AST 28 ALT 42 Alkaline Phosphatase 66 Total Protein 4.9 L Albumin 2.6 L 04/19/17 04/19/17 04/19/17 22:17 22:17 22:17 Creatine Kinase 2825 H CK-MB (CK-2) 10.40 H Troponin I < 0.012 NT-Pro-B Natriuret Pep 583 04/20/17 04/20/17 04/20/17 04:10 04:10 09:00 Creatine Kinase 9776 H 9062 H CK-MB (CK-2) 27.20 H Troponin I < 0.012 NT-Pro-B Natriuret Pep 04/20/17 04/21/17 04/21/17 09:00 06:25 11:30 Creatine Kinase 1569 H CK-MB (CK-2) 23.20 H Troponin I < 0.012 NT-Pro-B Natriuret Pep 167 04/21/17 11:30 Creatine Kinase CK-MB (CK-2) 2.36 Troponin I NT-Pro-B Natriuret Pep Impressions: Chest X-Ray 04/24/17 06:00 IMPRESSION: Tubes and lines in good positioning. Bibasilar consolidation unchanged. Assessment & Plan - Diagnosis (1) Pneumonia Qualifiers: Pneumonia type: due to unspecified organism Laterality: bilateral Lung location: unspecified part of lung Qualified Code(s): J18.9 - Pneumonia, unspecified organism Is this a current diagnosis for this admission?: Yes Plan: positive cultures thus far 04/20/17 09:00 Gram Stain - Final Tracheal Aspirate Sputum Culture - Final C.albicans/C.dubliniensis Normal Adelia (2) Septic shock Is this a current diagnosis for this admission?: Yes Plan: Vasopressor agents and volume repletion (3) Acute respiratory failure with hypoxia and hypercapnia Is this a current diagnosis for this admission?: Yes Plan: min vol ;rr; fio2 acceptable extubate to bipap - Time Total Critical Time (Minutes): 55
--- NOTE | 2017-04-25 15:56 | PDOC PROGRESS REPORT ---
Subjective Progress Note for:: 04/24/17 Subjective:: intubated Reason For Visit: ACUTE HYPERCAPNIC RESPIRATORY FAILURE,PNEUMONIA Physical Exam Vital Signs: Temp Pulse Resp BP Pulse Ox 98.4 F 85 18 149/88 H 95 04/25/17 13:00 04/25/17 14:00 04/25/17 14:00 04/25/17 14:00 04/25/17 14:00 Intake & Output 04/24/17 04/25/17 04/26/17 06:59 06:59 06:59 Intake Total 2599 4175 Output Total 1655 3575 1175 Balance 944 600 -1175 Weight 105.2 kg 103.7 kg General appearance: PRESENT: no acute distress, disheveled, morbidly obese, well -developed Head exam: PRESENT: atraumatic, normocephalic Eye exam: PRESENT: conjunctiva pale, EOMI. ABSENT: nystagmus, periorbital swelling, scleral icterus Mouth exam: PRESENT: dry mucosa, neck supple, tongue midline, other - ET Neck exam: ABSENT: carotid bruit, JVD, lymphadenopathy, thyromegaly, tracheal deviation, tracheostomy Respiratory exam: PRESENT: decreased breath sounds, prolonged expiratory phas, rhonchi, symmetrical, unlabored, wheezes. ABSENT: retraction, stridor, tachypnea Cardiovascular exam: PRESENT: RRR, +S1, +S2 Pulses: PRESENT: normal radial pulses GI/Abdominal exam: PRESENT: diminished bowel sounds, soft Gentrourinary exam: PRESENT: indwelling catheter Extremities exam: PRESENT: +1 edema. ABSENT: calf tenderness, clubbing Musculoskeletal exam: ABSENT: deformity, dislocation Neurological exam: PRESENT: awake. ABSENT: alert, oriented to person Skin exam: PRESENT: dry, warm Results Laboratory Results: 04/25/17 06:30 04/25/17 06:30 04/25/17 04/25/17 04/25/17 06:30 06:30 06:30 WBC 9.4 RBC 3.25 L Hgb 10.7 L Hct 31.5 L MCV 97 MCH 32.9 MCHC 33.9 RDW 13.8 Plt Count 233 Seg Neutrophils % Not Reportable Lymphocytes % Not Reportable Monocytes % Not Reportable Eosinophils % Not Reportable Basophils % Not Reportable Absolute Neutrophils Not Reportable Absolute Lymphocytes Not Reportable Absolute Monocytes Not Reportable Absolute Eosinophils Not Reportable Absolute Basophils Not Reportable Carbonic Acid 1.07 HCO3/H2CO3 Ratio 22:1 ABG pH 7.46 H ABG pCO2 35.4 ABG pO2 62.3 L ABG HCO3 24.6 ABG O2 Saturation 93.2 L ABG Base Excess 1.0 FiO2 30% Sodium 140.3 Potassium 3.5 L Chloride 104 Carbon Dioxide 24 Anion Gap 12 BUN 13 Creatinine 0.51 L Est GFR ( Amer) > 60 Est GFR (Non-Af Amer) > 60 Glucose 96 Calcium 8.4 Magnesium 1.8 04/19/17 22:17 Blood Blood Culture - Final NO GROWTH IN 5 DAYS 04/19/17 04/19/17 04/19/17 22:17 22:17 22:17 Creatine Kinase 2825 H CK-MB (CK-2) 10.40 H Troponin I < 0.012 NT-Pro-B Natriuret Pep 583 04/20/17 04/20/17 04/20/17 04:10 04:10 09:00 Creatine Kinase 9776 H 9062 H CK-MB (CK-2) 27.20 H Troponin I < 0.012 NT-Pro-B Natriuret Pep 04/20/17 04/21/17 04/21/17 09:00 06:25 11:30 Creatine Kinase 1569 H CK-MB (CK-2) 23.20 H Troponin I < 0.012 NT-Pro-B Natriuret Pep 167 04/21/17 11:30 Creatine Kinase CK-MB (CK-2) 2.36 Troponin I NT-Pro-B Natriuret Pep Impressions: Chest X-Ray 04/25/17 06:00 IMPRESSION: No significant change. Assessment & Plan - Diagnosis (1) Pneumonia Qualifiers: Pneumonia type: due to unspecified organism Laterality: bilateral Lung location: unspecified part of lung Qualified Code(s): J18.9 - Pneumonia, unspecified organism Is this a current diagnosis for this admission?: Yes Plan: positive cultures thus far 04/20/17 09:00 Gram Stain - Final Tracheal Aspirate Sputum Culture - Final C.albicans/C.dubliniensis Normal Adelia (2) Septic shock Is this a current diagnosis for this admission?: Yes Plan: Vasopressor agents and volume repletion (3) Acute respiratory failure with hypoxia and hypercapnia Is this a current diagnosis for this admission?: Yes Plan: stable
[2017-04-25] MEDS ORDERED: METOPROLOL SUCCINATE 50 MG TAB.SR.24H PO SCH (17:00)
--- NOTE | 2017-04-25 18:00 | PDOC PROGRESS REPORT ---
Subjective Progress Note for:: 04/25/17 Subjective:: She is extubated, alert oriented, she complained of pain Reason For Visit: ACUTE HYPERCAPNIC RESPIRATORY FAILURE,PNEUMONIA Physical Exam Vital Signs: Temp Pulse Resp BP Pulse Ox 97.9 F 85 22 H 162/82 H 92 04/25/17 16:50 04/25/17 14:00 04/25/17 16:50 04/25/17 16:42 04/25/17 16:50 Intake & Output 04/24/17 04/25/17 04/26/17 06:59 06:59 06:59 Intake Total 2599 4175 Output Total 1655 3575 2004 Balance 944 600 -2004 Weight 105.2 kg 103.7 kg General appearance: PRESENT: no acute distress, well-developed, well-nourished Head exam: PRESENT: atraumatic, normocephalic Eye exam: PRESENT: conjunctiva pink, EOMI, PERRLA Ear exam: PRESENT: normal external ear exam Mouth exam: PRESENT: moist, tongue midline Neck exam: PRESENT: full ROM Respiratory exam: PRESENT: clear to auscultation bacilio Cardiovascular exam: PRESENT: RRR, +S1, +S2 Pulses: PRESENT: normal dorsalis pedis pul, +2 pedal pulses bilateral Vascular exam: PRESENT: normal capillary refill GI/Abdominal exam: PRESENT: normal bowel sounds, soft Rectal exam: PRESENT: deferred Neurological exam: PRESENT: alert, awake, oriented to person, oriented to place , oriented to time, oriented to situation, CN II-XII grossly intact Psychiatric exam: PRESENT: appropriate affect, normal mood Skin exam: PRESENT: dry, intact, warm Results Laboratory Results: 04/25/17 06:30 04/25/17 06:30 04/25/17 04/25/17 04/25/17 06:30 06:30 06:30 WBC 9.4 RBC 3.25 L Hgb 10.7 L Hct 31.5 L MCV 97 MCH 32.9 MCHC 33.9 RDW 13.8 Plt Count 233 Seg Neutrophils % Not Reportable Lymphocytes % Not Reportable Monocytes % Not Reportable Eosinophils % Not Reportable Basophils % Not Reportable Absolute Neutrophils Not Reportable Absolute Lymphocytes Not Reportable Absolute Monocytes Not Reportable Absolute Eosinophils Not Reportable Absolute Basophils Not Reportable Carbonic Acid 1.07 HCO3/H2CO3 Ratio 22:1 ABG pH 7.46 H ABG pCO2 35.4 ABG pO2 62.3 L ABG HCO3 24.6 ABG O2 Saturation 93.2 L ABG Base Excess 1.0 FiO2 30% Sodium 140.3 Potassium 3.5 L Chloride 104 Carbon Dioxide 24 Anion Gap 12 BUN 13 Creatinine 0.51 L Est GFR ( Amer) > 60 Est GFR (Non-Af Amer) > 60 Glucose 96 Calcium 8.4 Magnesium 1.8 04/19/17 22:17 Blood Blood Culture - Final NO GROWTH IN 5 DAYS 04/19/17 04/19/17 04/19/17 22:17 22:17 22:17 Creatine Kinase 2825 H CK-MB (CK-2) 10.40 H Troponin I < 0.012 NT-Pro-B Natriuret Pep 583 04/20/17 04/20/17 04/20/17 04:10 04:10 09:00 Creatine Kinase 9776 H 9062 H CK-MB (CK-2) 27.20 H Troponin I < 0.012 NT-Pro-B Natriuret Pep 04/20/17 04/21/17 04/21/17 09:00 06:25 11:30 Creatine Kinase 1569 H CK-MB (CK-2) 23.20 H Troponin I < 0.012 NT-Pro-B Natriuret Pep 167 04/21/17 11:30 Creatine Kinase CK-MB (CK-2) 2.36 Troponin I NT-Pro-B Natriuret Pep Impressions: Chest X-Ray 04/25/17 06:00 IMPRESSION: No significant change. Assessment & Plan - Diagnosis (1) Acute respiratory failure with hypoxia and hypercapnia Is this a current diagnosis for this admission?: Yes (2) Pneumonia Qualifiers: Pneumonia type: due to unspecified organism Laterality: bilateral Lung location: unspecified part of lung Qualified Code(s): J18.9 - Pneumonia, unspecified organism Is this a current diagnosis for this admission?: Yes (3) Sepsis Qualifiers: Sepsis type: sepsis due to unspecified organism Qualified Code(s): A41.9 - Sepsis, unspecified organism Is this a current diagnosis for this admission?: Yes (4) Hypotension Qualifiers: Hypotension type: unspecified hypotension type Qualified Code(s): I95.9 - Hypotension, unspecified Is this a current diagnosis for this admission?: Yes
[2017-04-25] MEDS ORDERED: OXYCODONE HCL IR 5 MG TABLET PO PRN (18:03)
[2017-04-25] MEDS ORDERED: METOPROLOL SUCCINATE 50 MG TAB.SR.24H PO ONE (18:30)
[2017-04-25] MEDS ORDERED: FLUCONAZOLE 100 MG TABLET PO ONE (20:00)
[2017-04-25] MEDS: LEVOFLOXACIN 750 MG/D5W RTU 750 MG/150 ML RTUPB IV SCH (21:13)
[2017-04-25] MEDS: GABAPENTIN 300 MG CAPSULE PO SCH (21:13)
[2017-04-25] MEDS: DULOXETINE HCL 30 MG CAPSULE.DR PO SCH (21:14)
[2017-04-25] MEDS: SACUBITRIL/VALSARTAN 49 MG/51 MG TABLET PO SCH (21:14)
[2017-04-25] MEDS: ATORVASTATIN CALCIUM 40 MG TABLET PO SCH (21:15)
[2017-04-25] MEDS: ALPRAZOLAM 0.25 MG TABLET PO SCH (21:15)
[2017-04-25] MEDS: AMIODARONE HCL 200 MG TABLET PO SCH (21:16)
[2017-04-25] MEDS: APIXABAN 5 MG TABLET PO SCH (21:17)
[2017-04-25 22:06] LABS: VANCOMYCIN,TROUGH 9.1 ug/mL (5.0-20.0)
[2017-04-26] MEDS: NORMAL SALINE 1000 ML 1,000 ML IV PRN (04:22)
[2017-04-26] MEDS ORDERED: LANSOPRAZOLE 30 MG TAB.RAP.DR PO SCH (06:00)
[2017-04-26] MEDS: ALPRAZOLAM 0.25 MG TABLET PO SCH ×3 (06:03→21:28)
[2017-04-26] MEDS: GABAPENTIN 300 MG CAPSULE PO SCH ×3 (06:03→21:28)
[2017-04-26 06:40] LABS: ARTERIAL BLOOD BASE EXCESS 0.3 mmol/L; ARTERIAL BLOOD H2CO3 1.12 mmol/L (1.05-1.35); ARTERIAL BLOOD HCO3 24.3 mmol/L (20-26); ARTERIAL BLOOD O2 SATURATION 94.4 % (94-98); ARTERIAL BLOOD PCO2 37.2 mmHg (35-45); ARTERIAL BLOOD PH 7.43 (7.35-7.45); ARTERIAL BLOOD PO2 68.8 mmHg (80-100); ARTERIAL BLOOD TOTAL CO2 25.4 mmol/L (21-25)
[2017-04-26 06:41] LABS: ABSOLUTE LYMPHOCYTES (AUTO) 1.5 10^3/uL (0.5-4.7); ABSOLUTE MONOCYTES (AUTO) 1.6 10^3/uL (0.1-1.4); ABSOLUTE NEUT (AUTO) 11.9 10^3/uL (1.7-8.2); ARTERIAL BLOOD FIO2 2L; BASOPHILS % (AUTO) 0.2 % (0-2); HEMATOCRIT 31.7 % (36.0-47.0); HEMOGLOBIN 10.7 g/dL (12.0-15.5); LYMPHOCYTES % (AUTO) 9.8 % (13-45); MEAN CORPUSCULAR HEMOGLOBIN 32.7 pg (27.0-33.4); MEAN CORPUSCULAR HGB CONC 33.8 g/dL (32.0-36.0); MEAN CORPUSCULAR VOLUME 97 fl (80-97); MONOCYTES % (AUTO) 10.4 % (3-13); PLATELET COUNT 246 10^3/uL (150-450); RED BLOOD COUNT 3.27 10^6/uL (3.72-5.28); RED CELL DISTRIBUTION WIDTH 13.6 % (11.5-14.0); SEGMENTED NEUTROPHILS % (AUTO) 79.6 % (42-78); TOTAL CELLS COUNTED % (AUTO) 100 %
[2017-04-26 06:56] LABS: ALANINE AMINOTRANSFERASE 43 U/L (9-52); ALBUMIN 2.9 g/dL (3.5-5.0); ALKALINE PHOSPHATASE 75 U/L (38-126); ANION GAP 11 (5-19); ASPARTATE AMINO TRANSFERASE 35 U/L (14-36); BILIRUBIN,DIRECT 0.2 mg/dL (0.0-0.4); BILIRUBIN,TOTAL 0.4 mg/dL (0.2-1.3); BLOOD UREA NITROGEN 12 mg/dL (7-20); CALCIUM 8.8 mg/dL (8.4-10.2); CARBON DIOXIDE 26 mmol/L (22-30); CHLORIDE 105 mmol/L (98-107); GLUCOSE 98 mg/dL (75-110); POTASSIUM 3.6 mmol/L (3.6-5.0); SODIUM 141.8 mmol/L (137-145)
--- NOTE | 2017-04-26 07:10 | RADIOLOGY REPORT (SQ) ---
EXAM DESCRIPTION: CHEST SINGLE VIEW COMPLETED DATE/TIME: 04/26/2017 6:10 am REASON FOR STUDY: pna COMPARISON: Chest films 12/23/2016, 04/19/2017, 04/21/2017, 04/24/2017, 04/25/2017 EXAM PARAMETERS: NUMBER OF VIEWS: One view. TECHNIQUE: Single frontal radiographic view of the chest acquired. RADIATION DOSE: NA LIMITATIONS: None. FINDINGS: LUNGS AND PLEURA: Minimal residual airspace disease is present in the right mid and lower lung, improved compared to previous studies. No pneumothorax. No pleural effusion. MEDIASTINUM AND HILAR STRUCTURES: No masses. Contour normal. HEART AND VASCULAR STRUCTURES: Heart normal in size. Normal vasculature. BONES: No acute findings. HARDWARE: Right jugular central line tip over the superior vena cava. OTHER: No other significant finding. IMPRESSION: Minimal residual right mid and lower lung airspace disease TECHNICAL DOCUMENTATION: JOB ID: [id number] [employer]- All Rights Reserved Reading location - IP/workstation name: [email or web address]
--- NOTE | 2017-04-26 09:21 | PDOC PROGRESS REPORT ---
Subjective Progress Note for:: 04/26/17 Subjective:: 24h s/p extubation Reason For Visit: ACUTE HYPERCAPNIC RESPIRATORY FAILURE,PNEUMONIA Physical Exam Vital Signs: Temp Pulse Resp BP Pulse Ox 97.5 F 82 17 129/65 H 97 04/26/17 06:30 04/25/17 22:00 04/26/17 06:30 04/26/17 05:42 04/26/17 06:30 Intake & Output 04/25/17 04/26/17 04/27/17 06:59 06:59 06:59 Intake Total 4175 2860 Output Total 3575 4030 Balance 600 -1170 Weight 103.7 kg 102.1 kg General appearance: PRESENT: no acute distress, disheveled, morbidly obese Head exam: PRESENT: atraumatic, normocephalic Eye exam: PRESENT: conjunctiva pale. ABSENT: nystagmus, periorbital swelling, scleral icterus Mouth exam: PRESENT: dry mucosa, neck supple, tongue midline Neck exam: ABSENT: carotid bruit, JVD, lymphadenopathy, thyromegaly, tracheal deviation, tracheostomy Cardiovascular exam: PRESENT: RRR, +S1, +S2 Pulses: PRESENT: normal radial pulses GI/Abdominal exam: PRESENT: diminished bowel sounds, soft Extremities exam: PRESENT: +1 edema. ABSENT: calf tenderness, clubbing Musculoskeletal exam: ABSENT: deformity, dislocation Neurological exam: PRESENT: awake Skin exam: PRESENT: dry, warm Results Laboratory Results: 04/26/17 06:20 04/26/17 06:20 04/26/17 04/26/17 04/26/17 06:20 06:20 06:20 WBC 15.0 H RBC 3.27 L Hgb 10.7 L Hct 31.7 L MCV 97 MCH 32.7 MCHC 33.8 RDW 13.6 Plt Count 246 Seg Neutrophils % 79.6 H Lymphocytes % 9.8 L Monocytes % 10.4 Eosinophils % 0.0 Basophils % 0.2 Absolute Neutrophils 11.9 H Absolute Lymphocytes 1.5 Absolute Monocytes 1.6 H Absolute Eosinophils 0.0 Absolute Basophils 0.0 Carbonic Acid 1.12 HCO3/H2CO3 Ratio 21:1 ABG pH 7.43 ABG pCO2 37.2 ABG pO2 68.8 L ABG HCO3 24.3 ABG O2 Saturation 94.4 ABG Base Excess 0.3 FiO2 2L Sodium 141.8 Potassium 3.6 Chloride 105 Carbon Dioxide 26 Anion Gap 11 BUN 12 Creatinine 0.49 L Est GFR ( Amer) > 60 Est GFR (Non-Af Amer) > 60 Glucose 98 Calcium 8.8 Magnesium 1.8 Total Bilirubin 0.4 AST 35 ALT 43 Alkaline Phosphatase 75 Total Protein 5.0 L Albumin 2.9 L 04/19/17 04/19/17 04/19/17 22:17 22:17 22:17 Creatine Kinase 2825 H CK-MB (CK-2) 10.40 H Troponin I < 0.012 NT-Pro-B Natriuret Pep 583 04/20/17 04/20/17 04/20/17 04:10 04:10 09:00 Creatine Kinase 9776 H 9062 H CK-MB (CK-2) 27.20 H Troponin I < 0.012 NT-Pro-B Natriuret Pep 04/20/17 04/21/17 04/21/17 09:00 06:25 11:30 Creatine Kinase 1569 H CK-MB (CK-2) 23.20 H Troponin I < 0.012 NT-Pro-B Natriuret Pep 167 04/21/17 11:30 Creatine Kinase CK-MB (CK-2) 2.36 Troponin I NT-Pro-B Natriuret Pep Impressions: Chest X-Ray 04/26/17 06:00 IMPRESSION: Minimal residual right mid and lower lung airspace disease Assessment & Plan - Diagnosis (1) Pneumonia Qualifiers: Pneumonia type: due to unspecified organism Laterality: bilateral Lung location: unspecified part of lung Qualified Code(s): J18.9 - Pneumonia, unspecified organism Is this a current diagnosis for this admission?: Yes Plan: positive cultures thus far 04/20/17 09:00 Gram Stain - Final Tracheal Aspirate Sputum Culture - Final C.albicans/C.dubliniensis Normal Adelia (2) Septic shock Is this a current diagnosis for this admission?: Yes Plan: Vasopressor agents and volume repletion (3) Acute respiratory failure with hypoxia and hypercapnia Is this a current diagnosis for this admission?: Yes Plan: stable - Time Total Critical Time (Minutes): 40
[2017-04-26] MEDS ORDERED: SPIRONOLACTONE 25 MG TABLET PO SCH (10:00)
[2017-04-26] MEDS ORDERED: METOPROLOL SUCCINATE 50 MG TAB.SR.24H PO SCH (10:00)
[2017-04-26] MEDS ORDERED: CETIRIZINE 5 MG TABLET PO SCH (10:00)
[2017-04-26] MEDS: VANCOMYCIN HCL 1,250 MG in DEXTROSE 5%-WATER 250 ML IV SCH ×2 (11:33→17:28)
[2017-04-26] MEDS: ERTAPENEM SODIUM 1 GM in NORMAL SALINE 100 ML IV SCH (11:34)
[2017-04-26] MEDS: SACUBITRIL/VALSARTAN 49 MG/51 MG TABLET PO SCH ×2 (11:35→21:28)
[2017-04-26] MEDS: AMIODARONE HCL 200 MG TABLET PO SCH ×2 (11:35→21:27)
[2017-04-26] MEDS: DULOXETINE HCL 30 MG CAPSULE.DR PO SCH ×2 (11:35→21:27)
[2017-04-26] MEDS: APIXABAN 5 MG TABLET PO SCH ×2 (11:36→21:28)
--- NOTE | 2017-04-26 20:17 | PDOC PROGRESS REPORT ---
Subjective Progress Note for:: 04/26/17 Subjective:: Patient was seen by the bedside, she was extubated yesterday, she would be downgraded to the medical floor/telemetry Reason For Visit: ACUTE HYPERCAPNIC RESPIRATORY FAILURE,PNEUMONIA Physical Exam Vital Signs: Temp Pulse Resp BP Pulse Ox 97.9 F 71 12 127/70 H 94 04/26/17 13:00 04/26/17 10:00 04/26/17 15:10 04/26/17 14:18 04/26/17 15:10 Intake & Output 04/25/17 04/26/17 04/27/17 06:59 06:59 06:59 Intake Total 4175 2860 Output Total 3575 4030 700 Balance 600 -1170 -700 Weight 103.7 kg 102.1 kg General appearance: PRESENT: no acute distress, well-developed, well-nourished Head exam: PRESENT: atraumatic, normocephalic Eye exam: PRESENT: conjunctiva pink, EOMI, PERRLA Ear exam: PRESENT: normal external ear exam Mouth exam: PRESENT: moist, tongue midline Neck exam: PRESENT: full ROM Respiratory exam: PRESENT: clear to auscultation bacilio Cardiovascular exam: PRESENT: RRR, +S1, +S2 Vascular exam: PRESENT: normal capillary refill GI/Abdominal exam: PRESENT: normal bowel sounds, soft Rectal exam: PRESENT: deferred Neurological exam: PRESENT: alert Psychiatric exam: PRESENT: appropriate affect, normal mood Skin exam: PRESENT: dry, intact, warm Results Laboratory Results: 04/26/17 06:20 04/26/17 06:20 04/26/17 04/26/17 04/26/17 06:20 06:20 06:20 WBC 15.0 H RBC 3.27 L Hgb 10.7 L Hct 31.7 L MCV 97 MCH 32.7 MCHC 33.8 RDW 13.6 Plt Count 246 Seg Neutrophils % 79.6 H Lymphocytes % 9.8 L Monocytes % 10.4 Eosinophils % 0.0 Basophils % 0.2 Absolute Neutrophils 11.9 H Absolute Lymphocytes 1.5 Absolute Monocytes 1.6 H Absolute Eosinophils 0.0 Absolute Basophils 0.0 Carbonic Acid 1.12 HCO3/H2CO3 Ratio 21:1 ABG pH 7.43 ABG pCO2 37.2 ABG pO2 68.8 L ABG HCO3 24.3 ABG O2 Saturation 94.4 ABG Base Excess 0.3 FiO2 2L Sodium 141.8 Potassium 3.6 Chloride 105 Carbon Dioxide 26 Anion Gap 11 BUN 12 Creatinine 0.49 L Est GFR ( Amer) > 60 Est GFR (Non-Af Amer) > 60 Glucose 98 Calcium 8.8 Magnesium 1.8 Total Bilirubin 0.4 AST 35 ALT 43 Alkaline Phosphatase 75 Total Protein 5.0 L Albumin 2.9 L 04/19/17 04/19/17 04/19/17 22:17 22:17 22:17 Creatine Kinase 2825 H CK-MB (CK-2) 10.40 H Troponin I < 0.012 NT-Pro-B Natriuret Pep 583 04/20/17 04/20/17 04/20/17 04:10 04:10 09:00 Creatine Kinase 9776 H 9062 H CK-MB (CK-2) 27.20 H Troponin I < 0.012 NT-Pro-B Natriuret Pep 04/20/17 04/21/17 04/21/17 09:00 06:25 11:30 Creatine Kinase 1569 H CK-MB (CK-2) 23.20 H Troponin I < 0.012 NT-Pro-B Natriuret Pep 167 04/21/17 11:30 Creatine Kinase CK-MB (CK-2) 2.36 Troponin I NT-Pro-B Natriuret Pep Impressions: Chest X-Ray 04/26/17 06:00 IMPRESSION: Minimal residual right mid and lower lung airspace disease Assessment & Plan - Diagnosis (1) Acute respiratory failure with hypoxia and hypercapnia Is this a current diagnosis for this admission?: Yes (2) Pneumonia Qualifiers: Pneumonia type: due to unspecified organism Laterality: bilateral Lung location: unspecified part of lung Qualified Code(s): J18.9 - Pneumonia, unspecified organism Is this a current diagnosis for this admission?: Yes (3) Sepsis Qualifiers: Sepsis type: sepsis due to unspecified organism Qualified Code(s): A41.9 - Sepsis, unspecified organism Is this a current diagnosis for this admission?: Yes (4) Hypotension Qualifiers: Hypotension type: unspecified hypotension type Qualified Code(s): I95.9 - Hypotension, unspecified Is this a current diagnosis for this admission?: Yes
[2017-04-26] MEDS: LEVOFLOXACIN 750 MG/D5W RTU 750 MG/150 ML RTUPB IV SCH (21:26)
[2017-04-26] MEDS: ATORVASTATIN CALCIUM 40 MG TABLET PO SCH (21:27)
[2017-04-27] MEDS: VANCOMYCIN HCL 1,250 MG in DEXTROSE 5%-WATER 250 ML IV SCH (02:33)
[2017-04-27] MEDS: ALPRAZOLAM 0.25 MG TABLET PO SCH (05:10)
[2017-04-27] MEDS: GABAPENTIN 300 MG CAPSULE PO SCH (05:10)
[2017-04-27 06:09] LABS: HEMATOCRIT 32.7 % (36.0-47.0); HEMOGLOBIN 10.9 g/dL (12.0-15.5); MEAN CORPUSCULAR HEMOGLOBIN 32.5 pg (27.0-33.4); MEAN CORPUSCULAR HGB CONC 33.5 g/dL (32.0-36.0); MEAN CORPUSCULAR VOLUME 97 fl (80-97); PLATELET COUNT 273 10^3/uL (150-450); RED BLOOD COUNT 3.36 10^6/uL (3.72-5.28); RED CELL DISTRIBUTION WIDTH 13.6 % (11.5-14.0); WHITE BLOOD COUNT 11.3 10^3/uL (4.0-10.5)
[2017-04-27 06:22] LABS: ANION GAP 6 (5-19); BLOOD UREA NITROGEN 12 mg/dL (7-20); CALCIUM 8.2 mg/dL (8.4-10.2); CARBON DIOXIDE 28 mmol/L (22-30); CHLORIDE 106 mmol/L (98-107); GLUCOSE 82 mg/dL (75-110); POTASSIUM 3.4 mmol/L (3.6-5.0); SODIUM 140.1 mmol/L (137-145)
[2017-04-27 06:31] LABS: ARTERIAL BLOOD BASE EXCESS -1.6 mmol/L; ARTERIAL BLOOD FIO2 32%; ARTERIAL BLOOD H2CO3 1.19 mmol/L (1.05-1.35); ARTERIAL BLOOD HCO3 23.3 mmol/L (20-26); ARTERIAL BLOOD O2 SATURATION 95.6 % (94-98); ARTERIAL BLOOD PCO2 39.7 mmHg (35-45); ARTERIAL BLOOD PH 7.39 (7.35-7.45); ARTERIAL BLOOD PO2 79.3 mmHg (80-100); ARTERIAL BLOOD TOTAL CO2 24.5 mmol/L (21-25)
[2017-04-27 07:38] LABS: ABSOLUTE LYMPHOCYTES# (MANUAL) 3.2 10^3/uL (0.5-4.7); ABSOLUTE MONOCYTES # (MANUAL) 0.7 10^3/uL (0.1-1.4); ABSOLUTE NEUTROPHILS# (MANUAL) 7.5 10^3/uL (1.7-8.2); BAND NEUTROPHILS % (MANUAL) 1 % (3-5); BASOPHILS % (MANUAL) 0 % (0-2); EOSINOPHILS % (MANUAL) 0 % (0-6); LYMPHOCYTES % (MANUAL) 28 % (13-45); METAMYELOCYTES % (MANUAL) 1 % (0); MONOCYTES % (MANUAL) 6 % (3-13); PLATELET COMMENT ADEQUATE; POIKILOCYTOSIS SLIGHT; POLYCHROMASIA SLIGHT; SEGMENTED NEUTROPHILS % (MAN) 64 % (42-78); TOTAL CELLS COUNTED 100; TOXIC GRANULATION SLIGHT
[2017-04-27 07:39] LABS: OVALOCYTES SLIGHT
[2017-04-27 07:57] VITALS: BP 129/65
--- NOTE | 2017-04-27 08:10 | RADIOLOGY REPORT (SQ) ---
EXAM DESCRIPTION: CHEST SINGLE VIEW COMPLETED DATE/TIME: 04/27/2017 7:36 am REASON FOR STUDY: pna COMPARISON: None. EXAM PARAMETERS: NUMBER OF VIEWS: One view. TECHNIQUE: Single frontal radiographic view of the chest acquired. RADIATION DOSE: NA LIMITATIONS: None. FINDINGS: LUNGS AND PLEURA: Again there is some minimal residual right mid and lower lung airspace d isease. Remaining lung gabriel are clear. No pneumothorax is seen. No pleural effusions are identif ied. MEDIASTINUM AND HILAR STRUCTURES: No masses. Contour normal. HEART AND VASCULAR STRUCTURES: Heart normal in size. Normal vasculature. BONES: No acute findings. HARDWARE: Central line is unchanged in position. OTHER: No other significant finding. IMPRESSION: Again there is some minimal residual right mid and lower lung that airspace disease. Re maining lung gabriel are clear. Other findings as noted above. TECHNICAL DOCUMENTATION: JOB ID: [id number] [employer]- All Rights Reserved Reading location - IP/workstation name: [email or web address]
--- NOTE | 2017-04-27 13:10 | PDOC PROGRESS REPORT ---
Subjective Progress Note for:: 04/27/17 Subjective:: Patient is adamant she will be discharged today Reason For Visit: ACUTE HYPERCAPNIC RESPIRATORY FAILURE,PNEUMONIA Physical Exam Vital Signs: Temp Pulse Resp BP Pulse Ox 98.0 F 70 16 129/65 H 95 04/27/17 07:48 04/27/17 07:48 04/27/17 07:48 04/27/17 07:48 04/27/17 07:48 Intake & Output 04/26/17 04/27/17 04/28/17 06:59 06:59 06:59 Intake Total 2860 1294 Output Total 4030 2225 Balance -1170 -931 Weight 102.1 kg 102.7 kg General appearance: PRESENT: no acute distress, disheveled, morbidly obese Head exam: PRESENT: atraumatic, normocephalic Eye exam: PRESENT: conjunctiva pale, EOMI. ABSENT: nystagmus, periorbital swelling, scleral icterus Mouth exam: PRESENT: dry mucosa, neck supple, tongue midline Neck exam: ABSENT: carotid bruit, JVD, lymphadenopathy, thyromegaly, tracheal deviation, tracheostomy Respiratory exam: PRESENT: decreased breath sounds, prolonged expiratory phas, rhonchi, symmetrical, unlabored, wheezes. ABSENT: rales, retraction, stridor, tachypnea Cardiovascular exam: PRESENT: RRR, +S1, +S2 Pulses: PRESENT: normal radial pulses GI/Abdominal exam: PRESENT: diminished bowel sounds, soft Extremities exam: ABSENT: calf tenderness, clubbing Musculoskeletal exam: ABSENT: deformity, dislocation Neurological exam: PRESENT: awake Skin exam: PRESENT: dry, warm Results Laboratory Results: 04/27/17 05:15 04/27/17 05:15 04/27/17 04/27/17 04/27/17 05:15 05:15 06:15 WBC 11.3 H RBC 3.36 L Hgb 10.9 L Hct 32.7 L MCV 97 MCH 32.5 MCHC 33.5 RDW 13.6 Plt Count 273 Seg Neutrophils % Not Reportable Lymphocytes % Not Reportable Monocytes % Not Reportable Eosinophils % Not Reportable Basophils % Not Reportable Absolute Neutrophils Not Reportable Absolute Lymphocytes Not Reportable Absolute Monocytes Not Reportable Absolute Eosinophils Not Reportable Absolute Basophils Not Reportable Carbonic Acid 1.19 HCO3/H2CO3 Ratio 19:1 ABG pH 7.39 ABG pCO2 39.7 ABG pO2 79.3 L ABG HCO3 23.3 ABG O2 Saturation 95.6 ABG Base Excess -1.6 FiO2 32% Sodium 140.1 Potassium 3.4 L Chloride 106 Carbon Dioxide 28 Anion Gap 6 BUN 12 Creatinine 0.50 L Est GFR ( Amer) > 60 Est GFR (Non-Af Amer) > 60 Glucose 82 Calcium 8.2 L 04/19/17 04/19/17 04/19/17 22:17 22:17 22:17 Creatine Kinase 2825 H CK-MB (CK-2) 10.40 H Troponin I < 0.012 NT-Pro-B Natriuret Pep 583 04/20/17 04/20/17 04/20/17 04:10 04:10 09:00 Creatine Kinase 9776 H 9062 H CK-MB (CK-2) 27.20 H Troponin I < 0.012 NT-Pro-B Natriuret Pep 04/20/17 04/21/17 04/21/17 09:00 06:25 11:30 Creatine Kinase 1569 H CK-MB (CK-2) 23.20 H Troponin I < 0.012 NT-Pro-B Natriuret Pep 167 04/21/17 11:30 Creatine Kinase CK-MB (CK-2) 2.36 Troponin I NT-Pro-B Natriuret Pep Impressions: Chest X-Ray 04/27/17 06:00 IMPRESSION: Again there is some minimal residual right mid and lower lung that airspace disease. Remaining lung gabriel are clear. Other findings as noted above. Assessment & Plan - Diagnosis (1) Pneumonia Qualifiers: Pneumonia type: due to unspecified organism Laterality: bilateral Lung location: unspecified part of lung Qualified Code(s): J18.9 - Pneumonia, unspecified organism Is this a current diagnosis for this admission?: Yes Plan: Improving (2) Septic shock Is this a current diagnosis for this admission?: No Plan: Resolved (3) Acute respiratory failure with hypoxia and hypercapnia Is this a current diagnosis for this admission?: Yes Plan: stable
--- NOTE | 2017-04-27 16:59 | PDOC DISCHARGE SUMMARY ---
General - Admit/Disc Date/PCP Admission Date/Primary Care Provider: 04/19/17 21:26 KAITLYNN POSEY MD Discharge Date: 04/27/17 - Discharge Diagnosis (1) Acute respiratory failure with hypoxia and hypercapnia Is this a current diagnosis for this admission?: Yes (2) Pneumonia Is this a current diagnosis for this admission?: Yes (3) Sepsis Is this a current diagnosis for this admission?: Yes (4) Hypotension Is this a current diagnosis for this admission?: Yes - Additional Information Resuscitation Status: Full Code Home Medications: Alprazolam [Xanax 0.25 mg Tablet] 0.25 mg PO Q8 04/19/17 Amiodarone HCl [Cordarone 200 mg Tablet] 200 mg PO Q12 04/19/17 Apixaban [Eliquis] 5 mg PO Q12 04/19/17 Atorvastatin Calcium [Lipitor 40 mg Tablet] 40 mg PO QHS 04/19/17 Duloxetine HCl [Cymbalta] 60 mg PO Q12 04/19/17 Gabapentin [Neurontin] 600 mg PO Q8 04/19/17 Levocetirizine Dihydrochloride [Xyzal] 5 mg PO DAILY 04/19/17 Metoprolol Succinate [Toprol Xl 50 mg Tab.sr] 50 mg PO DAILY 04/19/17 Omeprazole 40 mg PO ACBRKFST 04/19/17 Oxycodone HCl [Oxycodone HCl 10 MG Tablet] 10 mg PO DAILYP PRN 04/19/17 Sacubitril/Valsartan [Entresto 49 mg-51 mg Tablet] 1 tab PO Q12 04/19/17 Spironolactone [Aldactone 25 mg Tablet] 25 mg PO DAILY 04/19/17 History of Present Illness History of Present Illness: Patient 61-year-old female, She was brought to the emergency room for evaluation of altered mental status, when she arrived in the emergency room she was found to be hypoxemic on the basis of the oxygen saturation, in the low 70s , there was a concern that she may have drug overdose. She was given Narcan there was initial response to Narcan, attempt was made emergency room to support her breathing with noninvasive positive pressure ventilation BiPAP but patient became more somnolent requiring invasive tracheal intubation now presently on mechanical ventilation. The blood work revealed leukocytosis with bandemia she has a combination of acute respiratory acidosis with hypoxemia to x -ray suggests pneumonic process. She was also hypotensive requiring vasopressors. No history could be obtained from this patient she was already endotracheally intubated in the emergency room.The last time she was admitted in this hospital was December 17, 2016 when she had acute systolic heart failure associated with paroxysmal atrial fibrillation, at the time she was supposed to follow outpatient with cardiology for cardiac catheterization to rule out underlying coronary artery disease. On that admission she also had episode of benzodiazepine withdrawal syndrome. She is a chronic pain patient, she follows with pain management, on chronic narcotic usage Hospital Course Hospital Course: She was admitted for the management of acute hypercapnic respiratory failure associated with pneumonia sepsis and hypotension. She was treated with IV antibiotic and intravenous vasopressor with norepinephrine. She required mechanical ventilation, she was in intensive care unit. She was seen by pulmonary, she has a history of chronic pain requiring opioid therapy she also uses benzodiazepine. I discussed with family regarding the use of opioid therapy in this patient, this is a second presentation with acute hypercapnic auditory failure requiring mechanical ventilation. She was successfully weaned off mechanical ventilation and transferred to the medical floor but she left again medical advice before care was complete Physical Exam Vital Signs: Temp Pulse Resp BP Pulse Ox 98.0 F 70 16 129/65 H 95 04/27/17 07:48 04/27/17 07:48 04/27/17 07:48 04/27/17 07:48 04/27/17 07:48 Intake & Output 04/26/17 04/27/17 04/28/17 06:59 06:59 06:59 Intake Total 2860 1294 Output Total 4030 2225 Balance -1170 -931 Weight 102.1 kg 102.7 kg General appearance: PRESENT: no acute distress, well-developed, well-nourished Head exam: PRESENT: atraumatic, normocephalic Ear exam: PRESENT: normal external ear exam Mouth exam: PRESENT: moist, tongue midline Neck exam: PRESENT: full ROM Respiratory exam: PRESENT: clear to auscultation bacilio Cardiovascular exam: PRESENT: RRR, systolic murmur Vascular exam: PRESENT: normal capillary refill GI/Abdominal exam: PRESENT: normal bowel sounds, soft Rectal exam: PRESENT: deferred Neurological exam: PRESENT: alert, CN II-XII grossly intact Psychiatric exam: PRESENT: appropriate affect, normal mood Skin exam: PRESENT: dry, intact, warm Results Laboratory Results: 04/27/17 05:15 04/27/17 05:15 04/27/17 04/27/17 04/27/17 05:15 05:15 06:15 WBC 11.3 H RBC 3.36 L Hgb 10.9 L Hct 32.7 L MCV 97 MCH 32.5 MCHC 33.5 RDW 13.6 Plt Count 273 Seg Neutrophils % Not Reportable Lymphocytes % Not Reportable Monocytes % Not Reportable Eosinophils % Not Reportable Basophils % Not Reportable Absolute Neutrophils Not Reportable Absolute Lymphocytes Not Reportable Absolute Monocytes Not Reportable Absolute Eosinophils Not Reportable Absolute Basophils Not Reportable Carbonic Acid 1.19 HCO3/H2CO3 Ratio 19:1 ABG pH 7.39 ABG pCO2 39.7 ABG pO2 79.3 L ABG HCO3 23.3 ABG O2 Saturation 95.6 ABG Base Excess -1.6 FiO2 32% Sodium 140.1 Potassium 3.4 L Chloride 106 Carbon Dioxide 28 Anion Gap 6 BUN 12 Creatinine 0.50 L Est GFR ( Amer) > 60 Est GFR (Non-Af Amer) > 60 Glucose 82 Calcium 8.2 L 04/19/17 04/19/17 04/19/17 22:17 22:17 22:17 Creatine Kinase 2825 H CK-MB (CK-2) 10.40 H Troponin I < 0.012 NT-Pro-B Natriuret Pep 583 04/20/17 04/20/17 04/20/17 04:10 04:10 09:00 Creatine Kinase 9776 H 9062 H CK-MB (CK-2) 27.20 H Troponin I < 0.012 NT-Pro-B Natriuret Pep 04/20/17 04/21/17 04/21/17 09:00 06:25 11:30 Creatine Kinase 1569 H CK-MB (CK-2) 23.20 H Troponin I < 0.012 NT-Pro-B Natriuret Pep 167 04/21/17 11:30 Creatine Kinase CK-MB (CK-2) 2.36 Troponin I NT-Pro-B Natriuret Pep Impressions: Chest X-Ray 04/27/17 06:00 IMPRESSION: Again there is some minimal residual right mid and lower lung that airspace disease. Remaining lung gabriel are clear. Other findings as noted above. Qualifiers - * PATEINT BEING DISCHARGED WITH ANY OF THE FOLLOWING DIAGNOSIS?: No Plan Discharge Plan: Patient left AMA
== END 2017-04-27 12:32 | disposition left against medical advice (07) | DRG 870 ==
LOC: ER 18:32 → EH 21:26 → ICU 04-20 03:41 → 3S 04-27 03:22
PROVIDERS: ADMIT Internal Medicine; ATTEND Internal Medicine
PROC: 5A1955Z Respiratory Ventilation, Greater than 96 Consecutive Hours (ICD-10-PCS; principal; 2017-04-19)
PROC: 0BH17EZ Insertion of Endotracheal Airway into Trachea, Via Natural or Artificial Opening (ICD-10-PCS; 2017-04-19)
PROC: 02HV33Z Insertion of Infusion Device into Superior Vena Cava, Percutaneous Approach (ICD-10-PCS; 2017-04-19)
DX: A41.9 Sepsis, unspecified organism (principal); J96.01 Acute respiratory failure with hypoxia; J18.1 Lobar pneumonia, unspecified organism; J96.02 Acute respiratory failure with hypercapnia; R65.21 Severe sepsis with septic shock; E87.2 Acidosis; M62.82 Rhabdomyolysis; I42.9 Cardiomyopathy, unspecified; I48.0 Paroxysmal atrial fibrillation; J44.9 Chronic obstructive pulmonary disease, unspecified; F13.10 Sedative, hypnotic or anxiolytic abuse, uncomplicated; I10 Essential (primary) hypertension; K21.9 Gastro-esophageal reflux disease without esophagitis; M54.89 Other dorsalgia; E11.9 Type 2 diabetes mellitus without complications; F17.210 Nicotine dependence, cigarettes, uncomplicated; E66.01 Morbid (severe) obesity due to excess calories; Z68.37 Body mass index [BMI] 37.0-37.9, adult; Z79.01 Long term (current) use of anticoagulants; Z79.891 Long term (current) use of opiate analgesic; Z79.899 Other long term (current) drug therapy
CPT/HCPCS: 36415; 71045; 80048; 80053; 80061; 80076; 80202; 80307; 81001; 82140; 82150; 82271; 82550; 82553; 82803; 82962; 83036; 83605; 83690; 83735; 83880; 84100; 84439; 84443; 84484; 85025; 85027; 85610; 85730; 87040; 87070; 87205; 93005; 93010; 94002; 94003; 94660; 96360; 99291; C1751; J0171; J0456; J0696; J1100; J1335; J1650; J1956; J2250; J2704; J3010; J3370; J3490; J7030; J7060; S0164

== ENCOUNTER → 2017-06-14 | Outpatient (CLI) | payer MEDICARE ==
--- NOTE | 2017-06-14 19:30 | XCELERA REPORT ---
[address] [address] Lower Extremity Arterial Evaluation Name: JAX PARIS Age: 62 yrs Gender: Female : 1955 Patient Status: Outpatient Patient Location: Study Date: 06/14/2017 01:21 PM Procedure: A color flow and duplex scan of the lower extremity arteries was performed bilaterally with velocity and waveform anaylsis. Reason For Study: PVD Ordering Physician: KAITLYNN POSEY Performed By: Dorene Hinton Measurements and Calculations Right Left FISH BUTCHER PSV 158.0 115.6 cm/sec Prox PFA PSV -156.3 -90.4 cm/sec Prox SFA PSV -72.7 -106.9 cm/sec Mid SFA PSV -92.8 -109.4 cm/sec Dist SFA PSV -108.0 -96.8 cm/sec Prox Pop A PSV 65.0 81.7 cm/sec Dist MATA PSV 98.7 63.5 cm/sec Dist MONEY COUNTER PSV -87.7 -107.5 cm/sec Robin Pedis PSV -121.8 45.5 cm/sec Right Side Arterial Evaluation Normal velocity and triphasic waveforms noted from the Common Femoral artery to the Femoral. Biphasic from the Popliteal to the infrageniculate vessels. 0-19% stenosis at the Popliteal artery. Ankle Brachial index is 1.3. Left Side Arterial Evaluation Normal velocity and triphasic waveforms noted from the Common Femoral artery to the Popliteal. Biphasic in the infrageniculate vessels. 0-19% stenosis at the infrageniculate vessels. Ankle Brachial index is 1.3. Interpretation Summary Mild hemodynamically significant lesions in the bilateral lower extremities, on duplex imaging, at rest. : KAITLYNN POSEY > Hu Eugene
== END ==
LOC: SP 12:51
PROVIDERS: ATTEND Internal Medicine
DX: I73.9 Peripheral vascular disease, unspecified (principal)
CPT/HCPCS: 93925

== ENCOUNTER 2017-09-07 20:15 | Emergency (ER) | payer MEDICARE, OTHER ==
--- NOTE | 2017-09-07 20:42 | EKG REPORT ---
SEVERITY:- NORMAL ECG - SINUS RHYTHM : Confirmed by: Daria Dotson MD 07-Sep-2017 20:41:45
--- NOTE | 2017-09-07 22:11 | ER Document Report ---
ED Medical Screen (RME) - General Chief Complaint: Laceration Stated Complaint: FALL,HEAD LACERATION Time Seen by Provider: 09/07/17 22:09 Mode of Arrival: Ambulatory Information source: Patient Notes: 62-year-old female presented to ED for laceration to the forehead when she fell landing on her face and her hands and some 1845 tonight. She has bruises to bilateral hands and laceration to the forehead and she states she does not remember when her last tetanus shot was night. Is alert and oriented respirations regular and unlabored. She is able to ambulate with a steady gait. She states that she went to the urgent care and they told her since she needed stitches she needed to come to the emergency room. I have greeted and performed a rapid initial assessment of this patient. A comprehensive ED assessment and evaluation of the patient, analysis of test results and completion of medical decision making process will be conducted by an additional ED providers. TRAVEL OUTSIDE OF THE [place] IN LAST 30 DAYS: No - Related Data Allergies/Adverse Reactions: Sulfa (Sulfonamide Antibiotics) Allergy (Mild, Verified 04/19/17 19:22) Hives Past Medical History - Past Medical History Cardiac Medical History: Reports: Hx Atrial Fibrillation, Hx Hypertension Pulmonary Medical History: Reports: Hx COPD Endocrine Medical History: Reports: Hx Diabetes Mellitus Type 2 Renal/ Medical History: Denies: Hx Peritoneal Dialysis GI Medical History: Reports: Hx Gastroesophageal Reflux Disease, Hx Endoscopy Musculoskeltal Medical History: Reports Hx Arthritis, Reports Hx Gout Psychiatric Medical History: Reports: Hx Depression Past Surgical History: Reports: Hx Abdominal Surgery, Hx Section, Hx Cholecystectomy, Hx Gynecologic Surgery - bladder tact, Other - C-spine surgery - Immunizations Immunizations up to date: Yes Hx Diphtheria, Pertussis, Tetanus Vaccination: - unknown History of Influenza Vaccine for 11/2016 - 04/2017 Season: Unknown Physical Exam - Vital signs Vitals: Temp Pulse Resp BP Pulse Ox 98.3 F 79 18 183/84 H 79 L 09/07/17 20:15 09/07/17 20:15 09/07/17 20:15 09/07/17 20:15 09/07/17 20:15 Course - Vital Signs Vital signs: Temp Pulse Resp BP Pulse Ox 98.3 F 79 18 183/84 H 79 L 09/07/17 20:15 09/07/17 20:15 09/07/17 20:15 09/07/17 20:15 09/07/17 20:15 Doctor's Discharge - Discharge Referrals: KAITLYNN POSEY MD [Primary Care Provider] - Follow up as needed
--- NOTE | 2017-09-07 22:41 | RADIOLOGY REPORT (SQ) ---
EXAM DESCRIPTION: CT HEAD WITHOUT COMPLETED DATE/TIME: 09/07/2017 10:28 pm REASON FOR STUDY: fall was on Eliquis up to 3 weeks ago COMPARISON: 12/18/2016 TECHNIQUE: Axial images acquired through the brain without intravenous contrast. Images reviewed wi th bone, brain and subdural windows. Additional sagittal and coronal reconstructions were generated. Images stored on PACS. All CT scanners at this facility use dose modulation, iterative reconstruction, and/or weight based d osing when appropriate to reduce radiation dose to as low as reasonably achievable (ALARA). [facility]: Dose Right [facility]: CareDose [facility]: Dose Right [facility]: Teradose 4D [facility]: Smart [employer] RADIATION DOSE: CT Rad equipment meets quality standard of care and radiation dose reduction techniq ues were employed. CTDIvol: 53.2 mGy. DLP: 1124 mGy-cm. mGy. LIMITATIONS: None. FINDINGS: VENTRICLES: Normal size and contour. CEREBRUM: No masses. No hemorrhage. No midline shift. No evidence for acute infarction. Normal gra y/white matter differentiation. No areas of low density in the white matter. CEREBELLUM: No masses. No hemorrhage. No alteration of density. No evidence for acute infarction. EXTRAAXIAL SPACES: No fluid collections. No masses. ORBITS AND GLOBE: No intra- or extraconal masses. Normal contour of globe without masses. CALVARIUM: No fracture. PARANASAL SINUSES: No fluid or mucosal thickening. SOFT TISSUES: No mass or hematoma. OTHER: No other significant finding. IMPRESSION: NORMAL BRAIN CT WITHOUT CONTRAST. EVIDENCE OF ACUTE STROKE: NO. COMMENT: Quality ID # [id number]: Final reports with documentation of one or more dose reduction techniques (e.g., Automated exposure control, adjustment of the mA and/or kV according to patient size, use of iterative reconstruction technique) TECHNICAL DOCUMENTATION: JOB ID: [id number] [employer]- All Rights Reserved Reading location - IP/workstation name: [email or web address]
--- NOTE | 2017-09-07 22:44 | RADIOLOGY REPORT (SQ) ---
EXAM DESCRIPTION: HAND BILATERAL 3 VIEWS COMPLETED DATE/TIME: 09/07/2017 10:23 pm REASON FOR STUDY: fall pain bruises COMPARISON: None. EXAM PARAMETERS: NUMBER OF VIEWS: Three views. TECHNIQUE: AP, lateral and oblique radiographic images acquired of the right and left hand. LIMITATIONS: None. FINDINGS: MINERALIZATION: Normal. BONES: No acute fracture or dislocation. No worrisome bone lesions. JOINTS: No effusions. SOFT TISSUES: No soft tissue swelling. No foreign body. OTHER: No other significant finding. IMPRESSION: NEGATIVE STUDY OF THE RIGHT AND LEFT HANDS. NO RADIOGRAPHIC EVIDENCE OF ACUTE INJURY. TECHNICAL DOCUMENTATION: JOB ID: [id number] [employer]- All Rights Reserved Reading location - IP/workstation name: [email or web address]
--- NOTE | 2017-09-07 22:53 | ER Document Report ---
ED General - General Chief Complaint: Laceration Stated Complaint: FALL,HEAD LACERATION Time Seen by Provider: 09/07/17 22:09 Mode of Arrival: Ambulatory Notes: Patient is 62-year-old female who slipped on her deck and fell forward hitting her forehead on a plantar that was on the deck. She has a laceration across her forehead. She denies loss of consciousness. No neck pain. No back pain that is new since injury. She did have some pain in her hands from put her hands out. X-rays were ordered in triage and is are negative. CT scan was ordered in triage and this was also negative. Patient is not currently on any tenderness. She is unsure when her last tetanus shot was. No other complaints at this time. TRAVEL OUTSIDE OF THE [place] IN LAST 30 DAYS: No - Related Data Allergies/Adverse Reactions: Sulfa (Sulfonamide Antibiotics) Allergy (Mild, Verified 04/19/17 19:22) Hives Past Medical History - General Information source: Patient - Social History Smoking Status: Never Smoker Chew tobacco use (# tins/day): No Frequency of alcohol use: None Drug Abuse: None Family History: Hypertension Patient has suicidal ideation: No Patient has homicidal ideation: No - Past Medical History Cardiac Medical History: Reports: Hx Atrial Fibrillation, Hx Hypertension Pulmonary Medical History: Reports: Hx COPD Endocrine Medical History: Reports: Hx Diabetes Mellitus Type 2 Renal/ Medical History: Denies: Hx Peritoneal Dialysis GI Medical History: Reports: Hx Gastroesophageal Reflux Disease, Hx Endoscopy Musculoskeletal Medical History: Reports Hx Arthritis, Reports Hx Gout Psychiatric Medical History: Reports: Hx Depression Past Surgical History: Reports: Hx Abdominal Surgery, Hx Section, Hx Cholecystectomy, Hx Gynecologic Surgery - bladder tact, Other - C-spine surgery - Immunizations Immunizations up to date: Yes Hx Diphtheria, Pertussis, Tetanus Vaccination: - unknown Hx Pneumococcal Vaccination: 11/21/10 Review of Systems - Review of Systems Notes: My Normal Review Basic REVIEW OF SYSTEMS: CONSTITUTIONAL : Denies fever, chills, or sweats. Denies recent illness. EENT: Laceration of her forehead. CARDIOVASCULAR: Denies chest pain. RESPIRATORY: Denies cough, cold, or chest congestion. Denies shortness of breath, difficulty breathing, or wheezing. GASTROINTESTINAL: Denies abdominal pain. Denies nausea, vomiting, or diarrhea. Denies constipation. Last BM: MUSCULOSKELETAL: Denies neck or back pain or joint pain or swelling. Hand pain. SKIN: Denies rash or skin lesions. HEMATOLOGIC : Denies easy bruising or bleeding. NEUROLOGICAL: Denies altered mental status or loss of consciousness. Denies headache. Denies weakness or paralysis or loss of use of either side. Denies problems with gait or speech. Denies sensory or motor loss. ALL OTHER SYSTEMS REVIEWED AND NEGATIVE. Physical Exam - Vital signs Vitals: Temp Pulse Resp BP Pulse Ox 98.3 F 79 18 183/84 H 79 L 09/07/17 20:15 09/07/17 20:15 09/07/17 20:15 09/07/17 20:15 09/07/17 20:15 - Notes Notes: General Appearance: Well nourished, alert, cooperative, no acute distress, no obvious discomfort. Appearing. Vitals: reviewed, See vital signs table. Head: Approximately 4 cm laceration over the forehead. Small amount of venous oozing. Eyes: PERRL, EOMI, Conjuctiva clear Mouth: No decreasd moisture Throat: No tonsillar inflammation, No airway obstruction, No lymphadenopathy Neck: Supple, no neck tenderness, No step-offs or deformities. Lungs: No wheezing, No rales, No rhonci, No accessory muscle use, good air exchange bilaterally. Heart: Normal rate, Regular rythm, No murmur, no rub Abdomen: Normal BS, soft, No rigidity, No abdominal tenderness, No guarding, no rebound, no abdominal masses, no organomegaly Extremities: strength 5/5 in all extremities, good pulses in all extremities, no swelling or tenderness in the extremities from on pain to palpation over the hands. No significant swelling to the hands. Patient does have some bruising over the hyperthenar eminence of the left palm however she has no pain with forceful range of motion of the thumb. No pain with movement of the fingers on the right hand either., no edema. Skin: warm, dry, appropriate color, no rash Neuro: speech clear, oriented x 3, normal affect, responds appropriately to questions. Renal nerves II through XII are intact. Distal sensation intact. Patient moves all extremities without difficulty. Course - Re-evaluation Re-evalutation: 09/08/17 05:48 Laceration was sutured closed. Wound was thoroughly irrigated and cleaned prior to it being sutured. X-rays and CT scan was negative. Patient did have some bruising over the hyperthenar eminence of the hand. I do not suspect the gamekeeper's thumb injury as the patient has no pain with full range of motion of her thumb and no pain when I place a thumb in hyperextension. She is to return to the ER immediately for severe headache, vomiting, redness or swelling over the cut, or she has further concerns. Patient agrees with plan and was discharged home. Patient did say she had a little bit of anxiety and tenseness and therefore required a small dose of Valium. I did give her 2 mg of Valium before she left. - Vital Signs Vital signs: Temp Pulse Resp BP Pulse Ox 98.3 F 79 18 154/76 H 95 09/07/17 20:15 09/07/17 20:15 09/07/17 20:15 09/07/17 23:01 09/08/17 00:00 - EKG Interpretation by Me Additional EKG results interpreted by me: 09/07/17 22:52 EKG is reviewed and interpreted by me. EKG shows sinus rhythm with rate of [address] segment elevation or depression. No ischemic T-wave inversions. AL interval, QRS duration, QTc intervals are within normal range. No old EKG available for comparison. Procedures - Laceration/Wound Repair forehead Wound length (cm): 4 Wound's Depth, Shape: Linear Laceration pre-procedure: Shur-Clens applied Anesthetic type: 1% Lidocaine Volume Anesthetic (mLs): 3 Wound explored: Clean Irrigated w/ Saline (mLs): 40 Wound Repaired With: Sutures, Steri-strips Suture Size/Type: 5:0, Vicryl Number of Sutures: 1 - subcutaneous running Complications: No Notes: 09/08/17 05:50 I did a single subcutaneous running suture to bring the wound together. I then reinforced it with Steri-Strips. Discharge - Discharge Clinical Impression: Laceration Condition: Good Disposition: HOME, SELF-CARE Additional Instructions: PLease gently wash your forehead with soap and water without scrubbing. Pat the area dry . Please return to the ER imemdaitely if you have any redness or swelling to the wound or have concerns in infection. Referrals: KAITLYNN POSEY MD [Primary Care Provider] - 09/12/17
[2017-09-07] MEDS ORDERED: DIPH/PERTUSS(ACELL)/TETANUS VAC/PF 0.5 ML SYR (>=10YO) IM ONE (23:11)
[2017-09-07] MEDS ORDERED: LIDOCAINE 1% INJ-PF (10 MG/ML) 30 ML SDV INJ ONE (23:11)
[2017-09-07] MEDS ORDERED: IPRATROPIUM/ALBUTEROL 0.5-2.5 MG/3 ML AMPUL NEB ONE (23:32)
[2017-09-08] MEDS ORDERED: DIAZEPAM 2 MG TABLET PO ONE (00:48)
[2017-09-08 00:50] VITALS: BP 154/76
== END 2017-09-08 00:56 | disposition home or self-care (01) ==
LOC: ER 20:15
PROC: 0HQ1XZZ Repair Face Skin, External Approach (ICD-10-PCS; principal; 2017-09-07)
DX: S01.81XA Laceration without foreign body of other part of head, initial encounter (principal); W01.0XXA Fall on same level from slipping, tripping and stumbling without subsequent striking against object, initial encounter; Y93.89 Activity, other specified; Y92.89 Other specified places as the place of occurrence of the external cause; Y99.9 Unspecified external cause status; I48.91 Unspecified atrial fibrillation; I10 Essential (primary) hypertension; J44.9 Chronic obstructive pulmonary disease, unspecified; E11.9 Type 2 diabetes mellitus without complications; F32.9 Major depressive disorder, single episode, unspecified; Z90.49 Acquired absence of other specified parts of digestive tract; Z88.2 Allergy status to sulfonamides
CPT/HCPCS: 93005; 99284; 73130; 70450; 90715; 93010; 12013; A9270 ×2; J3490; J7620

== ENCOUNTER 2018-12-28 15:37 | Inpatient (IN) | payer MEDICARE, OTHER ==
--- NOTE | 2018-12-28 16:02 | ER Document Report ---
ED Medical Screen (RME) - General Chief Complaint: Allergic Reaction Stated Complaint: POSSIBLE LOW SODIUM LEVEL Time Seen by Provider: 12/28/18 16:02 Primary Care Provider: KAITLYNN POSEY MD [Primary Care Provider] - Follow up as needed Mode of Arrival: Ambulatory Information source: Patient Notes: 63-year-old female presented to ED for complaint of low sodium. She states that Dr. Posey said she needed to come right over that her sodium was very low and she needs to be seen right away. She states she needed to be on IVs right away. She states she is was at [facility] laid let her sign out to follow-up with her primary doctor and she was to come right to the hospital here. Patient is alert and oriented answering questions. I have greeted and performed a rapid initial assessment of this patient. A comprehensive ED assessment and evaluation of the patient, analysis of test results and completion of medical decision making process will be conducted by an additional ED providers. TRAVEL OUTSIDE OF THE [place] IN LAST 30 DAYS: No - Related Data Allergies/Adverse Reactions: Sulfa (Sulfonamide Antibiotics) Allergy (Mild, Verified 04/19/17 19:22) Hives Past Medical History - Past Medical History Cardiac Medical History: Reports: Hx Atrial Fibrillation, Hx Hypertension Pulmonary Medical History: Reports: Hx COPD Endocrine Medical History: Reports: Hx Diabetes Mellitus Type 2 Renal/ Medical History: Denies: Hx Peritoneal Dialysis GI Medical History: Reports: Hx Gastroesophageal Reflux Disease, Hx Endoscopy Musculoskeltal Medical History: Reports Hx Arthritis, Reports Hx Gout Psychiatric Medical History: Reports: Hx Depression Past Surgical History: Reports: Hx Abdominal Surgery, Hx Section, Hx Cholecystectomy, Hx Gynecologic Surgery - bladder tact, Other - C-spine surgery - Immunizations Immunizations up to date: Yes Hx Diphtheria, Pertussis, Tetanus Vaccination: - unknown Physical Exam - Vital signs Vitals: Temp Pulse Resp BP Pulse Ox 98.5 F 81 16 146/76 H 95 12/28/18 15:56 12/28/18 15:56 12/28/18 15:56 12/28/18 15:56 12/28/18 15:56 Course - Vital Signs Vital signs: Temp Pulse Resp BP Pulse Ox 98.5 F 81 16 146/76 H 95 12/28/18 15:56 12/28/18 15:56 12/28/18 15:56 12/28/18 15:56 12/28/18 15:56 Doctor's Discharge - Discharge Referrals: KAITLYNN POSEY MD [Primary Care Provider] - Follow up as needed
--- NOTE | 2018-12-28 16:59 | ER Document Report ---
ED General - General Chief Complaint: abnormal labs Stated Complaint: POSSIBLE LOW SODIUM LEVEL Time Seen by Provider: 12/28/18 16:02 Primary Care Provider: KAITLYNN POSEY MD [Primary Care Provider] - Follow up as needed Mode of Arrival: Ambulatory TRAVEL OUTSIDE OF THE [place] IN LAST 30 DAYS: No - HPI Notes: The patient is an 63-year-old female with multiple chronic problems tending now for evaluation of possible hyponatremia. The patient was admitted to the inpatient internal medicine service at [facility] 3 days ago. She reports that she was being treated for hyponatremia. She apparently signed herself out AMA at that facility earlier today and is come here requesting that we contact her primary care physician to arrange further treatment. She says she was told that the sodium level was "dangerously low" and that she should come to the local emergency department for immediate evaluation and treatment. Aside from her ongoing symptoms of chronic low back pain she is otherwise relatively asymptomatic. Patient specifically denies fever, chills, dysuria, abdominal pain vomiting or diarrhea. She denies syncope, tremor, confusion or ataxia. Patient has a history of chronic pain syndrome, diabetes mellitus type 2, obesity and COPD with ongoing cigarette smoking. - Related Data Allergies/Adverse Reactions: Sulfa (Sulfonamide Antibiotics) Allergy (Mild, Verified 04/19/17 19:22) Hives Past Medical History - General Information source: Patient - Social History Smoking Status: Never Smoker Chew tobacco use (# tins/day): No Frequency of alcohol use: None Drug Abuse: None Family History: Hypertension Patient has suicidal ideation: No Patient has homicidal ideation: No - Past Medical History Cardiac Medical History: Reports: Hx Atrial Fibrillation, Hx Hypertension Pulmonary Medical History: Reports: Hx COPD Endocrine Medical History: Reports: Hx Diabetes Mellitus Type 2 Renal/ Medical History: Denies: Hx Peritoneal Dialysis GI Medical History: Reports: Hx Gastroesophageal Reflux Disease, Hx Endoscopy Musculoskeletal Medical History: Reports Hx Arthritis, Reports Hx Gout Psychiatric Medical History: Reports: Hx Depression Past Surgical History: Reports: Hx Abdominal Surgery, Hx Section, Hx Cholecystectomy, Hx Gynecologic Surgery - bladder tact, Other - C-spine surgery - Immunizations Immunizations up to date: Yes Hx Diphtheria, Pertussis, Tetanus Vaccination: - unknown Hx Pneumococcal Vaccination: 11/21/10 Review of Systems - Review of Systems Notes: Constitutional: Negative for fever. HENT: Negative for sore throat. Eyes: Negative for visual changes. Cardiovascular: Negative for chest pain. Respiratory: Negative for shortness of breath. Gastrointestinal: Negative for abdominal pain, vomiting or diarrhea. Genitourinary: Negative for dysuria. Musculoskeletal: Chronic low back pain. Skin: Negative for rash. Neurological: Negative for headaches, weakness or numbness. 10 point ROS negative except as marked above and in HPI. Physical Exam - Vital signs Vitals: Temp Pulse Resp BP Pulse Ox 98.5 F 81 16 146/76 H 95 12/28/18 15:56 12/28/18 15:56 12/28/18 15:56 12/28/18 15:56 12/28/18 15:56 Notes: GENERAL: Obese appearing in no acute distress. SKIN: Good turgor no rashes. HEAD: Normocephalic atraumatic. EYES: PERRLA. Conjunctivae and sclerae clear. EARS: CANALS AND TMS CLEAR. NOSE: CLEAR. MOUTH: Moist mucosa. Good dentition. No stridor or edema. No drooling. NECK: Supple. No masses or thyromegaly. No adenopathy. Carotids 2+ without bruits. No JVD. BACK: Symmetrical without tenderness. CHEST: Respirations unlabored. Breath sounds clear and symmetrical. HEART: Regular rhythm. No murmur gallop or rub. ABDOMEN: Obese. Soft nontender without masses, organomegaly or rebound. Bowel sounds normally active. No bruits. GENITALIA: Deferred. EXTREMITIES: No edema. No calf tenderness. Cap refill less than 1.5 seconds. Dorsalis pedis and posterior tibial pulses 3+ and symmetrical. NEUROLOGICAL: GCS 15. Alert and oriented x3. Normal gait. Fluent speech. Cranial nerves II through XII intact. Sensorimotor and cerebellar normal. Normal tone. PSYCHIATRIC: Flat affect. Course - Re-evaluation Re-evalutation: 12/28/18 18:[address] Griffith 1805 hrs. Patient is hyponatremic with mild intermittent disorientation. Patient will be admitted to telemetry under observation status. - Vital Signs Vital signs: Temp Pulse Resp BP Pulse Ox 98.5 F 81 16 146/76 H 95 12/28/18 15:56 12/28/18 15:56 12/28/18 15:56 12/28/18 15:56 12/28/18 15:56 - Laboratory Result Diagrams: 12/28/18 16:53 12/28/18 16:53 Laboratory results interpreted by me: 12/28/18 12/28/18 16:53 17:17 Sodium 129.1 L Chloride 94 L POC Glucose 118 H Creatine Kinase 370 H Discharge - Discharge Clinical Impression: Hyponatremia, Encephalopathy, Chronic pain syndrome Altered mental status Qualifiers: Altered mental status type: unspecified Qualified Code(s): R41.82 - Altered mental status, unspecified Condition: Stable Disposition: ADMITTED OBSERVATION Admitting Provider: [facility] Unit Admitted: Telemetry Referrals: KAITLYNN POSEY MD [Primary Care Provider] - Follow up as needed
[2018-12-28 17:15] LABS: ABSOLUTE BASOPHILS # (AUTO) 0.1 10^3/uL (0.0-0.2); ABSOLUTE EOSINOPHILS # (AUTO) 0.2 10^3/uL (0.0-0.6); ABSOLUTE LYMPHOCYTES (AUTO) 2.6 10^3/uL (0.5-4.7); ABSOLUTE NEUT (AUTO) 4.4 10^3/uL (1.7-8.2); BASOPHILS % (AUTO) 0.7 % (0-2); EOSINOPHILS % (AUTO) 2.2 % (0-6); HEMATOCRIT 38.2 % (36.0-47.0); HEMOGLOBIN 13.4 g/dL (12.0-15.5); LYMPHOCYTES % (AUTO) 31.5 % (13-45); MEAN CORPUSCULAR HEMOGLOBIN 33.3 pg (27.0-33.4); MEAN CORPUSCULAR VOLUME 95 fl (80-97); MONOCYTES % (AUTO) 11.8 % (3-13); PLATELET COUNT 259 10^3/uL (150-450); RED BLOOD COUNT 4.01 10^6/uL (3.72-5.28); SEGMENTED NEUTROPHILS % (AUTO) 53.8 % (42-78); TOTAL CELLS COUNTED % (AUTO) 100 %; WHITE BLOOD COUNT 8.1 10^3/uL (4.0-10.5)
[2018-12-28 17:33] LABS: ALBUMIN 4.2 g/dL (3.5-5.0); ALKALINE PHOSPHATASE 69 U/L (38-126); ANION GAP 7 (5-19); ASPARTATE AMINO TRANSFERASE 26 U/L (14-36); BILIRUBIN,DIRECT 0.2 mg/dL (0.0-0.4); BILIRUBIN,TOTAL 0.4 mg/dL (0.2-1.3); BLOOD UREA NITROGEN 8 mg/dL (7-20); CALCIUM 9.3 mg/dL (8.4-10.2); CARBON DIOXIDE 28 mmol/L (22-30); CHLORIDE 94 mmol/L (98-107); CREATINE KINASE 370 U/L (30-135); GLUCOSE 109 mg/dL (75-110); POTASSIUM 4.5 mmol/L (3.6-5.0); TOTAL PROTEIN 6.9 g/dL (6.3-8.2)
[2018-12-28 17:45] LABS: CREATINE KINASE MB 3.11 ng/mL (<4.55)
[2018-12-28 17:46] LABS: TROPONIN I < 0.012 ng/mL
[2018-12-28] MEDS ORDERED: NORMAL SALINE 1000 ML 1,000 ML IV PRN (19:04)
[2018-12-28 20:49] LABS: APPEARANCE,URINE CLEAR; BILIRUBIN,URINE NEGATIVE (NEGATIVE); COLOR,URINE YELLOW; GLUCOSE, URINE NEGATIVE (NEGATIVE); KETONES,URINE NEGATIVE (NEGATIVE); PROTEIN,URINE NEGATIVE (NEGATIVE); URINE SPECIFIC GRAVITY 1.009; UROBILINOGEN,URINE NEGATIVE mg/dL (<2.0)
[2018-12-29] MEDS: LEVOTHYROXINE SODIUM 0.05 MG TABLET PO SCH (06:49)
[2018-12-29] MEDS: NORMAL SALINE 1000 ML 1,000 ML IV PRN (06:50)
--- NOTE | 2018-12-29 13:34 | PDOC H&P ---
History of Present Illness Admission Date/PCP: 12/29/18 06:35 KAITLYNN POSEY MD Patient complains of: Low serum sodium level History of Present Illness: JAX PARIS is a 63 year old female patient of Dr. Posey who signed out AMA from [facility] in [place] due to desire to be close to her family while on hospital admission. Daughter at bedside related that patient serum sodium have been low for quite sometime and she has been instructed to maintain fluid restriction and liberalize salt intake by Dr. Posey to improve her condition. Daughter reported that due to worsening affect with been more talkative took her to [facility] ED where she was diagnosed with hyponatremia due to serum sodium at 124mmol/L. She was at 127mmol/Talat 12/17/2018 as per presented lab result from Dr. Posey office. Daughter reported that patient developed her ongoing talkative state and frequent episodes of absence seizure when her sodium is low. She claimed that she was informed about SIADH as possible cause. Daughter denied any past history of bipolar but admitted to longstanding history of depression. Patient was oriented x 4 from her self demonstration during my be dside visit. She denied any chest pain, difficulty with breathing, fever,chills, nausea, vomiting, abdominal pain, diarrhea, or constipation. No dysuria, hematuria or flank pain. No headache or dizziness. Her morbidities are listed below. Her initial evaluation in the ED was significant for persistent hyponatremia. She was advised hospitalization for further evaluation and management. Past Medical History Cardiac Medical History: Reports: Atrial Fibrillation, Hypertension Pulmonary Medical History: Reports: Chronic Obstructive Pulmonary Disease (COPD) Endocrine Medical History: Reports: Diabetes Mellitus Type 2 GI Medical History: Reports: Gastroesophageal Reflux Disease Musculoskeltal Medical History: Reports: Arthritis, Gout Psychiatric Medical History: Reports: Depression Past Surgical History Past Surgical History: Reports: Section, Cholecystectomy, Other - C- spine surgery Social History Smoking Status: Current Every Day Smoker Electronic Cigarette use?: No Last Time Smoked: 12/28/18 Frequency of Alcohol Use: None Hx Recreational Drug Use: No Drugs: None Hx Prescription Drug Abuse: No - Advance Directive Resuscitation Status: Full Code Family History Family History: Hypertension Parental Family History Reviewed: Yes Children Family History Reviewed: Yes Sibling(s) Family History Reviewed.: Yes Medication/Allergy Home Medications: Alprazolam [Xanax 0.25 mg Tablet] 0.25 mg PO BID 12/28/18 Doxepin HCl [Silenor] 6 mg PO QHS 12/28/18 Duloxetine HCl [Cymbalta] 60 mg PO BID 12/28/18 Gabapentin [Neurontin] 600 mg PO 5XD 12/28/18 Levocetirizine Dihydrochloride [Xyzal] 5 mg PO DAILY 12/28/18 Levothyroxine Sodium 50 mcg PO Q6AM 12/28/18 Lisinopril/Hydrochlorothiazide [Zestoretic 20-25 mg Tablet] 1 tab PO QHS 12/28/18 Omeprazole 40 mg PO [id number] 12/28/18 Oxycodone HCl 15 mg PO Q6HP PRN 12/28/18 Allergies/Adverse Reactions: Sulfa (Sulfonamide Antibiotics) Allergy (Mild, Verified 04/19/17 19:22) Hives Review of Systems Constitutional: ABSENT: chills, fever(s), headache(s), weight gain, weight loss Eyes: ABSENT: visual disturbances Ears: ABSENT: hearing changes Nose, Mouth, and Throat: ABSENT: as per HPI, headache(s), mouth pain, sore throat, vertigo, other Cardiovascular: ABSENT: chest pain, dyspnea on exertion, edema, orthropnea, palpitations Respiratory: ABSENT: cough, hemoptysis Gastrointestinal: ABSENT: abdominal pain, constipation, diarrhea, hematemesis, hematochezia, nausea, vomiting Genitourinary: ABSENT: dysuria, hematuria Musculoskeletal: ABSENT: joint swelling Integumentary: ABSENT: rash, wounds Neurological: ABSENT: abnormal gait, abnormal speech, confusion, dizziness, focal weakness, syncope Psychiatric: PRESENT: depression Endocrine: ABSENT: cold intolerance, heat intolerance, polydipsia, polyuria Hematologic/Lymphatic: ABSENT: easy bleeding, easy bruising, lymphadenopathy Allergic/Immunologic: ABSENT: seasonal rhinorrhea Physical Exam Vital Signs: Temp Pulse Resp BP Pulse Ox 97.6 F 80 19 189/98 H 95 12/29/18 12:00 12/29/18 12:00 12/29/18 12:00 12/29/18 12:00 12/29/18 12:00 Intake & Output 12/28/18 12/29/18 12/30/18 06:59 06:59 05:59 Intake Total 1848 Balance 1848 Weight 99.8 kg General appearance: PRESENT: no acute distress, obese, well-developed, well- nourished Head exam: PRESENT: atraumatic, normocephalic Eye exam: PRESENT: conjunctiva pink, EOMI, PERRLA. ABSENT: scleral icterus Ear exam: PRESENT: normal external ear exam Mouth exam: PRESENT: moist Neck exam: PRESENT: full ROM. ABSENT: carotid bruit, JVD, lymphadenopathy, thyromegaly Respiratory exam: PRESENT: clear to auscultation bacilio Cardiovascular exam: PRESENT: RRR. ABSENT: diastolic murmur, rubs, systolic murmur Vascular exam: ABSENT: pallor GI/Abdominal exam: PRESENT: normal bowel sounds, soft. ABSENT: distended, guarding, mass, organolmegaly, rebound, tenderness Rectal exam: PRESENT: deferred Extremities exam: ABSENT: pedal edema Musculoskeletal exam: PRESENT: normal inspection Neurological exam: PRESENT: alert, awake, oriented to person, oriented to place, oriented to time, oriented to situation, CN II-XII grossly intact. ABSENT: motor sensory deficit Psychiatric exam: PRESENT: manic - very talkative, prosecutory delusion Skin exam: PRESENT: dry, warm Results Laboratory Results: 12/28/18 16:53 12/28/18 16:53 12/28/18 12/28/18 12/28/18 16:53 16:53 20:07 WBC 8.1 RBC 4.01 Hgb 13.4 Hct 38.2 MCV 95 MCH 33.3 MCHC 35.0 RDW 14.0 Plt Count 259 Seg Neutrophils % 53.8 Sodium 129.1 L Potassium 4.5 Chloride 94 L Carbon Dioxide 28 Anion Gap 7 BUN 8 Creatinine 0.77 Est GFR ( Amer) > 60 Glucose 109 Calcium 9.3 Total Bilirubin 0.4 AST 26 Alkaline Phosphatase 69 Total Protein 6.9 Albumin 4.2 Lipase 75.1 Urine Color YELLOW Urine Appearance CLEAR Urine pH 6.0 Ur Specific Bennet 1.009 Urine Protein NEGATIVE Urine Glucose (UA) NEGATIVE Urine Ketones NEGATIVE Urine Blood SMALL H Urine RBC (Auto) 2 12/28/18 12/28/18 16:53 16:53 Creatine Kinase 370 H CK-MB (CK-2) 3.11 Troponin I < 0.012 Assessment & Plan - Diagnosis (1) Hyponatremia Is this a current diagnosis for this admission?: Yes Plan: See admitting attending physician orders about details of care plan. (2) HTN (hypertension) Qualifiers: Hypertension type: essential hypertension Qualified Code(s): I10 - Essential (primary) hypertension Is this a current diagnosis for this admission?: Yes Plan: See admitting attending physician orders about details of care plan. (3) Hypothyroidism Qualifiers: Hypothyroidism type: unspecified Qualified Code(s): E03.9 - Hypothyroidism, unspecified Is this a current diagnosis for this admission?: Yes Plan: See admitting attending physician orders about details of care plan. (4) Absence seizure disorder Qualifiers: Intractability: not intractable Is this a current diagnosis for this admission?: Yes Plan: See admitting attending physician orders about details of care plan. (5) Depression Qualifiers: Depression Type: unspecified Qualified Code(s): F32.9 - Major depressive disorder, single episode, unspecified Is this a current diagnosis for this admission?: Yes Plan: See admitting attending physician orders about details of care plan. (6) GERD (gastroesophageal reflux disease) Qualifiers: Esophagitis presence: without esophagitis Qualified Code(s): K21.9 - Gastro-esophageal reflux disease without esophagitis Is this a current diagnosis for this admission?: Yes Plan: See admitting attending physician orders about details of care plan. (7) Chronic pain syndrome Is this a current diagnosis for this admission?: Yes Plan: See admitting attending physician orders about details of care plan. (8) Persistent insomnia Is this a current diagnosis for this admission?: Yes Plan: See admitting attending physician orders about details of care plan. (9) HLD (hyperlipidemia) Qualifiers: Hyperlipidemia type: unspecified Qualified Code(s): E78.5 - Hyperlipidemia, unspecified Is this a current diagnosis for this admission?: Yes Plan: See admitting attending physician orders about details of care plan. (10) Hyperuricemia Is this a current diagnosis for this admission?: Yes Plan: See admitting attending physician orders about details of care plan. - Time Time Spent: 50 to 70 Minutes Smoking Cessation Education: 3 to 10 minutes Anticipated discharge: Home Within: Other - Inpatient Certification Based on my medical assessment, after consideration of the patient's co morbidities, presenting symptoms, or acuity I expect that the services needed warrant INPATIENT care.: Yes I certify that my determination is in accordance with my understanding of Medicare's requirements for reasonable and necessary INPATIENT services [42 CFR 412.3e].: Yes Medical Necessity: Significant Comorbidiites Make Outpatient Treatment Too Risky, Need Close Monitoring Due to Risk of Patient Decompensation, Need For IV Fluids, Need For Continuous Telemetry Monitoring, Risk of Complication if Not Cared For in Hospital, Risk of Diagnosis Which Will Require Inpatient Eval/Care/Monitoring Post Hospital Care: D/C Division Supervisor Documentation - Plan Summary Plan Summary: See admitting attending physician orders about details of care plan.
[2018-12-29] MEDS: LISINOPRIL 10 MG TABLET PO SCH (13:54)
[2018-12-29] MEDS: GABAPENTIN 300 MG CAPSULE PO SCH ×2 (15:44→20:15)
[2018-12-29] MEDS: DULOXETINE HCL 30 MG CAPSULE.DR PO SCH ×2 (15:44→22:19)
[2018-12-29] MEDS: ALPRAZOLAM 0.25 MG TABLET PO SCH (17:13)
[2018-12-29] MEDS ORDERED: (PENDING PHARMACY ID) (Doxepin Hcl [Silenor] 6 MG) PO SCH (22:00)
[2018-12-30 05:39] LABS: ABSOLUTE MONOCYTES (AUTO) 0.9 10^3/uL (0.1-1.4); BASOPHILS % (AUTO) 0.4 % (0-2); EOSINOPHILS % (AUTO) 0.5 % (0-6); HEMATOCRIT 41.8 % (36.0-47.0); HEMOGLOBIN 14.2 g/dL (12.0-15.5); LYMPHOCYTES % (AUTO) 20.1 % (13-45); MEAN CORPUSCULAR HEMOGLOBIN 32.5 pg (27.0-33.4); MEAN CORPUSCULAR HGB CONC 33.9 g/dL (32.0-36.0); MEAN CORPUSCULAR VOLUME 96 fl (80-97); MONOCYTES % (AUTO) 8.8 % (3-13); PLATELET COUNT 259 10^3/uL (150-450); RED BLOOD COUNT 4.36 10^6/uL (3.72-5.28); RED CELL DISTRIBUTION WIDTH 14.3 % (11.5-14.0); SEGMENTED NEUTROPHILS % (AUTO) 70.2 % (42-78); TOTAL CELLS COUNTED % (AUTO) 100 %
[2018-12-30] MEDS: GABAPENTIN 300 MG CAPSULE PO SCH ×5 (06:26→18:07)
[2018-12-30] MEDS: LEVOTHYROXINE SODIUM 0.05 MG TABLET PO SCH (06:26)
[2018-12-30 09:02] LABS: ALBUMIN 4.4 g/dL (3.5-5.0); ALKALINE PHOSPHATASE 57 U/L (38-126); ANION GAP 10 (5-19); ASPARTATE AMINO TRANSFERASE 24 U/L (14-36); BILIRUBIN,DIRECT 0.2 mg/dL (0.0-0.4); BILIRUBIN,TOTAL 0.4 mg/dL (0.2-1.3); BLOOD UREA NITROGEN 8 mg/dL (7-20); CALCIUM 9.3 mg/dL (8.4-10.2); CARBON DIOXIDE 25 mmol/L (22-30); CHLORIDE 103 mmol/L (98-107); GLUCOSE 119 mg/dL (75-110); POTASSIUM 3.9 mmol/L (3.6-5.0); TOTAL PROTEIN 7.6 g/dL (6.3-8.2)
[2018-12-30] MEDS: CETIRIZINE 5 MG TABLET PO SCH (09:26)
[2018-12-30] MEDS: ALPRAZOLAM 0.25 MG TABLET PO SCH ×2 (09:26→17:19)
[2018-12-30] MEDS: DULOXETINE HCL 30 MG CAPSULE.DR PO SCH ×2 (09:26→22:03)
[2018-12-30] MEDS: LISINOPRIL 10 MG TABLET PO SCH (09:26)
--- NOTE | 2018-12-30 13:52 | PDOC PROGRESS REPORT ---
Subjective Progress Note for:: 12/30/18 Subjective:: Nursing staff and daughter at bedside denied any new issues. Patient eventually fall asleep this morning. No reported difficulty with breathing or observed chest pain. No nausea, vomiting, or abdominal pain Reason For Visit: HYPONATREMIA Physical Exam Vital Signs: Temp Pulse Resp BP Pulse Ox 97.9 F 103 H 17 148/77 H 96 12/30/18 09:16 12/30/18 09:16 12/30/18 09:16 12/30/18 09:16 12/30/18 09:16 Intake & Output 12/29/18 12/30/18 12/31/18 07:59 06:59 06:59 Intake Total 240 Balance 240 Weight General appearance: PRESENT: obese Head exam: PRESENT: atraumatic, normocephalic Eye exam: PRESENT: conjunctiva pink. ABSENT: scleral icterus Ear exam: PRESENT: normal external ear exam Mouth exam: PRESENT: moist Respiratory exam: PRESENT: clear to auscultation bacilio, decreased breath sounds - at lung bases Cardiovascular exam: PRESENT: RRR. ABSENT: diastolic murmur, rubs, systolic murmur Vascular exam: ABSENT: pallor GI/Abdominal exam: PRESENT: normal bowel sounds, soft. ABSENT: distended, guarding, mass, organolmegaly, rebound, tenderness Extremities exam: ABSENT: pedal edema Musculoskeletal exam: PRESENT: deformity - related to multiple joints inv olvement with arthritis Neurological exam: PRESENT: alert, awake Psychiatric exam: PRESENT: appropriate affect, normal mood. ABSENT: homicidal ideation, suicidal ideation Skin exam: PRESENT: dry, warm Results Laboratory Results: 12/30/18 05:05 12/30/18 08:37 12/30/18 12/30/18 12/30/18 05:05 05:05 06:53 WBC 10.0 RBC 4.36 Hgb 14.2 Hct 41.8 MCV 96 MCH 32.5 MCHC 33.9 RDW 14.3 H Plt Count 259 Seg Neutrophils % 70.2 Sodium Cancelled Cancelled Potassium Cancelled Cancelled Chloride Cancelled Cancelled Carbon Dioxide Cancelled Cancelled Anion Gap Cancelled Cancelled BUN Cancelled Cancelled Creatinine Cancelled Cancelled Est GFR ( Amer) Cancelled Cancelled Est GFR (Non-Af Amer) Cancelled Cancelled Glucose Cancelled Cancelled Calcium Cancelled Cancelled Total Bilirubin Cancelled Cancelled AST Cancelled Cancelled Alkaline Phosphatase Cancelled Cancelled Total Protein Cancelled Cancelled Albumin Cancelled Cancelled 12/30/18 08:37 WBC RBC Hgb Hct MCV MCH MCHC RDW Plt Count Seg Neutrophils % Sodium 137.8 Potassium 3.9 Chloride 103 Carbon Dioxide 25 Anion Gap 10 BUN 8 Creatinine 0.61 Est GFR ( Amer) > 60 Est GFR (Non-Af Amer) Glucose 119 H Calcium 9.3 Total Bilirubin 0.4 AST 24 Alkaline Phosphatase 57 Total Protein 7.6 Albumin 4.4 12/28/18 12/28/18 16:53 16:53 Creatine Kinase 370 H CK-MB (CK-2) 3.11 Troponin I < 0.012 Assessment & Plan - Diagnosis (1) Hyponatremia Is this a current diagnosis for this admission?: Yes Plan: Improved back to normal level. (2) HTN (hypertension) Qualifiers: Hypertension type: essential hypertension Qualified Code(s): I10 - Essential (primary) hypertension Is this a current diagnosis for this admission?: Yes (3) Hypothyroidism Qualifiers: Hypothyroidism type: unspecified Qualified Code(s): E03.9 - Hypothyroidism, unspecified Is this a current diagnosis for this admission?: Yes (4) Absence seizure disorder Qualifiers: Intractability: not intractable Is this a current diagnosis for this admission?: Yes (5) Depression Qualifiers: Depression Type: unspecified Qualified Code(s): F32.9 - Major depressive disorder, single episode, unspecified Is this a current diagnosis for this admission?: Yes (6) GERD (gastroesophageal reflux disease) Qualifiers: Esophagitis presence: without esophagitis Qualified Code(s): K21.9 - Gastro-esophageal reflux disease without esophagitis Is this a current diagnosis for this admission?: Yes (7) Chronic pain syndrome Is this a current diagnosis for this admission?: Yes (8) Persistent insomnia Is this a current diagnosis for this admission?: Yes (9) HLD (hyperlipidemia) Qualifiers: Hyperlipidemia type: unspecified Qualified Code(s): E78.5 - Hyperlipidemia, unspecified Is this a current diagnosis for this admission?: Yes (10) Hyperuricemia Is this a current diagnosis for this admission?: Yes - Time Time Spent with patient: 25-34 minutes Level of Care: TELE Medications reviewed and adjusted accordingly: Yes Anticipated discharge: Home with Homehealth Within: Other - Inpatient Certification Based on my medical assessment, after consideration of the patient's co morbidities, presenting symptoms, or acuity I expect that the services needed warrant INPATIENT care.: Yes I certify that my determination is in accordance with my understanding of Medicare's requirements for reasonable and necessary INPATIENT services [42 CFR 412.3e].: Yes Medical Necessity: Significant Comorbidiites Make Outpatient Treatment Too Risky, Need Close Monitoring Due to Risk of Patient Decompensation, Need For IV Fluids, Need For Continuous Telemetry Monitoring, Risk of Complication if Not Cared For in Hospital, Risk of Diagnosis Which Will Require Inpatient Eval/Care/Monitoring Post Hospital Care: D/C Aed Trainer Documentation - Plan Summary Plan Summary: Continue current medication management.
[2018-12-30] MEDS ORDERED: ACETAMINOPHEN 325 MG TABLET ONE (21:59)
[2018-12-31] MEDS: ACETAMINOPHEN 325 MG TABLET PO PRN ×2 (02:00→23:04)
[2018-12-31] MEDS: LEVOTHYROXINE SODIUM 0.05 MG TABLET PO SCH (05:12)
[2018-12-31] MEDS: GABAPENTIN 300 MG CAPSULE PO SCH ×5 (08:16→18:27)
[2018-12-31] MEDS: DULOXETINE HCL 30 MG CAPSULE.DR PO SCH (09:11)
[2018-12-31] MEDS: CETIRIZINE 5 MG TABLET PO SCH (09:11)
[2018-12-31] MEDS: LISINOPRIL 10 MG TABLET PO SCH (09:11)
[2018-12-31] MEDS: ALPRAZOLAM 0.25 MG TABLET PO SCH ×2 (09:11→17:09)
[2018-12-31 11:53] LABS: HEMATOCRIT 37.9 % (36.0-47.0); HEMOGLOBIN 13.1 g/dL (12.0-15.5); MEAN CORPUSCULAR HEMOGLOBIN 33.1 pg (27.0-33.4); MEAN CORPUSCULAR HGB CONC 34.6 g/dL (32.0-36.0); MEAN CORPUSCULAR VOLUME 96 fl (80-97); PLATELET COUNT 243 10^3/uL (150-450); RED BLOOD COUNT 3.96 10^6/uL (3.72-5.28); RED CELL DISTRIBUTION WIDTH 13.9 % (11.5-14.0); WHITE BLOOD COUNT 8.1 10^3/uL (4.0-10.5)
[2018-12-31 12:12] LABS: ANION GAP 10 (5-19); BLOOD UREA NITROGEN 11 mg/dL (7-20); CALCIUM 9.8 mg/dL (8.4-10.2); CARBON DIOXIDE 27 mmol/L (22-30); CHLORIDE 97 mmol/L (98-107); GLUCOSE 99 mg/dL (75-110)
--- NOTE | 2018-12-31 15:38 | PSYCHOLOGICAL NOTE ---
Psych Note - Psych Note Date seen by psych provider: 12/31/18 Time seen by psych provider: 13:30 Psych Note: Reason for Consult: Psychosis The patient is an 63-year-old female with multiple chronic problems tending now for evaluation of possible hyponatremia. Patient is currently demonstrating behaviors of responding to internal stimuli. She has pressured speech with flight of thought and at times word salad. Patient is observed walking around her room holding her heart monitor as a microphone or tape recorder. Patient is very euphoric laughing smiling engaging with her environment. Medication recommendations per [facility]'s contracted psychiatrist Dr. Yessi SAXENA are as follows please discontinue Ativan please reduce Cymbalta to 30 mg daily please start Depakote 250 mg twice daily please start BuSpar 5 mg every morning and 10 mg nightly withdrawal delirium Impression\plan: Patient is currently cleared from acute psychiatric services. Chart review was conducted which indicates the patient had previous etiology of delirium resulting from medication withdrawal. Medication recommendations have been provided. Patient is very redirectable and currently pleasant and her euphoric mood. Please reconsult if new concerns arise. Dr. Velazco was con sulted to care management of this patient; attending physicians in agreement with recommendations and disposition.
[2018-12-31 18:34] LABS: APPEARANCE,URINE CLEAR; BILIRUBIN,URINE NEGATIVE (NEGATIVE); COLOR,URINE YELLOW; GLUCOSE, URINE NEGATIVE (NEGATIVE); KETONES,URINE NEGATIVE (NEGATIVE); LEUKOCYTE ESTERASE,URINE TRACE (NEGATIVE); NITRITE,URINE NEGATIVE (NEGATIVE); PROTEIN,URINE 100 mg/dL (NEGATIVE); URINE SPECIFIC GRAVITY 1.021; UROBILINOGEN,URINE NEGATIVE mg/dL (<2.0)
[2018-12-31 18:49] LABS: URINE AMPHETAMINES SCREEN NEGATIVE; URINE BARBITURATES SCREEN NEGATIVE; URINE COCAINE SCREEN NEGATIVE; URINE MARIJUANA (THC) SCREEN NEGATIVE; URINE METHADONE SCREEN NEGATIVE; URINE PHENCYCLIDINE SCREEN NEGATIVE
[2018-12-31 18:58] LABS: URINE BENZODIAZEPINES SCREEN UNCONFIRMED POSITIVE
[2018-12-31] MEDS: DIVALPROEX SODIUM 250 MG TABLET.DR PO SCH (21:04)
[2018-12-31] MEDS: BUSPIRONE HCL 10 MG TABLET PO SCH (21:04)
--- NOTE | 2018-12-31 21:46 | PDOC PROGRESS REPORT ---
Subjective Progress Note for:: 12/31/18 Subjective:: Patient was admitted over the weekend for the management of hyponatremic encephalopathy, she was endorsing psychotic symptoms, she was evaluated by psychiatry, is felt that this could be a manifestation of withdrawal delirium. The urine drug screen was negative for illegal drugs Reason For Visit: HYPONATREMIA Physical Exam Vital Signs: Temp Pulse Resp BP Pulse Ox 98.3 F 86 16 148/79 H 97 12/31/18 20:11 12/31/18 20:11 12/31/18 20:11 12/31/18 20:11 12/31/18 20:11 Intake & Output 12/30/18 12/31/18 01/01/19 06:59 06:59 06:59 Intake Total 240 480 Balance 240 480 Weight 99.7 kg General appearance: PRESENT: other - Patient is very confused Eye exam: PRESENT: PERRLA. ABSENT: scleral icterus Ear exam: PRESENT: normal external ear exam Mouth exam: PRESENT: moist, tongue midline Neck exam: PRESENT: full ROM Respiratory exam: PRESENT: clear to auscultation bacilio Cardiovascular exam: PRESENT: RRR, +S1, +S2 Pulses: PRESENT: normal dorsalis pedis pul, +2 pedal pulses bilateral Vascular exam: PRESENT: normal capillary refill GI/Abdominal exam: PRESENT: normal bowel sounds, soft Rectal exam: PRESENT: deferred Neurological exam: PRESENT: alert, CN II-XII grossly intact Psychiatric exam: PRESENT: appropriate affect, normal mood. ABSENT: homicidal ideation, suicidal ideation Skin exam: PRESENT: dry, intact, warm Results Laboratory Results: 12/31/18 11:40 12/31/18 11:40 12/31/18 12/31/18 12/31/18 11:40 11:40 18:08 WBC 8.1 RBC 3.96 Hgb 13.1 Hct 37.9 MCV 96 MCH 33.1 MCHC 34.6 RDW 13.9 Plt Count 243 Sodium 133.5 L Potassium 4.0 Chloride 97 L Carbon Dioxide 27 Anion Gap 10 BUN 11 Creatinine 0.67 Est GFR ( Amer) > 60 Glucose 99 Calcium 9.8 Urine Color YELLOW Urine Appearance CLEAR Urine pH 5.0 Ur Specific Cosmos 1.021 Urine Protein 100 H Urine Glucose (UA) NEGATIVE Urine Ketones NEGATIVE Urine Blood MODERATE H Urine Nitrite NEGATIVE Ur Leukocyte Esterase TRACE H Urine WBC (Auto) 5 Urine RBC (Auto) 14 12/28/18 12/28/18 16:53 16:53 Creatine Kinase 370 H CK-MB (CK-2) 3.11 Troponin I < 0.012 Assessment & Plan - Diagnosis (1) Acute encephalopathy Is this a current diagnosis for this admission?: Yes Plan: Patient is very confused she is endorsing psychotic symptoms, seen by psychiatry recommendation was in the chart reviewed, questionable seizure disorder, history of seizure, order EEG. UDS did not show any cocaine or illegal drugs (2) Hyponatremia Is this a current diagnosis for this admission?: Yes - Time Time Spent with patient: 35 or more minutes
[2018-12-31] MEDS: OXYCODONE HCL IR 5 MG TABLET PO PRN (21:55)
[2019-01-01] MEDS: OXYCODONE HCL IR 5 MG TABLET PO PRN ×4 (03:29→22:14)
[2019-01-01] MEDS: NORMAL SALINE 1000 ML 1,000 ML IV PRN ×2 (03:30→14:40)
[2019-01-01] MEDS: ACETAMINOPHEN 325 MG TABLET PO PRN ×4 (03:49→21:08)
[2019-01-01] MEDS: GABAPENTIN 300 MG CAPSULE PO SCH ×5 (06:41→18:30)
[2019-01-01] MEDS: LEVOTHYROXINE SODIUM 0.05 MG TABLET PO SCH (06:41)
[2019-01-01] MEDS: BUSPIRONE HCL 10 MG TABLET PO SCH ×2 (08:26→21:09)
[2019-01-01] MEDS: LISINOPRIL 10 MG TABLET PO SCH (10:02)
[2019-01-01] MEDS: DIVALPROEX SODIUM 250 MG TABLET.DR PO SCH ×2 (10:03→21:08)
[2019-01-01] MEDS: CETIRIZINE 5 MG TABLET PO SCH (10:03)
[2019-01-01] MEDS: ALPRAZOLAM 0.25 MG TABLET PO SCH ×2 (10:03→17:30)
[2019-01-01] MEDS: DULOXETINE HCL 30 MG CAPSULE.DR PO SCH (10:03)
--- NOTE | 2019-01-01 12:54 | NEURO WORKBENCH EEG REPORT ---
EEG Report Patient: Sammie Martinez ID: [id number] Referring Doctor: Praveen Pinzon Date: 01/01/2019 Reason for study: Evaluate Epileptiform activity Medications: Xanax, Buspar, Zyrtec, Depakote, Cymbalta, Neurontin, Synthroid, Lisinopril History: This is a 63 year old female with a history of A-fib, HTN, COPD, DM, GERD, Depression, and Gout who was admitted with Hyponatremia altered mental status. This EEG was requested for evaluation of epileptiform activity. EEG Interpretation: This EEG was recorded during wakefulness, stage I, and stage II sleep. The awake EEG had excessive myogenic artifact obscuring background activity for the majority of the study. When visible beneath the artifact, the awake background was at best about 8 Hz alpha activity with frequent bilateral 6-7 Hz theta activity. There was not a well developed posterior dominant rhythm (PDR). The remainder of the background consisted of low amplitude generalized beta activity. The EEG is symmetric in amplitudes and frequencies. Photic stimulation resulted in excessive myogenic artifact obscuring the background EEG. Stage I sleep was achieved and characterized by slow rolling eye movements and slowing of the background rhythm with increased generalized theta activity. Stage II sleep was achieved and symmetric sleep spindles were noted. There were no epileptiform abnormalities (no sharp waves and no spikes). There were no seizures. The EKG showed an irregular rhythm with typically 65-75 beats per minute. EEG Impression: This EEG is abnormal due to mild diffuse background slowing which is non- specific for etiology; the superimposed low amplitude beta activity is a non- specific finding which is commonly seen with medications such as benzodiazepines. There was diffuse and prominent artifact obscuring the majority of this recording. There was no epileptiform activity or seizures, but the patient is taking Neurontin and Depakote which could potentially suppress interictal epileptiform activity. A single normal routine EEG does not rule out the possibility of epilepsy. If there is high clinical suspicion for epilepsy, then additional EEG evaluation should be considered with a sleep-deprived EEG or more prolonged EEG monitoring. Note that there was an irregular cardiac rhythm. INTERPRETING NEUROLOGIST: Akin Hernandez MD Board certified by the [employer] in Neurology, Clinical Neurophysiology, and Sleep Medicine [facility]
--- NOTE | 2019-01-01 22:24 | PDOC PROGRESS REPORT ---
Subjective Progress Note for:: 01/01/19 Subjective:: Patient seen by the bedside she is alert oriented, calm not agitated Reason For Visit: HYPONATREMIA Physical Exam Vital Signs: Temp Pulse Resp BP Pulse Ox 98.5 F 88 16 149/78 H 97 01/01/19 20:17 01/01/19 20:17 01/01/19 20:17 01/01/19 20:17 01/01/19 20:17 Intake & Output 12/31/18 01/01/19 01/02/19 06:59 06:59 06:59 Intake Total 240 1200 1803 Balance 240 1200 1803 Weight 99.7 kg 100.6 kg General appearance: PRESENT: no acute distress Eye exam: PRESENT: PERRLA Respiratory exam: PRESENT: clear to auscultation bacilio Cardiovascular exam: PRESENT: +S1, +S2 GI/Abdominal exam: PRESENT: soft Neurological exam: PRESENT: alert, CN II-XII grossly intact Results Laboratory Results: 12/31/18 11:40 12/31/18 11:40 12/28/18 12/28/18 16:53 16:53 Creatine Kinase 370 H CK-MB (CK-2) 3.11 Troponin I < 0.012 Assessment & Plan - Diagnosis (1) Acute encephalopathy Is this a current diagnosis for this admission?: Yes Plan: EEG was done finding is nonspecific (2) Hyponatremia Is this a current diagnosis for this admission?: Yes - Time Time Spent with patient: 25-34 minutes Level of Care: IMCU
[2019-01-02] MEDS: NORMAL SALINE 1000 ML 1,000 ML IV PRN (03:13)
[2019-01-02] MEDS: ACETAMINOPHEN 325 MG TABLET PO PRN ×3 (03:13→13:10)
[2019-01-02] MEDS: OXYCODONE HCL IR 5 MG TABLET PO PRN ×2 (04:13→10:10)
[2019-01-02 04:46] LABS: ABSOLUTE BASOPHILS # (AUTO) 0.1 10^3/uL (0.0-0.2); ABSOLUTE EOSINOPHILS # (AUTO) 0.2 10^3/uL (0.0-0.6); ABSOLUTE MONOCYTES (AUTO) 0.8 10^3/uL (0.1-1.4); ABSOLUTE NEUT (AUTO) 4.1 10^3/uL (1.7-8.2); BASOPHILS % (AUTO) 0.7 % (0-2); EOSINOPHILS % (AUTO) 2.3 % (0-6); HEMOGLOBIN 11.8 g/dL (12.0-15.5); LYMPHOCYTES % (AUTO) 37.4 % (13-45); MEAN CORPUSCULAR HEMOGLOBIN 33.3 pg (27.0-33.4); MEAN CORPUSCULAR HGB CONC 34.7 g/dL (32.0-36.0); MEAN CORPUSCULAR VOLUME 96 fl (80-97); MONOCYTES % (AUTO) 9.4 % (3-13); PLATELET COUNT 207 10^3/uL (150-450); RED BLOOD COUNT 3.55 10^6/uL (3.72-5.28); RED CELL DISTRIBUTION WIDTH 14.3 % (11.5-14.0); SEGMENTED NEUTROPHILS % (AUTO) 50.2 % (42-78); TOTAL CELLS COUNTED % (AUTO) 100 %; WHITE BLOOD COUNT 8.1 10^3/uL (4.0-10.5)
[2019-01-02 05:17] LABS: ALBUMIN 3.4 g/dL (3.5-5.0); ALKALINE PHOSPHATASE 50 U/L (38-126); ANION GAP 8 (5-19); ASPARTATE AMINO TRANSFERASE 32 U/L (14-36); BILIRUBIN,DIRECT 0.1 mg/dL (0.0-0.4); BILIRUBIN,TOTAL 0.6 mg/dL (0.2-1.3); BLOOD UREA NITROGEN 11 mg/dL (7-20); CALCIUM 8.4 mg/dL (8.4-10.2); CARBON DIOXIDE 25 mmol/L (22-30); CHLORIDE 96 mmol/L (98-107); GLUCOSE 79 mg/dL (75-110); POTASSIUM 3.8 mmol/L (3.6-5.0); TOTAL PROTEIN 5.7 g/dL (6.3-8.2)
[2019-01-02] MEDS: GABAPENTIN 300 MG CAPSULE PO SCH ×3 (06:26→13:10)
[2019-01-02] MEDS: LEVOTHYROXINE SODIUM 0.05 MG TABLET PO SCH (06:26)
[2019-01-02] MEDS: BUSPIRONE HCL 10 MG TABLET PO SCH (08:33)
[2019-01-02] MEDS: DIVALPROEX SODIUM 250 MG TABLET.DR PO SCH (10:08)
[2019-01-02] MEDS: DULOXETINE HCL 30 MG CAPSULE.DR PO SCH (10:09)
[2019-01-02] MEDS: LISINOPRIL 10 MG TABLET PO SCH (10:09)
[2019-01-02] MEDS: ALPRAZOLAM 0.25 MG TABLET PO SCH (10:09)
[2019-01-02] MEDS: CETIRIZINE 5 MG TABLET PO SCH (10:09)
--- NOTE | 2019-01-02 13:52 | PDOC DISCHARGE SUMMARY ---
Impression - Admit/DC Date/PCP Admission Date/Primary Care Provider: 12/29/18 06:35 KAITLYNN POSEY MD Discharge Date: 01/02/19 - Discharge Diagnosis (1) Acute encephalopathy Is this a current diagnosis for this admission?: Yes (2) Hyponatremia Is this a current diagnosis for this admission?: Yes (3) SIADH (syndrome of inappropriate ADH production) Is this a current diagnosis for this admission?: Yes - Additional Information Resuscitation Status: Full Code Referrals: KAITLYNN POSEY MD [Primary Care Provider] - Prescriptions: RX: Lisinopril [Prinivil 10 mg Tablet] 20 mg PO DAILY #90 tablet Home Medications: RX: Alprazolam [Xanax 0.25 mg Tablet] 0.25 mg PO BID 12/28/18 RX: Doxepin HCl [Silenor] 6 mg PO QHS 12/28/18 RX: Duloxetine HCl [Cymbalta] 60 mg PO BID 12/28/18 RX: Gabapentin [Neurontin] 600 mg PO 5XD 12/28/18 RX: Levocetirizine Dihydrochloride [Xyzal] 5 mg PO DAILY 12/28/18 RX: Levothyroxine Sodium 50 mcg PO Q6AM 12/28/18 RX: Omeprazole 40 mg PO [id number] 12/28/18 RX: Oxycodone HCl 15 mg PO Q6HP PRN 12/28/18 RX: Lisinopril [Prinivil 10 mg Tablet] 20 mg PO DAILY #90 tablet 01/02/19 History of Present Illiness History of Present Illness: JAX PARIS is a 63 year old female,She was admitted when she presented with altered mental status associated with mild hyponatremia Hospital Course Hospital Course: Patient was very confused, delirious, I felt the level of hyponatremia will not account for this degree of confusion. She was recently seen in the office, diagnosed with probable SIADH she was supposed to return back for follow-up before she presented to the emergency room with behavioral problem, increased agitation excessive talkativeness, pressured speech, she does not seem to be psychotic the picture is more consistent with some form of withdrawal syndrome probably from a drug the urine drug screen was negative for any illegal drug ,cocaine or heroine.She was seen by psychiatry, BuSpar, Depakote was recommended. EEG was done, there was no epileptiform focus identified on the EEG but it was abnormal with slowing of the brain waves.She was seen today on rounds, she has been appropriate in the last 2 days, she wants to go home, she probably could go home there is no acute syndrome ongoing at this time she is walking the hallway oriented to time place and person Physical Exam Vital Signs: Temp Pulse Resp BP Pulse Ox 97.9 F 73 18 126/71 H 92 01/02/19 12:56 01/02/19 12:56 01/02/19 12:56 01/02/19 12:56 01/02/19 12:56 Intake & Output 01/01/19 01/02/19 01/03/19 06:59 06:59 06:59 Intake Total 1200 3203 Balance 1200 3203 Weight 100.6 kg 99.7 kg General appearance: PRESENT: no acute distress Eye exam: PRESENT: PERRLA Respiratory exam: PRESENT: clear to auscultation bacilio Cardiovascular exam: PRESENT: +S1, +S2 GI/Abdominal exam: PRESENT: soft Neurological exam: PRESENT: alert Results Laboratory Results: WBC 8.1 10^3/uL (4.0-10.5) 01/02/19 04:19 RBC 3.55 10^6/uL (3.72-5.28) L 01/02/19 04:19 Hgb 11.8 g/dL (12.0-15.5) L 01/02/19 04:19 Hct 34.0 % (36.0-47.0) L 01/02/19 04:19 MCV 96 fl (80-97) 01/02/19 04:19 MCH 33.3 pg (27.0-33.4) 01/02/19 04:19 MCHC 34.7 g/dL (32.0-36.0) 01/02/19 04:19 RDW 14.3 % (11.5-14.0) H 01/02/19 04:19 Plt Count 207 10^3/uL (150-450) 01/02/19 04:19 Lymph % (Auto) 37.4 % (13-45) 01/02/19 04:19 [place] % (Auto) 9.4 % (3-13) 01/02/19 04:19 Eos % (Auto) 2.3 % (0-6) 01/02/19 04:19 Baso % (Auto) 0.7 % (0-2) 01/02/19 04:19 Absolute Neuts (auto) 4.1 10^3/uL (1.7-8.2) 01/02/19 04:19 Absolute Lymphs (auto) 3.0 10^3/uL (0.5-4.7) 01/02/19 04:19 Absolute Monos (auto) 0.8 10^3/uL (0.1-1.4) 01/02/19 04:19 Absolute Eos (auto) 0.2 10^3/uL (0.0-0.6) 01/02/19 04:19 Absolute Basos (auto) 0.1 10^3/uL (0.0-0.2) 01/02/19 04:19 Seg Neutrophils % 50.2 % (42-78) 01/02/19 04:19 Sodium 128.6 mmol/L (137-145) L 01/02/19 04:19 Potassium 3.8 mmol/L (3.6-5.0) 01/02/19 04:19 Chloride 96 mmol/L (98-107) L 01/02/19 04:19 Carbon Dioxide 25 mmol/L (22-30) 01/02/19 04:19 Anion Gap 8 (5-19) 01/02/19 04:19 BUN 11 mg/dL (7-20) 01/02/19 04:19 Creatinine 0.69 mg/dL (0.52-1.25) 01/02/19 04:19 Est GFR ( Amer) > 60 (>60) 01/02/19 04:19 Est GFR (Non-Af Amer) Cancelled 12/30/18 06:53 Est GFR (MDRD) Non-Af > 60 (>60) 01/02/19 04:19 Glucose 79 mg/dL (75-110) 01/02/19 04:19 POC Glucose 99 mg/dL (70-110) 01/01/19 15:58 Calcium 8.4 mg/dL (8.4-10.2) 01/02/19 04:19 Total Bilirubin 0.6 mg/dL (0.2-1.3) 01/02/19 04:19 Direct Bilirubin 0.1 mg/dL (0.0-0.4) 01/02/19 04:19 Neonat Total Bilirubin Not Reportable 01/02/19 04:19 Neonat Direct Bilirubin Not Reportable 01/02/19 04:19 Neonat Indirect Bili Not Reportable 01/02/19 04:19 AST 32 U/L (14-36) 01/02/19 04:19 ALT 19 U/L (<35) 01/02/19 04:19 Alkaline Phosphatase 50 U/L (38-126) 01/02/19 04:19 Creatine Kinase 370 U/L (30-135) H 12/28/18 16:53 CK-MB (CK-2) 3.11 ng/mL (<4.55) 12/28/18 16:53 Troponin I < 0.012 ng/mL 12/28/18 16:53 Total Protein 5.7 g/dL (6.3-8.2) L 01/02/19 04:19 Albumin 3.4 g/dL (3.5-5.0) L 01/02/19 04:19 Lipase 75.1 U/L (23-300) 12/28/18 16:53 EGFR Cancelled 12/30/18 06:53 Urine Color YELLOW 12/31/18 18:08 Urine Appearance CLEAR 12/31/18 18:08 Urine pH 5.0 (5.0-9.0) 12/31/18 18:08 Ur Specific Steward 1.021 12/31/18 18:08 Urine Protein 100 mg/dL (NEGATIVE) H 12/31/18 18:08 Urine Glucose (UA) NEGATIVE mg/dL (NEGATIVE) 12/31/18 18:08 Urine Ketones NEGATIVE mg/dL (NEGATIVE) 12/31/18 18:08 Urine Blood MODERATE (NEGATIVE) H 12/31/18 18:08 Urine Nitrite NEGATIVE (NEGATIVE) 12/31/18 18:08 Urine Nitrite (Reflex) NEGATIVE (NEGATIVE) 12/28/18 20:07 Urine Bilirubin NEGATIVE (NEGATIVE) 12/31/18 18:08 Urine Urobilinogen NEGATIVE mg/dL (<2.0) 12/31/18 18:08 Ur Leukocyte Esterase TRACE (NEGATIVE) H 12/31/18 18:08 Leukocyte Esterase Rfl NEGATIVE (NEGATIVE) 12/28/18 20:07 Urine WBC (Auto) 5 /HPF 12/31/18 18:08 Urine RBC (Auto) 14 /HPF 12/31/18 18:08 U Hyaline Cast (Auto) 3 /LPF 12/28/18 20:07 Urine WBC (Reflex) 1 /HPF 12/28/18 20:07 Squamous Epi Cells Auto <1 /HPF 12/31/18 18:08 Urine Mucus (Auto) RARE /LPF 12/31/18 18:08 Urine Ascorbic Acid NEGATIVE (NEGATIVE) 12/31/18 18:08 Urine Opiates Screen NEGATIVE 12/31/18 18:08 Urine Methadone Screen NEGATIVE 12/31/18 18:08 Ur Barbiturates Screen NEGATIVE 12/31/18 18:08 Ur Phencyclidine Scrn NEGATIVE 12/31/18 18:08 Ur Amphetamines Screen NEGATIVE 12/31/18 18:08 U Benzodiazepines Scrn UNCONFIRMED POSITIVE 12/31/18 18:08 Urine Cocaine Screen NEGATIVE 12/31/18 18:08 U Marijuana (THC) Screen NEGATIVE 12/31/18 18:08 12/28/18 16:53 CK-MB (CK-2) 3.11 Troponin I < 0.012 Stroke Is this a Stroke Patient?: No Acute Heart Failure - Is this a Heart Failure Patient?: No
[2019-01-02 15:26] VITALS: BP 138/69
== END 2019-01-02 17:20 | disposition home or self-care (01) | DRG 644 ==
LOC: ER 15:37 → EH 18:15 → 5 12-29 00:57 → OBSVTOIN 12-29 06:35
PROVIDERS: ADMIT Internal Medicine Geriatric Medicine; ATTEND Internal Medicine
DX: E22.2 Syndrome of inappropriate secretion of antidiuretic hormone (principal); G93.40 Encephalopathy, unspecified; I10 Essential (primary) hypertension; I48.91 Unspecified atrial fibrillation; J44.9 Chronic obstructive pulmonary disease, unspecified; E11.9 Type 2 diabetes mellitus without complications; K21.9 Gastro-esophageal reflux disease without esophagitis; M19.90 Unspecified osteoarthritis, unspecified site; M10.9 Gout, unspecified; F32.9 Major depressive disorder, single episode, unspecified; Z90.49 Acquired absence of other specified parts of digestive tract; G89.4 Chronic pain syndrome; G47.00 Insomnia, unspecified; F17.200 Nicotine dependence, unspecified, uncomplicated; Z82.49 Family history of ischemic heart disease and other diseases of the circulatory system; Z88.2 Allergy status to sulfonamides
CPT/HCPCS: 36415; 80048; 80053; 80307; 81001; 82550; 82553; 82962; 83690; 84484; 85025; 85027; 87086; 95819; 96360; 96361; 99284; J3490; J7030

== ENCOUNTER 2019-01-12 13:27 | Emergency (ER) | payer MEDICARE ==
--- NOTE | 2019-01-12 13:48 | ER Document Report ---
ED Medical Screen (RME) - General Chief Complaint: Probable Seizure Stated Complaint: POSSIBLE SEIZURE Time Seen by Provider: 01/12/19 13:39 Primary Care Provider: KAITLYNN POSEY MD [Primary Care Provider] - Follow up as needed Mode of Arrival: Wheelchair Information source: Patient, Relative Notes: This 63-year-old female presents with her children for complaints of altered mental status. They gave history of absence seizures. They also report that she was recently admitted for hypo-natremia here at [place] and low oxygen level at [facility]. Her children reports she is been up for 48 hours. Denies past medical history of mental health issues. Reports history of thyroid issues. She also reports of naranjo when she voids. I have greeted and performed a rapid initial assessment of this patient. A comprehensive ED assessment and evaluation of the patient, analysis of test results and completion of the medical decision making process will be conducted by additional ED providers. Dictation of this chart was performed using voice recognition software; therefore, there may be some unintended grammatical errors. TRAVEL OUTSIDE OF THE [place] IN LAST 30 DAYS: No - Related Data Allergies/Adverse Reactions: Sulfa (Sulfonamide Antibiotics) Allergy (Mild, Verified 01/12/19 13:35) Hives Past Medical History - Past Medical History Cardiac Medical History: Reports: Hx Atrial Fibrillation, Hx Hypertension Pulmonary Medical History: Reports: Hx COPD Endocrine Medical History: Reports: Hx Diabetes Mellitus Type 2 Renal/ Medical History: Denies: Hx Peritoneal Dialysis GI Medical History: Reports: Hx Gastroesophageal Reflux Disease, Hx Endoscopy Musculoskeltal Medical History: Reports Hx Arthritis, Reports Hx Gout Psychiatric Medical History: Reports: Hx Depression Past Surgical History: Reports: Hx Abdominal Surgery, Hx Section, Hx Cholecystectomy, Hx Gynecologic Surgery - bladder tact, Other - C-spine surgery - Immunizations Immunizations up to date: Yes Hx Diphtheria, Pertussis, Tetanus Vaccination: - unknown Physical Exam - Vital signs Vitals: Temp Pulse Resp BP Pulse Ox 98.2 F 93 18 184/82 H 98 01/12/19 13:32 01/12/19 13:32 01/12/19 13:32 01/12/19 13:32 01/12/19 13:32 Course - Vital Signs Vital signs: Temp Pulse Resp BP Pulse Ox 98.2 F 93 18 184/82 H 98 01/12/19 13:32 01/12/19 13:32 01/12/19 13:32 01/12/19 13:32 01/12/19 13:32 Doctor's Discharge - Discharge Referrals: KAITLYNN POSEY MD [Primary Care Provider] - Follow up as needed
[2019-01-12 15:49] LABS: ABSOLUTE BASOPHILS # (AUTO) 0.1 10^3/uL (0.0-0.2); ABSOLUTE EOSINOPHILS # (AUTO) 0.1 10^3/uL (0.0-0.6); ABSOLUTE LYMPHOCYTES (AUTO) 2.5 10^3/uL (0.5-4.7); ABSOLUTE MONOCYTES (AUTO) 0.7 10^3/uL (0.1-1.4); ABSOLUTE NEUT (AUTO) 5.7 10^3/uL (1.7-8.2); BASOPHILS % (AUTO) 1.4 % (0-2); EOSINOPHILS % (AUTO) 1.2 % (0-6); HEMATOCRIT 42.5 % (36.0-47.0); HEMOGLOBIN 14.5 g/dL (12.0-15.5); LYMPHOCYTES % (AUTO) 27.3 % (13-45); MEAN CORPUSCULAR HEMOGLOBIN 33.2 pg (27.0-33.4); MEAN CORPUSCULAR HGB CONC 34.1 g/dL (32.0-36.0); MEAN CORPUSCULAR VOLUME 98 fl (80-97); MONOCYTES % (AUTO) 7.7 % (3-13); PLATELET COUNT 371 10^3/uL (150-450); RED BLOOD COUNT 4.36 10^6/uL (3.72-5.28); RED CELL DISTRIBUTION WIDTH 14.7 % (11.5-14.0); SEGMENTED NEUTROPHILS % (AUTO) 62.4 % (42-78); TOTAL CELLS COUNTED % (AUTO) 100 %; WHITE BLOOD COUNT 9.2 10^3/uL (4.0-10.5)
[2019-01-12 15:53] LABS: ALBUMIN 5.2 g/dL (3.5-5.0); ALKALINE PHOSPHATASE 79 U/L (38-126); ANION GAP 14 (5-19); ASPARTATE AMINO TRANSFERASE 54 U/L (14-36); BILIRUBIN,DIRECT 0.2 mg/dL (0.0-0.4); BILIRUBIN,TOTAL 0.5 mg/dL (0.2-1.3); BLOOD UREA NITROGEN 9 mg/dL (7-20); CALCIUM 10.7 mg/dL (8.4-10.2); CARBON DIOXIDE 28 mmol/L (22-30); CHLORIDE 100 mmol/L (98-107); GLUCOSE 110 mg/dL (75-110); POTASSIUM 3.7 mmol/L (3.6-5.0); TOTAL PROTEIN 9.1 g/dL (6.3-8.2)
[2019-01-12 16:00] LABS: APPEARANCE,URINE SLIGHTLY-CLOUDY; BILIRUBIN,URINE NEGATIVE (NEGATIVE); COLOR,URINE YELLOW; GLUCOSE, URINE NEGATIVE (NEGATIVE); KETONES,URINE NEGATIVE (NEGATIVE); LEUKOCYTE ESTERASE,URINE NEGATIVE (NEGATIVE); NITRITE,URINE NEGATIVE (NEGATIVE); PROTEIN,URINE 30 mg/dL (NEGATIVE); URINE SPECIFIC GRAVITY 1.016; UROBILINOGEN,URINE NEGATIVE mg/dL (<2.0)
--- NOTE | 2019-01-12 16:55 | ER Document Report ---
ED General - General Chief Complaint: Altered Mental Status Stated Complaint: POSSIBLE SEIZURE Time Seen by Provider: 01/12/19 13:39 Primary Care Provider: KAITLYNN POSEY MD [Primary Care Provider] - Follow up as needed Mode of Arrival: Wheelchair TRAVEL OUTSIDE OF THE [place] IN LAST 30 DAYS: No - HPI Notes: Patient is a 63-year-old female who presents emergency department for evaluation with her daughter for altered mental status. Patient has had some significant changes in her mentation over the last several weeks. At one point she was found to have significant hyponatremia, was admitted to the hospital and this was corrected. After that she was admitted to [facility] with hypoxemia. She seemed to be doing well. Patient's daughter primarily gives me the history over the last several days. She states that she went to her house a few days ago, found the heat to be on high, all of the doors and windows open, and the patient outside in her car listening to music. There were CDs from the inside scattered on the front lawn. All the cabinet doors and drawers in her kitchen were open. Patient has been exhibiting this strange behavior more increasingly so over the last several days. The patient to me states that she has been having neuropathy badly in her left arm. She really cannot give me any sort of timeline on it, but she describes it as a numb and tingling feeling. According to the daughter the patient is also been preoccupied with potential fractures in her cervical spine and back, convinced that this was communicated to her at some point. She does have a history of absent seizures, she does not take any medications for them. She was known to have one seizure today, but no marked increase in frequency of seizures was noted by family. - Related Data Allergies/Adverse Reactions: Sulfa (Sulfonamide Antibiotics) Allergy (Mild, Verified 01/12/19 13:35) Hives Home Medications: gabapentin. cymbalta. percocet. omeprazole. synthroid. xy zol. tylenol. lisinopril Past Medical History - General Information source: Patient, Relative - Social History Smoking Status: Current Every Day Smoker Chew tobacco use (# tins/day): No Frequency of alcohol use: None Drug Abuse: None Family History: Hypertension Patient has suicidal ideation: No Patient has homicidal ideation: No - Past Medical History Cardiac Medical History: Reports: Hx Atrial Fibrillation, Hx Hypertension Pulmonary Medical History: Reports: Hx COPD Endocrine Medical History: Reports: Hx Diabetes Mellitus Type 2 Renal/ Medical History: Denies: Hx Peritoneal Dialysis GI Medical History: Reports: Hx Gastroesophageal Reflux Disease, Hx Endoscopy Musculoskeletal Medical History: Reports Hx Arthritis, Reports Hx Gout Psychiatric Medical History: Reports: Hx Depression Past Surgical History: Reports: Hx Abdominal Surgery, Hx Section, Hx Cholecystectomy, Hx Gynecologic Surgery - bladder tact, Other - C-spine surgery - Immunizations Immunizations up to date: Yes Hx Diphtheria, Pertussis, Tetanus Vaccination: - unknown Hx Pneumococcal Vaccination: 11/21/10 Review of Systems - Review of Systems Constitutional: No symptoms reported EENT: No symptoms reported Cardiovascular: No symptoms reported Respiratory: No symptoms reported Gastrointestinal: No symptoms reported Genitourinary: No symptoms reported Musculoskeletal: See HPI Skin: No symptoms reported Neurological/Psychological: See HPI Physical Exam - Vital signs Vitals: Temp Pulse Resp BP Pulse Ox 98.2 F 93 18 184/82 H 98 01/12/19 13:32 01/12/19 13:32 01/12/19 13:32 01/12/19 13:32 01/12/19 13:32 - Notes Notes: This is a pleasant 63-year-old female who appears older than her stated age, no acute distress. She is very disheveled in appearance, wearing a house coat with multiple cigarette naranjo and it. Her speech is pressured and she does exhibit some stream of consciousness thought patterns. Vital signs reviewed, please refer to chart. Head is normocephalic, atraumatic. Pupils equal round, reactive to light. Neck is supple without meningismus. Heart is regular. Lungs are clear to auscultation bilaterally. Abdomen is soft, nontender, normoactive bowel sounds throughout. Extremities without cyanosis, clubbing. Posterior ariana ves are nontender. Peripheral pulses are equal. Skin is warm and dry. Patient is awake, alert, oriented x3. Cranial nerves II - XII are grossly intact without focal neurological deficits. Strength is plus 5 out of 5 bilateral upper and lower extremities. Sensation is intact. Reflexes symmetrical. Patient did have some difficulty following directions, particularly with extraocular muscle testing. Intact [id number], rapid alternating movements, [id number]. Course - Re-evaluation Re-evalutation: 01/12/19 19:52 Patient presents emergency department for evaluation of altered mental status. She is brought in by her daughter who is the primary historian. The patient herself knows that she is confused, but is having difficulty caring on significant and meaningful conversations. At this point, she is medically cleared as far as I can tell. Her laboratory investigations and imaging are largely markable. I did review the psychosocial evaluation in the past. It is been recommended that she be placed on Depakote but she is not taking that. At this point after discussion with daughter it was decided to proceed with IVC. A few remaining labs for medical clearance in regards to psychosocial evaluation were placed, patient will likely be medically cleared and await psychosocial evaluation in the morning. 01/12/19 22:33 Patient's drug screen was positive for opiates, as is expected in this patient who is currently on oxycodone at home. She had been on benzodiazepines, drug screen was negative for this. Her salicylate and acetaminophen levels are negative. At this point patient is medically cleared, awaiting psychosocial evaluation. - Vital Signs Vital signs: Temp Pulse Resp BP Pulse Ox 97.7 F 87 18 147/74 H 100 01/12/19 21:52 01/12/19 21:52 01/12/19 21:52 01/12/19 21:52 01/12/19 21:52 - Laboratory Result Diagrams: 01/12/19 15:10 01/12/19 15:10 Laboratory results interpreted by me: 01/12/19 01/12/19 01/12/19 14:20 15:10 15:10 MCV 98 H RDW 14.7 H ABG pO2 ABG HCO3 ABG Total CO2 Est GFR (MDRD) Non-Af 54 L Calcium 10.7 H AST 54 H Total Protein 9.1 H Albumin 5.2 H Urine Protein 30 H Urine Blood SMALL H Salicylates Acetaminophen 01/12/19 01/12/19 15:10 17:20 MCV RDW ABG pO2 73.9 L ABG HCO3 24.6 H ABG Total CO2 25.9 H Est GFR (MDRD) Non-Af Calcium AST Total Protein Albumin Urine Protein Urine Blood Salicylates < 1.0 L Acetaminophen < 10 L - Diagnostic Test Radiology reviewed: Reports reviewed - EKG Interpretation by Me Additional EKG results interpreted by me: 11/16/19 19:54 Sinus mechanism with a rate of 86 bpm. Normal axis and intervals, no acute ST changes concerning for ischemia or infarction. Discharge - Discharge Clinical Impression: Altered mental status Qualifiers: Altered mental status type: unspecified Qualified Code(s): R41.82 - Altered mental status, unspecified Condition: Stable Disposition: OTHER Referrals: KAITLYNN POSEY MD [Primary Care Provider] - Follow up as needed
--- NOTE | 2019-01-12 17:20 | RADIOLOGY REPORT (SQ) ---
EXAM DESCRIPTION: CT HEAD WITHOUT COMPLETED DATE/TIME: 01/12/2019 4:43 pm REASON FOR STUDY: altered mental status COMPARISON: CT head 09/07/2017, 12/18/2016. TECHNIQUE: Axial images acquired through the brain without intravenous contrast. Images reviewed wi th bone, brain and subdural windows. Images stored on PACS. All CT scanners at this facility use dose modulation, iterative reconstruction, and/or weight based d osing when appropriate to reduce radiation dose to as low as reasonably achievable (ALARA). [facility]: Dose Right [facility]: CareDose [facility]: Dose Right [facility]: Teradose 4D [facility]: Smart Technologies RADIATION DOSE: CT Rad equipment meets quality standard of care and radiation dose reduction techniq ues were employed. CTDIvol: 53.2 mGy. DLP: 1017 mGy-cm. mGy. LIMITATIONS: None. FINDINGS: VENTRICLES: Normal size and contour. CEREBRUM: No mass effect. No hemorrhage. No midline shift. Normal mcguire/white matter differentiatio n. No evidence for acute territorial infarction. CEREBELLUM: No mass effect. No hemorrhage. No alteration of density. No evidence for acute infarct ion. EXTRAAXIAL SPACES: No fluid collections. ORBITS AND GLOBE: Symmetrical contour of the globes. CALVARIUM: No depressed skull fracture. PARANASAL SINUSES: No air-fluid level. SOFT TISSUES: No hematoma. IMPRESSION: No acute intracranial hemorrhage or acute territorial infarct. EVIDENCE OF ACUTE STROKE: NO. COMMENT: Quality ID # [id number]: Final reports with documentation of one or more dose reduction techniques (e.g., Automated exposure control, adjustment of the mA and/or kV according to patient size, use of iterative reconstruction technique) TECHNICAL DOCUMENTATION: JOB ID: [id number] 2010 [employer]- All Rights Reserved Reading location - IP/workstation name: [email or web address]
--- NOTE | 2019-01-12 17:21 | RADIOLOGY REPORT (SQ) ---
EXAM DESCRIPTION: CHEST 2 VIEWS COMPLETED DATE/TIME: 01/12/2019 4:44 pm REASON FOR STUDY: altered mental status COMPARISON: None. EXAM PARAMETERS: NUMBER OF VIEWS: two views TECHNIQUE: Digital Frontal and Lateral radiographic views of the chest acquired. RADIATION DOSE: NA LIMITATIONS: none FINDINGS: LUNGS AND PLEURA: No opacities, masses or pneumothorax. No pleural effusion. MEDIASTINUM AND HILAR STRUCTURES: No masses or contour abnormalities. HEART AND VASCULAR STRUCTURES: Heart normal size. No evidence for failure. BONES: Degenerative changes of the spine. No acute findings. HARDWARE: Cervical ACDF. OTHER: No other significant finding. IMPRESSION: NO ACUTE RADIOGRAPHIC FINDING IN THE CHEST. TECHNICAL DOCUMENTATION: JOB ID: [id number]- All Rights Reserved Reading location - IP/workstation name: [email or web address]
[2019-01-12 17:31] LABS: ARTERIAL BLOOD BASE EXCESS -0.6 mmol/L; ARTERIAL BLOOD H2CO3 1.27 mmol/L (1.05-1.35); ARTERIAL BLOOD HCO3 24.6 mmol/L (20-24); ARTERIAL BLOOD O2 SATURATION 94.6 % (94-98); ARTERIAL BLOOD PCO2 42.2 mmHg (35-45); ARTERIAL BLOOD PH 7.38 (7.35-7.45); ARTERIAL BLOOD PO2 73.9 mmHg (80-100); ARTERIAL BLOOD TOTAL CO2 25.9 mmol/L (21-25)
[2019-01-12 18:21] LABS: ARTERIAL BLOOD FIO2 21%
[2019-01-12 20:18] LABS: ACETAMINOPHEN < 10 ug/mL (10-30); ALCOHOL < 10 mg/dL (NONE DETECTED); SALICYLATE < 1.0 mg/dL (2.0-20.0)
[2019-01-12 21:07] LABS: URINE AMPHETAMINES SCREEN NEGATIVE; URINE BARBITURATES SCREEN NEGATIVE; URINE BENZODIAZEPINES SCREEN NEGATIVE; URINE COCAINE SCREEN NEGATIVE; URINE MARIJUANA (THC) SCREEN NEGATIVE; URINE METHADONE SCREEN NEGATIVE; URINE PHENCYCLIDINE SCREEN NEGATIVE
--- NOTE | 2019-01-13 01:14 | EKG REPORT ---
SEVERITY:- NORMAL ECG - SINUS RHYTHM : Confirmed by: Daria Dotson MD 13-Jan-2019 01:13:17
[2019-01-13] MEDS ORDERED: ACETAMINOPHEN 325 MG TABLET PO ONE (04:28)
[2019-01-13] MEDS ORDERED: GABAPENTIN 400 MG CAPSULE ONE (06:03)
[2019-01-13] MEDS ORDERED: GABAPENTIN 100 MG CAPSULE ONE (06:03)
[2019-01-13] MEDS: LEVOTHYROXINE SODIUM 0.05 MG TABLET PO SCH (06:16)
[2019-01-13] MEDS: GABAPENTIN 300 MG CAPSULE PO SCH ×3 (06:17→22:07)
[2019-01-13] MEDS: DULOXETINE HCL 30 MG CAPSULE.DR PO SCH (10:44)
[2019-01-13] MEDS: LISINOPRIL 10 MG TABLET PO SCH (10:44)
[2019-01-13] MEDS: OXYCODONE HCL SR 10 MG TABLET PO SCH ×2 (10:44→22:07)
--- NOTE | 2019-01-13 11:15 | PSYCHOLOGICAL NOTE ---
Psych Note - Psych Note Date seen by psych provider: 01/13/19 Time seen by psych provider: 07:30 Psych Note: Reason for Consult: AMS patient's daughter reports the patient use to drink frequently; however, when she was injured and had surgery, she needed pain medication. She continued to disclose that she believes the patient substituted pills for alcohol because she knew not to mix them (patient reported has had friends that have after mixing there medications and alcohol). She reports that after discharge from [facility] earlier this month, the patient was taken to [facility] by family because of the return of her confusion. She reports the patient had improved at [facility] after medication changed were made to follow the behavioral health teams recommendations; however, upon discharge by the patient's primary care provider they did not receive prescriptions for the medications. She states they took the patient to [facility] because they were concerned they never received a diagnosis or why the patient has episodes of AMS. She continued to disclose on the ride to the hospital that the stopped for food which she ate everything. Upon arrive to [facility], they patient had breathing issues and needed oxygen. She stated they believe the patient took her xanax; "she has xanax that she can take as needed twice a day, but she doesn't see the as needed she just sees that she can take it two times a daily." They told the patient that she needed to decrease her oxcycodone and stop taking her xanax. She reports the patient has had memory issues for years just as making plans to have lunch then the day of the lunch date is unable to go because she forgot. The memory issue has slowly gotten worse but states the patient suddenly has gotten significantly worse since . She reports the patient seems to be more irritable in the evenings; stating that she talks to her friend during the day and says how wonderful she is then at night is angry and does not like her anymore. Chart review: Cardiac Medical History: Reports: Hx Atrial Fibrillation, Hx Hypertension Pulmonary Medical History: Reports: Hx COPD Endocrine Medical History: Reports: Hx Diabetes Mellitus Type 2 Renal/ Medical History: Denies: Hx Peritoneal Dialysis GI Medical History: Reports: Hx Gastroesophageal Reflux Disease, Hx Endoscopy Musculoskeletal Medical History: Reports Hx Arthritis, Reports Hx Gout Psychiatric Medical History: Reports: Hx Depression Past Surgical History: Reports: Hx Abdominal Surgery, Hx Section, Hx Cholecystectomy, Hx Gynecologic Surgery - bladder tact, Other - C-spine surgery Head CT 01/12/2019 No acute findings; no language suggesting dementia like neurocognitive processes Head CT 09/07/2017 No acute findings; no language suggesting dementia like neurocognitive processes Head CT 12/18/2016 No acute findings; no language suggesting dementia like neurocognitive processes Head MRI 12/17/2016 A few high-signal intensity lesions on FLAIR imaging with distribution suggesting chronic microvascular ischemic change. Head MRI 10/01/2014 A few high-signal intensity lesions on FLAIR imaging with distribution suggesting chronic microvascular ischemic change. Patient has two prescriptions written on 12/17/2018 for xanax 0.25mg twice daily as needed. She also has two prescriptions written on 12/22/2018 for oxycodone 15mg every 6 hours as needed. Toxicology screen indicates Opiates but no benzodiazpines Medication recommendations per [facility]'s contracted psychiatrist Dr. Yessi SAXENA are as follows Please discontinue home medication of Xanax please reduce Cymbalta to 30 mg daily please start Depakote 250 mg twice daily please start BuSpar 5 mg every morning and 10 mg nightly Diagnosis Withdrawal delirium R/O neurocognitive degenerative processes Impression/plan: patient is recommended to continue under IVC. Unfortunately at this time the patient is presenting with manic behaviors and was not purse provided prescriptions when discharged by Dr. Pinzon earlier this month. Jaziel moreno was restarted on medication recommendations previously provided during that earlier visit which family report seeing an improvement in the patient's presentation. Patient will be reevaluated with possible discharge tomorrow. Patient is recommended to follow up with neurology; there is concerns the patient's presentation (ie increase in memory issues over the years) and the patient's previous MRI results indicating some possible chronic microvascular ischemic change. Dr. Velazco was consulted on the care and management of this patient; attending physician is in agreement with recommendations and disposition.
[2019-01-13] MEDS: DIVALPROEX SODIUM 250 MG TAB.SR.24H PO SCH ×2 (12:11→17:59)
[2019-01-13] MEDS: BUSPIRONE HCL 10 MG TABLET PO SCH (12:12)
[2019-01-13] MEDS ORDERED: GLYCERIN (ADULT) SUPP.RECT PR PRN (12:16)
--- NOTE | 2019-01-13 13:33 | ER Document Report ---
Doctor's Note Notes: 01/13/19 13:32 Patient evaluated. Patient is ambulating around unit without difficulty. Patient requesting something for constipation. Glycerol per rectum ordered. Vitals continue to remain stable. Patient continues to remain IVC per psychiatric recommendations.
[2019-01-13] MEDS ORDERED: NICOTINE 14 MG/24 HR PATCH.TD24 TD ONE (14:52)
[2019-01-13] MEDS ORDERED: BUSPIRONE HCL 10 MG TABLET PO SCH (22:00)
[2019-01-13 23:38] VITALS: BP 148/81
[2019-01-14] MEDS ORDERED: DOCUSATE SODIUM 100 MG CAPSULE PO ONE (00:03)
[2019-01-14] MEDS ORDERED: KETOROLAC TROMETHAMINE 10 MG TABLET PO ONE (00:03)
[2019-01-14] MEDS ORDERED: BISACODYL 5 MG TABEC PO ONE (00:05)
--- NOTE | 2019-01-14 00:07 | ER Document Report ---
Doctor's Note Notes: 01/14/19 00:05 SHREYAS brings to my attention that the pt is trying to have a BM but can not. She was given a glycerin suppository earlier today. States she has not been able to have a bowel movement still. I have evaluated the patient at bedside. Her abdomen is soft nontender. States she just feels as though she is "straining really hard." Patient is on chronic narcotic pain medication. Patient voices she has had enemas in the past but is wishing to decline that at this time. States she does use laxatives as well. Colace and bisacodyl ordered. Patient also voices she has a "slight headache." States she typically takes Excedrin migraines for headaches. We do not carry Excedrin at this hospital. Discussed the use of Toradol in hopes of helping patient's headache. Neurological exam within normal limits. 5 out of 5 strength noted all 4 extremities. Patient is conscious alert and oriented x4.
[2019-01-14] MEDS: LEVOTHYROXINE SODIUM 0.05 MG TABLET PO SCH (06:07)
[2019-01-14] MEDS: GABAPENTIN 300 MG CAPSULE PO SCH (06:07)
[2019-01-14] MEDS: BUSPIRONE HCL 10 MG TABLET PO SCH (08:00)
--- NOTE | 2019-01-14 09:40 | PSYCHOLOGICAL NOTE ---
Psych Note - Psych Note Date seen by psych provider: 01/14/19 Time seen by psych provider: 08:20 Psych Note: Reason for consult: Altered Mental Status Patient stated she feels much better and the medications have made me much less anxious. Patients primary focus is obtaining pain medication for back pain. Clinician observed patient asking nurse for pain medication. Patient states she has a history of anxiety and has been treated at [facility] for anxiety at the request of her children. Patient identified a strong support system in my ex- that Im now dating and her children. Patient identified amble financial resources and resources provided through health insurance to manage medical and mental health concerns. Patient reports taking a lot of medications. Patient denies suicidal and homicidal ideations. Patient expressed discomfort with the hospital environment. Patient is alert and oriented to person, place, time and circumstance. Mood is normal with congruent affect as appropriate engagement with clinician. Patient denies suicidal and homicidal ideation. Patient denies auditory and visual hallucinations. Delusions are absent and behavior is congruent with an intact reality based presentation (i.e. organized and linear thought processes). There is no observed behavior that suggests patient is responding to internal stimuli. Eye contact is good. Conversational speech is within normal rate, tone, and prosody. Intellectual ability appears to be within average range. Attention and concentration are good. Insight, judgment, and impulse control are fair. DSM Diagnosis: Withdrawal delirium R/O neurocognitive degenerative processes Medication recommendations per [facility] contracted psychiatrist Dr. Yessi SAXENA is as follows: Please discontinue home medication of Xanax Continue Cymbalta 30 mg daily Continue Depakote 250 mg twice daily Continue BuSpar 5 mg every morning and 10 mg nightly Impression/Plan: Patient no longer meets IVC criteria per CT GS 122C. It is recommended that IVC be rescinded. Patient denies suicidal and homicidal ideation. Patient denies auditory and visual hallucinations, and delusions are absent with no observed behavior that suggests patient is responding to verbal stimuli. Patient initially presented with manic behaviors and was not provided prescriptions when discharged by Dr. Pinzon earlier this month. Patient was restarted on medication recommendations previously provided during that earlier visit which family report seeing an improvement in the patient's presentation. Patient is recommended to follow up with neurology; there is concerns the patient's presentation (ie increase in memory issues over the years) and the patient's previous MRI results indicating some possible chronic microvascular ischemic change. It is recommended that patient follow up with her primary care physician for medication reconciliation, especially medical necessity for narcotics and benzodiazepines. Plan is to have daughter be a collaborator in plan of care. Dr. Velazco was consulted on the care and management of this patient; attending physician is in agreement with recommendations and disposition.
[2019-01-14] MEDS: OXYCODONE HCL SR 10 MG TABLET PO SCH (10:17)
[2019-01-14] MEDS: DULOXETINE HCL 30 MG CAPSULE.DR PO SCH (10:18)
[2019-01-14] MEDS: DIVALPROEX SODIUM 250 MG TAB.SR.24H PO SCH (10:18)
[2019-01-14] MEDS: LISINOPRIL 10 MG TABLET PO SCH (10:18)
== END 2019-01-14 12:11 | disposition home or self-care (01) ==
LOC: ER 13:27
DX: R41.82 Altered mental status, unspecified (principal); E87.1 Hypo-osmolality and hyponatremia; R09.02 Hypoxemia; Z79.899 Other long term (current) drug therapy; F17.200 Nicotine dependence, unspecified, uncomplicated; I10 Essential (primary) hypertension; J44.9 Chronic obstructive pulmonary disease, unspecified; E11.9 Type 2 diabetes mellitus without complications
CPT/HCPCS: 93005; 99285; 36415; 80307 ×4; 82803; 85025; 80053; 81001; 84484; 71046; 70450; 93010; 36600; A9270 ×20; J3490

== ENCOUNTER → 2019-12-18 | Outpatient (CLI) | payer MEDICARE ==
--- NOTE | 2019-12-18 14:06 | RADIOLOGY REPORT (SQ) ---
EXAM DESCRIPTION: CHEST PA/LATERAL IMAGES COMPLETED DATE/TIME: 12/18/2019 1:36 pm REASON FOR STUDY: SOB COMPARISON: 01/12/2019 EXAM PARAMETERS: NUMBER OF VIEWS: two views TECHNIQUE: Digital Frontal and Lateral radiographic views of the chest acquired. RADIATION DOSE: NA LIMITATIONS: none FINDINGS: LUNGS AND PLEURA: No opacities, masses or pneumothorax. No pleural effusion. MEDIASTINUM AND HILAR STRUCTURES: No masses or contour abnormalities. HEART AND VASCULAR STRUCTURES: Heart normal size. No evidence for failure. BONES: No acute findings. HARDWARE: None in the chest. OTHER: No other significant finding. IMPRESSION: NO SIGNIFICANT RADIOGRAPHIC FINDING IN THE CHEST. TECHNICAL DOCUMENTATION: JOB ID: [id number] [employer]- All Rights Reserved Reading location - IP/workstation name: [email or web address]
== END ==
LOC: OD 13:23
PROVIDERS: ATTEND Internal Medicine
DX: R06.02 Shortness of breath (principal)
CPT/HCPCS: 71046